=== PATIENT | male | born 1970 | race Two or more races ===

== ENCOUNTER 2019-08-11 14:52 | Inpatient (IN) | payer MEDICAID ==
[~2019-08-11] VITALS: Ht 162.6 cm; Wt 62.0 kg
[2019-08-11 16:23] LABS: Urine Bacteria NONE SEEN /hpf (None Seen); Urine Blood Negative /uL (Negative); Urine Specific Gravity 1.016 (1.001-1.035); Urine WBC 2 /hpf (0 - 3)
[2019-08-11 16:40] LABS: Potassium 3.6 mmol/L (3.5-5.1)
[2019-08-11 16:42] LABS: Nucleated Red Blood Cells % 0.3 %
[2019-08-11 17:10] LABS: Hemoglobin 18.8 g/dL (13.5-17.5)
[2019-08-11 17:11] LABS: Hematocrit 56.2 % (41.0-53.0); Mean Corpuscular Hemoglobin 29.5 pg (28.0-32.0); Mean Corpuscular Hgb Conc. 33.5 g/dL (32.0-36.0); Mean Corpuscular Volume 88.1 fL (80.0-100.0)
[2019-08-11 17:13] LABS: Neutrophils % (auto) 82.3 % (37.0-80.0); White Blood Cell 20.2 10^3/uL (4.4-10.8)
[2019-08-11 17:14] LABS: Basophils % (auto) 0.5 % (0.0-2.0); Eosinophils % (auto) 0.2 % (0.0-7.0); Lymphocytes # (auto) 2.8 uL; Lymphocytes % (auto) 13.7 % (10.0-50.0); Monocytes # (auto) 0.7 uL; Monocytes % (auto) 3.3 % (0.0-12.0); Neutrophils # (auto) 16.6 uL
[2019-08-11 17:15] LABS: Basophils # (auto) 0.1 uL; Eosinophils # (auto) 0 uL
[2019-08-11 17:17] LABS: Platelet Count (auto) 255 10^3/uL (140-450); Red Blood Cells 5.93 10^6/uL (4.5-5.90)
[2019-08-11 17:19] LABS: Red Cell Distribution Width 14.9 % (11.8-14.3)
[2019-08-11] MEDS ORDERED: SODIUM CHLORIDE 0.9% 1,000 ML IVB ONE (17:58)
[2019-08-11 18:05] LABS: BUN/Creatinine Ratio 9.2
[2019-08-11 18:06] LABS: Albumin 4.3 g/dL (3.4-5.0); Bilirubin, Total 0.7 mg/dL (0.2-1.0); Calcium 8.3 mg/dL (8.5-10.1); Total Protein 6.4 g/dL (6.4-8.2)
[2019-08-11 18:08] LABS: Aspartate Aminotransferase 87.6 U/L (15-37)
[2019-08-11] MEDS ORDERED: SODIUM CHLORIDE 0.9% 1,000 ML IV ONE ×2 (18:15→21:30)
[2019-08-11] MEDS ORDERED: ONDANSETRON HCL 4 MG/2 ML VIAL IV ONE (18:15)
[2019-08-11] MEDS ORDERED: MORPHINE SULF INJ 2 MG/ML SYRINGE 1ML IV ONE (18:15)
[2019-08-11 19:22] LABS: Alcohol, Urine < 3.0 mg/dL (0-5); Amphetamine Screen, Urine NEGATIVE (NEGATIVE); Barbiturate Scree,Urine NEGATIVE (NEGATIVE); Benzodiazephine Screen, Urine NEGATIVE (NEGATIVE); Cannabinoid Screen, Urine NEGATIVE (NEGATIVE); Cocaine Screen, Urine NEGATIVE (NEGATIVE); Opiate Scree,Urine NEGATIVE (NEGATIVE); Phencyclidine Screen, Urine NEGATIVE (NEGATIVE)
[2019-08-11 21:04] LABS: Magnesium 1.5 mg/dL (1.6-2.6)
[2019-08-11 21:13] LABS: Lipase 25910 U/L (73-393)
[2019-08-11 21:20] LABS: Amylase > 1302 U/L (25-115)
[2019-08-11] MEDS ORDERED: InsuLIN REG 1unit/0.01ml Soln (100units/ml) IV ONE (21:30)
[2019-08-11] MEDS ORDERED: InsuLIN REG 1unit/0.01ml Soln (100units/ml) ONE (21:31)
[2019-08-11] MEDS ORDERED: SODIUM CHLORIDE 0.9% 1,000 ML IV SCH (21:46)
[2019-08-11] MEDS ORDERED: DOCUSATE SOD 100 MG CAP PO PRN (22:00)
[2019-08-11] MEDS ORDERED: HYDROcodone-ACET 5/325MG TAB PO PRN (22:00)
[2019-08-11] MEDS ORDERED: DEXTROSE (50%) 50ML SYRG IV PRN (22:00)
[2019-08-11] MEDS: MORPHINE SULFATE 4 MG/ML SYR/VIAL IV PRN (22:05)
[2019-08-11] MEDS: ONDANSETRON HCL 4 MG/2 ML VIAL IV PRN (22:07)
[2019-08-11] MEDS ORDERED: PROMETHAZINE HCL 25 MG/ML 1ML IV PRN (23:45)
[2019-08-11] MEDS ORDERED: PROMETHAZINE HCL 25 MG/ML 1ML ONE (23:47)
[2019-08-12] VITALS (50 sets, daily range): BP systolic 63–125; BP diastolic 34–82
--- NOTE | 2019-08-12 00:15 | NUR ---
pt presented with labored respirations. respiratory rate was 34, and remained in the 30s on 15 liters mask. o2 sats were in low 90s on fifteen liters. pt presented with nausea and attempts of vomiting. RT was notified, and they came to evaluate. after evaluation, they recommended the pt to be upgraded to [facility] for high flow oxygen. Dr Paul was notified of pt findings. new orders received from Dr Paul. Patient was transferred to the [facility].
--- NOTE | 2019-08-12 00:17 | NUR ---
Admit to [facility] MILLER admitted to [facility] via bed on child monitor, and portable 02. Patient transferred to bed, connected to unit monitoring and oxygen, and weighed by bedscale. Patient oriented to Karen Louie, primary RN, unit, room, bed, and unit policies regarding patient care and visiting hours. All questions and concerns addressed, patient verbalized understanding. Pt put on hi-flow, showing rapid respirations and only periods of alertness.
[2019-08-12] MEDS ORDERED: MORPHINE SULF INJ 2 MG/ML SYRINGE 1ML IV ONE (00:30)
[2019-08-12] MEDS: MAGNESIUM SULFATE 1GM/100ML 100 ML IV SCH ×2 (00:58→02:23)
[2019-08-12] MEDS: ACCU-CHEK COMFORT CURVE STRIP VI SCH ×11 (01:27→22:30)
[2019-08-12] MEDS: InsuLIN REG 1unit/0.01ml Soln (100units/ml) SC SCH ×3 (01:29→08:23)
[2019-08-12] MEDS: ACETAMINOPHEN 325 MG TAB PO PRN (01:41)
[2019-08-12] MEDS ORDERED: VANCOMYCIN PER PHARMACY 0 MG IV SCH (02:30)
--- NOTE | 2019-08-12 02:48 | NUR ---
Noted WBC count, emar did not show antibiotics and no blood cultures. Pagerossy VIDALES, new orders given for Zosyn, Vanco per pharmacy and blood cultures. Pt has expressed pain and nausea with vomiting but has already received 2 doses of pain medication and medication for nausea. Cold cloth provided, will continue to monitor.
[2019-08-12] MEDS ORDERED: VANCOMYCIN 1GM/250ML 250 ML IV ONE (03:00)
[2019-08-12 03:17] LABS: Basophils # (auto) 0.1 uL; Eosinophils # (auto) 0 uL; Monocytes # (auto) 0.6 uL; Nucleated Red Blood Cells % 0.1 %
[2019-08-12 03:19] LABS: Basophils % (auto) 0.5 % (0.0-2.0); Eosinophils % (auto) 0.1 % (0.0-7.0); Lymphocytes # (auto) 1.2 uL; Lymphocytes % (auto) 9.8 % (10.0-50.0); Monocytes % (auto) 5.2 % (0.0-12.0); Neutrophils % (auto) 84.4 % (37.0-80.0); Platelet Count (auto) 234 10^3/uL (140-450); Red Cell Distribution Width 15.1 % (11.8-14.3); White Blood Cell 11.8 10^3/uL (4.4-10.8)
[2019-08-12 03:50] LABS: Hematocrit 48.3 % (41.0-53.0); Hemoglobin 16.2 g/dL (13.5-17.5); Mean Corpuscular Hemoglobin 29.8 pg (28.0-32.0); Mean Corpuscular Hgb Conc. 33.6 g/dL (32.0-36.0); Mean Corpuscular Volume 88.7 fL (80.0-100.0); Red Blood Cells 5.44 10^6/uL (4.5-5.90)
--- NOTE | 2019-08-12 03:59 | NUR ---
Glucose 479 on one hand and recheck on other hand glucose 445. paged, informed him at 0130 glucose was 388 and 20 units given per protocol. Now at 0400 glucose 455. Orders were to follow protocol ssc and have RT run ABG. Will continue to monitor.
--- NOTE | 2019-08-12 04:02 | NUR ---
Unable to start antibiotics at this time, lab stated the sample hemolyzed. MD notified. Waiting for redraw. Will continue to monitor.
--- NOTE | 2019-08-12 05:09 | NUR ---
Clarification that BMP had hemolyzed, not blood cultures. Jodyo started. Pt slightly more restful, will continue to monitor.
[2019-08-12] MEDS: ONDANSETRON HCL 4 MG/2 ML VIAL IV PRN (05:25)
[2019-08-12] MEDS: MORPHINE SULFATE 4 MG/ML SYR/VIAL IV PRN (05:25)
[2019-08-12] MEDS: PIPERACILLIN-TAZOB 3.375GM 100 ML IV SCH ×5 (06:16→22:01)
--- NOTE | 2019-08-12 07:00 | NUR ---
Pt now on bipap as of 06 this morning due to being unable to maintain adequate saturation with hi-flow. Vanco and Zosyn have infused and pt has tolerated both meds well with no reactions. Pt tolerating bipap well at this time. I was unable to get medication reconciled or family history. Will endorse to am shift. Report given, care endorsed.
[2019-08-12 07:17] LABS: BUN/Creatinine Ratio 10.6
[2019-08-12 07:18] LABS: Anion Gap 16.8 (5-15); Carbon Dioxide 19.2 mmol/L (21-32); Potassium 5.2 mmol/L (3.5-5.1)
--- NOTE | 2019-08-12 07:30 | NUR ---
RECEIVED PATIENT SITTING UP IN THE BED, O2 BY THE BIPAP AT 18/8 60% AND PATIENT IS BREATHING IN THE 40'S, ANTIBIOTICS INFUSING BY THE IV PUMP INTO THE LAC. DENIES PAIN, STATES HE IS ABLE TO USE THE URINAL BUT DOESN'T LIKE IT, ABD IS LARGE
[2019-08-12 07:45] LABS: Glucose 447.6 mg/dL (74-106)
--- NOTE | 2019-08-12 08:00 | NUR ---
NOTIFIED DR FALK IN THE ER REGARDING THE BS OF 483 AND STATED TO JUST GIVE THE 20 UNITS OF REGULAR INSULIN SQ
--- NOTE | 2019-08-12 08:10 | NUR ---
ABG RESULTS WERE DONE AND NOT THAT BAD, SEE IN THE CHART
--- NOTE | 2019-08-12 08:30 | NUR ---
EXPRESS TO THE PATIENT THAT HE IS STILL UNABLE TO EAT, STATES, BREATHING IS IN THE 40'S AND ON THE BIPAP, SPOKE WITH RT AND STATED THEY BELIEVE THAT HE NEEDS TO BE INTUBATED, EXPRESS TO THEM THAT I WILL TALK TO DR GARCIA SOON HE GETS HERE
--- NOTE | 2019-08-12 09:15 | NUR ---
SON AND BROTHER IN TO SEE THE PATIENT AND SPOKE TO THEM ABOUT THE PATIENT, MAY NEED INTUBATION WAITING FOR THE DOCTOR TO COME AND SEE HIM
--- NOTE | 2019-08-12 09:20 | NUR ---
SPOKE TO DR GARCIA ABOUT THE PATENT MAY NEED INTUBATED AND STATED HE WOULD BE IN TO TO ASSESS HIM
[2019-08-12] MEDS ORDERED: InsuLIN R (HUMAN) 100 UNITS in SODIUM CHL 0.9% 99 ML IV SCH (10:05)
[2019-08-12] MEDS: PROPOFOL 100 ML IV SCH ×2 (10:05→14:45)
[2019-08-12] MEDS: fentaNYL Drip 2500mCg/250mlNS 250 ML IV SCH (10:05)
[2019-08-12] MEDS ORDERED: ETOMIDATE (2MG/ML) 20ML VIAL IV ONE (10:13)
[2019-08-12] MEDS ORDERED: PROPOFOL 100 ML IV ONE (10:13)
[2019-08-12] MEDS ORDERED: MIDAZOLAM DRIP 50 mg/50mL 50 ML IV ONE (10:15)
[2019-08-12] MEDS ORDERED: DEXTROSE (50%) 50ML SYRG IV PRN (10:15)
[2019-08-12] MEDS ORDERED: PANTOPRAZOLE 40 MG/10 ML VIAL INJ IV ONE (10:15)
[2019-08-12] MEDS ORDERED: SUCCINYLCHOLINE CHLORIDE 20 MG/ML 10ML VIAL IV ONE (10:30)
--- NOTE | 2019-08-12 10:35 | NUR ---
PATIENT INTUBATED BY DR GARCIA ET SIZE 8 AND 24 AT THE LIP
--- NOTE | 2019-08-12 10:40 | NUR ---
VENT SETTINGS PEEP8, TV550,RATE 12 FIO2 100%
--- NOTE | 2019-08-12 10:40 | NUR ---
VERSED DRIP AND DIPRIVAN DRIP BOTH STARTED TO SEDATE THE PATIENT MORE
--- NOTE | 2019-08-12 10:40 | NUR ---
CHEST X-RAY DONE AND ET PULLED BACK TO 22 AT THE LIP
--- NOTE | 2019-08-12 11:30 | NUR ---
DR ANDRES IN TO SEE THE PATIENT, AND ORDERED NEW IV FLUIDS
--- NOTE | 2019-08-12 11:35 | NUR ---
NOTICED BY RENAISSANCE IMAGING THE THE ET WAS MISPLACED AND EXPRESS TO THEM THAT WE HAD ALREADY FIXED IT
--- NOTE | 2019-08-12 11:40 | NUR ---
INSERTED SIZE 16F RUIZ CATHETER USING STERILE TECHNIQUE, VERY LITTLE URINE RETURN,
[2019-08-12] MEDS ORDERED: SODIUM BICARBONATE 50ML VIAL 50 ML in SOD CHL 0.45% 1,000 ML IV ONE (11:45)
--- NOTE | 2019-08-12 12:15 | NUR ---
TALK TO THE SISTER MACI AND GAVE CONSENT FOR THE PICC LINE TO BE PLACE
--- NOTE | 2019-08-12 12:20 | NUR ---
ULTRASOUND OF THE ABD BEING DONE
[2019-08-12] MEDS ORDERED: InsuLIN REG 1unit/0.01ml Soln (100units/ml) SC ONE (12:30)
[2019-08-12] MEDS ORDERED: NOREPINEPHRINE 8 MG/250ML KIT 250 ML IV ONE (12:32)
--- NOTE | 2019-08-12 12:35 | NUR ---
DR ESPINOZA IN TO SEE THE PATIENT AND ORDERED A LIPID PANEL
--- NOTE | 2019-08-12 12:40 | NUR ---
LEVO DRIPP STARTED AFTER 1000ML BOLUS GIVEN B/P 67/28 HR 121
[2019-08-12] MEDS ORDERED: NOREPINEPHRINE 8 MG/250ML KIT 250 ML IV SCH (12:45)
--- NOTE | 2019-08-12 12:45 | NUR ---
REPORT Received report from [facility] nurse ANKUR, awaiting for patient to arrive into room 109 to continue plan of care.
--- NOTE | 2019-08-12 13:01 | NUR ---
REPORT CALLED TO PRASHANT ALEXANDRA BEING TRANSFERRED TO ROOM 109 BY THE BED
--- NOTE | 2019-08-12 13:10 | NUR ---
PATIENT TAKEN TO ICU BY THE BED WITH ALL BELONGING
--- NOTE | 2019-08-12 13:10 | NUR ---
RT Transport Note: Patient transported to ICU 109 with RN [place]. Patient transported to and from procedure on ventilator with previous ordered settings. Patient on quality assurance monitor final with alarms set and audible, ambu-bag/mask connected to 02 tank. Patient returned to room with no adverse reaction noted. Transport completed without incident.
--- NOTE | 2019-08-12 13:25 | NUR ---
RECEIVED PATIENT Received patient on mechanical ventilator into room 109, sedated on Versed at 15mg, Fentanyl at 75mcg and Diprivan at 10mcg. Patient does not open eyes to tactile/verbal stimuli, pupils reactive to light, positive gag reflex and does move upper extremities. Sinus tachycardia in the mid 130's, pulses palpable on upper/lower extremities with generalized edema throughout. OG tube checked and verified via air bolus: clamped. Abdomen firm, non tender and distended with bowel sounds present in all quadrants and unknown bowel movement. Casiano catheter draining to gravity clear yellow urine. IV to the right AC 20g and Left hand 22g. Temperature upon arrival 100.0: cooling measures applied (ice packs and cool wash cloth to forehead). Skin intact. Call light within reach and bed at lowest position. Will continue to monitor patient closely.
--- NOTE | 2019-08-12 13:50 | NUR ---
PICC LINE CONSULT Currently awaiting coagulation results for PICC line insertion. Called laboratory for update on results, they stated that pt has severe lipemia, therefore they cannot process results for PT, INR, PTT. The grinding and polishing laborer stated they are sending the blood sample out to [facility] in order to process the blood. For now, will insert a midline for additional IV access. Edilma Jackson RN, aware of plan.
[2019-08-12 13:52] LABS: HDL Cholesterol 22 mg/dL (40-59)
--- NOTE | 2019-08-12 14:00 | NUR ---
INSULIN GTT Insulin GTT started at 4units=4ml/hr for a blood glucose of 396. Will continue to monitor blood glucose Q 90 minutes.
[2019-08-12 14:01] LABS: Triglycerides 3443 mg/dL (< 150)
--- NOTE | 2019-08-12 14:35 | NUR ---
Midline Placement: 18g/10cm midline inserted via right basilic vein using Ultrasound. Sterile technique utilized. Blood return obtained from lumen and flushed easily with NS using proper technique. Midline secured with saline lock; biodisc and occlusive dressing applied. Primary RN notified. Midline lot #[id number]
--- NOTE | 2019-08-12 14:40 | NUR ---
RECHECKED TEMPERATURE Rechecked temperature: 102.9: Cooling measures continued and fan added and provided patient with Tylenol.
--- NOTE | 2019-08-12 15:30 | NUR ---
WOUND CARE NOTE: PATIENT INTUBATED IN ICU. ADDED PATIENT TO SKIN INTEGRITY MONITORING. PATIENT ADMITTED TO [facility] WITH DIAGNOSIS OF ACUTE PANCREATITIS, DM, HEPATIC STEATOSIS. PATIENT WOULD BENEFIT FROM SKIN/WOUND CARE PLAN (IMPLEMENTED), BID/PRN APPLICATION WITH MOISTURE BARRIER CREAM, OPTIFOAM GENTLE SACRAL DRESSING, DIETARY CONSULT FOR LOW MK, CONTINUED MONITORING BY WOUND CARE TEAM.
--- NOTE | 2019-08-12 15:30 | NUR ---
INSULIN GTT Insulin GTT at current rate of 4units=4ml/hr for a blood glucose 303
--- NOTE | 2019-08-12 15:45 | NUR ---
LEVOPHED GTT Levophed GTT increased to 18mcg for a blood pressure of 79/46, will continue to titrate as tolerated by patient.
--- NOTE | 2019-08-12 15:50 | NUR ---
RECHECKED TEMPERATURE Rechecked temperature and reads 102.9 orally. Rectal probe will be inserted once this RN finds connection.
--- NOTE | 2019-08-12 16:20 | NUR ---
TEMPERATURE Rectal probe in place and temperature reading 105.6: continue measures continue with cooling blankets X2. Will continue to monitor patients temperature.
--- NOTE | 2019-08-12 16:30 | NUR ---
INSULIN GTT Insulin GTT decreased to 3 units= 3ml/hr for a blood glucose of 269.
--- NOTE | 2019-08-12 16:30 | NUR ---
LEVOPHED GTT Levophed GTT increased to 20mcg for a blood pressure of 86/46, will continue to titrate as tolerated by patient.
[2019-08-12 16:34] LABS: INR 1.07 (0.9-1.15)
--- NOTE | 2019-08-12 17:00 | NUR ---
LEVOPHED GTT Levophed GTT increased to 22mcg for a blood pressure of 79/51, will continue to titrate as tolerated by patient.
--- NOTE | 2019-08-12 18:15 | NUR ---
INSULIN GTT Insulin GTT decreased to 2 units= 2 ml/hr for a blood glucose of 209
--- NOTE | 2019-08-12 19:20 | NUR ---
CRITICAL LAB Received phone call from [employer] stating "blood as been hemolized again but she treated the blood with liteoclear to see if she can get a result on her machine and the potassium came back as 9." Informed precision agriculture technician this RN would call the hospitalist and inform him of what is going on.
--- NOTE | 2019-08-12 19:22 | NUR ---
HOSPITALIST Called and spoke to Rickey NOLEN and states " will come and see patient."
--- NOTE | 2019-08-12 19:30 | NUR ---
KVNG SKIVER WELT END AT BEDSIDE ATTEMPTING PLACEMENT OF CENTRAL LINE. LINES APPEARS TO CLOT OFF EASILY SOON AT ITS PUT IN. SBP 90'S AT THIS TIME. LEVOPHED MAXED OUT AT 30 MCG/MIN. PT. INTUBATED AND AC, SATS 94%, LUNGS DIMINISHED THROUGHOUT. ABDOMEN LARGE, HYPOACTIVE BOWEL SOUNDS. NO BOWEL MOVEMENT AT THIS TIME. RUIZ CATH - NO URINE. SKIN INTACT. IV SITE TO RAC, RIGHT UPPER MIDLINE, RIGHT HAND #20. INSULIN DRIP IN PROGRESS.
--- NOTE | 2019-08-12 19:30 | NUR ---
HOSPITALIST Rickey VEHICLE MONITOR TECHNICIAN at bedside and state " will place a central line in patient and that the potassium level is incorrect form what he can see from the ECG." spoke to patients brother Jose and consent obtained for central line.
[2019-08-12] MEDS ORDERED: VASOPRESSIN 20 UNIT/ML ONE (19:48)
[2019-08-12] MEDS: VASOPRESSIN 50 UNITS in D5W 5% 247.5 ML IV SCH (20:00)
--- NOTE | 2019-08-12 20:30 | NUR ---
PT'S GIRLFRIEND OF 20 YEARS AND YOUNGER SON VISITING AT BEDSIDE. QUESTIONS AND CONCERNS ADDRESSED.
--- NOTE | 2019-08-12 20:30 | NUR ---
TRIPPLE LUMEN CENTRAL LINE PLACED TO LEFT FEMORAL AREA, WILL TRANSFER ALL DRIPS POSIBLE TO THIS SITE. PT. CLEANED, ORAL CARE DONE.
[2019-08-12] MEDS ORDERED: SODIUM CHLORIDE 0.9% 1,000 ML IV ONE (20:45)
[2019-08-12 21:23] LABS: Basophils # (auto) 0.1 uL; Basophils % (auto) 0.7 % (0.0-2.0); Eosinophils # (auto) 0.1 uL; Eosinophils % (auto) 0.5 % (0.0-7.0); Hematocrit 46.9 % (41.0-53.0); Hemoglobin 16.3 g/dL (13.5-17.5); Lymphocytes # (auto) 3.1 uL; Lymphocytes % (auto) 24.7 % (10.0-50.0); Mean Corpuscular Hgb Conc. 34.7 g/dL (32.0-36.0); Mean Corpuscular Volume 89.5 fL (80.0-100.0); Monocytes # (auto) 0.7 uL; Monocytes % (auto) 5.9 % (0.0-12.0); Neutrophils # (auto) 8.7 uL; Neutrophils % (auto) 68.2 % (37.0-80.0); Nucleated Red Blood Cells % 0.3 %; Platelet Count (auto) 203 10^3/uL (140-450); Red Blood Cells 5.24 10^6/uL (4.5-5.90); Red Cell Distribution Width 15.6 % (11.8-14.3); White Blood Cell 12.7 10^3/uL (4.4-10.8)
--- NOTE | 2019-08-12 21:30 | NUR ---
PT'S BROTHER AT BEDSIDE. ALL FAMILY MEMBERS DENY ANY ETOH INTAKE FROM PT. ALL QUESTIONS AND CONCERNS ADDRESSED.
[2019-08-12] MEDS: SODIUM CHLORIDE 0.9% 1,000 ML IV SCH (21:50)
[2019-08-12] MEDS: PHENYLEPHRINE INJ 20 MG in D5W 5% 250 ML IV SCH (22:00)
[2019-08-12] MEDS: MIDAZOLAM DRIP 50 mg/50mL 50 ML IV SCH (22:00)
[2019-08-12] MEDS ORDERED: PHENYLEPHRINE IV 250 ML IV ONE (22:39)
[2019-08-13] VITALS (89 sets, daily range): BP systolic 66–163; BP diastolic 11–108
--- NOTE | 2019-08-13 | NUR ---
CALL RECEIVED FROM DR. BECERRA REGARDING PT. LABS RESULTS, INFORMED THAT EVERY CHEMISTRY TOP SENT TO LAB HAS BEEN GROSSLY HEMOLYZED AND THAT RESULTS HAVE BEEN OUT OF RANGE. NEW SAMPLE WILL BE SEND. PT. AT THIS TIME CONTINUES ON VERSED AND FENTANYL, PROPOFOL OFF. SBP LABILE 70-140'S. TEMPERATURES DOWN, SKIN COOL WITH DISCOLORED TIPS OF FINGERS AND TOES. BOTH DR. BECERRIL AND MINH ROBERTS DR. AWARE.
[2019-08-13] MEDS ORDERED: FUROSEMIDE INJECTION 10 ML ONE (00:07)
[2019-08-13] MEDS ORDERED: NOREPINEPHRINE BITARTRATE 1 ML IV ONE (00:14)
[2019-08-13] MEDS ORDERED: FUROSEMIDE 100 MG/10ML VIAL IV ONE (00:15)
[2019-08-13] MEDS ORDERED: DOPamine 1600MCG/ML D5W 0 ML IV ONE (00:58)
--- NOTE | 2019-08-13 01:00 | NUR ---
CALL RECEIVED FROM DR. BECERRA REGARDING BLOOD WORK RESULTS, INFORMED ABOUT HEMOLYZED SAMPLE. ORDERS RECEIVED.
[2019-08-13] MEDS ORDERED: NOREPINEPHRINE BITARTRATE 16 MG in D5W 5% 250 ML IV SCH (01:11)
[2019-08-13] MEDS ORDERED: VANCOMYCIN 1GM/250ML 250 ML IV ONE ×2 (01:15→02:00)
[2019-08-13] MEDS ORDERED: SODIUM ZIRCONIUM CYCL 10 GM PAK PO ONE ×3 (01:15→06:45)
[2019-08-13] MEDS: DOPamine 1600MCG/ML D5W 250 ML IV SCH ×3 (01:15→21:35)
[2019-08-13] MEDS ORDERED: LACTULOSE 20Gm/30ML SOLN PO ONE ×2 (01:15)
[2019-08-13 01:22] LABS: Anion Gap 12 (5-15); Carbon Dioxide 16 mmol/L (21-32); Chloride 100 mmol/L (98-107); GFR African American 15 mL/min; GFR Non-African American 12 mL/min; Glucose 316 mg/dL (74-106); Sodium 128 mmol/L (136-145)
[2019-08-13] MEDS: ACCU-CHEK COMFORT CURVE STRIP VI SCH ×17 (01:30→22:31)
--- NOTE | 2019-08-13 02:00 | NUR ---
DR. FALK HERE TO SEE ABOUT PUTTING ARTERIAL LINE DUE TO LABILE PRESSURES. ATTEMPTED TO OBTAIN MANUAL PRESSURES BUT UNABLE. DR. FALK ATTEMPTED PLACEMENT X2 WITH LINES IMMEDIATELY CLOTTING OFF. LEVOPHED, BRENTON AND VASOPRESSIN CONTINUE AT ITS MAX. SBP 90-120'S AT THIS TIME.
[2019-08-13] MEDS ORDERED: PHENYLEPHRINE IV 500 ML IV ONE (02:05)
[2019-08-13] MEDS: PHENYLEPHRINE INJ 20 MG in D5W 5% 250 ML IV SCH ×2 (02:17→09:30)
[2019-08-13 02:28] LABS: BUN/Creatinine Ratio 7.9; Blood Urea Nitrogen 43 mg/dL (7-18)
[2019-08-13 02:30] LABS: Calcium < 5.0 mg/dL (8.5-10.1); Potassium 9.6 mmol/L (3.5-5.1)
--- NOTE | 2019-08-13 02:30 | NUR ---
ABG'S- BICAR 9.4, SODIUM BICARB PROVIDED X2 PER DR[address] FALK. PT. ON BRENTON AND VASOPRESSIN AT THIS TIME. 1/2 NS WITH 1 AMP OF BICARB CONTINUES.
[2019-08-13] MEDS ORDERED: SODIUM BICARBONATE 8.4% INJ 50ML SYRINGE ONE ×2 (02:35→04:32)
[2019-08-13] MEDS ORDERED: SODIUM BICARBONATE 8.4 % INJ 50ML VIAL IV ONE ×5 (02:45→11:30)
[2019-08-13 03:29] LABS: Basophils # (auto) 0.1 uL; Basophils % (auto) 0.8 % (0.0-2.0); Eosinophils # (auto) 0 uL; Eosinophils % (auto) 0.1 % (0.0-7.0); Hematocrit 43.5 % (41.0-53.0); Hemoglobin 14.1 g/dL (13.5-17.5); Lymphocytes # (auto) 5.5 uL; Lymphocytes % (auto) 32.8 % (10.0-50.0); Mean Corpuscular Hemoglobin 30.3 pg (28.0-32.0); Mean Corpuscular Hgb Conc. 32.3 g/dL (32.0-36.0); Mean Corpuscular Volume 93.7 fL (80.0-100.0); Monocytes # (auto) 0.8 uL; Monocytes % (auto) 4.5 % (0.0-12.0); Neutrophils # (auto) 10.3 uL; Neutrophils % (auto) 61.8 % (37.0-80.0); Platelet Count (auto) 199 10^3/uL (140-450); Red Blood Cells 4.64 10^6/uL (4.5-5.90); Red Cell Distribution Width 17.3 % (11.8-14.3); White Blood Cell 16.8 10^3/uL (4.4-10.8)
[2019-08-13] MEDS: SODIUM CHLORIDE 0.9% 1,000 ML IV SCH ×3 (03:39→12:05)
[2019-08-13 03:45] LABS: Anion Gap 18 (5-15); Carbon Dioxide 14 mmol/L (21-32); Chloride 96 mmol/L (98-107); GFR African American 14 mL/min; GFR Non-African American 11 mL/min; Sodium 128 mmol/L (136-145)
[2019-08-13 03:52] LABS: Alkaline Phosphatase 72 U/L (45-117); Bilirubin, Total 0.9 mg/dL (0.2-1.0); Lipase 5437 U/L (73-393)
[2019-08-13 04:00] LABS: Glucose 465 mg/dL (74-106); Potassium 8.5 mmol/L (3.5-5.1)
[2019-08-13] MEDS ORDERED: CALCIUM GLUC 4.65meq/50ml D5AE 50 ML IV ONE ×5 (04:00→16:45)
[2019-08-13] MEDS ORDERED: SODIUM BICARBONATE 50ML VIAL 50 ML in SOD CHL 0.45% 1,000 ML IV SCH ×2 (04:30→04:45)
[2019-08-13 04:33] LABS: Alanine Aminotransferase 77 U/L (16-61); Aspartate Aminotransferase 174 U/L (15-37); BUN/Creatinine Ratio 7.3; Blood Urea Nitrogen 42 mg/dL (7-18)
[2019-08-13 04:34] LABS: Albumin 1.7 g/dL (3.4-5.0); Total Protein 5.8 g/dL (6.4-8.2)
[2019-08-13 04:36] LABS: Calcium < 5.0 mg/dL (8.5-10.1)
[2019-08-13] MEDS ORDERED: NOREPINEPHRINE 8 MG/250ML KIT 250 ML IV ONE (05:03)
[2019-08-13] MEDS ORDERED: NOREPINEPHRINE BITARTRATE 2 ML IV ONE (05:03)
[2019-08-13] MEDS: PIPERACILLIN-TAZOB 3.375GM 100 ML IV SCH (06:00)
--- NOTE | 2019-08-13 06:34 | NUR ---
CALL RECEIVED FROM DR. BECERRA REGARDING HD CATH PLACEMENT PER Erich OSORIO PHYSICIAN. STATES SHE WILL CALL FAMILY TO INFORM ABOUT DIALYSIS. FAMILY TO CALL THIS RN TO GIVE CONSENT.
[2019-08-13] MEDS ORDERED: ALBUTEROL SULF 2.5 MG/0.5ML(0.5%) NEB SOLN NEB ONE (06:45)
[2019-08-13] MEDS ORDERED: SODIUM CHL 0.9% 1000 ML BAG XX ONE (06:45)
[2019-08-13] MEDS ORDERED: SODIUM BICARBONATE 8.4% INJ 50ML SYRINGE IV ONE (06:45)
--- NOTE | 2019-08-13 06:59 | NUR ---
CALL RECEIVED FROM DR. FALK, UPDATED ON ABG'S FOR THIS A.M. ORDERS RECEIVED. ATTEMPTED TO CALL FAMILY FOR HD CATH CONSENT, NO ANSWER, MESSAGE LEFT
--- NOTE | 2019-08-13 07:30 | NUR ---
REPORT TO PRASHANT BLUNT. ENDORSED SODIUM BICARB ORDER, FOLLOW ON HD CATH.
--- NOTE | 2019-08-13 08:25 | NUR ---
Called ER and spoke to ER senior environmental technician to inform Dr. Bush that this RN is ready for him to come down to place Harrison catheter. Awaiting for MD to arrive into room 109.
--- NOTE | 2019-08-13 08:34 | NUR ---
OPENING NOTE Received patient on mechanical ventilator, sedated on Versed at 15mg, Fentanyl at 100mcg. Patient does not open eyes to tactile/verbal stimuli, pupils reactive to light BUT sluggish, positive gag reflex and does not move upper/lower extremities. Sinus tachycardia in the mid 120's, pulses palpable on upper/lower extremities with generalized edema throughout. OG tube checked and verified via air bolus: clamped. Abdomen firm, non tender and distended with bowel sounds non-present in all quadrants and unknown bowel movement. Casiano catheter in place with no urine output (MD aware). IV left hand 22g, right upper arm midline and central line to the left groin infusing Neosynephrine at 180mcg, Levophed at 30mcg and Vasopressin at 0.07units. Temperature 100.4 after inserting probe into bedside monitor (NOC nurse states lost temperature around 0400): cooling measures applied (ice packs and cool wash cloth to forehead,fan). Skin intact. Call light within reach and bed at lowest position. Will continue to monitor patient closely. Addendum: 08/13/19 at 0839 by PRASHANT KEITH RN OPENING NOTE at 0800
[2019-08-13 08:48] LABS: GFR African American 12 mL/min; GFR Non-African American 10 mL/min
--- NOTE | 2019-08-13 08:48 | NUR ---
MD Dr. Diaz called and aware of consult and AM ABG and received new orders, this RN to input into system. Will carry out orders per MD orders.
--- NOTE | 2019-08-13 09:00 | NUR ---
INSULIN GTT Blood glucose 369 INSULIN GTT 10units = 10ml: Algorithm #2
[2019-08-13] MEDS ORDERED: InsuLIN R (HUMAN) 100 UNITS in SODIUM CHL 0.9% 99 ML IV SCH ×3 (09:09→15:13)
[2019-08-13] MEDS ORDERED: EPINEPHrine HCL 250 ML IV SCH (09:13)
[2019-08-13] MEDS ORDERED: DEXTROSE (50%) 50ML SYRG IV PRN (09:15)
[2019-08-13] MEDS: ACETAMINOPHEN 325 MG TAB PO PRN (09:17)
[2019-08-13] MEDS: BUMETANIDE 2.5mg/10ml (0.25 mg/ml) INJ IV SCH ×2 (09:19→09:56)
[2019-08-13] MEDS: MIDAZOLAM DRIP 50 mg/50mL 50 ML IV SCH ×2 (09:26→18:03)
[2019-08-13] MEDS: VASOPRESSIN 50 UNITS in D5W 5% 247.5 ML IV SCH ×2 (09:30→21:33)
[2019-08-13 09:37] LABS: Anion Gap 23 (5-15); Blood Urea Nitrogen 47 mg/dL (7-18); Carbon Dioxide 16 mmol/L (21-32); Chloride 98 mmol/L (98-107); Glucose 379 mg/dL (74-106); Sodium 137 mmol/L (136-145)
[2019-08-13 09:38] LABS: BUN/Creatinine Ratio 7.1
[2019-08-13 09:40] LABS: Calcium < 5.0 mg/dL (8.5-10.1); Potassium 7.4 mmol/L (3.5-5.1)
[2019-08-13] MEDS ORDERED: CALCIUM CHL 100MG/ML 1,000 MG in D5W 5% 100 ML IV ONE (09:45)
--- NOTE | 2019-08-13 09:50 | NUR ---
ER MD Called and spoke to ER oil processing technician to inform Dr. Bush that this RN is ready for Harrison placement, awaiting for MD to arrive.
[2019-08-13] MEDS: PANTOPRAZOLE 40 MG/10 ML VIAL INJ IV SCH (09:56)
--- NOTE | 2019-08-13 10:00 | NUR ---
MD Dr. Moura at bedside updated on patient condition and MD spoke to patients sister/brother, whom are at bedside, regarding plan of care. Questions and concerns answered by .
[2019-08-13] MEDS: SODIUM BICARBONATE 50ML VIAL 150 ML in SOD CHL 0.45% 1,000 ML IV SCH ×2 (10:30→22:31)
--- NOTE | 2019-08-13 10:52 | NUR ---
INSULIN GTT Blood glucose 351 insulin GTT at 8ml/hr= 8 units per protocol.
--- NOTE | 2019-08-13 11:25 | NUR ---
MD Dr. Diaz called and aware of AM ABG with new orders, this RN to input into system.
[2019-08-13] MEDS: BUMETANIDE INJECTION 25 MG in GIVE UN-DILUTED 0 ML IV SCH (11:33)
--- NOTE | 2019-08-13 11:40 | NUR ---
MD Called and spoke to Dr. Moura regarding Potassium level of 5.4 with no new orders. aware that Dr. Bush has not been here to place dialysis catheter.
[2019-08-13] MEDS: PHENYLEPHRINE INJ 80 MG in SODIUM CHL 0.9% 250 ML IV SCH ×2 (12:00→19:59)
--- NOTE | 2019-08-13 12:00 | NUR ---
INSULIN GTT Blood glucose 363 insulin GTT at 16units=16ml/hr per protocol.
--- NOTE | 2019-08-13 12:02 | NUR ---
NUTRITION CONSULT/ASSESSMENT NOTES Please refer to link notes of nutrition screen form filed under the intervention section of the plan of care for further details. Est. Needs based on AdBW( 76 kg): 1500 kcal to 1900 kcal (20-25 kcal/kgAdBW), 61 gms to 76 gms pro (0.8-1.0 gms/kgAdBW). Will continue to monitor pertinent labs and reassess nutrient need prn Thank you for this consult. Addendum: 08/13/19 at [address] Amended: Links added.
[2019-08-13] MEDS: LACTULOSE 20Gm/30ML SOLN PO SCH ×7 (12:05→22:31)
--- NOTE | 2019-08-13 12:35 | NUR ---
MD Dr. Roberts at bedside updated on patient condition and at bedside to place Harrison catheter placement. Patient tolerated well.
--- NOTE | 2019-08-13 12:58 | NUR ---
MD Dr. Roberts states " okay to use Harrison catheter" after seeing chest x-ray.
[2019-08-13] MEDS ORDERED: INSULIN LANTUS (GLARGINE) 1 /0.01ml (100units/ml) SC ONE (13:00)
--- NOTE | 2019-08-13 13:00 | NUR ---
DIALYSIS Dialysis nurse Eli called and would like this RN to call once patient has dialysis catheter in place.
--- NOTE | 2019-08-13 13:30 | NUR ---
INSULIN GTT Blood glucose 366, insulin GTT at 16units =16ml/hr per protocol.
--- NOTE | 2019-08-13 13:35 | NUR ---
MD Dr. Diaz called and spoke to him regarding ABG with new orders, this RN to input into system. RT paged to notify of new orders.
--- NOTE | 2019-08-13 13:40 | NUR ---
RESPIRATORY RT Karen aware of ventilator settings.
--- NOTE | 2019-08-13 13:45 | NUR ---
ELIMINATION Patient had large brown loose bowel movement. Complete linen change done.
[2019-08-13] MEDS: fentaNYL Drip 2500mCg/250mlNS 250 ML IV SCH (14:09)
--- NOTE | 2019-08-13 14:20 | NUR ---
RESPIRATORY RT Karen at bedside and made ventilator changes per MD orders.
[2019-08-13 14:46] LABS: Anion Gap 20 (5-15); Blood Urea Nitrogen 40 mg/dL (7-18); Carbon Dioxide 18 mmol/L (21-32); Chloride 88 mmol/L (98-107); Potassium 3.7 mmol/L (3.5-5.1); Sodium 126 mmol/L (136-145)
[2019-08-13] MEDS: MEROPENEM 500MG IVPB 50 ML IV SCH (15:00)
--- NOTE | 2019-08-13 15:00 | NUR ---
INSULIN GTT Blood glucose 368 insulin GTT 16 units=16 ml/hr per protocol.
[2019-08-13] MEDS: EPINEPHrine HCL INJECTION 8 MG in D5W 5% 250 ML IV SCH (15:10)
--- NOTE | 2019-08-13 16:10 | NUR ---
Paged Dr. Moura regarding DISCONTINUING IV fluids, awaiting for call back from .
--- NOTE | 2019-08-13 16:25 | NUR ---
MD Dr. Diaz at bedside updated on patient condition and aware of last ABG results with no new orders.
--- NOTE | 2019-08-13 16:30 | NUR ---
INSULIN GTT Blood glucose 340 insulin GTT at 16 units=16ml/hr per protocol.
[2019-08-13 16:40] LABS: BUN/Creatinine Ratio 6.3; GFR African American 12 mL/min; GFR Non-African American 10 mL/min
--- NOTE | 2019-08-13 16:40 | NUR ---
CRITICAL LAB Received critical lab with glucose of 586 and calcium less than 5.0; called and spoke to Dr. Moura with no new orders for glucose and will put new orders for calcium.
--- NOTE | 2019-08-13 16:40 | NUR ---
INSULIN GTT Blood glucose 340 insulin GTT at 16units=16ml/hr per protocol.
[2019-08-13 16:41] LABS: Calcium < 5.0 mg/dL (8.5-10.1); Glucose 586 mg/dL (74-106)
--- NOTE | 2019-08-13 16:45 | NUR ---
DIALYSIS Hemodialysis has started.
--- NOTE | 2019-08-13 18:00 | NUR ---
INSULIN GTT Blood glucose 297 insulin GTT 10units=10ml/hr per protocol.
[2019-08-13] MEDS: NOREPINEPHRINE BITARTRATE 32 MG in D5W 5% 218 ML IV SCH (18:07)
[2019-08-13] MEDS ORDERED: ALBUMIN 25% 100 ML IV ONE (18:15)
--- NOTE | 2019-08-13 18:15 | NUR ---
ALBUMIN Albumin given to dialysis nurse to administer for blood pressure support.
[2019-08-13 19:16] LABS: Lactic Acid w/Reflex 4.9 mmol/L (0.4-2.0)
--- NOTE | 2019-08-13 19:30 | NUR ---
Opening Shift Note: Intubated/sedated: Vasopressin @ 0.07 units/min; currently receiving calcium gluconate (bag 3 of 3); Rudy (quad conc.) @ 180 mcg/min; Fentanyl @ 100 mcg/hr; Levophed @ 30 mcg/min; Bumex @ 1 mg/hr; Epinephrine (double conc.) @ 10 mcg/min; Insulin drip @ 6 units/hr; Sodium Bicarb in 1/2 NS @ 100 ml/hr; Versed @ 10 mg/hr. Pupils sluggish; 1/2 mm in size with hypoactive gag. ETT 8.0; 22 lip with minimal light brown secretions; Vent settings: PCV; pressure 24, RR 20, FiO2 100%, PEEP 12. Oxygen saturations still remain in 80s and HR is in 120s sustained. OG tube clamped. Casiano inserted on 08/12/19 for strict measurement of output; currently oliguria with light roxana/sediment; dialysis currently being performed through right Harrison catheter. Skin intact, no open wounds. IV's left femoral triple lumen; RUE midline; left hand 22 g IID. Will continue to turn patient Q2H/prn and perform oral care Q2H/prn.
--- NOTE | 2019-08-13 21:00 | NUR ---
SEDATION VACATION HELD PATIENT IS UNRESPONSIVE AND HE IS IN CRITICAL CONDITION.PATIENT'S SATURATION IN 80'S , FOR BP SUPPORT, PATIENT IS ON 3 MEDS. SEDATION VACATION IS NOT DONE TO CHECK NEURO STATUS.
[2019-08-13] MEDS ORDERED: MEROPENEM 1GM IVPB 100 ML IV SCH (22:00)
[2019-08-14] VITALS (102 sets, daily range): BP systolic 83–168; BP diastolic 38–85
--- NOTE | 2019-08-14 00:40 | NUR ---
Respiratory note: INCREASED THE RESPIRATORY RATE TO 24 AND THE PIP TO [address] ROCHA POST ABG RESULTS[address] WILL OBTAIN ANOTHER ABG IN ONE HOUR.
[2019-08-14] MEDS ORDERED: SODIUM BICARBONATE 8.4 % INJ 50ML VIAL IV ONE (00:45)
--- NOTE | 2019-08-14 00:45 | NUR ---
REPOSITIONING 00:15 PATIENT IS REPOSITIONED TO RT.SIDE WITH 30 DEGREE HEAD ELEVATION THEN PT'S SATURATION DROPPED TO LOW 70'S. PLACED PATIENT ON SUPINE WITH 30 DEGREE HEAD ELEVATION AT 0045. WILL MONITOR CLOSELY.
[2019-08-14] MEDS: SODIUM BICARBONATE 8.4 % INJ 50ML VIAL IV ONE ×2 (01:04→03:40)
[2019-08-14] MEDS: LACTULOSE 20Gm/30ML SOLN PO SCH ×11 (01:05→22:00)
[2019-08-14] MEDS: MEROPENEM 500MG IVPB 50 ML IV SCH ×2 (01:11→14:45)
[2019-08-14] MEDS: ACCU-CHEK COMFORT CURVE STRIP VI SCH ×16 (01:15→23:00)
[2019-08-14 04:33] LABS: Basophils # (auto) 0 uL; Basophils % (auto) 0.4 % (0.0-2.0); Eosinophils # (auto) 0.2 uL; Eosinophils % (auto) 1.6 % (0.0-7.0); Hematocrit 39.4 % (41.0-53.0); Hemoglobin 13.2 g/dL (13.5-17.5); Lymphocytes # (auto) 1.6 uL; Lymphocytes % (auto) 15.2 % (10.0-50.0); Mean Corpuscular Hemoglobin 29.9 pg (28.0-32.0); Mean Corpuscular Hgb Conc. 33.6 g/dL (32.0-36.0); Mean Corpuscular Volume 89.1 fL (80.0-100.0); Monocytes # (auto) 0.3 uL; Monocytes % (auto) 3.2 % (0.0-12.0); Neutrophils # (auto) 8.3 uL; Neutrophils % (auto) 79.6 % (37.0-80.0); Platelet Count (auto) 104 10^3/uL (140-450); Red Blood Cells 4.43 10^6/uL (4.5-5.90); Red Cell Distribution Width 15.5 % (11.8-14.3); White Blood Cell 10.5 10^3/uL (4.4-10.8)
[2019-08-14 04:40] LABS: Nucleated Red Blood Cells % 3.4 %
[2019-08-14 04:54] LABS: BUN/Creatinine Ratio 5.3; Bilirubin, Total 2.2 mg/dL (0.2-1.0); Total Protein 5.9 g/dL (6.4-8.2)
[2019-08-14 05:09] LABS: Calcium 5.5 mg/dL (8.5-10.1)
[2019-08-14 05:23] LABS: Albumin 1.9 g/dL (3.4-5.0)
[2019-08-14] MEDS ORDERED: CALCIUM GLUC 4.65meq/50ml D5AE 50 ML IV ONE ×3 (05:45→06:15)
--- NOTE | 2019-08-14 06:00 | NUR ---
REPOSITIONING HELD PATIENT WAS NOT TURNED AT 0200 AND 0400 DUE TO DESATURATION.
--- NOTE | 2019-08-14 07:30 | NUR ---
INSULIN GTT Blood glucose 275 - continue insulin GTT at 10 units = 10ml/hr per protocol.
[2019-08-14] MEDS: MIDAZOLAM DRIP 50 mg/50mL 50 ML IV SCH ×3 (07:44→23:41)
[2019-08-14] MEDS: InsuLIN R (HUMAN) 100 UNITS in SODIUM CHL 0.9% 99 ML IV SCH ×2 (07:53→21:29)
[2019-08-14] MEDS: BUMETANIDE INJECTION 25 MG in GIVE UN-DILUTED 0 ML IV SCH (08:01)
--- NOTE | 2019-08-14 08:35 | NUR ---
FRIEND AT BEDSIDE PATIENT'S FRIEND AT BEDSIDE.
[2019-08-14] MEDS: SODIUM BICARBONATE 50ML VIAL 150 ML in SOD CHL 0.45% 1,000 ML IV SCH (08:41)
--- NOTE | 2019-08-14 08:50 | NUR ---
FAMILY AT BEDSIDE PATIENT'S GIRLFRIEND AND SON AT BEDSIDE, ALL QUESTIONS ANSWERED, BARBARA VERBALIZED UNDERSTANDING.
--- NOTE | 2019-08-14 09:04 | NUR ---
INSULIN GTT Blood glucose 236 - decrease insulin GTT at 6 units = 6 ml/hr per protocol.
--- NOTE | 2019-08-14 09:25 | NUR ---
NEPHROLOGY AT BEDSIDE DR ANDRES UPDATED ON PATIENT'S STATUS AND TOTAL URINE OUTPUT DURING CHICKEN HATCHERY HELPER AND DIALYSIS OUTPUT YESTERDAY. DR ANDRES DISCUSSED PATIENT STATUS AND PLAN OF CARE WITH PATIENT'S MOTHER AND SON AT BEDSIDE. PATENT'S MOTHER SPEAKS BELARUSIAN AND WAS INTERPRETED BY THIS NURSE. PATIENT'S MOTHER VERBALIZED UNDERSTANDING. THIS NURSE UPDATED ON OTHER FAMILY MEMBERS IN WAITING ROOM. ORDERS TO DISCONTINUE FLUIDS RECEIVED AND PATIENT WILL BE DIALYZED TODAY. DR ANDRES NOTIFIED OF POSSIBLE PRONATION RECOMMENDED BY DR ROCHA' PHONE CONVERSATION THIS MORNING. DR ANDRES VERBALIZED UNDERSTANDING.
[2019-08-14] MEDS ORDERED: SODIUM CHL 0.9% 1000 ML BAG XX ONE ×2 (09:30→18:00)
[2019-08-14] MEDS: EPINEPHrine HCL INJECTION 8 MG in D5W 5% 250 ML IV SCH (09:46)
[2019-08-14] MEDS ORDERED: INSULIN LANTUS (GLARGINE) 1 /0.01ml (100units/ml) SC SCH (10:00)
[2019-08-14] MEDS: PROPOFOL 100 ML IV SCH (10:05)
[2019-08-14] MEDS: VASOPRESSIN 50 UNITS in D5W 5% 247.5 ML IV SCH (10:08)
[2019-08-14] MEDS: DOPamine 1600MCG/ML D5W 250 ML IV SCH ×2 (10:15→21:15)
--- NOTE | 2019-08-14 10:32 | NUR ---
PAGED DR MCKENNA ROCHA CONCERN IF PATIENT CAN RECEIVE DIALYSIS WHILE ON PRONATION POSITION, AWAITING RESPONSE.
[2019-08-14 10:33] LABS: % Iron Saturation 84.3 % (20-55)
--- NOTE | 2019-08-14 10:39 | NUR ---
INSULIN GTT Blood glucose 274 - increase insulin GTT to 10 units = 10 ml/hr per protocol.
[2019-08-14] MEDS: PANTOPRAZOLE 40 MG/10 ML VIAL INJ IV SCH (10:41)
[2019-08-14] MEDS ORDERED: HEPARIN DRIP/D5W 100UNITS/ML 0 ML IV ONE (11:18)
--- NOTE | 2019-08-14 11:25 | NUR ---
PAGED DR ANDRES/HEPARIN/PRONATION/DR ESPINOZA PAGED DR ANDRES REGARDING PRONATION PRIOR TO DIALYSIS - PHONE CALL RECEIVED FROM PIPPA, DIALYSIS NURSE WHO REPORTED HE SPOKE WITH DR ANDRES AND SHE STATED "IF PATIENT IS ALREADY IN PRONE POSITION, THEN NO DIALYSIS TODAY". THIS NURSE RE-PAGED DR ANDRES, AWAITING RESPONSE. WILL NOTIFY DR ROCHA. PIPPA AWARE OF PATIENT NOT PRONATED YET AND PIPPA STATED HE WOULD NOTIFY DIALYSIS NURSE TO CONTACT HOSPITAL FOR ETA. REGARDING A-LINE, DR ROCHA AWARE OF A-LINE INSERTION ATTEMPTS BY JUDITH POTTER MD YESTERDAY AND WAS UNSUCCESSFUL DUE TO "LINE CLOTTING". DR ROCHA MADE AWARE AND RECOMMENDED HEPARINIZED LINE. DR ROCHA AWARE OF 08/13/19 PT/PTT LEVEL AND DID NOT WANT A REPEAT PT/PTT TODAY PRIOR TO INSERTION OF A-LINE. 11:34 DR ROCHA NOTIFIED OF DIALYSIS AND PRONATION - PER DR ROCHA, "I AM STILL GOING TO PRONATE HIM, HE IS NOT SATURATING WELL. CRISTHIAN NOTIFIED OF DIALYSIS ANYTIME AFTER [address] ROCHA. HE VERBALIZED UNDERSTANDING. AWAITING RETURN CALL FROM DR ANDRES. DR ESPINOZA AT BEDSIDE, UPDATED ON PATIENT'S STATUS, DR ESPINOZA DISCUSSED PLAN OF CARE WITH PATIENT'S GIRLFRIEND AND SON.
--- NOTE | 2019-08-14 12:07 | NUR ---
ULTRA SOUND TECH AT BEDSIDE
--- NOTE | 2019-08-14 12:45 | NUR ---
ARTERIAL LINE INSERTION TO RIGHT RADIAL - PLACED BY DR ROCHA.
[2019-08-14] MEDS: ATRACURIUM BESYLATE 1,000 MG in D5W 5% 150 ML IV SCH (13:10)
--- NOTE | 2019-08-14 13:15 | NUR ---
PARALYTIC INITIAL ASSESSMENT PRE-TEST POWER LEVEL NOTED AT 9/10 (ma) AND 4:4 TWITCHES TO RIGHT THUMB WITH PERIPHERAL NERVE STIMULATOR ATTACHED TO THE RIGHT RADIAL NERVE. ATRACURIUM STARTED RATE OF 5 MCG/KG/MIN PER PROTOCOL AND INITIAL BOLUS OF 7.5 MLS (calculations verified with pharmacists Hasmukh). BOLUS CALCULATED BY PATIENT IDEAL BODY WEIGHT OF 60 Kg PER PHARMACISTS. 1330 - PATIENT PLACED IN PRONE POSITION PER DR ROCHA' REQUEST. WILL MONITOR PATIENT - FALL AND SAFETY PRECAUTIONS IN PLACE, DR ROCHA REMAINED AT BEDSIDE.
[2019-08-14] MEDS: NOREPINEPHRINE BITARTRATE 32 MG in D5W 5% 218 ML IV SCH (13:20)
[2019-08-14] MEDS: fentaNYL Drip 2500mCg/250mlNS 250 ML IV SCH (13:30)
--- NOTE | 2019-08-14 13:30 | NUR ---
BM/COMFORT DURING TURNING PATIENT TO PRONE POSITION, PATIENT CLEANSED OF SMALL LIQUID, GREEN BOWEL MOVEMENT. SKIN CARE PERFORMED/COMPLETE BEDDING CHANGED. Addendum: 08/14/19 at 1833 by Radha Andres RN TOF REASSESSMENT 1:4 TWITCHES NOTED AT ma of 10, patient's baseline. Continue same rate of Atricurium - no changes made.
--- NOTE | 2019-08-14 13:45 | NUR ---
INSULIN GTT This nurse out to lunch - Gem, charge nurse covering. Blood glucose 305 - increase insulin GTT to 12 units = 12 ml/hr per protocol.
--- NOTE | 2019-08-14 15:00 | NUR ---
INSULIN GTT Blood glucose 264 - decrease insulin GTT to 8 units = 8 ml/hr per protocol.
--- NOTE | 2019-08-14 15:28 | NUR ---
VENT SETTINGS CHANGED TO PCV, RR 26, IP 28, PEEP 12, I TIME 0.[address] ROCHA.
--- NOTE | 2019-08-14 16:34 | NUR ---
INSULIN GTT Blood glucose 265 - continue insulin GTT at 8 units = 8ml/hr per protocol.
--- NOTE | 2019-08-14 17:30 | NUR ---
TOF REASSESSMENT 1:4 TWITCHES NOTED AT ma of 10, patient's baseline. Continue same rate of Atricurium - no changes made.
--- NOTE | 2019-08-14 17:55 | NUR ---
FAMILY AT BEDSIDE VSS AND DOCUMENTED. PATIENT CONTINUES IN PRONE POSITION UNTIL TOMORROW MORNING AFTER SHIFT CHANGE PER DR ROCHA.
--- NOTE | 2019-08-14 18:07 | NUR ---
INSULIN GTT Blood glucose 244 - continue insulin GTT at 8 units = 8ml/hr per protocol.
--- NOTE | 2019-08-14 18:34 | NUR ---
FAMILY AT BEDSIDE
[2019-08-14] MEDS ORDERED: LEVALBUTEROL HCL 1.25 MG/3 ML NEB ONE (18:45)
--- NOTE | 2019-08-14 19:11 | NUR ---
END OF SHIFT NOTE PATIENT MECHANICALLY VENTILATED, IN PRONE POSITION, SEDATED AND ON PARALYTIC. VSS AND DOCUMENTED, RESPIRATIONS EVEN AND UNLABORED, NO DISTRESS NOTED. ENDORSED CONTINUED CARE TO VAULT KEEPER RN.
[2019-08-14] MEDS ORDERED: CALCITRIOL 1 MCG/ML AMPULE IV ONE (20:00)
[2019-08-14] MEDS: LEVALBUTEROL HCL 1.25 MG/3 ML NEB NEB SCH (22:27)
[2019-08-15] VITALS (104 sets, daily range): BP systolic 67–168; BP diastolic 29–80
[2019-08-15] MEDS: ACCU-CHEK COMFORT CURVE STRIP VI SCH ×16 (00:20→22:33)
[2019-08-15] MEDS: MEROPENEM 500MG IVPB 50 ML IV SCH ×2 (01:11→13:30)
[2019-08-15] MEDS: PHENYLEPHRINE INJ 80 MG in SODIUM CHL 0.9% 250 ML IV SCH (01:51)
[2019-08-15] MEDS: fentaNYL Drip 2500mCg/250mlNS 250 ML IV SCH ×2 (01:54→15:00)
[2019-08-15] MEDS: LEVALBUTEROL HCL 1.25 MG/3 ML NEB NEB SCH ×6 (01:55→22:15)
[2019-08-15] MEDS: LACTULOSE 20Gm/30ML SOLN PO SCH ×6 (02:00→10:00)
[2019-08-15] MEDS: MIDAZOLAM DRIP 50 mg/50mL 50 ML IV SCH ×3 (03:12→12:33)
[2019-08-15 03:48] LABS: Hematocrit 37.6 % (41.0-53.0); Hemoglobin 12.8 g/dL (13.5-17.5); Mean Corpuscular Hemoglobin 30.1 pg (28.0-32.0); Mean Corpuscular Volume 88.6 fL (80.0-100.0); Platelet Count (auto) 105 10^3/uL (140-450); Red Blood Cells 4.25 10^6/uL (4.5-5.90); Red Cell Distribution Width 15.8 % (11.8-14.3); White Blood Cell 10.9 10^3/uL (4.4-10.8)
[2019-08-15 03:57] LABS: Basophils % (manual) 0 (0.0-2.0); Blast Cells 0; Eosinophils % (manual) 0 (0-7); Myelocytes % 0; Promyelocytes % 0
[2019-08-15 04:09] LABS: Potassium 3.9 mmol/L (3.5-5.1)
[2019-08-15 04:17] LABS: BUN/Creatinine Ratio 6.7; Bilirubin, Total 2.8 mg/dL (0.2-1.0); Total Protein 6.1 g/dL (6.4-8.2)
[2019-08-15 04:36] LABS: Calcium 5.1 mg/dL (8.5-10.1)
[2019-08-15 04:48] LABS: Band Neutrophils % (manual) 10; Lymphocytes % (manual) 19 (10.0-50.0); Metamyelocytes % 1; Monocytes % (manual) 7 (0-12); Reactive Lymphocytes 1
[2019-08-15 04:51] LABS: Albumin 1.7 g/dL (3.4-5.0)
[2019-08-15] MEDS ORDERED: CALCIUM GLUC 4.65meq/50ml D5AE 50 ML IV ONE (05:30)
--- NOTE | 2019-08-15 06:00 | NUR ---
assessment patient was on prone position during night, no repositioning done, unable to check pupils for reaction. nyla drip increased to keep sbp above 90 and map above 65. cooling measures done done for hyperthermia.
[2019-08-15] MEDS: InsuLIN R (HUMAN) 100 UNITS in SODIUM CHL 0.9% 99 ML IV SCH ×3 (06:28→22:36)
--- NOTE | 2019-08-15 06:32 | NUR ---
RT NOTE: FIO2 DECREASED TO 70% FROM 80%. PT. TOLERATING WELL. POX 99%. RN MEGHA AMES.
--- NOTE | 2019-08-15 07:30 | NUR ---
INSULIN GTT Blood glucose 232 - continue insulin GTT at 6 units = 6 ml/hr per protocol, NO CHANGE.
--- NOTE | 2019-08-15 07:39 | NUR ---
INSULIN GTT Blood glucose 232 - continue insulin GTT at 6 units = 6 ml/hr per protocol, NO CHANGE.
[2019-08-15] MEDS: CALCIUM CARB 500 MG CHEW TAB PO SCH ×4 (08:00→18:00)
[2019-08-15] MEDS: CALCIUM ACETATE 667 MG CAP PO SCH ×4 (08:00→18:00)
[2019-08-15] MEDS ORDERED: SODIUM CHL 0.9% 1000 ML BAG XX ONE ×2 (08:00)
[2019-08-15] MEDS: DOPamine 1600MCG/ML D5W 250 ML IV SCH ×2 (08:15→19:15)
--- NOTE | 2019-08-15 08:24 | NUR ---
RT NOTE: FIO2 DECREASED TO 60% FROM 70%, RN ANTHONY AWARE. PT. TOLERATING WELL. POX 98%.
--- NOTE | 2019-08-15 09:00 | NUR ---
INSULIN GTT Blood glucose 229 - continue GTT CHANGES MADE per protocol.
--- NOTE | 2019-08-15 09:20 | NUR ---
BURNISHER AND BUMPER AT BEDSIDE/CALL RECEIVED FROM PULMONOLOGY BURNISHER AND BUMPER AT BEDSIDE, PATIENT REMAINS IN PRONE POSITION. PHONE CALL RECEIVED FROM DR ROCHA NOTIFYING THIS NURSE THAT HE WILL BE LATE - DR ROCHA ORDERED PATIENT TO BE REPOSITIONED AND TURNED IN SUPINE POSITION WITHOUT HIM BEING AT BEDSIDE. DR ROCHA ORDERED PRE-OXYGENATION AT 100% PRIOR TO PRONING. Luly GOFF NOTIFIED AND WILL PRE-OXYGENATE FOR 15 MINUTES PRIOR TO TURNING.
--- NOTE | 2019-08-15 09:27 | NUR ---
RT NOTE: PT. PLACED ON 100% FIO2 TO PRE-OXYGENATE PER DR. ROCHA REQUEST TO PREPARE TO FLIP PT. INTO SUPINE POSITION. MERLENE AMES.
[2019-08-15] MEDS: EPINEPHrine HCL INJECTION 8 MG in D5W 5% 250 ML IV SCH (09:46)
[2019-08-15 09:59] LABS: Hepatitis A Ab IgM Negative; Hepatitis B Core IgM Negative; Hepatitis B Surface Antigen Negative (Negative)
[2019-08-15 10:00] LABS: Hepatitis C Antibody Negative (Negative)
[2019-08-15] MEDS: PROPOFOL 100 ML IV SCH (10:05)
--- NOTE | 2019-08-15 10:10 | NUR ---
PATIENT PLACED IN SUPINE POSITION/DIALYSIS AT BEDSIDE ORAL CARE AND SKIN CARE PERFORMED, NOTED SORE ON BRIDGE OF NOSE AND CHIN - WOUND CARE PICS TAKEN AND FORMS SIGNED AND DATED. DIALYSIS NURSE AT BEDSIDE. NOTIFIED RADIOLOGY DEPARTMENT TO PERFORM CXR NOW THAT PATIENT IS IN SUPINE POSITION. FALL AND SAFETY PRECAUTIONS IN PLACE. SECOND WOUND CARE CONSULT WILL BE PLACED.
[2019-08-15] MEDS: BUMETANIDE INJECTION 25 MG in GIVE UN-DILUTED 0 ML IV SCH (10:15)
[2019-08-15] MEDS: NOREPINEPHRINE BITARTRATE 32 MG in D5W 5% 218 ML IV SCH (10:17)
--- NOTE | 2019-08-15 10:29 | NUR ---
RT NOTE: ETT ADVANCED 2CM WITHOUT INCIDENT TO 24CM AT THE LOWER LIP FROM 22CM AT THE LOWER LIP, DUE TO POST X-RAY FILM AND LEAK HEARD WITH ADEQUATE CUFF PRESSURE. RN NATHONY AWARE AND BEDSIDE. NO LEAK HEARD AT THIS POINT AND BI-LATERAL BREATH SOUNDS AUSCULTATED. FOLLOW UP X-RAY ORDERED.
[2019-08-15] MEDS ORDERED: CATHFLO ACTIVASE (ALTEPLASE) 2 MG VIAL IV ONE (10:30)
--- NOTE | 2019-08-15 10:30 | NUR ---
INSULIN GTT Blood glucose 243- continue GTT CHANGES MADE per protocol.
--- NOTE | 2019-08-15 11:16 | NUR ---
RT NOTE: FIO2 DECREASED TO 80% FROM 100%. RN ANTHONY AWARE. PT. TOLERATING WELL. POX 99%
--- NOTE | 2019-08-15 11:30 | NUR ---
DIALYSIS STARTED AT THIS TIME
[2019-08-15] MEDS: PANTOPRAZOLE 40 MG/10 ML VIAL INJ IV SCH (11:37)
--- NOTE | 2019-08-15 12:00 | NUR ---
INSULIN GTT Blood glucose 213- continue GTT CHANGES MADE per protocol.
[2019-08-15] MEDS: ATRACURIUM BESYLATE 1,000 MG in D5W 5% 150 ML IV SCH (12:01)
[2019-08-15] MEDS: INSULIN LANTUS (GLARGINE) 1 /0.01ml (100units/ml) SC SCH (12:02)
--- NOTE | 2019-08-15 12:30 | NUR ---
RESTART PHENYLEPHRINE DURING DIALYSIS RESTART PHENYLEPHRINE PER PROTOCOL DURING DIALYSIS SBP IN THE HIGH 90'S, WILL REASSESS ACCORDINGLY.
--- NOTE | 2019-08-15 12:58 | NUR ---
PHONE CALL RECEIVED FROM RADIOLOGIST DR DOUGLAS REPORTED "ETT IS ABNORMALLY POSITIONED". DR ROCHA AWARE.
--- NOTE | 2019-08-15 13:15 | NUR ---
DR ROCHA AT BEDSIDE RE-ADJUSTING ETT. 1330: PATIENT SATURATIONS DECREASING, PATIENT BEING BAGGED BY Luly GOFF DR AT BEDSIDE, PATIENT RECOVERED AFTER A FEW MINUTES WITHOUT FURTHER INCIDENT.
--- NOTE | 2019-08-15 13:30 | NUR ---
INSULIN GTT Blood glucose 174- continue GTT CHANGES MADE per protocol.
--- NOTE | 2019-08-15 13:37 | NUR ---
RT NOTE: ETT ADVANCED BY DR. ROCHA TO 28CM FROM 24CM AT THE UPPER LIP. MERLENE AMES.
--- NOTE | 2019-08-15 13:40 | NUR ---
DIALYSIS COMPLETED WITH A TOTAL OF 1725 LITERS REMOVED. DIALYSIS CATHETER CLOTTING, DIALYSIS NURSE NOTIFIED DR ANDRES AND ORDERED DIALYSIS TO BE STOPPED AT THIS TIME.
--- NOTE | 2019-08-15 13:53 | NUR ---
RT NOTE: ETT PULLED BACK BY 2CM TO 26CM FROM 28CM POST CXR X-RAY. AWARE. ETT PLACEMENT IS ADEQUATE CONFIRMED BY CXR.
--- NOTE | 2019-08-15 13:56 | NUR ---
RT NOTE: ETT PULLED BACK ANOTHER 2CM TO 24CM AT THE UPPER LIP FROM 26CM. PER VERBAL ORDER.
--- NOTE | 2019-08-15 15:00 | NUR ---
INSULIN GTT Blood glucose 174- continue GTT CHANGES MADE per protocol.
--- NOTE | 2019-08-15 15:20 | NUR ---
PRONE POSITION PATIENT PLACED IN PRONE POSITION PER DR ROCHA' REQUEST AND AT BEDSIDE. PATIENT POSITIONED FOR COMFORT - FALL AND SAFETY PRECAUTIONS IN PLACE. COOLING BLANKET UNDERNEATH PATIENT LEAKED THROUGHOUT NEW SHEETS - VITAL SIGNS NOT STABLE AT THIS TIME, HEART RATE INCREASE, BLOOD PRESSURE DECREASE, ON 100% FIO2 AND SATURATION IN THE LOW 90'S. PER DR ROCHA ORDER, "DO NOT CHANGE SHEETS OR MOVE PATIENT UNTIL 3-4 HOURS, LET PATIENT RECOVER FIRST". WILL ENDORSE BED CHANGE TO BENEFITS MANAGER RN. ELEVATED TEMPERATURE, COOLING MEASURES APPLIED - COOLING BLANKET PLACED ON TOP OF PATIENT. WILL CONTINUE TO MONITOR.
--- NOTE | 2019-08-15 16:30 | NUR ---
INSULIN GTT Blood glucose 201- continue GTT CHANGES MADE per protocol.
--- NOTE | 2019-08-15 16:30 | NUR ---
assessment Patient is a 48 year old male on a vent. Per patients brother Melida prior to admission patient lived home with family and functioned independently. Patient had no need for DME. Patient has no insurance. Garth New from [facility] is working with the family on Zul[employer]. Patient should qualify for Zul[employer]. Patient is not working at this time and has no income. I informed Melida that patients post discharge needs to be determined after extubation and prior to discharge. Melida verbalized understanding. Addendum: 08/15/19 at 1633 by Shanon URIBE Amended: Links added.
--- NOTE | 2019-08-15 17:45 | NUR ---
DR ANDRES AT BEDSIDE UPDATED ON PATIENT'S STATUS, ORDERS RECEIVED AND WILL BE CARRIED OUT.
--- NOTE | 2019-08-15 18:00 | NUR ---
INSULIN GTT Blood glucose 206- continue GTT CHANGES MADE per protocol.
[2019-08-15] MEDS: VASOPRESSIN 50 UNITS in D5W 5% 247.5 ML IV SCH (18:09)
[2019-08-15] MEDS ORDERED: ALBUMIN 5% 250 ML IV ONE (19:00)
--- NOTE | 2019-08-15 19:30 | NUR ---
END OF SHIFT NOTE/INSULIN GTT Blood glucose 238- continue GTT CHANGES MADE per protocol. PATIENT MECHANICALLY VENTILATED, SEDATED AND PARALYZED, PATIENT IN PRONE POSITION, NO DISTRESS NOTED, RESPIRATIONS EVEN AND UNLABORED. VS STARTING TO STABILIZE, TEMPERATURE REMAINS IN THE 100.0, COOLING MEASURES APPLIED. DR ROCHA VISITS AFTER SHIFT CHANGE, AWARE OF LAST REPEAT ABG AND PATIENT CURRENT CONDITION - ORDERS FOR REPEAT ABG IN 2 HOURS, [place], RECEIVING RN AWARE. FALL AND SAFETY PRECAUTIONS IN PLACE, ENDORSED CONTINUED CARE.
--- NOTE | 2019-08-15 20:00 | NUR ---
OPENING NOTE: INTUBATED, SEDATED, PARALYZED AND PRONATED. PATIENT OBESE, AND BODY HABITUS LIMITS REPOSITIONING. SINUS TACH, HR 100-120s. AMY TO RIGHT RADIAL, ART LINE PRESSURES 100-120s. 8.0 ETT, 24 AT THE LIP. LS DIMINISHED THROUGHOUT. EVEN AND UNLABORED BREATHING. SpO2>92% ON CURRENT VENT SETTINGS. UNABLE TO ASSESS ABDOMEN. LBM 08/14 PER REPORT. OGT TO LIS, UNABLE TO ASSESS PLACEMENT, + TENACIOUS BILIOUS OUTPUT. RUIZ PATENT AND INTACT, DRAINING MINIMAL GRISELDA URINE. SEE SKIN AND WOUND FLOWSHEET FOR ASSESSMENT. LEFT HAND, 22 G PIV, CDI, AND PATENT WITH BLOOD RETURN. RIGHT UPPER ARM MIDLINE, CDI, AND PATENT WITH BLOOD RETURN. LEFT FEMORAL CVC, UNABLE TO ASSESS, BUT PATENT WITH BLOOD RETURN. RIGHT IJ JERRY CATH, CDI. REINFORCED POC. MAINTAINED PATIENT SAFETY: BED LOCKED AND IN THE LOWEST POSITION, FREQUENT VISUAL CHECKS. ATTEMPTED TO REDISTRIBUTE WEIGHT POSSIBLE. NO FAMILY AT PRESENT AT THIS TIME
--- NOTE | 2019-08-15 20:00 | NUR ---
TEMP 100.4F RECTALLY: COOLING MEASURES APPLIED.
--- NOTE | 2019-08-15 20:00 | NUR ---
TOF: 2/4 TWITCHES ON 10 mA.
--- NOTE | 2019-08-15 20:00 | NUR ---
UNABLE TO REPOSITION D/T BODY HABITUS AND IN PRONE POSITION
--- NOTE | 2019-08-15 20:46 | NUR ---
BG 232 - CONTINUE INSULIN GTT AT 8 UNITS/HR ON ALGORITHM 4
--- NOTE | 2019-08-15 21:05 | NUR ---
ABG DRAWN AND RESULTS REPORTED TO DR. ROCHA. FIO2 TITRATED TO 80% AT THIS TIME. NO FURTHER CHANGES.
--- NOTE | 2019-08-15 22:30 | NUR ---
BG 214 - CONTINUE INSULIN GTT AT 8 UNITS/HR ON ALGORITHM 4
[2019-08-16] VITALS (103 sets, daily range): BP systolic 96–150; BP diastolic 39–69
--- NOTE | 2019-08-16 | NUR ---
BG 201 - CONTINUE INSULIN GTT AT 8 UNITS/HR ON ALGORITHM 4
--- NOTE | 2019-08-16 | NUR ---
TOF: 4/4 TWITCHES ON 10 mA
--- NOTE | 2019-08-16 | NUR ---
UNABLE TO REPOSITION D/T BODY HABITUS AND IN PRONE POSITION
[2019-08-16] MEDS: MEROPENEM 500MG IVPB 50 ML IV SCH ×2 (00:35→13:28)
[2019-08-16] MEDS: PHENYLEPHRINE INJ 80 MG in SODIUM CHL 0.9% 250 ML IV SCH ×2 (00:36→09:11)
[2019-08-16] MEDS: MIDAZOLAM DRIP 50 mg/50mL 50 ML IV SCH ×4 (01:20→20:01)
--- NOTE | 2019-08-16 01:26 | NUR ---
TOF: 4/4 TWITCHES ON 10 mA TO LEFT ULNAR. INCREASED ATRACURIUM PER MAR. WILL REASSESS
[2019-08-16] MEDS: ACCU-CHEK COMFORT CURVE STRIP VI SCH ×17 (01:33→23:53)
--- NOTE | 2019-08-16 01:34 | NUR ---
BG 231 - CONTINUE INSULIN GTT AT 8 UNITS/HR ON ALGORITHM 4
--- NOTE | 2019-08-16 02:00 | NUR ---
TOF: 2/4 TWITCHES ON 10 mA ON LEFT ULNAR.
[2019-08-16] MEDS: LEVALBUTEROL HCL 1.25 MG/3 ML NEB NEB SCH ×6 (02:12→22:21)
--- NOTE | 2019-08-16 03:17 | NUR ---
BG 229 - CONTINUE INSULIN GTT AT 8 UNITS/HR ON ALGORITHM 4
--- NOTE | 2019-08-16 04:00 | NUR ---
UNABLE TO REPOSITION D/T BODY HABITUS AND IN PRONE POSITION
[2019-08-16] MEDS: fentaNYL Drip 2500mCg/250mlNS 250 ML IV SCH (04:02)
--- NOTE | 2019-08-16 04:10 | NUR ---
TOF: 2/4 TWITCHES ON 10 mA AT LEFT ULNAR.
[2019-08-16 04:25] LABS: Hematocrit 31.4 % (41.0-53.0); Hemoglobin 10.7 g/dL (13.5-17.5); Mean Corpuscular Hemoglobin 29.9 pg (28.0-32.0); Mean Corpuscular Volume 87.9 fL (80.0-100.0); Platelet Count (auto) 85 10^3/uL (140-450); Red Blood Cells 3.57 10^6/uL (4.5-5.90); Red Cell Distribution Width 15.5 % (11.8-14.3); White Blood Cell 11.1 10^3/uL (4.4-10.8)
--- NOTE | 2019-08-16 04:27 | NUR ---
BG 214 - CONTINUE 8 UNITS/HR ON ALGORITHM 4
--- NOTE | 2019-08-16 04:30 | NUR ---
NOTED WITH SLOW BLANCHING MOTTLING TO BILATERAL HANDS AND FEET
[2019-08-16 04:49] LABS: Basophils % (manual) 0 (0.0-2.0); Blast Cells 0; Myelocytes % 0; Promyelocytes % 0
[2019-08-16 04:50] LABS: Potassium 3.7 mmol/L (3.5-5.1)
[2019-08-16 04:53] LABS: HDL Cholesterol 12 mg/dL (40-59); Triglycerides 1292 mg/dL (< 150)
[2019-08-16 04:55] LABS: Albumin 1.7 g/dL (3.4-5.0); BUN/Creatinine Ratio 7.4; Total Protein 5.8 g/dL (6.4-8.2)
[2019-08-16 05:10] LABS: Calcium 5.4 mg/dL (8.5-10.1)
[2019-08-16 05:14] LABS: Cholesterol 257 mg/dL (< 200)
[2019-08-16] MEDS: DOPamine 1600MCG/ML D5W 250 ML IV SCH ×2 (06:15→14:56)
[2019-08-16 06:40] LABS: Eosinophils % (manual) 1 (0-7); Monocytes % (manual) 6 (0-12); Reactive Lymphocytes 1
[2019-08-16 06:42] LABS: Band Neutrophils % (manual) 12; Lymphocytes % (manual) 23 (10.0-50.0); Metamyelocytes % 1
[2019-08-16] MEDS: NOREPINEPHRINE BITARTRATE 32 MG in D5W 5% 218 ML IV SCH (07:06)
--- NOTE | 2019-08-16 07:06 | NUR ---
BG 215 - CONTINUED 8 UNITS/HR INSULIN GTT ON ALGORITHM 4
--- NOTE | 2019-08-16 07:30 | NUR ---
REPORT AND CARE ENDORSED TO MERLENE GANDARA
[2019-08-16] MEDS: CALCIUM CARB 500 MG CHEW TAB PO SCH ×2 (08:00→13:29)
[2019-08-16] MEDS: CALCIUM ACETATE 667 MG CAP PO SCH ×2 (08:00→13:29)
--- NOTE | 2019-08-16 09:00 | NUR ---
BS BS READING 209 PER INSULIN PROTOCOL INSULIN GTT CHANGED TO 6 UNITS/HR. GTT INFUSING TO LEFT FEMORAL.
[2019-08-16] MEDS: ATRACURIUM BESYLATE 1,000 MG in D5W 5% 150 ML IV SCH ×2 (09:19→21:09)
--- NOTE | 2019-08-16 09:22 | NUR ---
TOF: 4/4 TWITCHES NOTED TO RIGHT EYE. GTT INCREASED TO 9MCG/KG/MIN.
--- NOTE | 2019-08-16 09:38 | NUR ---
TOF: 4/4 TWITCHES NOTE TO RIGHT EYEBROW. GTT INCREASED TO 11MCG/KG/MIN. WILL CONTINUE TO ASSESS PER PROTOCOL.
--- NOTE | 2019-08-16 09:40 | NUR ---
MD AT BEDSIDE AIRCRAFT MANAGER UPDATED ON PATIENTS STATUS. PER MD OK TO CONTINUE WITH DIALYSIS ONCE SET TO SUPINE POSITION PER ELECTROPLATING TECHNICIAN. COREMAKING SUPERVISOR TO BE NOTIFIED WHEN PATIENT TURNED. MD UPDATED MOTHER SEAN AT BEDSIDE. QUESTIONS AND CONCERNS ADDRESSED.
[2019-08-16] MEDS: EPINEPHrine HCL INJECTION 8 MG in D5W 5% 250 ML IV SCH (09:46)
--- NOTE | 2019-08-16 09:53 | NUR ---
TOF: 2/4 TWITCHES NOTED TO RIGHT EYEBROW. GTT TO REMAIN AT RATE. WILL CONTINUE TO MONITOR PER PROTOCOL.
[2019-08-16] MEDS: CALCITRIOL 1 MCG/ML AMPULE IV SCH (10:00)
[2019-08-16] MEDS: PROPOFOL 100 ML IV SCH ×2 (10:05→20:00)
--- NOTE | 2019-08-16 10:45 | NUR ---
OCCASIONAL BABYSITTER OCCASIONAL BABYSITTER TO ARRIVE SHORTLY TO CHANGE PATIENT TO SUPINE POSITION. RT/ CHARGE AWARE. DIFFICULT AIRWAY KIT/ SUPPLIES TO BE AT BEDSIDE PER MD.
--- NOTE | 2019-08-16 11:15 | NUR ---
BS BS READING 205. INSULIN GTT TO REMAIN AT 6UNITS/HR.
[2019-08-16] MEDS: INSULIN LANTUS (GLARGINE) 1 /0.01ml (100units/ml) SC SCH (11:17)
[2019-08-16] MEDS: PANTOPRAZOLE 40 MG/10 ML VIAL INJ IV SCH (11:19)
--- NOTE | 2019-08-16 11:43 | NUR ---
Respiratory note: PT PLACED BACK TO SUPINE WITHOUT INCIDENT. MD AT BEDSIDE.
--- NOTE | 2019-08-16 11:53 | NUR ---
PATIENT CHANGED TO SUPINE POSITION WITH 2 RT'S 3 RN'S, RT. STUDENT, AND DR. ROCHA AT BEDSIDE. PT POX REMAINED 95%. HR REMAINED ST 103-105. PARALYTIC TO BE HELD AT THIS TIME WHILE SUPINE PER . Addendum: 08/16/19 at 1202 by Gali Reyes RN [facility] TIME. TO 1140
--- NOTE | 2019-08-16 11:58 | NUR ---
Respiratory note: PLACED PT ON HEATED CIRCUIT WITHOUT INCIDENT.
--- NOTE | 2019-08-16 12:12 | NUR ---
PARALYTIC STOPPED AT THIS TIME PER MD. TO BE RESTARTED ONCE TURNED BACK TO PRONE POSITION.
--- NOTE | 2019-08-16 12:36 | NUR ---
DIALYSIS DIALYSIS NURSE TO ARRIVE FOR TREATMENT AT [id number]. CIRCULATION WORKER AWARE. PATIENT TO BE TURNED TO PRONE POSITION POST TREATMENT.
--- NOTE | 2019-08-16 12:41 | NUR ---
Nutrition Follow-up Notes Wt.: 136.0 kg today. Pt's intubated, sedated, immediate family member at bedside who provide pt's additional pertinent information during rounds this morning. Per family, she's not sure of pt's usual weight, however most likely gained weight few months area captain. Pt's diabetic, takes oral DM meds, usually has good appetite, eat meals regularly, NKFA and not into any special diets area captain. Pt had dialysis yesterday, remains NPO, no order for alternate nutrition support yet at this time, per nursing. Noted pt's for active GI, Pulmonary and Surgical consults. Noted pt's for active Wound and PICC line consults. Est. Needs based on AdBW(76 kg): 1500 kcal to 1900 kcal (20-25 kcal/kgAdBW), 61 gms to 76 gms pro (0.8-1.0 gms/kgAdBW). Will continue to monitor pertinent labs and reassess nutrient need prn Labs: Gluc 233 H, Na 135 L, Cl 95 L, BUN 51 H, Cr 6.90 H,Tot alpesh 4.0 H, AST 581 H, ALT 629 H, ALP 154 H, Trig 1292 H, Chol 257 H; Tpro 5.8 L, Alb 1.7 L, HbA1c 11.03 Skin: Brice scale 11, high risk, skin intact per clinical documentation nurse. GI: Pt had 2x BM 09/14/19, had 300 ml gastric drainage output this morning per clinical documentation nurse. PES: Increased nutrient needs r/t acute/chronic medical condition aeb intubated, sedated, severe hypoalbuminemia, NPO. Altered nutrition related lab values r/t current/chronic medical condition aeb hyperglycemia, elev. renal labs, HbA1c, LFTs, lipase, hypocapnia, hypocalcemia and severe hypoalbuminemia Obesity r/t food intake more than body requirement aeb 218% IBW, BMI 57.7 kg/m2 and increased body adiposity Will continue to monitor NPO status, skin status, pertinent labs and weight trend. F/u in 3 to 3 days. Rec.: 1.) If still NPO in next 36 hrs, consider alternate nutrition support with formula choice of Nephro Carb Steady @ 40 ml/hrgoal rate as tolerated if medically appropriate. 2.) If Albumin continues trending down, consider Prostat 1 pkt BID. 3.) Advance gradually to oral diet when medically appropriate. 4.) Refer pt to CDE/RD for further nutrition education and weight monitoring upon discharge. 5.) Continue current plan of care.
--- NOTE | 2019-08-16 12:58 | NUR ---
WOUND CARE NOTE: Wound care in to see patient due to new skin integrity issue that are noted by bedside nurse upon assessment. Bedside nurse took photograph of patient's skin issue upon discovery for reference. Patient continue resting in ICU bed in Rm. 109. Patient is still intubated, sedated and mechanically ventilated. Patient appears to be in no pain using [place] Faces Pain Scale. His Brice score is 11. Patient developed intact erythema/abrasion to distal nostril and distal chin. Skin is intact, erythremic, clean and dry, left open to air. Patient tolerated well. Patient's sons at bedside. RECOMMENDATION: Continuation of all other wound care orders prescribed by MD, continue with skin/wound plan of care, continue monitoring by wound care while patient is mechanically ventilated. Addendum: 08/16/19 at 1754 by Ynes Ellsworth RN Amended: Links added.
--- NOTE | 2019-08-16 13:20 | NUR ---
CONSENTS TELEPHONE CONSENTS OBTAINED TO CHANGE MIDLINE TO PICC LINE. PICC LINE NURSE PAGED.
--- NOTE | 2019-08-16 13:37 | NUR ---
BS PATIENTS BLOOD SUGAR 210. INSULIN GTT INCREASED TO 8 UNITS/HR.
--- NOTE | 2019-08-16 14:45 | NUR ---
PRIMER AND POWDER CANNING LEADER AT BEDSIDE
--- NOTE | 2019-08-16 14:55 | NUR ---
DIALYSIS STARTED DIALYSIS STARTED AFTER REPOSITIONING DUE TO CATH RESISTANCE. CURRENT BP 123/53 ON 2 PRESSORS.
[2019-08-16 15:00] LABS: INR 1.16 (0.9-1.15); Partial Thromboplastin Time 32.6 sec (23.64-32.05)
[2019-08-16] MEDS ORDERED: TPN PER PHARMACY 0 ML IV SCH (15:30)
--- NOTE | 2019-08-16 15:38 | NUR ---
DIALYSIS CATHETER CHANGED DIALYSIS NOT WORKING DUE TO HIGH PRESSOR. DR. GARCIA AT AWARE. MD AT BEDSIDE TO CHANGE OUT CATHETER VIA STERILE TECHNIQUE. DIALYSIS NURSE AWARE.
--- NOTE | 2019-08-16 15:48 | NUR ---
DIALYSIS CATHETER INSERTED/ DIALYSIS TO BE STARTED/ PICC LINE NURSE AT BEDSIDE DIALYSIS CATHETER TO RIGHT IJ CHANGED BY MD. PER DR. RADHA SHAFFER TO START DIALYSIS AT THIS TIME. PICC LINE NURSE AT BEDSIDE TO INSERT PICC LINE TO LEFT UPPER ARM. UNALBE TO CHANGE MIDLINE TO PICC DIALYSIS CATHETER INTERFERES WITH INSERTION.
--- NOTE | 2019-08-16 15:54 | NUR ---
UPDATED DR. GARCIA AWARE CALCITROL IS NOT AVAILABLE UNTIL TOMORROW PER PHARMACY, VERBALIZED UNDERSTANDING. SEE NEW ORDERS.
--- NOTE | 2019-08-16 15:59 | NUR ---
BS BLOOD SUGAR READING 190. INSULIN GTT CHANGED TO 6 UNITS/HR.
--- NOTE | 2019-08-16 16:34 | NUR ---
DIALYSIS CATHETER CHANGED DIALYSIS CATHETER RUNNING SLOW DUE TO HIGH PRESSURE. DR. GARCIA AWARE AND AT BEDSIDE TO CHANGE DIALYSIS CATHETER TO LONGER LINE VIA STERILE TECHNIQUE.
--- NOTE | 2019-08-16 17:00 | NUR ---
HIDE EXAMINER DR. ROCHA CALLED TO UPDATED ON PATIENTS CURRENT STATUS AND DIALYSIS DELAY. VERBALIZED UNDERSTANDING.
--- NOTE | 2019-08-16 17:11 | NUR ---
Picc unsuccessful Picc line nurse unable to access left upper arm due to multiple clots during attempt to insert line. Dr. Joe marx. also aware of ETA for dialysis completion is 1999.
--- NOTE | 2019-08-16 17:13 | NUR ---
medication clarification Dr. Roberts paged to verify if he would like TPN with insulin gtt at this time. Awaiting callback.
--- NOTE | 2019-08-16 17:14 | NUR ---
PICC LINE ATTEMPT UNSUCCESSFUL ATTEMPT X 3. PT WAS FORMING CLOTS WHILE ADVANCING THE WIRE IN ALL 3 SITES. RN NOTIFIED
--- NOTE | 2019-08-16 17:29 | NUR ---
BS BS 176. INSULIN GTT CHANGED TO 5UNITS/HR.
--- NOTE | 2019-08-16 17:45 | NUR ---
REPOSITIONING HELD 1430- PATIENT REMAINED SUPINE CATHETER WAS MEETING HIGH PRESSURE. SEE PREVIOUS NOTES. -1745 DIALYSIS RUNNING AT THIS TIME WITHOUT ALARMS OF HIGH PRESSURE. PT REMAIN IN [place]SE [place] IN SUPINE POSITION.
--- NOTE | 2019-08-16 18:30 | NUR ---
Cooling Measures applied. Patient currently has temp of 101.3 , cooling measures in place.
--- NOTE | 2019-08-16 18:42 | NUR ---
MD CALLED BACK DR. GARCIA NOTIFIED OF TPN WITH INSULIN GTT, PER MD, HE STATED OK TO DO INSULIN GTT WITH NO SUGAR ADDED TO TPN. MD ALSO AWARE OF CATHETER WORKING. PHARMACY CALLED TO NOTIFY MDS RECOMMENDATION. RX STATING WE WILL BE HOLDING OFF TPN FOR TONIGHT, WAIT FOR BS TO BE BETTER CONTROLLED, STOP INSULIN GTT THEN START TPN WITH SLIDING SCALE. NO TPN TO BE DELIVERED TONIGHT.
--- NOTE | 2019-08-16 19:23 | NUR ---
BS BS 156. INSULIN TO REMAIN AT 5 UNITS/HR.
--- NOTE | 2019-08-16 19:45 | NUR ---
TEMP 101.5F - COOLING MEASURES APPLIED: COOLING BLANKED PLACED ON PATIENT, ICE PACKS PLACED TO BILATERAL AXILLA.
--- NOTE | 2019-08-16 20:00 | NUR ---
OPENING NOTE: INTUBATED, SEDATED, PARALYZED AND SUPINATED. PUPILS SLUGGISH, AND SCLERAL EDEMA.. SINUS TACH, HR 100-120s. AMY TO RIGHT RADIAL, ART LINE PRESSURES 100-120s. 8.0 ETT, 24 AT THE LIP. LS DIMINISHED THROUGHOUT. EVEN AND UNLABORED BREATHING. SpO2>92% ON CURRENT VENT SETTINGS. UNABLE TO ASSESS ABDOMEN. LBM 08/14 PER REPORT. OGT TO LIS, +AIR BOLUS, + TENACIOUS BILIOUS OUTPUT. RUIZ PATENT AND INTACT, DRAINING MINIMAL GRISELDA URINE. SEE SKIN AND WOUND FLOWSHEET FOR ASSESSMENT. LEFT HAND, 22 G PIV, NOTED WITH ERYTHEMA, WILL D/C. RIGHT UPPER ARM MIDLINE, CDI, AND PATENT WITH BLOOD RETURN. LEFT FEMORAL CVC, UNABLE TO ASSESS, BUT PATENT WITH BLOOD RETURN. RIGHT IJ JERRY CATH, CDI. REINFORCED POC. MAINTAINED PATIENT SAFETY: BED LOCKED AND IN THE LOWEST POSITION, FREQUENT VISUAL CHECKS. ATTEMPTED TO REDISTRIBUTE WEIGHT POSSIBLE. NO FAMILY AT PRESENT AT THIS TIME
--- NOTE | 2019-08-16 20:00 | NUR ---
NOTED TO OCCASIONALLY STACK HIS BREATH - DIPRIVAN STARTED FOR ANTICIPATED PRONATION AND COMFORT
--- NOTE | 2019-08-16 20:00 | NUR ---
PLACED PROPHYLACTIC GENTLE OPTIFOAM TO BILATERAL KNEES IN ANTICIPATION OF PRONATION
--- NOTE | 2019-08-16 20:00 | NUR ---
HD COMPLETED - REMOVED 2.5L
[2019-08-16] MEDS: VASOPRESSIN 50 UNITS in D5W 5% 247.5 ML IV SCH (20:45)
--- NOTE | 2019-08-16 21:00 | NUR ---
BASELINE TOF: 2/4 TWITCHES ON 8mA ON LEFT ULNAR. 4/4 TWITCHES ON 9 mA ON LEFT ULNAR
--- NOTE | 2019-08-16 21:00 | NUR ---
BG 160 - CONTINUE ON 5 UNITS/HR ON ALGORITHM #4
--- NOTE | 2019-08-16 21:35 | NUR ---
PRONATED WITH DR. ROCHA PRESENT: 4 RNs PRESENT, BARBARA RT, AND DR. ROCHA PRESENT. PATIENT TOLERATED FAIR. PLACED NEW SHEETS UNDER PATIENT. ABLE TO "FLOAT" FACE OFF OF THE MATTRESS WITH ASSISTANCE OF PILLOWS
--- NOTE | 2019-08-16 21:45 | NUR ---
TOF: 4/4 TWITCHES ON 9 mA ON LEFT ULNAR.
--- NOTE | 2019-08-16 21:45 | NUR ---
INCREASED ATRACURIUM PER PROTOCOL
--- NOTE | 2019-08-16 22:24 | NUR ---
TEMP REMAINS 101.5F - PAGED STAFF REPORTER HOSPITALIST
--- NOTE | 2019-08-16 22:30 | NUR ---
TOF: 1/4 TWITCH ON 9 mA ON LEFT ULNAR.
--- NOTE | 2019-08-16 22:41 | NUR ---
BG 167 - CONTINUE ON 5 UNITS/HR ON ALGORITHM #4
--- NOTE | 2019-08-16 23:20 | NUR ---
CALLUM LONDON CALLED BACK: NOTIFIED OF TEMPERATURE AND INTERVENTIONS THUS FAR. ORDERS FOR TYLENOL SUPPOSITORY. ORDERS READBACK AND VERIFIED
--- NOTE | 2019-08-16 23:20 | NUR ---
TEMP 101.5F - TYLENOL SUPPOSITORY PRN GIVEN
[2019-08-16] MEDS ORDERED: ACETAMINOPHEN 650 MG RECT SUPP PR ONE (23:27)
[2019-08-16] MEDS: ACETAMINOPHEN 650 MG RECT SUPP PR PRN (23:27)
[2019-08-16 23:51] LABS: Fibrinogen > 860 mg/dL (177-375)
--- NOTE | 2019-08-16 23:52 | NUR ---
BG 183 - INCREASED INSULIN TO 6 UNITS/HR ON ALGORITHM #4
--- NOTE | 2019-08-16 23:53 | NUR ---
TOF: 2/4 TWITCHES ON 9 mA ON LEFT ULNAR.
[2019-08-17] VITALS (104 sets, daily range): BP systolic 89–162; BP diastolic 38–78
--- NOTE | 2019-08-17 00:38 | NUR ---
FIO2 DECREASED TO 60%
[2019-08-17] MEDS: PHENYLEPHRINE INJ 80 MG in SODIUM CHL 0.9% 250 ML IV SCH (00:40)
[2019-08-17] MEDS: MEROPENEM 500MG IVPB 50 ML IV SCH ×2 (00:46→12:33)
--- NOTE | 2019-08-17 01:30 | NUR ---
BG 163 - WILL KEEP INSULIN GTT AT 6 UNITS/HR ON ALGORITHM #4
[2019-08-17] MEDS: ACCU-CHEK COMFORT CURVE STRIP VI SCH ×16 (01:38→23:54)
[2019-08-17] MEDS: LEVALBUTEROL HCL 1.25 MG/3 ML NEB NEB SCH ×6 (02:00→22:01)
--- NOTE | 2019-08-17 02:15 | NUR ---
TEMP DOWN TO 100.2F
--- NOTE | 2019-08-17 03:27 | NUR ---
BG 176 - WILL KEEP INSULIN GTT AT 6 UNITS/HR
[2019-08-17] MEDS: NOREPINEPHRINE BITARTRATE 32 MG in D5W 5% 218 ML IV SCH (03:41)
[2019-08-17 03:58] LABS: Hematocrit 29.9 % (41.0-53.0); Hemoglobin 10.1 g/dL (13.5-17.5); Mean Corpuscular Hemoglobin 29.5 pg (28.0-32.0); Mean Corpuscular Volume 86.9 fL (80.0-100.0); Platelet Count (auto) 100 10^3/uL (140-450); Red Blood Cells 3.44 10^6/uL (4.5-5.90); Red Cell Distribution Width 15.4 % (11.8-14.3); White Blood Cell 13.2 10^3/uL (4.4-10.8)
[2019-08-17 04:13] LABS: Potassium 3.8 mmol/L (3.5-5.1)
[2019-08-17] MEDS: fentaNYL Drip 2500mCg/250mlNS 250 ML IV SCH ×2 (04:14→17:08)
[2019-08-17] MEDS: DOPamine 1600MCG/ML D5W 250 ML IV SCH ×2 (04:15→15:15)
[2019-08-17 04:18] LABS: Basophils % (manual) 0 (0.0-2.0); Blast Cells 0; Reactive Lymphocytes 0
[2019-08-17 04:27] LABS: Albumin 1.7 g/dL (3.4-5.0); BUN/Creatinine Ratio 7.6; Bilirubin, Total 4.5 mg/dL (0.2-1.0); Calcium 6.3 mg/dL (8.5-10.1); Magnesium 2.2 mg/dL (1.6-2.6); Phosphorus 4.9 mg/dL (2.5-4.90); Pre Albumin 4.7 mg/dL (20.0-40.0); Total Protein 6.1 g/dL (6.4-8.2)
--- NOTE | 2019-08-17 04:30 | NUR ---
TOF: 2/4 TWITCHES ON 9 mA ON LEFT ULNAR.
[2019-08-17 04:36] LABS: Band Neutrophils % (manual) 14; Eosinophils % (manual) 2 (0-7); Lymphocytes % (manual) 13 (10.0-50.0); Metamyelocytes % 7; Monocytes % (manual) 8 (0-12); Myelocytes % 6; Promyelocytes % 1
--- NOTE | 2019-08-17 05:00 | NUR ---
BG 187 - CONTINUE ON 6 UNITS/HR INSULIN ON ALGORITHM #4
[2019-08-17] MEDS: MIDAZOLAM DRIP 50 mg/50mL 50 ML IV SCH ×4 (05:22→21:28)
--- NOTE | 2019-08-17 06:31 | NUR ---
BG 171 - WILL KEEP ON 6 UNITS/HR INSULIN ON ALGORITHM #4
--- NOTE | 2019-08-17 06:41 | NUR ---
Respiratory note: RECEIVED PATIENT ON V12 V200 VENT ORALLY INTUBATED WITH AN 8.0 ETT SECURED VIA JAYDA AT THE 24CM MARKING AT THE LIP, AND MECHANICALLY VENTILATED WITH THE CHARTED SETTINGS. SPO2 96%, LUNG SOUNDS CLEAR/DIM T/O, NO SECRETIONS WHEN SUCTIONED. SKIN IS COLD/DRY TO THE TOUCH AND HE HAS A COOLING BLANKET ON. PATIENT IS CURRENTLY PRONATED AND TOLERATING WELL. SKIN IS INTACT NEAR JAYDA SITE. THERE IS AN OGT IN PLACED AND IS SECURED TO THE ETT, A DIALYSIS CATHETER IS PLACED IN THE RIGHT SIDE NECK, A MIDLINE CATHETER IS PLACED IN THE RIGHT BICEP, AND AN ARTERIAL LINE IS PLACED IN THE RIGHT RADIAL ARTERY. NO NEW CXR TO ASSESS. PITTING EDEMA NOTED IN BILATERAL UPPER EXTREMITIES WELL IN BILATERAL LOWER EXTREMITIES. LEG SEQUENTIAL ARE IN PLACE AND OPERATIONAL. PATIENT IS UNRESPONSIVE TO BOTH VERBAL/TACTILE STIMULI ND IS SEDATED ON VERSED, PROPOFOL, AND FENTANYL DRIPS. HE IS RESTING COMFORTABLY AND TOLERATING VENT WELL, NO CHANGES MADE. VENT PLUGGED INTO RED OUTLET AND ALL ALARMS ARE SET AND AUDIBLE. WILL CONTINUE TO ASSESS PATIENT WELL VENTILATOR FUNCTION. [employer]-28msec RUN INLINE.
--- NOTE | 2019-08-17 07:20 | NUR ---
REPORT AND CARE ENDORSED TO MERLENE GANDARA
--- NOTE | 2019-08-17 07:30 | NUR ---
OPENING NOTE REPORT RECEIVED BY NOC RN. PT IS CURRENTLY IN PRONE POSITION, MECHANICALLY VENTILATED, VS STABLE. CARE IS LIMITED DUE TO PRONE POSITION, UNABLE TO ASSESS: PERRLA DUE TO FACIAL SWELLING, ANTERIOR CHEST ASSESSMENT, BOWEL SOUNDS, RUIZ ASSESSMENT/MARIA ELENA CARE, LEFT FEMORAL TLC CATHETER SITE, UNABLE TO PERFORM ORAL CARE, POSITION CHANGE. SEE FURTHER ASSESSMENTS.
--- NOTE | 2019-08-17 07:45 | NUR ---
BLOOD SUGAR BLOOD SUGAR READING 177. INSULIN GTT AT 5 UNITS/HR.
--- NOTE | 2019-08-17 07:52 | NUR ---
TOF: 2/4 TWITCHES ON 8 mA ON LEFT ULNAR. GTT TO REMAIN AT 7 MCG/KG/MIN.
--- NOTE | 2019-08-17 09:00 | NUR ---
BLOOD SUGAR BLOOD SUGAR READING 182. INSULIN GTT INCREASED TO 6 UNITS/HR PER PROTOCOL.
--- NOTE | 2019-08-17 09:00 | NUR ---
Family updated on pt status Family of LELAND MILLER updated on patient's status and condition. All questions and concerns addressed. Jose (Brother) verbalized understanding.
[2019-08-17] MEDS: EPINEPHrine HCL INJECTION 8 MG in D5W 5% 250 ML IV SCH (09:46)
[2019-08-17] MEDS: PANTOPRAZOLE 40 MG/10 ML VIAL INJ IV SCH (10:01)
[2019-08-17] MEDS: BUMETANIDE 2.5mg/10ml (0.25 mg/ml) INJ IV SCH (10:01)
[2019-08-17] MEDS: INSULIN LANTUS (GLARGINE) 1 /0.01ml (100units/ml) SC SCH (10:03)
--- NOTE | 2019-08-17 10:08 | NUR ---
BLOOD SUGAR BLOOD SUGAR READING 192. INSULIN TO REMAIN AT 6UNITS/HR.
--- NOTE | 2019-08-17 11:05 | NUR ---
TPN/INSULIN VERIFIED PER PHARMACY, THEY ARE RECOMMENDING TPN WITH SLIDING SCALE COVERAGE. DR ANDERSON NOTIFIED. NOTIFIED PHARMACY OF DIFFERENT INDICATIONS FOR INSULIN DRIP DUE TO HIGH TRIGLYCERIDES. PHARMACY VERBALIZED UNDERSTANDING. INSULIN DRIP TO BE CONTINUED ALONG WITH TPN WITHOUT INSULIN.
--- NOTE | 2019-08-17 11:14 | NUR ---
DR ANDERSON AT BEDSIDE UPDATED FAMILY ON PT STATUS, ALL QUESTIONS/CONCERNS ANSWERED AND ADDRESSED.
--- NOTE | 2019-08-17 11:34 | NUR ---
DR GOMEZ AT BEDSIDE
--- NOTE | 2019-08-17 11:50 | NUR ---
BLOOD SUGAR BS 173. INSULIN GTT DECREASED TO 5 UNITS/HR PER PROTOCOL
--- NOTE | 2019-08-17 12:00 | NUR ---
Respiratory note: FIO2 INCREASED TO 100% BY DR. ROCHA IN PREPARATION FOR SUPINATION.
--- NOTE | 2019-08-17 12:02 | NUR ---
TOF: 2/4 TWITCHES ON 9 mA ON RIGHT ULNAR. GTT TO REMAIN AT 7 MCG/KG/MIN. FAMILY AT BEDSIDE EDUCATED REGARDING TOF.
[2019-08-17] MEDS: PROPOFOL 100 ML IV SCH (12:20)
--- NOTE | 2019-08-17 13:45 | NUR ---
POSITION CHANGE PT PREOXYGENATED 1 HR PRIOR TO POSITION CHANGE. PT LOG ROLLED TO SUPINE POSITION MAINTAINING NECK ALIGNMENT. RT ARNALDO AT [facility] TO MAINTAIN AIRWAY PATENCY. DR ROCHA, RT STUDENT RANDY, IMPROVEMENT RN TY, FREDA RN, DAISY MATUTE, & PRIMARY RN JULIOCESAR AT BEDSIDE FOR REPOSITIONING. PT TOLERATED WELL. ADDITIONAL SKIN BREAKDOWN NOTED TO LEFT LATERAL CHIN. PICTURES WERE TAKEN. FEMORAL TLC CLEAN, DRY, AND INTACT. BILATERAL KNEES ARE BLANCHABLE. 2+ FACIAL PITTING EDEMA. SCLERAL EDEMA, SWELLING OF THE EYELIDS, PERIORBITAL REGION, AND ANGIOEDEMA NOTED. MULTIPLE LESIONS NOTED ON TONGUE, RT AWARE AND ETT REPOSITIONED. PARALYTIC ON HOLD AT THIS TIME. WILL CONTINUE TO MONITOR.
--- NOTE | 2019-08-17 13:54 | NUR ---
RADIOLOGY CALLED FOR CXR POST POSITION CHANGE (SUPINE).
--- NOTE | 2019-08-17 14:00 | NUR ---
Right IJ Harrison Catheter Dressing Change Dressing change done with a sterile technique. Cleansed with chloraprep scrub. Bio-patch as available. Occlusive dressing applied.
--- NOTE | 2019-08-17 14:54 | NUR ---
BLOOD SUGAR BS 179. INSULIN GTT AT 5 UNITS/HR PER PROTOCOL.
--- NOTE | 2019-08-17 16:30 | NUR ---
OD SUGAR BS 151. INSULIN GTT AT 5 UNITS/HR PER PROTOCOL.
--- NOTE | 2019-08-17 16:35 | NUR ---
PARALYTIC PARALYTIC TO BE RE STARTED. THRESHOLD ASSESSED TO LEFT ULNAR. THRESHOLD AT 8 mA. DRIP STARTED PER PROTOCOL, SEE IV SPREADSHEET.
--- NOTE | 2019-08-17 16:45 | NUR ---
POSITION CHANGE PT PREOXYGENATED PRIOR TO POSITION CHANGE. PT LOG ROLLED TO PRONE POSITION MAINTAINING NECK ALIGNMENT. RT ARNALDO AT [facility] TO MAINTAIN AIRWAY PATENCY. DR ROCHA, RT STUDENT RANDY, JANET RN, FREDA RN, DAISY MATUTE, & PRIMARY RN JULIOCESAR AT BEDSIDE FOR REPOSITIONING. PT TOLERATED WELL. OPTIFOAM APPLIED TO TO LEFT LATERAL CHIN, DISTAL NECK, AND MEDIAL NOSE FOR PROTECTIVE MEASURES. PREVENTATIVE DRESSINGS REMAINED TO PRESSURE AREAS. PARALYTIC INFUSING AT THIS TIME PER MD. WILL CONTINUE TO MONITOR.
[2019-08-17] MEDS: InsuLIN R (HUMAN) 100 UNITS in SODIUM CHL 0.9% 99 ML IV SCH (17:39)
--- NOTE | 2019-08-17 18:15 | NUR ---
TOF: 2/4 TWITCHES ON 8.5 mA ON RIGHT ULNAR. GTT AT 6 MCG/KG/MIN.
--- NOTE | 2019-08-17 19:07 | NUR ---
REPORT GIVEN TO CARLITO BLUNT, UPDATED ON POC, ALL QUESTIONS ANSWERED. RT AWARE TO CONTINUE TO DECREASE FIO2.
--- NOTE | 2019-08-17 19:30 | NUR ---
BS 141; insulin drip to remain at 4 units/hour per protocol.
--- NOTE | 2019-08-17 19:30 | NUR ---
Opening Shift Note: Intubated/sedated: Fentanyl @ 200 mcg/hr; Levophed @ 18 mcg/min; Insulin drip @ 4 units/hr; Propofol 5 mcg/kg/min; Versed 15 mg/hr; Atracurium 6 mcg/kg/min. Train of 4 @ 8 milliamps: 2/4 twitches. TPN @ 35 ml/hr ordered to start at 1999. Unable to asses pupils or gag related to patient in prone position/facial edema. ETT 8.0; 24 lip with moderate green secretions; Vent settings: PCV; pressure 28, rate 26, FiO2 60%, PEEP 12. Oxygen saturations in high 90s and HR sinus tachycardia 100s/110s. OG tube to LIS: thick green output. Casiano inserted on 08/12/19 for strict measurement of output; currently oliguria with dark roxana color/sediment; right edwardo cath with last dialysis on 08/16/19 with 2.5 L out per report. Skin presents with blanchable erythema to posterior head; DTI to chin/nose; generalized edema. IV's left femoral triple lumen; RUE midline; left forearm 20g IID; right A line. Will perform oral care and repositioning as allowed given patient's current prone position and facial swelling.
[2019-08-17] MEDS ORDERED: TPN PER PHARMACY IV NR ×7 (20:00)
[2019-08-17] MEDS: VASOPRESSIN 50 UNITS in D5W 5% 247.5 ML IV SCH (20:45)
--- NOTE | 2019-08-17 21:00 | NUR ---
BS 171; insulin drip increased to 5 units/hr per protocol.
--- NOTE | 2019-08-17 22:30 | NUR ---
BS 174: Insulin drip to remain at 5 units/hour per protocol.
--- NOTE | 2019-08-17 22:34 | NUR ---
NOTIFIED RADIOLOGY THAT XRAY FROM 1430 HAS NOT BEEN READ YET; PER RADIOLOGY, HE WILL ASK RADIOLOGIST TO READ
--- NOTE | 2019-08-17 23:30 | NUR ---
TOF: 2/4 TWITCHES ON 8 mA ON LEFT ULNAR. ATRACURIUM DRIP AT 6 MCG/KG/MIN.
[2019-08-18] VITALS (102 sets, daily range): BP systolic 56–168; BP diastolic 18–76
--- NOTE | 2019-08-18 | NUR ---
BS 180: Increased insulin drip rate from 5 to 6 units/hour per protocol.
[2019-08-18] MEDS: MEROPENEM 500MG IVPB 50 ML IV SCH ×2 (01:12→12:18)
--- NOTE | 2019-08-18 01:30 | NUR ---
BS 191: No change to insulin drip rate of 6 units/hour per protocol.
[2019-08-18] MEDS: ACCU-CHEK COMFORT CURVE STRIP VI SCH ×15 (01:33→22:30)
[2019-08-18] MEDS: InsuLIN R (HUMAN) 100 UNITS in SODIUM CHL 0.9% 99 ML IV SCH (01:34)
[2019-08-18] MEDS: MIDAZOLAM DRIP 50 mg/50mL 50 ML IV SCH ×4 (01:38→23:09)
[2019-08-18] MEDS: LEVALBUTEROL HCL 1.25 MG/3 ML NEB NEB SCH ×6 (02:02→22:05)
[2019-08-18] MEDS: DOPamine 1600MCG/ML D5W 250 ML IV SCH ×2 (02:15→07:34)
--- NOTE | 2019-08-18 02:15 | NUR ---
DESATURATION DOWN TO 70s: JOSHUA, RT AT BEDSIDE. PATIENT CLAMPED DOWN ON TUBE D/T BODY HABITUS AND POSITIONING. JOSHUA RT, DISCONNECTED PATIENT FROM VENTILATOR AND MANUALLY BAGGED PATIENT UNTIL SATS INCREASED TO 100%. HOME SALES SERVICE PROFESSIONAL INCREASED ATRACURIUM RATE AND PROPOFOL.
--- NOTE | 2019-08-18 02:23 | NUR ---
PLACED BACK ON VENTILATOR - SpO2> 92%
--- NOTE | 2019-08-18 03:00 | NUR ---
BS 210: Insulin drip increased from 6 to 8 units/hour per protocol.
--- NOTE | 2019-08-18 03:30 | NUR ---
TOF: 2/4 FAINT TWITCHES ON 8 mA ON LEFT ULNAR. ATRACURIUM AT 8 MCG/KG/MIN.
[2019-08-18 04:19] LABS: Hematocrit 27.6 % (41.0-53.0); Hemoglobin 9.3 g/dL (13.5-17.5); Mean Corpuscular Hemoglobin 29.5 pg (28.0-32.0); Mean Corpuscular Hgb Conc. 33.7 g/dL (32.0-36.0); Mean Corpuscular Volume 87.5 fL (80.0-100.0); Platelet Count (auto) 110 10^3/uL (140-450); Red Blood Cells 3.16 10^6/uL (4.5-5.90); Red Cell Distribution Width 15.4 % (11.8-14.3); White Blood Cell 14.5 10^3/uL (4.4-10.8)
[2019-08-18 04:22] LABS: Basophils % (manual) 0 (0.0-2.0); Blast Cells 0; Promyelocytes % 0; Reactive Lymphocytes 0
[2019-08-18 04:25] LABS: Albumin 1.5 g/dL (3.4-5.0); Calcium 6.1 mg/dL (8.5-10.1); Magnesium 2.5 mg/dL (1.6-2.6); Potassium 4.3 mmol/L (3.5-5.1)
[2019-08-18 04:30] LABS: BUN/Creatinine Ratio 8.8; Phosphorus 8.5 mg/dL (2.5-4.90); Total Protein 5.9 g/dL (6.4-8.2)
--- NOTE | 2019-08-18 04:30 | NUR ---
BS 169: Insulin drip decreased from 8 to 5 units/hour per protocol.
[2019-08-18 05:00] LABS: Band Neutrophils % (manual) 14; Eosinophils % (manual) 2 (0-7); Lymphocytes % (manual) 9 (10.0-50.0); Metamyelocytes % 6; Monocytes % (manual) 4 (0-12); Myelocytes % 4
[2019-08-18] MEDS: PROPOFOL 100 ML IV SCH ×2 (05:00→15:44)
--- NOTE | 2019-08-18 05:00 | NUR ---
CHG bath given to patient best as possible given his prone position. Top linens and pillow cases changed. Oral care and suctioning performed.
--- NOTE | 2019-08-18 05:00 | NUR ---
CXR postponed at this time related to patient's prone position.
--- NOTE | 2019-08-18 05:16 | NUR ---
TEMP 98.2F RECTALLY - REMOVED COOLING BLANKET
[2019-08-18] MEDS: ATRACURIUM BESYLATE 1,000 MG in D5W 5% 150 ML IV SCH (05:51)
[2019-08-18] MEDS: NOREPINEPHRINE BITARTRATE 32 MG in D5W 5% 218 ML IV SCH (05:56)
[2019-08-18] MEDS: fentaNYL Drip 2500mCg/250mlNS 250 ML IV SCH ×2 (05:57→15:45)
--- NOTE | 2019-08-18 06:00 | NUR ---
BS 199: Insulin drip rate increased from 5 to 6 units/hour per protocol.
--- NOTE | 2019-08-18 06:00 | NUR ---
Output: 125 out in OG tube: thick green output 10 ml of dark roxana urine: cloudy with sediment out of lester catheter.
--- NOTE | 2019-08-18 07:30 | NUR ---
BLOOD SUGAR BS 201. INSULIN GTT at 6 UNITS/HR PER PROTOC
[2019-08-18] MEDS: PHENYLEPHRINE INJ 80 MG in SODIUM CHL 0.9% 250 ML IV SCH (07:34)
[2019-08-18] MEDS: EPINEPHrine HCL INJECTION 8 MG in D5W 5% 250 ML IV SCH (07:34)
[2019-08-18] MEDS: VASOPRESSIN 50 UNITS in D5W 5% 247.5 ML IV SCH (07:35)
--- NOTE | 2019-08-18 08:00 | NUR ---
TOF: 1/4 TWITCHES ON 8.5 mA ON LEFT ULNAR. GTT AT 8 MCG/KG/MIN.
--- NOTE | 2019-08-18 09:00 | NUR ---
BLOOD SUGAR BS 201. INSULIN GTT at 6 UNITS/HR PER PROTOCOL.
--- NOTE | 2019-08-18 10:24 | NUR ---
EXTUBATED PT AT APPROXIMATELY 1024 WITH NO INCIDENT REPORTED. PT PLACED ON 8L CA AT 30% FIO2. BS ARE CLEAR/ DIMINISHED, HR 91, RR 24 SPO2 92%. NO STRIDOR NOTED. MERLENE CRUZ AT BEDSIDE. WILL CONTINUE TO MONITOR PT. Addendum: 08/18/19 at 1130 by EDDY SEGURA RT RT CHARTED ON THE WRONG PATIENT
[2019-08-18] MEDS: PANTOPRAZOLE 40 MG/10 ML VIAL INJ IV SCH (10:33)
[2019-08-18] MEDS: BUMETANIDE 2.5mg/10ml (0.25 mg/ml) INJ IV SCH (10:33)
[2019-08-18] MEDS: INSULIN LANTUS (GLARGINE) 1 /0.01ml (100units/ml) SC SCH (10:34)
--- NOTE | 2019-08-18 10:40 | NUR ---
BLOOD SUGAR BS 218. Insulin gtt increased to 8 units/hr per protocol.
--- NOTE | 2019-08-18 10:41 | NUR ---
MANUFACTURING ACCOUNTANT AT BEDSIDE DR. ROCHA UPDATED ON PATIENTS STATUS. ORDERS RECEIVED TO CHANGE PATIENT TO SUPINE POSITION AT 1100. R.T AWARE. PATIENT PREOXYGENATED. DIFFICULT AIRWAY KIT AVAILABLE.
--- NOTE | 2019-08-18 10:42 | NUR ---
Family updated on pt status Family of LELAND MILLER updated on patient's status and condition. All questions and concerns addressed. Brother, Jose verbalized understanding.
--- NOTE | 2019-08-18 11:45 | NUR ---
POSITION CHANGE PT PREOXYGENATED PRIOR TO POSITION CHANGE. PT LOG ROLLED TO SUPINE POSITION MAINTAINING NECK ALIGNMENT. RT AT [facility] TO MAINTAIN AIRWAY PATENCY. DR ROCHA, PRIMARY NURSE AND ADDITIONAL STAFF MEMBERS AT BEDSIDE FOR REPOSITIONING. PT TOLERATED WELL. PICTURES TAKEN TO AREAS OF CONCERN: NOSE, DISTAL NECK AND LEFT LATERAL CHIN. PARALYTIC INFUSING AT THIS TIME PER MD. WILL CONTINUE TO MONITOR.
--- NOTE | 2019-08-18 11:45 | NUR ---
PT WAS PLACED FROM PRONE TO SUPINE POSITION. DR. ROCHA AT BEDSIDE WITH RN TEAM AND RT TEAM. PT DERICK. WELL. NO INCIDENT REPORTED. PT ON 100% FIO2. SPARE INTUBATION TRAY AT BEDSIDE WITH GLYDE SCOPE. JAYDA CHANGED NOTICEABLE SORES ON RIGHT TONGUE.. OPA AT BEDSIDE IF NEEDED. WILL CONTINUE TO MONITOR.
--- NOTE | 2019-08-18 11:55 | NUR ---
Nutrition Follow-up Notes (new PN support) Wt.: 136.9 kg today. Pt's intubated, immediate family member at bedside talking to MD with RN when rounded earlier. Pt had dialysis 08/16/19, currently sedated with Propofol @ 7.278 ml/hr providing 192 kcal from Fat. Pt remains NPO, with PN support @ 35 ml/hr providing 710 kcal, 50 gms pro, 510 NPCs. Pt with inadequate PN support d/t low initiation rate delivery of concentrated formula aeb current PN infusion meets 47% to 60% of est caloric needs (with Propofol on board) and 44% to 55% of est protein needs. Noted pt's to receive tonight another PN support @ 45 ml/hr to provide 790 kcal, 70 gms pro and 510 NPCs and for active Reg/Oncology and Wound consults. Est. Needs based on AdBW(76 kg): 1500 kcal to 1900 kcal (20-25 kcal/kgAdBW), 91 gms to 114 gms pro (1.2-1.5 gms/kgAdBW reassessed d/t ESRD on HD, severe hypoalbuminemia). Will continue to monitor pertinent labs and reassess nutrient need prn Labs: Gluc 189 H, Na 133 L, Cl 96 L, BUN 67 H, Cr 7.62 H, Ca 6.1 L, Phso 8.5 H, Tot alpesh 4.0 H, AST 115 H, ALT 174 H, ALP 164 H, Tpro 5.9 L, Alb 1.5 L; Prealb 4.7 L, Trig 1157 H; HbA1c 11.03 Skin: Brice scale 10, high risk, pt's distal chin DTI per ecological technical officer. Pls refer to latest director health's notes for further details re: tx plans. GI: Pt had 1x BM 08/17/19, had 125 ml gastric drainage output this morning per ecological technical officer. PES: Increased nutrient needs r/t acute/chronic medical condition aeb intubated, sedated, severe hypoalbuminemia, NPO. Altered nutrition related lab values r/t current/chronic medical condition aeb hyperglycemia, elev. renal labs, HbA1c, LFTs, lipase, hypocapnia, hypocalcemia and severe hypoalbuminemia Obesity r/t food intake more than body requirement aeb 218% IBW, BMI 57.7 kg/m2 and increased body adiposity Will continue to monitor NPO status, PN tolerance, skin status, pertinent labs and weight trend. F/u in 3 to 3 days. Rec.: 1.) If still NPO with PN support, consider gradual increase on calories and protein to meet at least 75% of est nutrient needs. 2.) Advance gradually to oral diet or consider EN support if medically appropriate. 3.) Refer pt to CDE/RD for further nutrition education and weight monitoring upon discharge. 4.) Continue current plan of care.
--- NOTE | 2019-08-18 12:15 | NUR ---
PARALYTIC STOPPED AT THIS TIME. WILL CONTINUE TO MONITOR.
--- NOTE | 2019-08-18 12:33 | NUR ---
HYPOTENSION POST POSITION CHANGE TO SUPINE BP TRENDED DOWN 60/30'S. RIGHT WRIST ARTERIAL LINE BP VERIFIED WITH CUFF PRESSURE AFTER TROUBLE SHOOTING . LEVOPHED INCREASED. LINE TO LEFT FEMORAL KINKED POST POSITION CHANGE. LEVOPHED DECREASED BACK TO 6MCG. WILL CONTINUE TO MONITOR.
--- NOTE | 2019-08-18 15:54 | NUR ---
BLOOD SUGAR BS 193. Insulin gtt at 6 units/hr per protocol.
[2019-08-18] MEDS: CALCITRIOL 1 MCG/ML AMPULE IV SCH (15:59)
[2019-08-18] MEDS: ACETAMINOPHEN 650 MG RECT SUPP PR PRN (16:27)
--- NOTE | 2019-08-18 17:32 | NUR ---
Respiratory note: DR. ROCHA NOTIFIED OF ABG RESULTS. NEW VENT ORDERS GIVEN, PCV- RR 22, PIP 28, PEEP +12, I-TIME 0.9. REPEAT ABG IN ONE HOUR.
--- NOTE | 2019-08-18 17:58 | NUR ---
FEVER PATIENT HAVING FEVER OF 102 RECTALLY. BLOOD CULTURES/ SPUTUM CULTURES AND URINE CULTURE TO BE SENT.
--- NOTE | 2019-08-18 18:44 | NUR ---
BLOOD SUGAR BS 186. Insulin gtt at 6 units/hr per protocol.
[2019-08-18] MEDS: TPN PER PHARMACY IV NR ×6 (20:09)
--- NOTE | 2019-08-18 22:10 | NUR ---
Respiratory note: SPUTUM SENT TO LAB
--- NOTE | 2019-08-18 22:30 | NUR ---
Patient bathe/linen change Patient given complete bath. Skin integrity assessed for any changes. Linens changed. Patient repositioned for comfort.
[2019-08-19] VITALS (101 sets, daily range): BP systolic 72–168; BP diastolic 32–68
[2019-08-19] MEDS: ACCU-CHEK COMFORT CURVE STRIP VI SCH ×16 (00:10→23:15)
[2019-08-19] MEDS: DOPamine 1600MCG/ML D5W 250 ML IV SCH ×2 (00:15→11:15)
[2019-08-19] MEDS: MEROPENEM 500MG IVPB 50 ML IV SCH ×2 (00:33→18:15)
[2019-08-19] MEDS: LEVALBUTEROL HCL 1.25 MG/3 ML NEB NEB SCH ×6 (02:16→22:50)
[2019-08-19] MEDS: MIDAZOLAM DRIP 50 mg/50mL 50 ML IV SCH ×3 (02:40→15:44)
[2019-08-19 06:15] LABS: Hematocrit 24.8 % (41.0-53.0); Hemoglobin 8.5 g/dL (13.5-17.5); Mean Corpuscular Hemoglobin 29.8 pg (28.0-32.0); Mean Corpuscular Hgb Conc. 34.3 g/dL (32.0-36.0); Mean Corpuscular Volume 86.9 fL (80.0-100.0); Platelet Count (auto) 125 10^3/uL (140-450); Red Blood Cells 2.85 10^6/uL (4.5-5.90); Red Cell Distribution Width 15.2 % (11.8-14.3); White Blood Cell 15.8 10^3/uL (4.4-10.8)
[2019-08-19] MEDS: PROPOFOL 100 ML IV SCH (06:19)
[2019-08-19] MEDS: fentaNYL Drip 2500mCg/250mlNS 250 ML IV SCH ×2 (06:23→18:29)
[2019-08-19 06:24] LABS: Basophils % (manual) 0 (0.0-2.0); Blast Cells 0; Eosinophils % (manual) 0 (0-7); Promyelocytes % 0; Reactive Lymphocytes 0
[2019-08-19 06:39] LABS: Albumin 1.3 g/dL (3.4-5.0); Magnesium 2.6 mg/dL (1.6-2.6); Potassium 4.5 mmol/L (3.5-5.1)
[2019-08-19 06:50] LABS: BUN/Creatinine Ratio 9.8; Bilirubin, Total 3.6 mg/dL (0.2-1.0); Phosphorus 8.6 mg/dL (2.5-4.90); Total Protein 5.6 g/dL (6.4-8.2)
[2019-08-19 06:53] LABS: Band Neutrophils % (manual) 5; Lymphocytes % (manual) 10 (10.0-50.0); Metamyelocytes % 4; Monocytes % (manual) 1 (0-12); Myelocytes % 3
--- NOTE | 2019-08-19 07:40 | NUR ---
REPORT REPORT RECEIVED FROM BRIDGET RNYURIDIA. BEDSIDE CHECK DONE.
--- NOTE | 2019-08-19 07:52 | NUR ---
ASSESSMENT PT LAYING IN BED WITH EYES CLOSED. PUPILS 2 AND BRISK WITH SCLEREDEMA NOTED. SEDATED ON FENTANYL, DIPRIVAN AND VERSED. PT ON THE VENTILATOR WITH SETTINGS OF PRESSURE CONTROL WITH RATE OF 22 AND PRESSURE OF 28, 40% FIO2, PEEP OF 12, AND I TIME OF 0.9. LUNGS ARE CLEAR AND DIMINISHED THROUGHOUT. TELE SR [address] IN LEAD I. PALPABLE PULSES TO ALL EXTREMITIES. NON PITTING EDEMA NOTED TO BOTH FEET AND HANDS. SCDS TO BLE. ABD SOFT WITH HYPOACTIVE BOWEL SOUNDS. OGT WITH PLACEMENT VERIFIED AND CONNECTED TO LIS WITH LT BILE COLORED FLUID DRAINING.RUIZ CATHETER DRAINING TEA COLORED URINE. JERRY CATH IN PLACE TO THE RIJ,SITE CLEAR. PT DUE FOR HDX TODAY. PT WITH IV MEDS GOING TO A RUE MIDLINE AND A TLC TO THE LEFT FOREARM, BOTH SITES CLEAR. PT WITH SDTI NOTED TO TIP OF HIS NOSE, ANGELINE, TO THE END OF HIS TONGUE. WILL GET HELP TO REPOSITION PT .
--- NOTE | 2019-08-19 09:00 | NUR ---
WOUND CARECEDRIC, FLORAL DESIGNER SALESPERSON, AT THE BEDSIDE TO EVALUATE PURPLE AREA TO THE END OF THE PT'S TONGUE AND SMALL DIVOT MISSING ON LEFT EDGE OF PT'S TONGUE.
--- NOTE | 2019-08-19 09:10 | NUR ---
WOUND CARE NOTE: Wound care in to see patient due to new skin integrity issue that are noted by bedside nurse upon assessment. Patient continue resting in ICU bed in Rm. 109. Patient is still intubated, sedated and mechanically ventilated. Patient appears to be in no pain using [place] Faces Pain Scale. Patient developed dark ecchymosis to distal tip of tongue, anterior and posterior/tongue base. Patient's tongue examined with ICU charge nurse, MERLENE Jaimes,ICU director, RT Sonja and RT director, Shannon. Plan of care collaborated with staff; Q shift/PRN ET tube repositioning and frequent oral care, keeping mucosal ulcer moist. Photograph of mucosal ulcer taken for reference. Patient tolerated well. RECOMMENDATION: Continuation of all other wound care orders prescribed by MD, continue with skin/wound plan of care, continue monitoring by wound care while patient is mechanically ventilated.
--- NOTE | 2019-08-19 09:20 | NUR ---
Respiratory note: MOVED ETT TO THE RIGHT CORNER OF THE MOUTH WITHOUT INCIDENT. ENDOTRACHEAL TUBE JAYDA REPLACED WITHOUT ANY INCIDENT. ETT IS 8.0 AT 26 CM AT THE LIP. TONGUE REMAINS SWOLLEN AND BRUISED. MERLENE WOLFF AT BEDSIDE. WILL ENDORSE INFORMATION TO LOG CHAIN WORKER AND WILL CONTINUE TO MONITOR PT. Addendum: 08/19/19 at 0942 by RENE SALAS, RT RT ETT IS 8.0 AT 24 CM AT THE LIP. MERLENE ROMEO IS AWARE OF POSITION. WILL CONTINUE TO MONITOR PT.
[2019-08-19] MEDS: PHENYLEPHRINE INJ 80 MG in SODIUM CHL 0.9% 250 ML IV SCH (09:46)
[2019-08-19] MEDS: EPINEPHrine HCL INJECTION 8 MG in D5W 5% 250 ML IV SCH (09:46)
--- NOTE | 2019-08-19 09:59 | NUR ---
Respiratory note: VENTILATOR CHANGES MADE BY DR. BATISTA. VENT SETTINGS ARE PCV RR 22/ INSPIRATORY PRESSURE 20/ I TIME 0.9/ PEEP +12. PT IS TOLERATING CHANGE WELL. WILL CONTINUE TO MONITOR PT.
[2019-08-19] MEDS: INSULIN LANTUS (GLARGINE) 1 /0.01ml (100units/ml) SC SCH (11:27)
[2019-08-19] MEDS: NOREPINEPHRINE BITARTRATE 32 MG in D5W 5% 218 ML IV SCH (11:27)
[2019-08-19] MEDS: PANTOPRAZOLE 40 MG/10 ML VIAL INJ IV SCH (11:27)
[2019-08-19] MEDS: InsuLIN R (HUMAN) 100 UNITS in SODIUM CHL 0.9% 99 ML IV SCH (11:28)
[2019-08-19] MEDS: DexMEDEtomidine 400 MCG in D5W 5% 96 ML IV SCH (12:18)
[2019-08-19] MEDS ORDERED: VANCOMYCIN 1GM/250ML 250 ML IV ONE (12:30)
--- NOTE | 2019-08-19 13:40 | NUR ---
Respiratory note: INCREASED PT'S PEEP TO 14 AND FIO2 TO 100%. PER DR. BATISTA KEEP FIO2 AT 100% DURING DIALYSIS. MERLENE ROMEO IS AWARE. WILL CONTINUE TO MONITOR PT.
[2019-08-19] MEDS: CALCIUM ACETATE 667 MG CAP PO SCH ×2 (14:00→22:00)
[2019-08-19] MEDS ORDERED: ALBUMIN 25% 100 ML IV ONE ×2 (14:45)
--- NOTE | 2019-08-19 15:08 | NUR ---
ERROR CORRECT TIME VENT CHECK TIME IS 1412. Addendum: 08/19/19 at 1509 by RENE SALAS, RT RT Amended: Links added.
[2019-08-19] MEDS ORDERED: LIDOCAINE 1% (LOCAL ANESTH.) PF 5ml SDV ID ONE (16:45)
--- NOTE | 2019-08-19 16:46 | NUR ---
PICC line placement Patient/Patient significant other educated on need for PICC line placement. All risks and benefits explained and all questions and concerns addressed prior to procedure. Noted past medical history and allergies with no contraindications. INR and Plt counts within acceptable range. 5 fr PICC line inserted via left basilic vein using [employer] US and Tip Location System. Sterile technique with maximum barrier precautions utilized. Blood return obtained from each of triple lumens and each flushed easily with NS using proper technique. PICC secured with Stat-lock; biodisc and occlusive dressing applied. Stat portable chest x-ray obtained for PICC tip placement. *Baseline Arm Circumference 35. PICC lot # [id number].
--- NOTE | 2019-08-19 16:50 | NUR ---
REPORT REPORT GIVEN TO MARIELLA, WHO IS ASSUMING CARE OF MY PATIENTS.
--- NOTE | 2019-08-19 17:00 | NUR ---
Cooling Measures applied. Patient currently has temp of 101.3 , cooling measures in place.
--- NOTE | 2019-08-19 17:45 | NUR ---
OK to use PICC line Xray completed. OK to use PICC line by RADIOLOGIST.
--- NOTE | 2019-08-19 18:15 | NUR ---
CENTRAL LINE REMOVAL; Left femoral central line removed, manual pressure held for 5 minutes, no signs of bleeding noted pressure dressing applied. All drips changed to left upper arm PICC line.
--- NOTE | 2019-08-19 19:30 | NUR ---
19:30 IS WHERE 22:50 CHARTING SHOULD BE TIMED.
[2019-08-19] MEDS: TPN PER PHARMACY IV NR ×6 (19:44)
[2019-08-19] MEDS ORDERED: TPN PER PHARMACY IV NR ×5 (20:00)
--- NOTE | 2019-08-19 20:50 | NUR ---
TURNED COOLING BLANKET OFF PT. TEMP IS 98.8/RECTAL.
--- NOTE | 2019-08-19 21:00 | NUR ---
BS= 127.
--- NOTE | 2019-08-19 21:35 | NUR ---
PT. FAN OFF PT. TEMP IS 98.2/RECTAL.
[2019-08-19] MEDS: SODIUM CHLOR 0.9% PF (SALINE LOCK) 10ML VIAL/SYR IV SCH (22:00)
--- NOTE | 2019-08-19 22:47 | NUR ---
turned patient to left side from supine and pt. began desating to low 80's; removed pillows and suctioned pt.; sats came up to 85-87%; paged RT to come to bedside; prepared to bag patient; RT at bedside and provided breathing treatment and began to bag patient; pt. sats up to 100% and RT placed pt. back on vent; will cont. to monitor; pt. to unstable to turn at this time.
--- NOTE | 2019-08-19 22:50 | NUR ---
REPORT RECEIVED AND ASSUMED CARE; SEE INTERVENTIONS FOR ASSESSMENT; VS STABLE AT THIS TIME; SEE IV SPREADSHEET FOR GTTS; PT. ON COOLING MEASURES-COOLING BLANKET AND FAN FOR TEMP OF 101.5/RESTAL PER AM RN-TEMP AT THIS TIME IS 100.3/RECTAL; WILL CONT. TO MONITOR.
--- NOTE | 2019-08-19 22:53 | NUR ---
22:50 CHARTING WRONG TIME
--- NOTE | 2019-08-19 23:15 | NUR ---
UE=[id number].
[2019-08-20] VITALS (107 sets, daily range): BP systolic 85–179; BP diastolic 32–77
[2019-08-20] MEDS: MEROPENEM 500MG IVPB 50 ML IV SCH ×2 (01:00→15:02)
[2019-08-20] MEDS: ACCU-CHEK COMFORT CURVE STRIP VI SCH ×16 (01:36→22:33)
--- NOTE | 2019-08-20 01:36 | NUR ---
AT=[id number]
[2019-08-20] MEDS: InsuLIN R (HUMAN) 100 UNITS in SODIUM CHL 0.9% 99 ML IV SCH ×2 (01:37→10:32)
[2019-08-20] MEDS: LEVALBUTEROL HCL 1.25 MG/3 ML NEB NEB SCH ×6 (02:24→22:36)
--- NOTE | 2019-08-20 03:00 | NUR ---
EG=[id number]
[2019-08-20] MEDS: CALCIUM ACETATE 667 MG CAP PO SCH ×3 (06:00→22:00)
--- NOTE | 2019-08-20 06:00 | NUR ---
IV=[id number]
[2019-08-20 07:10] LABS: Hematocrit 25.6 % (41.0-53.0); Hemoglobin 8.5 g/dL (13.5-17.5); Mean Corpuscular Hemoglobin 29.5 pg (28.0-32.0); Mean Corpuscular Hgb Conc. 33.2 g/dL (32.0-36.0); Platelet Count (auto) 171 10^3/uL (140-450); Red Blood Cells 2.88 10^6/uL (4.5-5.90); Red Cell Distribution Width 15.7 % (11.8-14.3); White Blood Cell 15.8 10^3/uL (4.4-10.8)
[2019-08-20 07:16] LABS: Basophils % (manual) 0 (0.0-2.0); Blast Cells 0; Metamyelocytes % 0; Myelocytes % 0; Promyelocytes % 0; Reactive Lymphocytes 0
[2019-08-20 07:28] LABS: Band Neutrophils % (manual) 8; Eosinophils % (manual) 2 (0-7); Lymphocytes % (manual) 7 (10.0-50.0); Monocytes % (manual) 6 (0-12)
[2019-08-20 07:34] LABS: Potassium 5.4 mmol/L (3.5-5.1)
[2019-08-20 07:41] LABS: Albumin 1.6 g/dL (3.4-5.0); BUN/Creatinine Ratio 10.1; Bilirubin, Total 4.3 mg/dL (0.2-1.0); Calcium 6.7 mg/dL (8.5-10.1); Magnesium 2.8 mg/dL (1.6-2.6); Total Protein 6.3 g/dL (6.4-8.2)
[2019-08-20 08:05] LABS: Phosphorus 11.9 mg/dL (2.5-4.90)
--- NOTE | 2019-08-20 08:30 | NUR ---
DR BRANHAM AT BEDSIDE NEW ORDERS GIVEN AND TO BE CARRIED OUT AT THIS TIME. ORDER TO STOP TPN AFTER CURRENT BAG.
--- NOTE | 2019-08-20 08:54 | NUR ---
FAMILY AT BEDSIDE UPDATED ON PT STATUS, ALL QUESTIONS AND CONCERNS ADDRESSED AT THIS TIME, VERBALIZED UNDERSTANDING.
[2019-08-20] MEDS: PANTOPRAZOLE 40 MG/10 ML VIAL INJ IV SCH (09:44)
[2019-08-20] MEDS: INSULIN LANTUS (GLARGINE) 1 /0.01ml (100units/ml) SC SCH (09:45)
[2019-08-20] MEDS: PHENYLEPHRINE INJ 80 MG in SODIUM CHL 0.9% 250 ML IV SCH (09:46)
[2019-08-20] MEDS: NOREPINEPHRINE BITARTRATE 32 MG in D5W 5% 218 ML IV SCH (09:46)
--- NOTE | 2019-08-20 09:50 | NUR ---
DR. ANDRES CALLED, UPDATED ON PT STATUS, PT TO BE DIALYZED TODAY PER
--- NOTE | 2019-08-20 09:55 | NUR ---
PT DESAT O2 85% DURING AND AFTER XRAY. RT AT BEDSIDE, PT NOW SATING >90%. VITAL SIGNS STABLE, WILL CONTINUE TO MONITOR.
[2019-08-20] MEDS: CALCITRIOL 1 MCG/ML AMPULE IV SCH (10:00)
[2019-08-20] MEDS ORDERED: SODIUM CHL 0.9% 1000 ML BAG XX ONE (10:00)
[2019-08-20] MEDS: SODIUM CHLOR 0.9% PF (SALINE LOCK) 10ML VIAL/SYR IV SCH ×2 (10:04→22:00)
[2019-08-20] MEDS: MIDAZOLAM DRIP 50 mg/50mL 50 ML IV SCH ×2 (10:41→21:38)
--- NOTE | 2019-08-20 11:11 | NUR ---
DIALYSIS NURSE AT BEDSIDE
--- NOTE | 2019-08-20 11:20 | NUR ---
DR. BUCKLEY AT BEDSIDE, UPDATED ON PT STATUS. UPDATED FAMILY ON PT STATUS, VERBALIZED UNDERSTANDING.
--- NOTE | 2019-08-20 14:22 | NUR ---
DIALYSIS COMPLETED 3L OUT, VITAL SIGNS STABLE. WILL CONTINUE TO MONITOR.
--- NOTE | 2019-08-20 15:56 | NUR ---
TEMP UP TO 100.4, COOLING BLANKET RESTARTED. WILL CONTINUE TO MONITOR.
[2019-08-20] MEDS ORDERED: Nepro With Carb Steady 1 Liter Bottle GT SCH (16:15)
--- NOTE | 2019-08-20 16:16 | NUR ---
PAGED DR DOTY AWAITING CALL BACK
[2019-08-20] MEDS: DOPamine 1600MCG/ML D5W 250 ML IV SCH ×3 (19:43→20:09)
[2019-08-20] MEDS: VASOPRESSIN 50 UNITS in D5W 5% 247.5 ML IV SCH ×2 (19:43→20:09)
[2019-08-20] MEDS: DexMEDEtomidine 400 MCG in D5W 5% 96 ML IV SCH ×2 (19:44→19:47)
[2019-08-20] MEDS ORDERED: TPN PER PHARMACY IV NR ×5 (20:00)
[2019-08-21] VITALS (106 sets, daily range): BP systolic 89–180; BP diastolic 39–89
[2019-08-21] MEDS: MEROPENEM 500MG IVPB 50 ML IV SCH ×2 (00:50→13:00)
[2019-08-21] MEDS: ACCU-CHEK COMFORT CURVE STRIP VI SCH ×17 (01:38→23:54)
[2019-08-21] MEDS: fentaNYL Drip 2500mCg/250mlNS 250 ML IV SCH ×2 (01:39→16:26)
[2019-08-21] MEDS: MIDAZOLAM DRIP 50 mg/50mL 50 ML IV SCH ×5 (01:39→20:34)
[2019-08-21] MEDS: LEVALBUTEROL HCL 1.25 MG/3 ML NEB NEB SCH ×6 (02:34→22:12)
[2019-08-21 04:07] LABS: Hematocrit 28.4 % (41.0-53.0); Hemoglobin 9.3 g/dL (13.5-17.5); Mean Corpuscular Hgb Conc. 32.9 g/dL (32.0-36.0); Mean Corpuscular Volume 91.1 fL (80.0-100.0); Platelet Count (auto) 247 10^3/uL (140-450); Red Blood Cells 3.12 10^6/uL (4.5-5.90); Red Cell Distribution Width 16.5 % (11.8-14.3); White Blood Cell 16.2 10^3/uL (4.4-10.8)
[2019-08-21 04:25] LABS: Potassium 4.6 mmol/L (3.5-5.1)
[2019-08-21 04:29] LABS: Basophils % (manual) 0 (0.0-2.0); Blast Cells 0; Eosinophils % (manual) 0 (0-7); Metamyelocytes % 0; Myelocytes % 0; Promyelocytes % 0; Reactive Lymphocytes 0
[2019-08-21 04:43] LABS: BUN/Creatinine Ratio 10.9; Bilirubin, Total 4.4 mg/dL (0.2-1.0); Calcium 7.2 mg/dL (8.5-10.1); Magnesium 2.7 mg/dL (1.6-2.6); Pre Albumin 8.2 mg/dL (20.0-40.0); Total Protein 7.1 g/dL (6.4-8.2)
[2019-08-21 04:52] LABS: Albumin 1.6 g/dL (3.4-5.0)
[2019-08-21 04:53] LABS: Phosphorus 9.8 mg/dL (2.5-4.90)
[2019-08-21 05:10] LABS: Band Neutrophils % (manual) 10; Lymphocytes % (manual) 12 (10.0-50.0); Monocytes % (manual) 4 (0-12)
[2019-08-21] MEDS: DOPamine 1600MCG/ML D5W 250 ML IV SCH ×2 (05:38→17:43)
[2019-08-21] MEDS: NOREPINEPHRINE BITARTRATE 32 MG in D5W 5% 218 ML IV SCH (05:39)
[2019-08-21] MEDS: CALCIUM ACETATE 667 MG CAP PO SCH ×3 (06:00→22:00)
[2019-08-21] MEDS: DexMEDEtomidine 400 MCG in D5W 5% 96 ML IV SCH ×2 (08:09→22:46)
--- NOTE | 2019-08-21 08:47 | NUR ---
family aunt russ and son at bedside, updated on pt status, all questions and concerns addressed at this time, verbalized understanding.
[2019-08-21] MEDS: PHENYLEPHRINE INJ 80 MG in SODIUM CHL 0.9% 250 ML IV SCH (09:46)
[2019-08-21] MEDS: SODIUM CHLOR 0.9% PF (SALINE LOCK) 10ML VIAL/SYR IV SCH ×2 (09:47→22:00)
[2019-08-21] MEDS: INSULIN LANTUS (GLARGINE) 1 /0.01ml (100units/ml) SC SCH (09:52)
[2019-08-21] MEDS: PANTOPRAZOLE 40 MG/10 ML VIAL INJ IV SCH (10:00)
--- NOTE | 2019-08-21 10:57 | NUR ---
FAMILY WAITING TO SPEAK WITH MD. MD TO BE HERE SHORTLY, ETA 20 MIN. FAMILY VERBALIZED UNDERSTANDING.
[2019-08-21] MEDS: InsuLIN R (HUMAN) 100 UNITS in SODIUM CHL 0.9% 99 ML IV SCH (11:05)
--- NOTE | 2019-08-21 11:11 | NUR ---
FAMILY MEETING WITH MD DR DOTY SPOKE WITH SISTER AND PT SON REGARDING PT STATUS AND PLAN OF CARE. ALL QUESTIONS AND CONCERNS WERE ADDRESSED AT THIS TIME, FAMILY VERBALIZED UNDERSTANDING.
--- NOTE | 2019-08-21 11:44 | NUR ---
FAMILY MOTHER AT BEDSIDE, UPDATED ON PT STATUS AND PLAN OF CARE ALL QUESTIONS AND CONCERNS ADDRESSED AT THIS TIME. VERBALIZED UNDERSTANDING.
--- NOTE | 2019-08-21 11:50 | NUR ---
MD ANDRES AT BEDSIDE SPOKE WITH MOTHER, UPDATED ON PT STATUS AND PLAN TO DIALYZE TODAY. MOTHER VERBALIZED UNDERSTANDING.
--- NOTE | 2019-08-21 11:53 | NUR ---
Nutrition Follow-up Notes Wt.: 133.4 kg today. Pt's intubated, sedated, had dialysis yesterday, currently NPO, with PN support @ 56 ml/hr providing 995 kcal, 100 gms pro, 595 NPCs. Pt with inadequate PN support d/t low initiation rate delivery of concentrated formula aeb current PN infusion meets 52% to 66% of est caloric needs however meets 88% to 110% of est protein needs. Noted pt's to receive tonight another PN support @ 62 ml/hr to provide 1120 kcal, 110 gms pro and 680 NPCs and to start on EN support today of Nephro @ 40 ml/hr to provide 1728 kcal, 78 gms pro and 698 ml free water, per nursing. Est. Needs based on AdBW(76 kg): 1500 kcal to 1900 kcal (20-25 kcal/kgAdBW), 91 gms to 114 gms pro (1.2-1.5 gms/kgAdBW reassessed d/t ESRD on HD, severe hypoalbuminemia). Will continue to monitor pertinent labs and reassess nutrient need prn Labs: Gluc 190 H, Na 133 L, Cl 95 L, BUN 71 H, Cr 6.51 H, Ca 7.2 L, Phso 9.8 H, Mg 2.7 H, Tot alpesh 4.4 H, AST 56 H, ALP 208 H, LDH 727 H, Alb 1.6 L, Prealb 8.2 L, Trig 1109 H; HbA1c 11.03 Skin: Brice scale 10, high risk, pt's left medial buttocks pressure ulcer, distal chin DTI per bush regenerator. Pls refer to latest phlebotomy instructor's notes for further details re: tx plans. GI: Pt had 1x BM 08/17/19, had 450 ml gastric drainage output this morning per bush regenerator. PES: Increased nutrient needs r/t acute/chronic medical condition aeb intubated, sedated, severe hypoalbuminemia, NPO. Altered nutrition related lab values r/t current/chronic medical condition aeb hyperglycemia, elev. renal labs, HbA1c, LFTs, lipase, hypocapnia, hypocalcemia and severe hypoalbuminemia Obesity r/t food intake more than body requirement aeb 218% IBW, BMI 57.7 kg/m2 and increased body adiposity Will continue to monitor NPO status, P/EN tolerance, skin status, pertinent labs and weight trend. F/u in 3 to 3 days. Rec.: 1.) If still NPO with EN support, tolerates Nephro Carb Steady @ 40 ml/hr, consider gradual tapering down of PN support if medically appropriate. 2.) Advance gradually to oral diet or consider EN support if medically appropriate. 3.) Refer pt to CDE/RD for further nutrition education and weight monitoring upon discharge. 4.) Continue current plan of care.
--- NOTE | 2019-08-21 16:20 | NUR ---
DIALYSIS NURSE AT BEDSIDE PERFORMING DIALYSIS
[2019-08-21] MEDS ORDERED: TPN PER PHARMACY IV NR ×5 (20:00)
--- NOTE | 2019-08-21 20:00 | NUR ---
OPEN ASSUMED CARE OF MALE PT ORALLY INTUBATED. PT SEDATED ON VERSED GTT 15 MG/HR AND FENTANYL GTT 200 MCG/HR. PT GRIMACE TO TACTILE STIMULI. OTHERWISE NON RESPONSIVE. SINUS TACH ON HOUSEMAN WITH LEVOPHED GTT QUAD CONCENTRATE AT 7 MCG/MIN. GTT'S INFUSING INTO L. UPPER ARM PICC LINE. PT ALSO ON INSULIN GTT 5 UNIT/HR INFUSING INTO R UPPER ARM MIDLINE B&P. R. UPPER CHEST DIALYSIS CATH IN PLACE WITH CDI DRESSING. R. RADIAL AMY IN PLACE WITH GOOD WAVE FORM OBSERVED. OGT IN PLACE WITH NEPRO INFUSING AT 20 ML/HR. PLACEMENT VERIFIED. 30 ML BILE ASPIRATED/RETURNED. FEEDING RESUMED. PT WITH FIRM DISTENDED ABDOMEN. HEALING ABRASION OBSERVED TO PT'S NOSE. ABRASION TO PT CHIN EXTENDING TO NECK. BLACKENED DRY TONGUE. BIOTIN AND MOUTH MOISTURIZER APPLIED. OPTIFOAM GENTLE SACRAL DRESSING IN PLACE PREVENTATIVE. RUIZ TO GRAVITY DRAINING SCANT DARK BROWN URINE. LOLA SCD'S IN PLACE. BED IN LOWEST LOCKED POSITION. HOB ELEVATED 40 DEGRESS. PILLOWS USED TO OFFLOAD BONY PROMINENCES AND LOLA HEELS. NO INDICATION OF PAIN OBSERVED. PT IN FULL VIEW OF RN STATION. WILL CONTINUE TO MONITOR.
[2019-08-21] MEDS: VASOPRESSIN 50 UNITS in D5W 5% 247.5 ML IV SCH (20:45)
--- NOTE | 2019-08-21 22:00 | NUR ---
ORAL CARE PT BEING PROVIDED ORAL MOISTURIZER Q 2HRS DUE TO BLACKENED DRIED TONGUE.
[2019-08-21] MEDS: LINEZOLID 600MG/300ML 300 ML IV SCH (22:14)
[2019-08-22] VITALS (105 sets, daily range): BP systolic 93–165; BP diastolic 35–78
[2019-08-22] MEDS: ACCU-CHEK COMFORT CURVE STRIP VI SCH ×16 (01:22→23:36)
[2019-08-22] MEDS: MEROPENEM 500MG IVPB 50 ML IV SCH ×2 (01:22→13:14)
[2019-08-22] MEDS: LEVALBUTEROL HCL 1.25 MG/3 ML NEB NEB SCH ×5 (02:10→22:50)
--- NOTE | 2019-08-22 03:00 | NUR ---
Patient bathe/linen change Patient given complete bath. Skin integrity assessed for any changes. Linens changed. Patient repositioned for comfort.
[2019-08-22 04:02] LABS: Hematocrit 26.1 % (41.0-53.0); Hemoglobin 8.5 g/dL (13.5-17.5); Mean Corpuscular Hemoglobin 28.8 pg (28.0-32.0); Mean Corpuscular Hgb Conc. 32.7 g/dL (32.0-36.0); Mean Corpuscular Volume 87.9 fL (80.0-100.0); Platelet Count (auto) 293 10^3/uL (140-450); Red Blood Cells 2.96 10^6/uL (4.5-5.90); Red Cell Distribution Width 15.9 % (11.8-14.3); White Blood Cell 14.2 10^3/uL (4.4-10.8)
[2019-08-22 04:19] LABS: Basophils % (manual) 0 (0.0-2.0); Blast Cells 0; Myelocytes % 0; Promyelocytes % 0; Reactive Lymphocytes 0
[2019-08-22 04:21] LABS: Calcium 7.9 mg/dL (8.5-10.1); Potassium 4.3 mmol/L (3.5-5.1)
[2019-08-22 04:26] LABS: Albumin 1.5 g/dL (3.4-5.0); BUN/Creatinine Ratio 11.9; Bilirubin, Total 3.8 mg/dL (0.2-1.0); Total Protein 6.5 g/dL (6.4-8.2)
[2019-08-22] MEDS: MIDAZOLAM DRIP 50 mg/50mL 50 ML IV SCH ×5 (05:03→23:30)
[2019-08-22] MEDS: fentaNYL Drip 2500mCg/250mlNS 250 ML IV SCH ×2 (05:03→16:15)
[2019-08-22] MEDS: DOPamine 1600MCG/ML D5W 250 ML IV SCH ×2 (05:15→16:15)
[2019-08-22] MEDS: CALCIUM ACETATE 667 MG CAP PO SCH ×3 (06:00→21:18)
[2019-08-22 06:44] LABS: Band Neutrophils % (manual) 10; Eosinophils % (manual) 1 (0-7); Lymphocytes % (manual) 20 (10.0-50.0); Metamyelocytes % 1; Monocytes % (manual) 3 (0-12)
--- NOTE | 2019-08-22 07:30 | NUR ---
OPENING NOTE RECEIVED REPORT FROM FRAUD INVESTIGATOR RN AND ASSUMED CARE OF PATIENT. BED LOCKED, IN LOWEST POSITION. PT INTUBATED AND SEDATED WITH GTTS RUNNING (SEE IV SPREADSHEET). RUIZ CATHETER IN TACT, FREE OF KINKS, AND DRAINING TO GRAVITY. VITAL SIGNS STABLE, NO S/S OF RESPIRATORY DISTRESS OBSERVED. WILL CONTINUE TO MONITOR AND ASSESS.
[2019-08-22] MEDS: InsuLIN R (HUMAN) 100 UNITS in SODIUM CHL 0.9% 99 ML IV SCH (07:48)
--- NOTE | 2019-08-22 08:15 | NUR ---
TUBE FEEDING ASSESSMENT PT HAS OG TUBE WITH NEPRO RUNNING AT 30 ML./HR. CHECKED RESIDUAL AND GOT 60 ML OF GREEN BILE OUT, RETURNED TO PT. TUBE FEEDING HELD AT THIS TIME. WILL CONTINUE TO ASSESS RESIDUALS AND PT TOLERANCE TO FEEDINGS.
[2019-08-22] MEDS: PHENYLEPHRINE INJ 80 MG in SODIUM CHL 0.9% 250 ML IV SCH (09:46)
[2019-08-22] MEDS: NOREPINEPHRINE BITARTRATE 32 MG in D5W 5% 218 ML IV SCH (09:46)
[2019-08-22] MEDS: INSULIN LANTUS (GLARGINE) 1 /0.01ml (100units/ml) SC SCH (10:00)
[2019-08-22] MEDS: SODIUM CHLOR 0.9% PF (SALINE LOCK) 10ML VIAL/SYR IV SCH ×2 (10:00→22:35)
[2019-08-22] MEDS: CALCITRIOL 1 MCG/ML AMPULE IV SCH (10:38)
[2019-08-22] MEDS: PANTOPRAZOLE 40 MG/10 ML VIAL INJ IV SCH (10:38)
[2019-08-22] MEDS: LINEZOLID 600MG/300ML 300 ML IV SCH ×2 (10:38→20:54)
[2019-08-22] MEDS ORDERED: InsuLIN R (HUMAN) 100 UNITS in SODIUM CHL 0.9% 99 ML IV SCH ×2 (10:40→20:45)
--- NOTE | 2019-08-22 11:05 | NUR ---
MIDLINE DRESSING CHANGE CHANGED RIGHT UPPER ARM MIDLINE DRESSING USING STERILE TECHNIQUE. NO SIGNS/SYMPTOMS OF INFECTION OR INFILTRATION NOTED. PREVIOUS DRESSING WAS CLEAN, DRY, INTACT. MIDLINE EASILY AND APPROPRIATELY FLUSHES.
--- NOTE | 2019-08-22 12:20 | NUR ---
AT BEDSIDE DR. ANDRES AT BEDSIDE TO ASSESS PT AND UPDATE PLAN OF CARE. PT WILL NOT HAVE DIALYSIS TODAY.
[2019-08-22] MEDS: DexMEDEtomidine 400 MCG in D5W 5% 96 ML IV SCH (13:23)
--- NOTE | 2019-08-22 13:55 | NUR ---
AT BEDSIDE DR. ANDERSON AT BEDSIDE TO ASSESS PT AND UPDATE PLAN OF CARE. NEW ORDERS RECEIVED, NOTED IN CHART.
--- NOTE | 2019-08-22 14:28 | NUR ---
AT BEDSIDE DR. BATISTA AT BEDSIDE TO ASSESS PT AND UPDATE PLAN OF CARE. NEW ORDERS RECEIVED, NOTED IN CHART. Addendum: 08/22/19 at 1942 by Jessica Rodriguez RN PER MD INCREASE LANTUS TO 50UNITS DAILY
--- NOTE | 2019-08-22 15:00 | NUR ---
APPLIED COOLING BLANKET TO PATIENT TEMP CONTINUES TO INCREASED. CURRENTLY 100.2F RECTALLY. WILL CONTINUE TO MONITOR.
[2019-08-22] MEDS: METOCLOPRAMIDE HCL 5MG/ml INJ 2ml VIAL IV SCH ×2 (15:05→20:54)
--- NOTE | 2019-08-22 16:45 | NUR ---
DOBBHOFF INSERTION PT NOT TOLERATING TUBE FEEDINGS, DOBBHOFF INDICATED. FOLLOWED PROTOCOL WHILE ATTEMPTING TO INSERT TO PTS R NARE. . COILING NOTED ON CHEST XRAY AT BEDSIDE. ADJUSTED DOBBHOFF PLACEMENT, AND GOT NEW CHEST RAY, BUT COILING STILL PRESENT. D/C'D DOBBHOFF TEMPORARILY. WILL FOLLOW UP.
[2019-08-22] MEDS: ACETAMINOPHEN 325 MG TAB PO PRN (16:54)
--- NOTE | 2019-08-22 16:54 | NUR ---
PATIENT CONTINUES TO HAVE INCREASED TEMP CURRENTLY 100.6F RECTALLY. WILL CONTINUE TO MONITOR.
--- NOTE | 2019-08-22 18:30 | NUR ---
DOBBHOFF PLACEMENT ATTEMPTED TO REINSERT DOBBHOFF TO PTS R NARE. CHEST XRAY ORDERED TO CHECK FOR PLACEMENT. PLACEMENT POSITIVE WITH NO COILING NOTED. WILL CONTINUE TO ALLOW TUBE TO FLOAT TO SMALL INTESTINE FOR THE NEXT 24-48 HOURS. PT LAYING ON RIGHT SIDE TO HELP PROMOTE TUBE MOVEMENT. WILL CONTINUE TO MONITOR.
--- NOTE | 2019-08-22 20:00 | NUR ---
PT FAMILY AT BEDSIDE, POC DISCUSSED, STATED UNDERSTANDING. PT TEMP ELEVATED, 100.9 RECTAL, COOLING BLANKET APPLIED. PT GRIMACES TO PAIN, DOES NOT OPEN EYES. PT ON VENT, PC20/FIO2 45%/PEEP 12. DOBHOFF OGT@65CM, NOT IN PROPER PLACEMENT STILL IN STOMACH, PLACEMENT WILL BE CHECKED IN AM. RUIZ CATHETER DRAINING YELLOW URINE VIA GRAVITY. SAFETY PRECAUTIONS IN PLACE. WILL CONTINUE TO MONITOR.
--- NOTE | 2019-08-22 20:30 | NUR ---
INSULIN DRIP CHANGED TO ALGORITHM #2 PER PROTOCOL.
[2019-08-23] VITALS (104 sets, daily range): BP systolic 74–215; BP diastolic 12–108
[2019-08-23] MEDS: MEROPENEM 500MG IVPB 50 ML IV SCH ×2 (01:40→14:06)
[2019-08-23] MEDS: ACCU-CHEK COMFORT CURVE STRIP VI SCH ×15 (01:40→22:37)
[2019-08-23] MEDS: LEVALBUTEROL HCL 1.25 MG/3 ML NEB NEB SCH ×6 (02:36→22:22)
[2019-08-23] MEDS: DOPamine 1600MCG/ML D5W 250 ML IV SCH ×2 (03:15→14:15)
[2019-08-23] MEDS: DexMEDEtomidine 400 MCG in D5W 5% 96 ML IV SCH ×2 (04:00→18:37)
[2019-08-23] MEDS: MIDAZOLAM DRIP 50 mg/50mL 50 ML IV SCH ×4 (04:25→20:19)
[2019-08-23 04:35] LABS: Basophils # (auto) 0 uL; Eosinophils # (auto) 0.1 uL; Hemoglobin 8.1 g/dL (13.5-17.5); Mean Corpuscular Hemoglobin 28.9 pg (28.0-32.0); Nucleated Red Blood Cells % 0.1 %
[2019-08-23 04:39] LABS: Basophils % (auto) 0.1 % (0.0-2.0); Eosinophils % (auto) 0.4 % (0.0-7.0); Hematocrit 24.6 % (41.0-53.0); Lymphocytes # (auto) 1.6 uL; Lymphocytes % (auto) 10.3 % (10.0-50.0); Mean Corpuscular Hgb Conc. 33.1 g/dL (32.0-36.0); Mean Corpuscular Volume 87.3 fL (80.0-100.0); Monocytes % (auto) 6.3 % (0.0-12.0); Neutrophils # (auto) 12.7 uL; Neutrophils % (auto) 82.9 % (37.0-80.0); Platelet Count (auto) 354 10^3/uL (140-450); Red Blood Cells 2.82 10^6/uL (4.5-5.90); Red Cell Distribution Width 15.9 % (11.8-14.3); White Blood Cell 15.4 10^3/uL (4.4-10.8)
[2019-08-23 04:51] LABS: Albumin 1.5 g/dL (3.4-5.0); Calcium 6.5 mg/dL (8.5-10.1)
[2019-08-23 04:54] LABS: Bilirubin, Total 3.9 mg/dL (0.2-1.0); Total Protein 6.6 g/dL (6.4-8.2)
[2019-08-23 04:58] LABS: Potassium 5.9 mmol/L (3.5-5.1)
--- NOTE | 2019-08-23 05:11 | NUR ---
CRITICAL LABS K 5.9 BUN 96 REPORTED TO HOSPITALIST Stella LONDON NP.
[2019-08-23] MEDS: METOCLOPRAMIDE HCL 5MG/ml INJ 2ml VIAL IV SCH ×3 (05:31→22:14)
[2019-08-23] MEDS: NOREPINEPHRINE BITARTRATE 32 MG in D5W 5% 218 ML IV SCH (05:41)
[2019-08-23] MEDS ORDERED: SODIUM ZIRCONIUM CYCL 10 GM PAK PO ONE (06:15)
[2019-08-23] MEDS ORDERED: InsuLIN REG 1unit/0.01ml Soln (100units/ml) IV ONE (06:15)
[2019-08-23] MEDS ORDERED: CALCIUM GLUC 4.65meq/50ml D5AE 50 ML IV ONE (06:15)
[2019-08-23] MEDS ORDERED: SODIUM BICARBONATE 8.4 % INJ 50ML VIAL IV ONE (06:15)
[2019-08-23] MEDS ORDERED: DEXTROSE (50%) 50ML SYRG IV ONE (06:15)
--- NOTE | 2019-08-23 07:05 | NUR ---
OPENING NOTE RECEIVED REPORT FROM DRAWING IN MACHINE TENDER NURSE AND ASSUMED CARE OF PATIENT. BED LOCKED AND IN LOWEST POSITION. PT VITAL SIGNS STABLE, SPO2 SATURATION 89%. NO S/S OF DISTRESS NOTED, 100% O2 DELIVERED. O2 SAT INCREASED TO 93%. RUIZ CATHETER IN TACT, HUNG BELOW BLADDER AND FREE OF KINKS. ALL GTTS IN PLACE PER MD ORDERS (SEE IV SPREADSHEET). WILL CONTINUE TO MONITOR AND ASSESS.
--- NOTE | 2019-08-23 08:00 | NUR ---
PAGED DR ANDRES TO INFORM OF LAB RESULTS AWAITING CALL BACK.
--- NOTE | 2019-08-23 08:47 | NUR ---
SPOKE TO DR ANDRES ABOUT PATIENTS LAB RESULTS AND CXR, PER MD DIALYSIS TODAY. MD TO PLACE ORDERS.
[2019-08-23] MEDS: SODIUM CHLOR 0.9% PF (SALINE LOCK) 10ML VIAL/SYR IV SCH ×2 (10:00→22:14)
[2019-08-23] MEDS: INSULIN LANTUS (GLARGINE) 1 /0.01ml (100units/ml) SC SCH (10:00)
[2019-08-23] MEDS ORDERED: SODIUM CHL 0.9% 1000 ML BAG XX ONE (10:15)
--- NOTE | 2019-08-23 10:15 | NUR ---
DIALYSIS DIALYSIS NURSE AT BEDSIDE TO BEGIN DIALYSIS.
--- NOTE | 2019-08-23 10:50 | NUR ---
Respiratory note: ROUTINE VENT CHECK. NO VENT CHANGES MADE. CHANGE END-TIDAL CO2 BECAUSE THERE WAS NO READING.PT'S CUFF PRESSURE RE CHECKED. LEAK NOISE STILL HEARD. CALLED AND NOTIFY VIA VOICE MESSAGE. RN AT BEDSIDE. PT IS RECEIVING DIALYSIS.
--- NOTE | 2019-08-23 12:10 | NUR ---
Nutrition Follow-up Notes Wt.: 133.3 kg today. Pt's intubated, sedated RT at bedside when rounded this morning. Pt had dialysis and off from PN support (08/21/19), currently NPO with EN support temporarily held d/t high residuals noted by RN as of yesterday. Pt's previously on Nephro Carb Steady @ 30 ml/hr providing 1296 kcal, 58 gms pro, 523ml free water. Est. Needs based on AdBW(76 kg): 1500 kcal to 1900 kcal (20-25 kcal/kgAdBW), 91 gms to 114 gms pro (1.2-1.5 gms/kgAdBW reassessed d/t ESRD on HD, severe hypoalbuminemia). Will continue to monitor pertinent labs and reassess nutrient need prn Labs: Gluc 163 H, K 5.3 H, Na 131 L, Cl 92 L, CO2 20 L, BUN 96 H, Cr 7.40 H, Ca 6.5 L, Tot alpesh 3.9 H, AST 104 H, ALP 286 H, Alb 1.5 L, Prealb 8.2 L, Trig 1109 H; HbA1c 11.03 Skin: Brice scale 10, high risk, pt's left medial buttocks pressure ulcer, distal chin DTI per skip pitman. Pls refer to latest porter luggage's notes for further details re: tx plans. GI: Pt had 1x BM 08/17/19 per skip pitman. PES: Increased nutrient needs r/t acute/chronic medical condition aeb intubated, sedated, severe hypoalbuminemia, NPO. Altered nutrition related lab values r/t current/chronic medical condition aeb hyperglycemia, elev. renal labs, HbA1c, LFTs, lipase, hypocapnia, hypocalcemia and severe hypoalbuminemia Obesity r/t food intake more than body requirement aeb 218% IBW, BMI 57.7 kg/m2 and increased body adiposity Will continue to monitor NPO status, skin status, pertinent labs and weight trend. F/u in 2 to 3 days. Rec.: 1.) If still NPO, consider to resume EN support at lower rate and gradually increase feeding rate of Nephro Carb Steady @ 40 ml/hr goal rate as tolerated when medically appropriate. 2.) Consider daily Neprovite and Asc acid 500 mgs BID. 3.) If pt's not tolerating EN support with Albumin/Prealbumin continue trending down, consider to resume PN support if medically appropriate. 4.) Advance gradually to oral diet or consider EN support if medically appropriate. 5.) Refer pt to CDE/RD for further nutrition education and weight monitoring upon discharge. 6.) Continue current plan of care.
--- NOTE | 2019-08-23 12:15 | NUR ---
Respiratory note: ETT NOTED TO BE AT 19CM AT THE LIP AND HEARD A LEAK. ETT ADVANCED TO 22CM AT THE TOP LIP SECURED WITH NEW JAY[place]. ADEQUATE VT AND POX MAINTAINED AT 92%.
--- NOTE | 2019-08-23 12:15 | NUR ---
Respiratory note: STAT CXR ORDERED AFTER ETT ADVANCEMENT.
--- NOTE | 2019-08-23 13:20 | NUR ---
AT BEDSIDE DR. BATISTA AT BEDSIDE TO ASSESS PT AND UPDATE PLAN OF CARE. MD PLANS TO SWITCH OUT ET TUBE DUE TO CONTINUOUS CUFF LEAK. NEW ORDERS NOTED IN CHART.
--- NOTE | 2019-08-23 13:25 | NUR ---
DR ANDERSON AT BEDSIDE TO ASSESS PATIENT AND DISCUSS PLAN OF CARE. ALL ORDERS NOTED IN CHART.
[2019-08-23 13:36] LABS: Amylase 55 U/L (25-115); Lipase 570 U/L (73-393)
[2019-08-23] MEDS ORDERED: ROCURONIUM 10MG/ML 10ML VIAL IV ONE ×2 (13:45→14:01)
--- NOTE | 2019-08-23 13:50 | NUR ---
DIALYSIS COMPLETED 3.5LITERS REMOVED
[2019-08-23] MEDS: InsuLIN R (HUMAN) 100 UNITS in SODIUM CHL 0.9% 99 ML IV SCH (13:52)
[2019-08-23] MEDS: CALCIUM ACETATE 667 MG CAP PO SCH ×2 (14:00→22:00)
--- NOTE | 2019-08-23 14:00 | NUR ---
DOBHOFF ASSESSMENT DOBHOFF IN SMALL INTESTINE AT 65 CM PER XRAY. FLUSHED WITH 10 ML WATER AND REMOVED STYLET. Addendum: 08/23/19 at 2011 by Jessica Rodriguez RN ADVANCED TO 70CM AND REMOVED STYLET
[2019-08-23] MEDS: PANTOPRAZOLE 40 MG/10 ML VIAL INJ IV SCH (14:05)
[2019-08-23] MEDS: BUMETANIDE 2.5mg/10ml (0.25 mg/ml) INJ IV SCH (14:06)
[2019-08-23] MEDS: LINEZOLID 600MG/300ML 300 ML IV SCH ×2 (14:06→22:14)
--- NOTE | 2019-08-23 14:30 | NUR ---
TURNING UNABLE TO TURN PT DUE TO DECREASED O2 SATURATION IN THE 80'S. TACHYCARDIA IN 130'S AND FLUCTUATING BP (SEE VITAL SIGNS).
--- NOTE | 2019-08-23 14:50 | NUR ---
REINTUBATION DR. BATISTA AT BEDSIDE TO PREFORM REINTUBATION. SUCCESSFUL WITH A SIZE 7.5 ETT, 22 AT THE LIP. O2 SATURATION IN 80'S, ON 100% O2. WILL CONFIRM PLACEMENT WITH XRAY. Addendum: 08/23/19 at 2013 by Jessica Rodriguez RN PREVIOUS ETT HAD CUFF LEAK AND NEEDED EXCHANGED
--- NOTE | 2019-08-23 14:50 | NUR ---
Respiratory note: ETT REPLACEMENT DONE BY . PT WAS RE-INTUBATED WITH AN 7.5 ETT GUIDED WITH GLIDESCOPE ETT SECURED AT 22CM AT THE LIP. STAT CXR ORDERED.
--- NOTE | 2019-08-23 14:54 | NUR ---
PLACED NEW DOBBHOFF TO RIGHT NARE, PLACED AT 70CM AND STAT CXR ORDERED TO VERIFY PLACEMENT. PREVIOUS DOBBHOFF NGT WAS DISLODGED DURING INTUBATION.
[2019-08-23] MEDS ORDERED: PHENYLEPHRINE IV 250 ML IV ONE (15:21)
[2019-08-23] MEDS: fentaNYL Drip 2500mCg/250mlNS 250 ML IV SCH (15:30)
[2019-08-23] MEDS ORDERED: EPINEPHrine HCL 1 MG/1 ML AMP ONE (15:53)
[2019-08-23] MEDS ORDERED: LIDOCAINE 2%HCL (LOCAL ANESTH.) INJ 20ML MDV ONE (15:53)
[2019-08-23] MEDS ORDERED: SODIUM CHLORIDE LOCK 0 ML ONE (15:54)
[2019-08-23] MEDS ORDERED: LIDOCAINE HCL 2% TOP JELLY 5ML TOP ONE (15:54)
[2019-08-23] MEDS ORDERED: fentaNYL CITRATE 100 MCG/2 ML VL ONE (15:55)
[2019-08-23] MEDS ORDERED: MIDAZOLAM HCL 5 MG/ML-1ML VIAL ONE (15:56)
--- NOTE | 2019-08-23 15:58 | NUR ---
CONSENT SIGNED BY PATIENTS MOTHER SEAN. TRANSLATION OF BRONCHAOSOPY PROCEDURE AND DISCUSSION WITH DR VELAZQUEZ COMPLETED BY PRASHANT DELGADO RN.
--- NOTE | 2019-08-23 16:15 | NUR ---
DR BATISTA AT BEDSIDE TO PERFORM EMERGENT BRONCHOSCOPY.
--- NOTE | 2019-08-23 16:20 | NUR ---
Respiratory note: BRONCH PERFORMED BY WITHOUT INCIDENT. PT WAS PLACED ON 100% FIO2 PRIOR. AMBU BAG AND MASK AT BEDSIDE.
--- NOTE | 2019-08-23 16:30 | NUR ---
COOLING MEASURES COOLING MEASURES INITIATED. ICE PACKS, WASH CLOTHS, COOLING BLANKET APPLIED FOR TEMP OF 100.2. WILL CONTINUE TO MONITOR AND REASSESS.
--- NOTE | 2019-08-23 16:30 | NUR ---
DR ANDRES AT BEDSIDE. MD UPDATED ON PATIENT STATUS AND PROCEDURES PERFORMED. PER MD PATIENT TO HAVE DIALYSIS TOMORROW.
[2019-08-23 16:40] LABS: INR 1.09 (0.9-1.15)
--- NOTE | 2019-08-23 19:30 | NUR ---
Opening Shift Note RECEIVED REPORT FROM DAY NURSE PRICILA. ASSUMED CARE OF PATIENT IN ROOM 109. PATIENT IS INTUBATED AND SEDATED. COOLING BLANKET IN PLACE AND FUNCTIONING PROPERLY. OGT CONNECTED TO SUCTIONING. RUIZ DRAINING TO GRAVITY. COMPLETE PHYSICAL ASSESSMENT UNDER INTERVENTIONS. FOR SAFETY BED LOCKED AT LOWEST POSITION. WILL CONTINUE TO MONITOR.
[2019-08-23] MEDS: PROPOFOL 100 ML IV SCH (22:00)
[2019-08-23] MEDS: ACETAMINOPHEN 650 MG RECT SUPP PR PRN (22:38)
--- NOTE | 2019-08-23 23:08 | NUR ---
TYLENOL SUPPOSITORY TEMP 102.2 CURRENTLY BY RECTAL THERMOMETER. ICE PACKS, COOLING BLANKET AND FAN CURRENTLY BEING USED. WILL CONTINUE TO MONITOR.
[2019-08-24] VITALS (101 sets, daily range): BP systolic 86–168; BP diastolic 28–78
[2019-08-24] MEDS: MEROPENEM 500MG IVPB 50 ML IV SCH ×2 (00:54→15:13)
[2019-08-24] MEDS: DOPamine 1600MCG/ML D5W 250 ML IV SCH ×3 (01:15→21:54)
[2019-08-24] MEDS: ACCU-CHEK COMFORT CURVE STRIP VI SCH ×15 (01:55→21:56)
[2019-08-24] MEDS: LEVALBUTEROL HCL 1.25 MG/3 ML NEB NEB SCH ×6 (02:01→22:18)
--- NOTE | 2019-08-24 02:20 | NUR ---
COOLING BLANKET PLACED UNDERNEATH PATIENT. CONTINUING ADDITIONAL COOLING MEASURES LIKE ICE PACKS AND FAN.
[2019-08-24] MEDS: MIDAZOLAM DRIP 50 mg/50mL 50 ML IV SCH (02:28)
[2019-08-24] MEDS: fentaNYL Drip 2500mCg/250mlNS 250 ML IV SCH (02:29)
--- NOTE | 2019-08-24 03:00 | NUR ---
BED BATH CHG WIPES USED AND NEW GOWN PLACED. PATIENT HAD 1 BM. TOLERATED WELL. CONTINUE TO MONITOR.
--- NOTE | 2019-08-24 04:22 | NUR ---
CURRENT TEMPERATURE 99.9 WITH RECTAL THERMOMETER.
--- NOTE | 2019-08-24 04:23 | NUR ---
RT AT BEDSIDE WITH PATIENT. DEMONSTRATED HOW PATIENT DOES NOT TOLERATE DROP IN PEEP OR FIO2.
[2019-08-24 04:38] LABS: Hematocrit 27.2 % (41.0-53.0); Hemoglobin 9.1 g/dL (13.5-17.5); Mean Corpuscular Hemoglobin 29.2 pg (28.0-32.0); Mean Corpuscular Hgb Conc. 33.3 g/dL (32.0-36.0); Mean Corpuscular Volume 87.6 fL (80.0-100.0); Platelet Count (auto) 438 10^3/uL (140-450); Red Blood Cells 3.11 10^6/uL (4.5-5.90); Red Cell Distribution Width 15.6 % (11.8-14.3)
[2019-08-24 05:00] LABS: Basophils % (manual) 0 (0.0-2.0); Blast Cells 0; Eosinophils % (manual) 0 (0-7); Myelocytes % 0; Promyelocytes % 0; Reactive Lymphocytes 0
[2019-08-24 05:53] LABS: Band Neutrophils % (manual) 33; Lymphocytes % (manual) 5 (10.0-50.0); Metamyelocytes % 2; Monocytes % (manual) 1 (0-12)
[2019-08-24] MEDS: CALCIUM ACETATE 667 MG CAP PO SCH ×3 (06:00→21:53)
[2019-08-24] MEDS: METOCLOPRAMIDE HCL 5MG/ml INJ 2ml VIAL IV SCH ×3 (06:27→21:52)
--- NOTE | 2019-08-24 07:27 | NUR ---
ENDORSED CARE TO DAY NURSE. NO NEW CHANGES TO REPORT.
--- NOTE | 2019-08-24 07:45 | NUR ---
DIALYSIS NURSE AT BEDSIDE SETTING UP FOR TREATMENT. PATIENTS VSS. AM MEDS TO BE HELD UNTIL TX COMPLETED. PT TO REMAIN SUPINE FOR TX WELL.
[2019-08-24] MEDS: DexMEDEtomidine 400 MCG in D5W 5% 96 ML IV SCH ×2 (08:15→21:54)
--- NOTE | 2019-08-24 08:55 | NUR ---
BLOOD SUGAR READING 126. INSULIN GTT TO REMAIN AT 1 UNIT/HR PER PROTOCOL.
--- NOTE | 2019-08-24 09:55 | NUR ---
HYPOTENSION LEVOPHED INCREASED TO 18MCG, CURRENT BP 90'S/60'S. PER DIALYSIS REQUEST FOR FURTHER TX.
[2019-08-24] MEDS: INSULIN LANTUS (GLARGINE) 1 /0.01ml (100units/ml) SC SCH (10:00)
--- NOTE | 2019-08-24 11:00 | NUR ---
Dialysis completed Total of 3.7 liters removed. " Patient tolerated procedure w/o difficulty" per dialysis nurse.
[2019-08-24] MEDS: LINEZOLID 600MG/300ML 300 ML IV SCH ×2 (11:54→21:53)
[2019-08-24] MEDS: PANTOPRAZOLE 40 MG/10 ML VIAL INJ IV SCH (11:55)
[2019-08-24] MEDS: SODIUM CHLOR 0.9% PF (SALINE LOCK) 10ML VIAL/SYR IV SCH ×2 (11:55→21:52)
[2019-08-24] MEDS: BUMETANIDE 2.5mg/10ml (0.25 mg/ml) INJ IV SCH (11:55)
--- NOTE | 2019-08-24 12:00 | NUR ---
DOBBHOFF DOBBHOFF TO RIGHT NARE AT 65CM. CXR ORDERED FOR PLACEMENT AND STYLET TO BE REMOVED ONCE CLEARED.
[2019-08-24] MEDS: CALCITRIOL 1 MCG/ML AMPULE IV SCH (13:06)
--- NOTE | 2019-08-24 13:08 | NUR ---
BLOOD SUGAR READING 195. INSULIN INCREASED TO 2UNITS/HR PER PROTOCOL.
[2019-08-24 13:37] LABS: Calcium 7.5 mg/dL (8.5-10.1); Potassium 4.4 mmol/L (3.5-5.1)
[2019-08-24 13:42] LABS: BUN/Creatinine Ratio 11.6; Bilirubin, Total 2.6 mg/dL (0.2-1.0); Total Protein 7.1 g/dL (6.4-8.2)
[2019-08-24 13:45] LABS: Albumin 1.5 g/dL (3.4-5.0)
[2019-08-24] MEDS: InsuLIN R (HUMAN) 100 UNITS in SODIUM CHL 0.9% 99 ML IV SCH (13:52)
--- NOTE | 2019-08-24 15:37 | NUR ---
BLOOD SUGAR READING 219. INSULIN GTT AT 2UNITS/HR PER PROTOCOL.
--- NOTE | 2019-08-24 15:37 | NUR ---
CXR VERIFIED DOBBHOFF. FLUSHED PER PROTOCOL. FEEDINGS TO BE STARTED ORDERED.
[2019-08-24] MEDS: PROPOFOL 100 ML IV SCH (15:39)
[2019-08-24] MEDS: FREE WATER JT SCH ×2 (17:36→21:53)
--- NOTE | 2019-08-24 17:36 | NUR ---
BLOOD SUGAR READING 183. INSULIN GTT AT 2 UNITS/HR PER PROTOCOL.
--- NOTE | 2019-08-24 19:25 | NUR ---
REPORT RECEIVED, ASSUMED CARE.
--- NOTE | 2019-08-24 19:30 | NUR ---
FAMILY @ BEDSIDE, EXPLAINED POC AND ADDRESSED ALL QUESTIONS AND CONCERNS.
[2019-08-24] MEDS: NOREPINEPHRINE BITARTRATE 32 MG in D5W 5% 218 ML IV SCH (21:52)
[2019-08-25] VITALS (103 sets, daily range): BP systolic 88–234; BP diastolic 29–158
[2019-08-25] MEDS: ACCU-CHEK COMFORT CURVE STRIP VI SCH ×17 (01:08→22:51)
[2019-08-25] MEDS: MEROPENEM 500MG IVPB 50 ML IV SCH ×2 (01:08→13:52)
[2019-08-25] MEDS: LEVALBUTEROL HCL 1.25 MG/3 ML NEB NEB SCH ×5 (02:00→18:41)
[2019-08-25] MEDS: FREE WATER JT SCH ×6 (02:54→22:00)
[2019-08-25] MEDS: fentaNYL Drip 2500mCg/250mlNS 250 ML IV SCH ×2 (03:38→17:52)
[2019-08-25] MEDS: PROPOFOL 100 ML IV SCH (03:39)
[2019-08-25 04:03] LABS: Basophils # (auto) 0.1 uL; Eosinophils # (auto) 0.2 uL; Hemoglobin 8.2 g/dL (13.5-17.5); Lymphocytes % (auto) 7.9 % (10.0-50.0); Neutrophils % (auto) 85.6 % (37.0-80.0)
[2019-08-25 04:05] LABS: Basophils % (auto) 0.4 % (0.0-2.0); Eosinophils % (auto) 1.1 % (0.0-7.0); Hematocrit 24.9 % (41.0-53.0); Lymphocytes # (auto) 1.2 uL; Mean Corpuscular Hemoglobin 28.7 pg (28.0-32.0); Mean Corpuscular Hgb Conc. 32.9 g/dL (32.0-36.0); Mean Corpuscular Volume 87.4 fL (80.0-100.0); Monocytes # (auto) 0.8 uL; Neutrophils # (auto) 13.3 uL; Platelet Count (auto) 430 10^3/uL (140-450); Red Blood Cells 2.84 10^6/uL (4.5-5.90); Red Cell Distribution Width 15.9 % (11.8-14.3); White Blood Cell 15.6 10^3/uL (4.4-10.8)
[2019-08-25 04:31] LABS: Albumin 1.5 g/dL (3.4-5.0); Calcium 7.2 mg/dL (8.5-10.1); Potassium 4.3 mmol/L (3.5-5.1)
[2019-08-25 04:32] LABS: Amylase 53 U/L (25-115); Lipase 712 U/L (73-393)
[2019-08-25 04:36] LABS: BUN/Creatinine Ratio 13.2; Bilirubin, Total 1.8 mg/dL (0.2-1.0); Total Protein 6.6 g/dL (6.4-8.2)
[2019-08-25] MEDS: METOCLOPRAMIDE HCL 5MG/ml INJ 2ml VIAL IV SCH ×3 (05:14→22:49)
[2019-08-25] MEDS: CALCIUM ACETATE 667 MG CAP PO SCH ×3 (05:17→22:00)
--- NOTE | 2019-08-25 07:30 | NUR ---
REPORT RECEIVED FROM DIRECTOR OF ANCILLARY SERVICES NURSE. PATIENT RESTING IN BED INTUBATED AND SEDATED. RESPIRATIONS EVEN AND UNLABORED. NO SIGNS OF ACUTE DISTRESS NOTED. BED IN LOW POSITION. WILL CONTINUE TO MONITOR.
[2019-08-25] MEDS: NOREPINEPHRINE BITARTRATE 32 MG in D5W 5% 218 ML IV SCH (09:46)
[2019-08-25] MEDS: INSULIN LANTUS (GLARGINE) 1 /0.01ml (100units/ml) SC SCH (10:00)
--- NOTE | 2019-08-25 10:00 | NUR ---
UPDATED BROTHER AT BEDSIDE AND WAS PRESENT WHEN DR SANTIAGO ROUNDED.
[2019-08-25] MEDS: InsuLIN R (HUMAN) 100 UNITS in SODIUM CHL 0.9% 99 ML IV SCH ×2 (10:03→21:00)
[2019-08-25] MEDS: MIDAZOLAM DRIP 50 mg/50mL 50 ML IV SCH (10:05)
--- NOTE | 2019-08-25 10:05 | NUR ---
DR SANTIAGO AT BEDSIDE TO ASSESS PATIENT AND DISCUSS PLAN OF CARE. MD MADE AWARE OF PATIENTS INCREASED ABDOMINAL DISTENTION WITH NO BOWEL SOUNDS AND HIGH GASTRIC CONTENT RESIDUALS. PER MD ORDER ABDOMINAL SERIES NOTED IN CHART. PER MD HOLD TUBE FEEDINGS UNTIL VERIFIED THAT PATIENT DOES NOT HAVE ILEUS OR BOWEL OBSTRUCTION.
[2019-08-25] MEDS: DOPamine 1600MCG/ML D5W 250 ML IV SCH ×2 (10:15→21:15)
--- NOTE | 2019-08-25 10:20 | NUR ---
WOUND CARE AT BEDSIDE TO ASSESS PATIENT AND DISCUSS PLAN OF CARE. PER LORI BLUNT FROM WOUND CARE WILL ORDER SPECIALTY MATTRESS.
[2019-08-25] MEDS: PANTOPRAZOLE 40 MG/10 ML VIAL INJ IV SCH (10:27)
[2019-08-25] MEDS: BUMETANIDE 2.5mg/10ml (0.25 mg/ml) INJ IV SCH (10:28)
[2019-08-25] MEDS: LINEZOLID 600MG/300ML 300 ML IV SCH ×2 (10:29→22:50)
[2019-08-25] MEDS: SODIUM CHLOR 0.9% PF (SALINE LOCK) 10ML VIAL/SYR IV SCH ×2 (10:29→22:49)
--- NOTE | 2019-08-25 10:45 | NUR ---
WOUND CARE NOTE: IN TO SEE PATIENT AT THIS TIME FOR SKIN INTEGRITY. PATIENT CONTINUES TO BE INTUBATED, SEDATED. HE HAS ACQUIRED WOUNDS FROM BEING POSITIONED IN PRONE POSITION. CURRENTLY, HE IS IN SUPINE POSITION. PATIENT HAS CURRENT MK SCORE OF 11. PATIENT'S MUCOSAL ULCERATION TO THE TONGUE APPEARS TO BE MUCH IMPROVED, WITH RED GRANULATION NOTED TO DISTAL TONGUE. NOSE ABRASION IS SCABBED TO TIP OF NOSE, APPEARS MUCH IMPROVED FROM LAST EXAM. CHIN WOUND CONTINUES TO BE INTACT, ALTHOUGH IS IS NON BLANCHABLE DARK RED. ALL WOUNDS OPEN TO AIR. TONGUE WOUND IS BEING TREATED WITH PERIODIC ORAL IRRIGATION USING ORAL KIT AND H202 SOLUTION. TURNED PATIENT TO LEFT SIDE. SACRAL, BILATERAL HEEL SKIN REMAINS PINK AND BLANCHABLE. OPTIFOAM GENTLE SACRAL DRESSING APPLIED FOR PREVENTATIVE. REPOSITIONED ONTO LEFT SIDE, REDISTRIBUTING PRESSURE POINTS USING PILLOWS/WEDGES. SPECIALTY BARIATRIC AIR BED ORDERED AT THIS TIME, ALSO PREVENTATIVE. PATIENT TO BE PLACED, PENDING DELIVERY BY DEBORAH SMALLWOOD. RECOMMEND: SPECIALTY BARIATRIC AIR BED, QID/PRN ORAL RINSE WITH ORAL KIT SOLUTION, CONTINUATION WITH ALL WOUND CARE ORDERS PREVIOUSLY PRESCRIBED BY MD. WOUND CARE TEAM WILL CONTINUE TO MONITOR. Addendum: 08/25/19 at 1805 by Susie Bautista RN Amended: Links added.
--- NOTE | 2019-08-25 13:35 | NUR ---
DR BOO AT BEDSIDE TO ASSESS PATIENT.
[2019-08-25] MEDS: DexMEDEtomidine 400 MCG in D5W 5% 96 ML IV SCH (14:28)
--- NOTE | 2019-08-25 14:36 | NUR ---
103 Addendum: 08/25/19 at 1437 by Jessica Rodriguez RN ERROR
--- NOTE | 2019-08-25 17:30 | NUR ---
PATIENT PLACED ON AIR MATTRESS
--- NOTE | 2019-08-25 18:00 | NUR ---
COOLING MEASURES RESTARTED COOLING BLANKET DUE TO PATIENTS INCREASED TEMP OF 99.9F RECTALLY. WILL CONTINUE TO MONITOR.
--- NOTE | 2019-08-25 18:17 | NUR ---
DR BATISTA AT BEDSIDE TO ASSESS PATIENT AND DISCUSS PLAN OF CARE. MD DECREASED PEEP TO 12. MD INFORMED OF INCREASED ABDOMINAL DISTENTION, NO BOWEL MOVEMENT IN SEVERAL DAYS, AND NO BOWEL SOUNDS. PER MD DO NOT TAKE PATIENT FOR ABDOMINAL CT UNTIL PEEP IS 10 OR LESS.
--- NOTE | 2019-08-25 21:00 | NUR ---
al=250.
--- NOTE | 2019-08-25 22:30 | NUR ---
BS= 148.
[2019-08-26] VITALS (106 sets, daily range): BP systolic 88–186; BP diastolic 25–73
[2019-08-26] MEDS: LEVALBUTEROL HCL 1.25 MG/3 ML NEB NEB SCH ×8 (00:46→21:51)
[2019-08-26] MEDS: ACCU-CHEK COMFORT CURVE STRIP VI SCH ×16 (00:50→23:00)
--- NOTE | 2019-08-26 00:50 | NUR ---
BS= 151
[2019-08-26] MEDS: MEROPENEM 500MG IVPB 50 ML IV SCH ×2 (01:50→15:14)
[2019-08-26] MEDS: FREE WATER JT SCH ×6 (02:00→22:00)
--- NOTE | 2019-08-26 03:35 | NUR ---
RA=[id number]
[2019-08-26 04:02] LABS: Hematocrit 24.8 % (41.0-53.0); Mean Corpuscular Hemoglobin 28.3 pg (28.0-32.0); Mean Corpuscular Hgb Conc. 32.3 g/dL (32.0-36.0); Mean Corpuscular Volume 87.7 fL (80.0-100.0); Platelet Count (auto) 456 10^3/uL (140-450); Red Blood Cells 2.82 10^6/uL (4.5-5.90); Red Cell Distribution Width 15.8 % (11.8-14.3); White Blood Cell 14.4 10^3/uL (4.4-10.8)
[2019-08-26 04:12] LABS: Basophils % (manual) 0 (0.0-2.0); Blast Cells 0; Metamyelocytes % 0; Myelocytes % 0; Promyelocytes % 0; Reactive Lymphocytes 0
[2019-08-26 04:20] LABS: Albumin 1.5 g/dL (3.4-5.0); Potassium 5.1 mmol/L (3.5-5.1)
[2019-08-26 04:25] LABS: BUN/Creatinine Ratio 13.4; Bilirubin, Total 1.7 mg/dL (0.2-1.0); Total Protein 6.8 g/dL (6.4-8.2)
[2019-08-26 04:26] LABS: INR 1.07 (0.9-1.15); Partial Thromboplastin Time 27.4 sec (23.64-32.05)
--- NOTE | 2019-08-26 04:40 | NUR ---
BS= 152.
[2019-08-26] MEDS: DexMEDEtomidine 400 MCG in D5W 5% 96 ML IV SCH ×2 (05:05→22:00)
[2019-08-26] MEDS: CALCIUM ACETATE 667 MG CAP PO SCH ×3 (06:00→22:00)
[2019-08-26] MEDS: METOCLOPRAMIDE HCL 5MG/ml INJ 2ml VIAL IV SCH (06:00)
--- NOTE | 2019-08-26 06:25 | NUR ---
BS= 148.
[2019-08-26 06:39] LABS: Eosinophils % (manual) 1 (0-7); Monocytes % (manual) 5 (0-12)
[2019-08-26 06:40] LABS: Band Neutrophils % (manual) 20; Lymphocytes % (manual) 9 (10.0-50.0)
--- NOTE | 2019-08-26 07:30 | NUR ---
BS- 153, IV INSULIN REMAINS AT 1.5 UNITS PER ORDER.
[2019-08-26] MEDS: DOPamine 1600MCG/ML D5W 250 ML IV SCH (08:15)
--- NOTE | 2019-08-26 09:00 | NUR ---
BS- 155, IV INSULIN REMAINS AT 1.5 UNITS/HR PER ORDER.
[2019-08-26] MEDS: CALCITRIOL 1 MCG/ML AMPULE IV SCH (10:00)
[2019-08-26] MEDS: INSULIN LANTUS (GLARGINE) 1 /0.01ml (100units/ml) SC SCH (10:00)
[2019-08-26] MEDS: SODIUM CHLOR 0.9% PF (SALINE LOCK) 10ML VIAL/SYR IV SCH ×2 (10:00→22:00)
[2019-08-26] MEDS: MIDAZOLAM DRIP 50 mg/50mL 50 ML IV SCH (10:05)
--- NOTE | 2019-08-26 10:30 | NUR ---
BS- 156, IV INSULIN REMAINS AT 1.5 UNITS/HR PER ORDER.
[2019-08-26] MEDS: PANTOPRAZOLE 40 MG/10 ML VIAL INJ IV SCH (10:38)
[2019-08-26] MEDS: LINEZOLID 600MG/300ML 300 ML IV SCH ×2 (10:38→22:00)
[2019-08-26] MEDS: BUMETANIDE 2.5mg/10ml (0.25 mg/ml) INJ IV SCH (10:38)
--- NOTE | 2019-08-26 11:00 | NUR ---
DIALYSIS NURSE HERE.
--- NOTE | 2019-08-26 11:09 | NUR ---
Nutrition Follow-up Notes Wt.: 135.9 kg today. Pt's intubated, sedated, no immediate family member at bedside when rounded earlier. Pt had dialysis (08/23/19), currently NPO with EN support temporarily held d/t high residuals and absent of bowel sound, pre nursing. Pt's previously on Nephro Carb Steady @ 30 ml/hr providing 1296 kcal, 58 gms pro, 523ml free water. Est. Needs based on AdBW(76 kg): 1500 kcal to 1900 kcal (20-25 kcal/kgAdBW), 91 gms to 114 gms pro (1.2-1.5 gms/kgAdBW reassessed d/t ESRD on HD, severe hypoalbuminemia). Will continue to monitor pertinent labs and reassess nutrient need prn Labs: Gluc 164 H, Na 135 L, Cl 97 L, BUN 99 H, Cr 7.39 H, Ca 7.0 L, Tot alpesh 1.7 H, AST 65 H, ALP 247 H, Alb 1.5 L, Prealb 8.2 L, Trig 1109 H; HbA1c 11.03 Skin: Brice scale 10, high risk, pt's left medial buttocks pressure ulcer, distal chin DTI per diagnostics sales developer. Pls refer to latest supervisor special education's notes for further details re: tx plans. GI: Pt had 1x BM 08/24/19 per diagnostics sales developer. PES: Increased nutrient needs r/t acute/chronic medical condition aeb intubated, sedated, severe hypoalbuminemia, NPO. Altered nutrition related lab values r/t current/chronic medical condition aeb hyperglycemia, elev. renal labs, HbA1c, LFTs, lipase, hypocapnia, hypocalcemia and severe hypoalbuminemia Obesity r/t food intake more than body requirement aeb 218% IBW, BMI 57.7 kg/m2 and increased body adiposity Will continue to monitor NPO status, skin status, pertinent labs and weight trend. F/u in 2 to 3 days. Rec.: 1.) If still NPO, consider to resume EN support at lower rate and gradually increase feeding rate of Nephro Carb Steady @ 40 ml/hr goal rate as tolerated when medically appropriate. 2.) Consider daily Neprovite and Asc acid 500 mgs BID. 3.) If pt's not tolerating EN support with Albumin/Prealbumin continue trending down, consider to resume PN support if medically appropriate. 4.) Advance gradually to oral diet or consider EN support if medically appropriate. 5.) Refer pt to CDE/RD for further nutrition education and weight monitoring upon discharge. 6.) Continue current plan of care.
--- NOTE | 2019-08-26 12:00 | NUR ---
BS- 120, IV INSULIN AT 1.0 UNITS/HR PER ORDER.
--- NOTE | 2019-08-26 12:34 | NUR ---
DR. GARCIA HERE TO SEE PATIENT. SEE MD NOTES AND EMR FOR ANY NEW ORDERS.
[2019-08-26] MEDS ORDERED: TPN PER PHARMACY 0 ML IV SCH (12:45)
[2019-08-26 13:29] LABS: Magnesium 2.5 mg/dL (1.6-2.6); Pre Albumin 10.1 mg/dL (20.0-40.0)
--- NOTE | 2019-08-26 13:30 | NUR ---
BS- 118, IV INSULIN AT 0.5 UNITS/HR PER ORDER.
[2019-08-26] MEDS: PROPOFOL 100 ML IV SCH (13:39)
[2019-08-26] MEDS ORDERED: DEXTROSE (50%) 50ML SYRG IV SCH ×2 (14:30→18:00)
--- NOTE | 2019-08-26 15:00 | NUR ---
BS- 177, IV INSULIN AT 1.5 UNITS/HR PER ORDER.
--- NOTE | 2019-08-26 15:49 | NUR ---
DR. ANDRES HERE TO SEE PATIENT. SEE MD NOTE AND EMR FOR ANY NEW ORDERS.
--- NOTE | 2019-08-26 15:50 | NUR ---
PATIENT PLACED ON COOLING BLANKET DUE TO RISING TEMPERATURE.
--- NOTE | 2019-08-26 16:19 | NUR ---
PICC LINE DRESSING TO LEFT UPPER ARM CHANGED PER ORDER. PATIENT TOLERATED PROCEDURE WELL.
--- NOTE | 2019-08-26 16:30 | NUR ---
BS- 174, IV INSULIN AT 1.5 UNITS/HR PER ORDER.
[2019-08-26] MEDS ORDERED: InsuLIN REG 1unit/0.01ml Soln (100units/ml) SC SCH ×2 (18:00)
[2019-08-26] MEDS ORDERED: ACCU-CHEK COMFORT CURVE STRIP VI SCH ×2 (18:00)
--- NOTE | 2019-08-26 18:00 | NUR ---
BS- 151, IV INSULIN AT 1.5 UNITS/HR PER ORDER.
[2019-08-26] MEDS: NOREPINEPHRINE BITARTRATE 32 MG in D5W 5% 218 ML IV SCH (18:07)
[2019-08-26] MEDS ORDERED: AMINO ACID INFUSION IN D10W 1,000 ML IV SCH (20:00)
[2019-08-27] VITALS (88 sets, daily range): BP systolic 81–197; BP diastolic 23–88
[2019-08-27] MEDS: ACCU-CHEK COMFORT CURVE STRIP VI SCH ×16 (00:19→22:21)
[2019-08-27] MEDS: MEROPENEM 500MG IVPB 50 ML IV SCH ×2 (01:30→16:32)
[2019-08-27] MEDS: FREE WATER JT SCH ×6 (02:00→22:00)
[2019-08-27] MEDS: LEVALBUTEROL HCL 1.25 MG/3 ML NEB NEB SCH ×6 (02:21→21:46)
[2019-08-27 03:41] LABS: Hematocrit 23.9 % (41.0-53.0); Hemoglobin 7.9 g/dL (13.5-17.5); Mean Corpuscular Hemoglobin 28.9 pg (28.0-32.0); Mean Corpuscular Volume 87.5 fL (80.0-100.0); Platelet Count (auto) 432 10^3/uL (140-450); Red Blood Cells 2.73 10^6/uL (4.5-5.90); Red Cell Distribution Width 15.6 % (11.8-14.3); White Blood Cell 11.5 10^3/uL (4.4-10.8)
[2019-08-27 03:43] LABS: Basophils % (manual) 0 (0.0-2.0); Blast Cells 0; Metamyelocytes % 0; Myelocytes % 0; Promyelocytes % 0; Reactive Lymphocytes 0
[2019-08-27 03:58] LABS: Albumin 1.5 g/dL (3.4-5.0); Calcium 7.2 mg/dL (8.5-10.1); Magnesium 2.5 mg/dL (1.6-2.6); Potassium 4.1 mmol/L (3.5-5.1)
[2019-08-27 04:04] LABS: BUN/Creatinine Ratio 13.3; Bilirubin, Total 1.6 mg/dL (0.2-1.0); Total Protein 6.8 g/dL (6.4-8.2)
[2019-08-27 05:29] LABS: Phosphorus 9.3 mg/dL (2.5-4.90)
[2019-08-27] MEDS: CALCIUM ACETATE 667 MG CAP PO SCH ×3 (06:00→22:00)
[2019-08-27 06:52] LABS: Band Neutrophils % (manual) 10; Eosinophils % (manual) 2 (0-7); Lymphocytes % (manual) 11 (10.0-50.0); Monocytes % (manual) 4 (0-12)
--- NOTE | 2019-08-27 07:30 | NUR ---
BS- 168, IV INSULIN AT 1.5 UNITS/HR PER ORDER.
--- NOTE | 2019-08-27 09:00 | NUR ---
BS- 161, IV INSULIN AT 1.5 UNITS/HR PER ORDER.
[2019-08-27] MEDS: LINEZOLID 600MG/300ML 300 ML IV SCH ×2 (09:58→22:00)
[2019-08-27] MEDS: SODIUM CHLOR 0.9% PF (SALINE LOCK) 10ML VIAL/SYR IV SCH ×2 (09:59→21:59)
[2019-08-27] MEDS: PANTOPRAZOLE 40 MG/10 ML VIAL INJ IV SCH (09:59)
[2019-08-27] MEDS: BUMETANIDE 2.5mg/10ml (0.25 mg/ml) INJ IV SCH (09:59)
--- NOTE | 2019-08-27 10:30 | NUR ---
BS- 156, IV INSULIN AT 1.5 UNITS/HR PER ORDER.
--- NOTE | 2019-08-27 11:00 | NUR ---
DR. ANDRES HERE TO SEE PATIENT. [place] PATIENT WILL RECEIVE DIALYSIS TODAY.
--- NOTE | 2019-08-27 12:00 | NUR ---
BS- 196, IV INSULIN AT 2 UNITS/HR PER ORDER.
[2019-08-27] MEDS: fentaNYL Drip 2500mCg/250mlNS 250 ML IV SCH (12:13)
--- NOTE | 2019-08-27 13:30 | NUR ---
BS- 171, IV INSULIN AT 1.5 UNITS/HR PER ORDER.
[2019-08-27] MEDS: PROPOFOL 100 ML IV SCH (13:39)
--- NOTE | 2019-08-27 14:28 | NUR ---
RT NOTE: PT CURRENTLY RECEIVING DIALYSIS. TX HELD. NO SIGNS OF RERSPIRATORY DISTRESS. LUNG SOUNDS CLEAR T/O. NO SUCTION. PIN DRAFTING MACHINE OPERATOR AT BEDSIDE. WILL CONTINUE TO MONITOR.
--- NOTE | 2019-08-27 15:00 | NUR ---
BS- 171, IV INSULIN AT 1.5 UNITS/HR PER ORDER.
[2019-08-27] MEDS: DexMEDEtomidine 400 MCG in D5W 5% 96 ML IV SCH (15:45)
--- NOTE | 2019-08-27 16:10 | NUR ---
DIALYSIS COMPLETED. 3 LITERS REMOVED.
--- NOTE | 2019-08-27 16:30 | NUR ---
BS- 161, IV INSULIN AT 1.5 UNITS/HR PER ORDER.
--- NOTE | 2019-08-27 19:15 | NUR ---
OPENING NOTE RECEIVED REPORT FROM DAY SHIFT RN. PATIENT INTUBATED AND SEDATED ON FENT AND PRECEDEX. TOLERATING VENTILATOR. BRIGHT RED BLOOD CLEANED FROM ORAL CAVITY. SR 90'S NO ECTOPY BP 140/70 ON RIGHT WRIST ARTERIAL LINE ON LEVOPHED PRESSURE SUPPORT. TEMPERATURE 99'7F ON RECTAL THERMOMETER, ICE PACKS AND FAN ON PATIENT. INSULIN DRIP RUNNING AT 1.5UNITS/HR. OGT PATENT TO LIS. RIGHT SHIELDS DOFF BRIGITTE IRRIGATED. RUIZ PATENT DRAINING TO GRAVITY. ALL LINES ARE CDI. MULTIPLE AREAS OF CONCERN ON SKIN, FOR MORE INFORMATION SEE INTERVENTIONS. FOR GTTS AND THEIR TITRATIONS SEE IV SPREAD SHEET. SPECIALTY BED SET TO LOWEST SETTING. ALL FALL AND SAFETY PRECAUTIONS IN PLACE.
[2019-08-27] MEDS ORDERED: TPN PER PHARMACY IV NR ×6 (20:00)
[2019-08-27] MEDS: NOREPINEPHRINE BITARTRATE 32 MG in D5W 5% 218 ML IV SCH (20:25)
--- NOTE | 2019-08-27 21:00 | NUR ---
FRIEND AT BEDSIDE AFTER RECEIVING CORRECT PASSWORD UPDATED FRIEND ON PATIENT STATUS.
--- NOTE | 2019-08-27 22:15 | NUR ---
MOTHER AT BEDSIDE UPDATED ON PATIENT STATUS, CONSENTS SIGNED FOR TRACHEOTOMY IN AM.
--- NOTE | 2019-08-27 22:26 | NUR ---
HL=[id number] INSULIN GTT 2UNIT 2ML/HR
[2019-08-27 22:47] LABS: INR 1.08 (0.9-1.15); Partial Thromboplastin Time 25.9 sec (23.64-32.05)
[2019-08-28] VITALS (90 sets, daily range): BP systolic 91–169; BP diastolic 22–80
[2019-08-28] MEDS: ACCU-CHEK COMFORT CURVE STRIP VI SCH ×16 (00:05→22:46)
[2019-08-28] MEDS: DexMEDEtomidine 400 MCG in D5W 5% 96 ML IV SCH ×2 (00:12→15:33)
[2019-08-28] MEDS: MEROPENEM 500MG IVPB 50 ML IV SCH ×2 (01:09→14:42)
--- NOTE | 2019-08-28 01:23 | NUR ---
FULL BED BATH AND SHAVING COMPLETED COMPLETE NEW LINENS CHANGE. PATIENTS CHIN NECK AREA SHAVED AND CLEANED WITH CHG WIPES. SKIN REASSESSED AND NO NEW BREAK DOWN NOTED.
[2019-08-28] MEDS: InsuLIN R (HUMAN) 100 UNITS in SODIUM CHL 0.9% 99 ML IV SCH (01:30)
--- NOTE | 2019-08-28 01:30 | NUR ---
BS 162 INSULIN 1.5
[2019-08-28] MEDS: FREE WATER JT SCH ×6 (01:32→22:00)
[2019-08-28] MEDS: fentaNYL Drip 2500mCg/250mlNS 250 ML IV SCH ×2 (01:36→17:51)
[2019-08-28] MEDS: LEVALBUTEROL HCL 1.25 MG/3 ML NEB NEB SCH ×6 (02:23→22:14)
[2019-08-28 03:42] LABS: Hematocrit 24.1 % (41.0-53.0); Mean Corpuscular Hgb Conc. 33.1 g/dL (32.0-36.0); Mean Corpuscular Volume 87.6 fL (80.0-100.0); Platelet Count (auto) 417 10^3/uL (140-450); Red Blood Cells 2.75 10^6/uL (4.5-5.90); Red Cell Distribution Width 15.6 % (11.8-14.3); White Blood Cell 10.8 10^3/uL (4.4-10.8)
[2019-08-28 03:46] LABS: Basophils % (manual) 0 (0.0-2.0); Blast Cells 0; Eosinophils % (manual) 0 (0-7); Myelocytes % 0; Promyelocytes % 0; Reactive Lymphocytes 0
[2019-08-28 04:02] LABS: Albumin 1.5 g/dL (3.4-5.0); Calcium 7.4 mg/dL (8.5-10.1); Potassium 4.1 mmol/L (3.5-5.1)
[2019-08-28 04:05] LABS: BUN/Creatinine Ratio 14.1
[2019-08-28 04:08] LABS: Bilirubin, Total 1.5 mg/dL (0.2-1.0); Total Protein 6.7 g/dL (6.4-8.2)
[2019-08-28 04:34] LABS: Magnesium 2.3 mg/dL (1.6-2.6)
[2019-08-28] MEDS: CALCIUM ACETATE 667 MG CAP PO SCH ×3 (04:55→22:00)
[2019-08-28 05:20] LABS: Phosphorus 9.5 mg/dL (2.5-4.90)
[2019-08-28 06:53] LABS: Band Neutrophils % (manual) 9; Lymphocytes % (manual) 15 (10.0-50.0); Metamyelocytes % 3; Monocytes % (manual) 2 (0-12)
--- NOTE | 2019-08-28 07:41 | NUR ---
received call from or updated rn on patient being jw and family not consenting to blood products. informed dayshift rn
--- NOTE | 2019-08-28 07:45 | NUR ---
AM ASSESSMENT COMPLETED. ALL ALARMS VERIFIED. ORAL CARE RENDERED GENTLY. PT HAS ESCHAR IN TONGUE AND IT BLEED EASILY. APPLIED SURGILUBE IN A GAUZE TO ABSORB MOISTURE BUT PREVENT GAUZE FROM STICKING TO PT'S TONGUE. PT IS SCHEDULE TO HAVE TRACHEOSTOMY TODAY, PT IS NPO, PT NOT ON SCHEDULE, PT'S HGB 8.0 HCT 24.1 PT'S FAMILY DECLINE BLOOD BECAUSE PT WAS STUDYING TO BECOME A JEHOVAH WITNESS. PT ALSO PENDING HD. K = 4.1 BUN + CR CHRONICALLY ELEVATED 87 & 6.16.
[2019-08-28] MEDS ORDERED: fentaNYL CITRATE 5 ML ONE ×2 (08:08→09:57)
[2019-08-28] MEDS ORDERED: ROCURONIUM 10MG/ML 10ML VIAL IV ONE (08:09)
[2019-08-28] MEDS ORDERED: SODIUM CHLORIDE LOCK 10 ML ONE (08:09)
[2019-08-28] MEDS ORDERED: ONDANSETRON HCL 4 MG/2 ML VIAL ONE (08:09)
[2019-08-28] MEDS ORDERED: MIDAZOLAM HCL 1MG/1ML-2 ML VIAL ONE (08:09)
[2019-08-28] MEDS ORDERED: ETOMIDATE (2MG/ML) 20ML VIAL IV ONE (08:09)
[2019-08-28] MEDS ORDERED: HYDROmorphone HCL 2 MG/ML VL ONE (08:10)
--- NOTE | 2019-08-28 08:14 | NUR ---
I CALLED DR. MARES FOR HD ORDERS, HD RN WAS ASKING FOR ME TO CALL HER EARLIER. STATES SHE CAN USE SAME ORDERS YESTERDAY.
[2019-08-28] MEDS ORDERED: KETAMINE HCL 10 ML ONE (08:39)
--- NOTE | 2019-08-28 09:29 | NUR ---
PT TAKEN TO OR BY OR TEAM ACCOMPANIED BY RT FOR TRACH INSERTION.
[2019-08-28] MEDS: NOREPINEPHRINE BITARTRATE 32 MG in D5W 5% 218 ML IV SCH (09:46)
--- NOTE | 2019-08-28 10:50 | NUR ---
received back from or. pt was being bag, spo2 reading 100% at that time. Dr. Mendez called at that time and states the trach is on the rt main bronchus. Rn [place] notified Dr. Friedman pt is now desating in the 70's on 100% fi02. peep 10 hob at 30degree angle. a-line continuously monitoring. waiting for dr. friedman to come in to replace jaspal.
[2019-08-28] MEDS: PROPOFOL 100 ML IV SCH (11:12)
--- NOTE | 2019-08-28 11:30 | NUR ---
DR. TONEY CAME TO RE-ADJUST PT'S TRACH X-RAY TAKEN AND PLACEMENT VERIFIED. MD PLACED BULKY 4X4 DRESSINGS UNDER TRACH, NO SUTURES IN PLACE ONCE PLACEMENT CONFIRMED BY X-RAY MD. RT SECURED WITH TIES BY RT.
[2019-08-28] MEDS: BUMETANIDE 2.5mg/10ml (0.25 mg/ml) INJ IV SCH (11:57)
[2019-08-28] MEDS: PANTOPRAZOLE 40 MG/10 ML VIAL INJ IV SCH (11:57)
[2019-08-28] MEDS: LINEZOLID 600MG/300ML 300 ML IV SCH ×2 (11:58→22:00)
[2019-08-28] MEDS: SODIUM CHLOR 0.9% PF (SALINE LOCK) 10ML VIAL/SYR IV SCH ×2 (11:58→22:00)
[2019-08-28] MEDS: CALCITRIOL 1 MCG/ML AMPULE IV SCH (12:22)
--- NOTE | 2019-08-28 14:31 | NUR ---
Nutrition Follow-up Notes Wt.: 135.9 kg today. Pt's intubated, sedated, no immediate family member at bedside when rounded earlier. Pt had dialysis (08/27/19), currently NPO with Trach, with TPN support to resume at 32 ml/hr providing 895 kcals, 595 NPCs, 75 g protein, and with propofol @ 15.8 ml/hr providing additional 417 kcals from lipids. Current TPN support with propofol meets 69-87% of energy needs and 66-82% of protein needs. Est. Needs based on AdBW(76 kg): 1500 kcal to 1900 kcal (20-25 kcal/kgAdBW), 91 gms to 114 gms pro (1.2-1.5 gms/kgAdBW reassessed d/t ESRD on HD, severe hypoalbuminemia). Will continue to monitor pertinent labs and reassess nutrient need prn Labs: Gluc 203 H, Na 132 L, Cl 95 L, BUN 87 H, Cr 6.16 H, Ca 7.4 L, Alb 1.5 L, HbA1c 11.03 Skin: Brice scale 10, high risk, pt's left medial buttocks pressure ulcer, distal chin DTI per dexigraph operator. Pls refer to latest stem setter's notes for further details re: tx plans. GI: Pt has had no BM since 08/24/19 per dexigraph operator. PES: Increased nutrient needs r/t acute/chronic medical condition aeb intubated, sedated, severe hypoalbuminemia, NPO. Altered nutrition related lab values r/t current/chronic medical condition aeb hyperglycemia, elev. renal labs, HbA1c, LFTs, lipase, hypocapnia, hypocalcemia and severe hypoalbuminemia Obesity r/t food intake more than body requirement aeb 218% IBW, BMI 57.7 kg/m2 and increased body adiposity Will continue to monitor NPO status, skin status, pertinent labs and weight trend. F/u in 2 to 3 days. Rec.: 1.) If still NPO, consider to resume EN support at lower rate and gradually increase feeding rate of Nephro Carb Steady @ 40 ml/hr goal rate as tolerated when medically appropriate. 2.) Consider daily Neprovite and Asc acid 500 mgs BID. 3.) If pt's not tolerating EN support with Albumin/Prealbumin continue trending down, consider to resume PN support if medically appropriate. 4.) Advance gradually to oral diet or consider EN support if medically appropriate. 5.) Refer pt to CDE/RD for further nutrition education and weight monitoring upon discharge. 6.) Continue current plan of care.
--- NOTE | 2019-08-28 19:15 | NUR ---
OPENING NOTE RECEIVED REPORT FROM DAY SHIFT RN. PATIENT S/P TRACHEOSTOMY AND SEDATED ON FENT AND PROPOFOL. TRACHEOSTOMY NOT SUTURED INTO PATIENT. TOLERATING VENTILATOR. BRIGHT RED BLOOD CLEANED FROM ORAL CAVITY. ST 100'S NO ECTOPY BP 120/70 ON LEVOPHED PRESSURE SUPPORT. TEMPERATURE 99'5F ON RECTAL THERMOMETER. INSULIN DRIP RUNNING AT 1.5UNITS/HR. OGT PATENT TO LIS. RIGHT SHIELDS DOFF BRIGITTE IRRIGATED. RUIZ PATENT DRAINING TO GRAVITY. ALL LINES ARE CDI. MULTIPLE AREAS OF CONCERN ON SKIN, FOR MORE INFORMATION SEE INTERVENTIONS. FOR GTTS AND THEIR TITRATIONS SEE IV SPREAD SHEET. SPECIALTY BED SET TO LOWEST SETTING. ALL FALL AND SAFETY PRECAUTIONS IN PLACE.
--- NOTE | 2019-08-28 19:30 | NUR ---
BS 194 INSULIN SET TO 2ML/HR
[2019-08-28] MEDS ORDERED: TPN PER PHARMACY IV NR ×5 (20:00)
--- NOTE | 2019-08-28 20:00 | NUR ---
BS 245 INSULIN SET TO 3ML/HR
--- NOTE | 2019-08-28 22:30 | NUR ---
BS 260 INSULIN 3
[2019-08-29] VITALS (100 sets, daily range): BP systolic 79–200; BP diastolic 35–85
--- NOTE | 2019-08-29 | NUR ---
BS 243 INSULIN 3
[2019-08-29] MEDS: ACCU-CHEK COMFORT CURVE STRIP VI SCH ×12 (00:23→23:41)
--- NOTE | 2019-08-29 01:30 | NUR ---
BS 254 INSULIN 3
[2019-08-29] MEDS: LEVALBUTEROL HCL 1.25 MG/3 ML NEB NEB SCH ×6 (01:49→22:35)
[2019-08-29] MEDS: FREE WATER JT SCH ×6 (01:52→21:35)
[2019-08-29] MEDS: MEROPENEM 500MG IVPB 50 ML IV SCH ×2 (01:52→13:14)
--- NOTE | 2019-08-29 02:02 | NUR ---
COMPLETE BED BATH GIVEN PATIENT CLEANED WITH SOAP WATER AND CHG WIPES. PATIENT HAD LARGE BROWN HARD BM. NEW LINENS PLACED. SKIN REASSESSED AND NO NEW BREAK DOWN NOTED.
[2019-08-29 04:28] LABS: Hemoglobin 7.9 g/dL (13.5-17.5)
[2019-08-29 04:32] LABS: Hematocrit 23.8 % (41.0-53.0); Mean Corpuscular Hemoglobin 29.2 pg (28.0-32.0); Mean Corpuscular Hgb Conc. 33.2 g/dL (32.0-36.0); Mean Corpuscular Volume 87.9 fL (80.0-100.0); Platelet Count (auto) 357 10^3/uL (140-450); Red Blood Cells 2.71 10^6/uL (4.5-5.90); Red Cell Distribution Width 15.7 % (11.8-14.3); White Blood Cell 9.5 10^3/uL (4.4-10.8)
[2019-08-29 04:40] LABS: Basophils % (manual) 0 (0.0-2.0); Blast Cells 0; Eosinophils % (manual) 0 (0-7); Metamyelocytes % 0; Myelocytes % 0; Promyelocytes % 0; Reactive Lymphocytes 0
[2019-08-29 04:44] LABS: Albumin 1.5 g/dL (3.4-5.0); Calcium 7.5 mg/dL (8.5-10.1); Magnesium 2.3 mg/dL (1.6-2.6); Potassium 4.5 mmol/L (3.5-5.1)
[2019-08-29 04:50] LABS: BUN/Creatinine Ratio 15.3; Bilirubin, Total 1.3 mg/dL (0.2-1.0); Phosphorus 7.6 mg/dL (2.5-4.90); Total Protein 6.6 g/dL (6.4-8.2)
[2019-08-29 05:19] LABS: Band Neutrophils % (manual) 9; Lymphocytes % (manual) 10 (10.0-50.0); Monocytes % (manual) 3 (0-12)
[2019-08-29] MEDS: CALCIUM ACETATE 667 MG CAP PO SCH ×3 (06:00→21:35)
[2019-08-29] MEDS: DexMEDEtomidine 400 MCG in D5W 5% 96 ML IV SCH ×2 (06:10→20:47)
--- NOTE | 2019-08-29 07:30 | NUR ---
BLOOD GLUCOSE Blood glucose 279 insulin to continue at 3ml/hr=3units/hr.
[2019-08-29] MEDS: fentaNYL Drip 2500mCg/250mlNS 250 ML IV SCH (07:31)
--- NOTE | 2019-08-29 09:00 | NUR ---
BLOOD GLUCOSE Blood glucose 251 Insulin GTT continues at 3units/hr=3ml/hr.
[2019-08-29] MEDS: NOREPINEPHRINE BITARTRATE 32 MG in D5W 5% 218 ML IV SCH (09:46)
[2019-08-29] MEDS: SODIUM CHLOR 0.9% PF (SALINE LOCK) 10ML VIAL/SYR IV SCH ×2 (10:00→21:56)
[2019-08-29] MEDS: BUMETANIDE 2.5mg/10ml (0.25 mg/ml) INJ IV SCH (10:21)
[2019-08-29] MEDS: PANTOPRAZOLE 40 MG/10 ML VIAL INJ IV SCH (10:21)
[2019-08-29] MEDS: LINEZOLID 600MG/300ML 300 ML IV SCH ×2 (10:22→21:35)
--- NOTE | 2019-08-29 10:30 | NUR ---
BLOOD GLUCOSE Blood glucose 280, Insulin GTT 3 units/hr= 3ml/hr.
--- NOTE | 2019-08-29 11:45 | NUR ---
RESPIRATORY RT PRESTON informed that patient is biting tongue. OPA inserted by RT. Will continue to monitor patient.
--- NOTE | 2019-08-29 12:00 | NUR ---
LEVOPHED GTT Levophed GTT decreased to 4mcg for a blood pressure of 172/83, will continue to titrate as tolerated by patient.
--- NOTE | 2019-08-29 12:00 | NUR ---
BLOOD GLUCOSE Blood glucose 299 Insulin GTT continues at 3units/hr=3ml/hr.
--- NOTE | 2019-08-29 12:20 | NUR ---
MD Dr. Moura at bedside updated on patient condition with no new orders received.
--- NOTE | 2019-08-29 13:15 | NUR ---
LEVOPHED GTT Levophed GTT decreased to 2 mcg for a blood pressure of 142/71, will continue to titrate as tolerated by patient.
--- NOTE | 2019-08-29 13:30 | NUR ---
BLOOD GLUCOSE Blood glucose 253, Insulin GTT 3units/hr=3ml/hr.
[2019-08-29] MEDS: PROPOFOL 100 ML IV SCH (13:39)
--- NOTE | 2019-08-29 14:45 | NUR ---
MD Dr. Roberts at bedside updated on patient condition with new orders, MD to input into system. Will carry out orders per MD orders.
--- NOTE | 2019-08-29 14:59 | NUR ---
BLOOD GLUCOSE Blood glucose 231, Insulin GTT at 2units/hr=2ml/hr.
[2019-08-29] MEDS ORDERED: DEXTROSE (50%) 50ML SYRG IV PRN (15:00)
[2019-08-29] MEDS ORDERED: INSULIN LANTUS (GLARGINE) 1 /0.01ml (100units/ml) SC ONE (15:00)
--- NOTE | 2019-08-29 15:00 | NUR ---
WOUND CARE Spoke to Cuca RN, wound care regarding patient tongue and spoke to Dr. Roberts and received new orders for Majic mouthwash.
--- NOTE | 2019-08-29 15:05 | NUR ---
RT NOTE: SPOKE WITH WOUND CARE NURSE ABOUT THE USE OF THE ORAL AIRWAY AND THE BREAKDOWN ON HIS TONGUE. PER LORI SHAFFER TO USE FOR NOW, TOMORROW 08/30/2019 THEY WILL COME AND ASSESS AND FIND AN ALTERNATIVE SOLUTION FOR HIM. RN PRASHANT AMES. WILL CONTINUE TO MONITOR PT.
--- NOTE | 2019-08-29 15:10 | NUR ---
CT SCAN Patient transported to CT scan accompanied by radiologist nurse Brittney, RT PRESTON and Journeyman Electrician Freya. Patient connected to portable ventilator and cardic monitor. Awaiting for patient to arrive back into room 109.
--- NOTE | 2019-08-29 15:10 | NUR ---
RT Transport Note: Patient transported to CT with MERLENE MARTEL. Patient transported to and from procedure on ventilator with previous ordered settings. Patient on merchandise complaint adjuster with alarms set and audible, ambu-bag/mask connected to 02 tank. Patient returned to room with no adverse reaction noted. Transport completed without incident. PT PLACED BACK ON PREVIOUS SETTINGS AT 1552.
--- NOTE | 2019-08-29 15:52 | NUR ---
CT SCAN Patient arrive back into room 109 and connected back to bedside monitor.
--- NOTE | 2019-08-29 16:00 | NUR ---
BLOOD GLUCOSE Blood glucose 277: 9 units of insulin given SUBQ per protocol.
--- NOTE | 2019-08-29 16:05 | NUR ---
LEVOPHED GTT Levophed GTT turned off for a blood pressure of 111/53, will continue to monitor blood pressure.
[2019-08-29] MEDS: InsuLIN REG 1unit/0.01ml Soln (100units/ml) SC SCH ×3 (16:09→23:41)
--- NOTE | 2019-08-29 16:45 | NUR ---
LEVOPHED GTT Levophed GTT started back up at 2 mcg for a blood pressure of 79/52, will continue to titrate as tolerated by patient.
[2019-08-29] MEDS: MAGIC MOUTHWASH 55 ML SUSP MT SCH ×2 (18:00→21:35)
[2019-08-29] MEDS ORDERED: TPN PER PHARMACY IV NR ×5 (20:00)
--- NOTE | 2019-08-29 20:30 | NUR ---
PLACED BED ON AUTO-ROTATE: 30 DEGREES RIGHT AND LEFT WITH 30 MINUTE HOLD, RIGHT LEFT AND CENTER
--- NOTE | 2019-08-29 20:30 | NUR ---
OPENING NOTE: TRACH'D AND SEDATED. OPENS EYES SPONTANEOUSLY, ATTEMPTS TO TRACK BUT DOES NOT FOLLOW COMMANDS AT THIS TIME. MOVES EXTREMITIES MINIMALLY. GRIMACES. SINUS TACH, HR 100s. SBP 90-100s ON LEVO GTT. 8.0 SHILEY TRACH. LS CLEAR BUT DIMINISHED. EVEN AND UNLABORED BREATHING. SpO2>95% ON CURRENT VENT SETTINGS. SMALL TO MODERATE THICK CLEAR YELLOW AND PINK TINGED ORAL SPUTUM. ABD OBESE, AND FIRM. HYPOACTIVE BS. LBM 08/29 PER REPORT. DOBHOFF AT 15 CM, REMOVED. OGT AT 50 CM TO THE LIP, RE-SECURED. RUIZ PATENT AND INTACT, DRAINING GRISELDA URINE. SEE SKIN AND WOUND FLOWSHEET FOR ASSESSMENT. RIGHT UPPER ARM MIDLINE, CDI, AND PATENT WITH BLOOD RETURN. LEFT UPPER ARM PICC, CDI, AND PATENT WITH BLOOD RETURN. RIGHT IJ JERRY CATH, CDI. REINFORCED POC. MAINTAINED PATIENT SAFETY: BED LOCKED AND IN THE LOWEST POSITION, FREQUENT VISUAL CHECKS. WILL CONT CARE./
--- NOTE | 2019-08-29 20:45 | NUR ---
REMOVED DOBHOFF - MEASURING ONLY AT 15 CM
--- NOTE | 2019-08-29 21:30 | NUR ---
HELD PHOSLO D/T NPO AND NOT ON TF
[2019-08-30] VITALS (104 sets, daily range): BP systolic 88–161; BP diastolic 44–89
[2019-08-30] MEDS: MEROPENEM 500MG IVPB 50 ML IV SCH ×2 (01:09→13:02)
[2019-08-30] MEDS: fentaNYL Drip 2500mCg/250mlNS 250 ML IV SCH ×2 (01:25→12:35)
--- NOTE | 2019-08-30 01:32 | NUR ---
UNABLE TO WEAN SEDATION AT THIS TIME: PATIENT BECOMES RESTLESS AND FIDGETY IN BED WITH INCREASED TACHYCARDIA, AND SLIGHT DESATURATION
[2019-08-30] MEDS: FREE WATER JT SCH ×6 (02:00→21:37)
[2019-08-30] MEDS: LEVALBUTEROL HCL 1.25 MG/3 ML NEB NEB SCH ×6 (02:38→22:39)
--- NOTE | 2019-08-30 03:09 | NUR ---
NTS'd PATIENT: MODERATE AMOUNT OF THICK YELLOW, PINK TINGED MUCOUS.
[2019-08-30 04:03] LABS: White Blood Cell 8.7 10^3/uL (4.4-10.8)
[2019-08-30] MEDS: ACCU-CHEK COMFORT CURVE STRIP VI SCH ×6 (04:03→23:43)
[2019-08-30] MEDS: InsuLIN REG 1unit/0.01ml Soln (100units/ml) SC SCH ×6 (04:06→23:43)
[2019-08-30 04:08] LABS: Hematocrit 20.7 % (41.0-53.0); Mean Corpuscular Hgb Conc. 33.2 g/dL (32.0-36.0); Mean Corpuscular Volume 87.6 fL (80.0-100.0); Platelet Count (auto) 336 10^3/uL (140-450); Red Blood Cells 2.36 10^6/uL (4.5-5.90); Red Cell Distribution Width 15.6 % (11.8-14.3)
[2019-08-30 04:25] LABS: Magnesium 2.3 mg/dL (1.6-2.6); Potassium 4.4 mmol/L (3.5-5.1)
[2019-08-30 04:38] LABS: Albumin 1.6 g/dL (3.4-5.0); BUN/Creatinine Ratio 16.6; Calcium 7.6 mg/dL (8.5-10.1); Phosphorus 8.7 mg/dL (2.5-4.90); Total Protein 6.4 g/dL (6.4-8.2)
--- NOTE | 2019-08-30 05:02 | NUR ---
BED BATH WITH CHG WIPES, MARIA ELENA CARE, RUIZ CARE, ORAL CARE, AND FULL LINEN CHANGE COMPLETED
[2019-08-30 05:03] LABS: Basophils % (manual) 0 (0.0-2.0); Blast Cells 0; Metamyelocytes % 0; Myelocytes % 0; Promyelocytes % 0; Reactive Lymphocytes 0
--- NOTE | 2019-08-30 05:05 | NUR ---
STICKY BROWN PASTY BM X1
[2019-08-30 05:53] LABS: Band Neutrophils % (manual) 3; Eosinophils % (manual) 2 (0-7); Lymphocytes % (manual) 14 (10.0-50.0); Monocytes % (manual) 2 (0-12)
[2019-08-30] MEDS: CALCIUM ACETATE 667 MG CAP PO SCH ×3 (06:00→21:37)
--- NOTE | 2019-08-30 06:18 | NUR ---
SURYA NOLEN MADE AWARE OF HGB: ORDERS TO RECHECK IN 4 HOURS. Addendum: 08/30/19 at 0619 by Ly Geller RN RN MISTAKEN TIME - CORRECTED TIME 05
--- NOTE | 2019-08-30 06:23 | NUR ---
UNABLE TO WEIGH PATIENT AT THIS TIME - BEDSCALE INACCURATE: LEIS PHOTORESIST CONTACT PRINTER AWARE
[2019-08-30] MEDS: MAGIC MOUTHWASH 55 ML SUSP MT SCH ×4 (06:24→21:37)
--- NOTE | 2019-08-30 06:52 | NUR ---
MED NEB ADMINISTERED WITH AEROGEN NEB.
--- NOTE | 2019-08-30 07:30 | NUR ---
REPORT AND CARE ENDORSED TO MERLENE HUTCHINSON
[2019-08-30] MEDS ORDERED: ALBUMIN 25% 100 ML IV ONE (08:30)
[2019-08-30] MEDS ORDERED: SODIUM CHL 0.9% 1000 ML BAG XX ONE (08:30)
--- NOTE | 2019-08-30 08:30 | NUR ---
DIALYSIS STARTED. SEE DIALYSIS NURSE FLOW SHEET.
[2019-08-30 09:42] LABS: Basophils # (auto) 0.1 uL; Eosinophils # (auto) 0.2 uL; Eosinophils % (auto) 1.9 % (0.0-7.0); Hematocrit 24.8 % (41.0-53.0); Hemoglobin 8.2 g/dL (13.5-17.5); Monocytes # (auto) 0.6 uL; Monocytes % (auto) 6.1 % (0.0-12.0); Neutrophils % (auto) 84.5 % (37.0-80.0)
[2019-08-30 09:44] LABS: Basophils % (auto) 0.7 % (0.0-2.0); Lymphocytes # (auto) 0.7 uL; Lymphocytes % (auto) 6.8 % (10.0-50.0); Mean Corpuscular Hemoglobin 28.9 pg (28.0-32.0); Mean Corpuscular Hgb Conc. 33.2 g/dL (32.0-36.0); Mean Corpuscular Volume 86.9 fL (80.0-100.0); Neutrophils # (auto) 8.4 uL; Platelet Count (auto) 348 10^3/uL (140-450); Red Blood Cells 2.86 10^6/uL (4.5-5.90); Red Cell Distribution Width 15.3 % (11.8-14.3); White Blood Cell 9.9 10^3/uL (4.4-10.8)
[2019-08-30] MEDS: SODIUM CHLOR 0.9% PF (SALINE LOCK) 10ML VIAL/SYR IV SCH ×2 (10:00→21:36)
--- NOTE | 2019-08-30 10:44 | NUR ---
MED NEB ADMINISTERED WITH AEROGEN NEB.
[2019-08-30] MEDS: PANTOPRAZOLE 40 MG/10 ML VIAL INJ IV SCH (11:06)
[2019-08-30] MEDS: LINEZOLID 600MG/300ML 300 ML IV SCH ×2 (11:06→21:37)
[2019-08-30] MEDS: CALCITRIOL 1 MCG/ML AMPULE IV SCH (11:06)
[2019-08-30] MEDS: BUMETANIDE 2.5mg/10ml (0.25 mg/ml) INJ IV SCH (11:06)
[2019-08-30] MEDS: DexMEDEtomidine 400 MCG in D5W 5% 96 ML IV SCH (11:07)
--- NOTE | 2019-08-30 11:30 | NUR ---
DIALYSIS REMOVED 3 LITERS.
--- NOTE | 2019-08-30 12:42 | NUR ---
SPOKE TO WOUND CARE NURSE RAHEEM ABOUT THE USE OF OPA. RAHEEM AWARE OF OPA CURRENTLY IN PTS MOUTH WITH BREAKDOWN OF HIS TONGUE AND THAT PTS TONGUE IS ACTIVELY BLEEDING. PER RAHEEM, PT WILL BE REASSESSED BY WOUND CARE THIS AFTERNOON TO FIND AN ALTERNATIVE SOLUTION. ALSO MERLENE BERNARDO AWARE.
[2019-08-30] MEDS: NOREPINEPHRINE BITARTRATE 32 MG in D5W 5% 218 ML IV SCH (13:07)
--- NOTE | 2019-08-30 13:36 | NUR ---
DR. KEMPHA HERE TO SEE PATIENT. SPOKE WITH MOTHER AND UPDATED HER ON POC. SEE MD NOTES AND EMR FOR ANY NEW ORDERS.
[2019-08-30] MEDS: PROPOFOL 100 ML IV SCH ×2 (13:39→19:51)
[2019-08-30] MEDS ORDERED: FLUCONAZOLE 200MG/100ML 100 ML IV ONE (13:45)
--- NOTE | 2019-08-30 14:22 | NUR ---
MED NEB ADMINISTERED VIA AEROGEN NEB.
--- NOTE | 2019-08-30 14:41 | NUR ---
COMMUNICATION ORDER PER DR GARCIA TO KEEP OPA IN.
--- NOTE | 2019-08-30 15:01 | NUR ---
DR. ANDRES HERE TO SEE PATIENT. SEE MD NOTES AND EMR FOR ANY NEW ORDERS.
[2019-08-30] MEDS ORDERED: FLUCONAZOLE 200MG/100ML 100 ML IV SCH (17:00)
--- NOTE | 2019-08-30 19:30 | NUR ---
OPENING NOTE: TRACH'D AND SEDATED. VERY AGITATED, THRASHING HEAD BACK AND FORTH, ATTEMPTING TO REACH UP WITH RIGHT ARM. ASSOCIATED WITH INCREASED HR AND TACHYPNEA. OPENS EYES SPONTANEOUSLY, RIGHT EYE DEVIATES OUTWARD,ATTEMPTS TO TRACK BUT DOES NOT FOLLOW COMMANDS AT THIS TIME. ABLE TO MOVE RIGHT UPPER EXTREMITY BUT LEFT REMAINS FLACCID. GRIMACES. SINUS TACH, HR 100s. SBP 90-100s ON LEVO GTT. 8.0 SHILEY TRACH. LS CLEAR WITH INTERMITTENT WHEEZE BUT DIMINISHED TO BASES. EVEN AND UNLABORED BREATHING. SpO2>95% ON CURRENT VENT SETTINGS. SMALL TO MODERATE THICK CLEAR YELLOW AND PINK TINGED ORAL SPUTUM. ABD OBESE, AND FIRM. HYPOACTIVE BS. LBM 2 PER REPORT. OGT +AIR BOLUS, RE-SECURED, PLACED TO LIS. RUIZ PATENT AND INTACT, DRAINING GRISELDA URINE. SEE SKIN AND WOUND FLOWSHEET FOR ASSESSMENT. RIGHT UPPER ARM MIDLINE, CDI, AND PATENT WITH BLOOD RETURN. LEFT UPPER ARM PICC, CDI, AND PATENT WITH BLOOD RETURN. RIGHT IJ JERRY CATH, CDI. REINFORCED POC. MAINTAINED PATIENT SAFETY: BED LOCKED AND IN THE LOWEST POSITION, FREQUENT VISUAL CHECKS. WILL CONT CARE. NO FAMILY PRESENT AT THIS TIME
--- NOTE | 2019-08-30 19:53 | NUR ---
PATIENT CLAMPED DOWN ON TONGUE CAUSE MODERATE AMOUNT OF ROBERT BLEEDING, ASKED RT BARBARA FOR ASSISTANCE, STARTED PATIENT ON DIPRIVAN
--- NOTE | 2019-08-30 19:57 | NUR ---
AT BEDSIDE TO ASSESS PT . PER RN CARLITO PT IS CLAMPED DOWN ON TONGUE. PT HAS OPA INPLACE ON RIGHT SIDE OF MOUTH. OPA WAS MOVED TO THE LEFT SIDE AND TONGUE GENTLY PUSHED BACK BEHIND TEETH. MULTIPLE WOUNDS NOTED WITH BRIGHT RED BLEEDING SUCTIONED WITH YAUNKER.
[2019-08-30] MEDS ORDERED: TPN PER PHARMACY IV NR ×6 (20:00)
--- NOTE | 2019-08-30 20:18 | NUR ---
ABLE TO MOVE BITE BLOCK OVER AND TONGUE OUT OF ALIGNMENT WITH TEETH FOR NOW BUT WITH STIMULATION PATIENT MOVES BITE BLOCK AND TONGUE BACK INTO THE POSITION THAT ENABLES HIM TO BITE DOWN ON HIS TONGUE
--- NOTE | 2019-08-30 21:00 | NUR ---
NTS'd: MODERATE AMOUNT OF THICK CLEAR PINK TINGED MUCOUS
[2019-08-30] MEDS: INSULIN LANTUS (GLARGINE) 1 /0.01ml (100units/ml) SC SCH (21:38)
--- NOTE | 2019-08-30 22:10 | NUR ---
FAMILY AT BEDSIDE
--- NOTE | 2019-08-30 22:20 | NUR ---
SCHEDULE PHOSLO HELD D/T NPO
[2019-08-31] VITALS (102 sets, daily range): BP systolic 79–165; BP diastolic 33–83
[2019-08-31] MEDS: MEROPENEM 500MG IVPB 50 ML IV SCH ×2 (00:54→15:34)
[2019-08-31] MEDS: FREE WATER JT SCH ×6 (02:00→22:19)
[2019-08-31] MEDS: DexMEDEtomidine 400 MCG in D5W 5% 96 ML IV SCH ×2 (02:01→16:38)
[2019-08-31] MEDS: LEVALBUTEROL HCL 1.25 MG/3 ML NEB NEB SCH ×6 (02:14→22:30)
[2019-08-31] MEDS: fentaNYL Drip 2500mCg/250mlNS 250 ML IV SCH ×2 (03:00→17:04)
[2019-08-31] MEDS: PROPOFOL 100 ML IV SCH ×4 (03:20→20:46)
--- NOTE | 2019-08-31 03:29 | NUR ---
BED BATH WITH CHG WIPES, MARIA ELENA CARE, RUIZ CARE, ORAL CARE, HAIR CARE, AND FULL LINEN CHANGE COMPLETED
[2019-08-31] MEDS: InsuLIN REG 1unit/0.01ml Soln (100units/ml) SC SCH ×5 (03:59→19:24)
[2019-08-31] MEDS: ACCU-CHEK COMFORT CURVE STRIP VI SCH ×5 (03:59→19:24)
--- NOTE | 2019-08-31 04:00 | NUR ---
SKIN CARE: NOTED WITH WHITE/DIAZ PATCHES OF SKIN TO AXILLA, AND GROIN. APPLIED INTERDRY TO GROIN
[2019-08-31 04:24] LABS: Basophils # (auto) 0.1 uL; Eosinophils # (auto) 0.2 uL; White Blood Cell 7.4 10^3/uL (4.4-10.8)
[2019-08-31 04:28] LABS: Eosinophils % (auto) 2.2 % (0.0-7.0); Hematocrit 20.4 % (41.0-53.0); Lymphocytes # (auto) 1.1 uL; Mean Corpuscular Hemoglobin 29.7 pg (28.0-32.0); Mean Corpuscular Hgb Conc. 33.5 g/dL (32.0-36.0); Mean Corpuscular Volume 88.4 fL (80.0-100.0); Monocytes # (auto) 0.6 uL; Monocytes % (auto) 8.4 % (0.0-12.0); Neutrophils # (auto) 5.5 uL; Neutrophils % (auto) 73.4 % (37.0-80.0); Platelet Count (auto) 284 10^3/uL (140-450); Red Cell Distribution Width 15.6 % (11.8-14.3)
[2019-08-31 04:39] LABS: Hemoglobin 6.8 g/dL (13.5-17.5)
--- NOTE | 2019-08-31 04:42 | NUR ---
HGB 6.9 - PATIENT , AND FAMILY ADAMANT ON NO BLOOD TRANSFUSION
[2019-08-31 04:43] LABS: Albumin 1.6 g/dL (3.4-5.0); Calcium 8.1 mg/dL (8.5-10.1); Magnesium 2.1 mg/dL (1.6-2.6); Potassium 3.6 mmol/L (3.5-5.1)
[2019-08-31 04:49] LABS: BUN/Creatinine Ratio 17.7; Phosphorus 7.1 mg/dL (2.5-4.90); Pre Albumin 17.9 mg/dL (20.0-40.0); Total Protein 6.3 g/dL (6.4-8.2)
[2019-08-31] MEDS: CALCIUM ACETATE 667 MG CAP PO SCH ×3 (05:11→22:00)
[2019-08-31] MEDS: MAGIC MOUTHWASH 55 ML SUSP MT SCH ×4 (06:00→22:19)
--- NOTE | 2019-08-31 06:27 | NUR ---
CLOSING NOTE: PATIENT REMAINS INTERMITTENTLY AGITATED/RESTLESS. REMAINS INTERMITTENTLY BITING DOWN ON TONGUE BUT NO EXCESSIVE BLEEDING NOTED. THRASHES HEAD AND LOWER BODY IN BED. INCREASED SEDATION APPROPRIATE. VSS. WILL ENDORSE CARE TO ONCOMING SHIFT
--- NOTE | 2019-08-31 06:27 | NUR ---
UNABLE TO WEIGH PATIENT D/T INACCURATE BED SCALE
--- NOTE | 2019-08-31 07:17 | NUR ---
REPORT AND CARE ENDORSED TO MERLENE HUTCHINSON
[2019-08-31] MEDS: FLUCONAZOLE 200MG/100ML 100 ML IV SCH (09:20)
[2019-08-31] MEDS: SODIUM CHLOR 0.9% PF (SALINE LOCK) 10ML VIAL/SYR IV SCH ×2 (09:20→22:22)
[2019-08-31] MEDS: NOREPINEPHRINE BITARTRATE 32 MG in D5W 5% 218 ML IV SCH (09:20)
[2019-08-31] MEDS: BUMETANIDE 2.5mg/10ml (0.25 mg/ml) INJ IV SCH (10:04)
[2019-08-31] MEDS: LINEZOLID 600MG/300ML 300 ML IV SCH ×2 (10:04→22:19)
[2019-08-31] MEDS: PANTOPRAZOLE 40 MG/10 ML VIAL INJ IV SCH ×2 (10:04→22:19)
--- NOTE | 2019-08-31 15:33 | NUR ---
2 LITERS OF FLUID REMOVED FROM DIALYSIS.
--- NOTE | 2019-08-31 19:30 | NUR ---
OPENING NOTE: TRACH'D AND SEDATED. SLIGHTLY RESTLESS NOTED TO MOVE HIS HEAD BACK AND FORTH, ATTEMPTING TO REACH UP WITH RIGHT ARM. ASSOCIATED WITH INCREASED HR AND TACHYPNEA. OPENS EYES SPONTANEOUSLY, RIGHT EYE DEVIATES OUTWARD,ATTEMPTS TO TRACK BUT DOES NOT FOLLOW COMMANDS AT THIS TIME. ABLE TO MOVE RIGHT UPPER EXTREMITY BUT LEFT REMAINS WITH MINIMAL MOVEMENT. GRIMACES. NSR, HR 90s. SBP 90-100s ON LEVO GTT. 8.0 SHILEY TRACH. LS CLEAR WITH INTERMITTENT WHEEZE BUT DIMINISHED TO BASES. EVEN AND UNLABORED BREATHING. SpO2 92% ON CURRENT VENT SETTINGS. SMALL TO MODERATE THICK CLEAR YELLOW AND PINK TINGED ORAL SPUTUM. ABD OBESE, AND FIRM. HYPOACTIVE BS. LBM 2 PER REPORT. OGT +AIR BOLUS, RE-SECURED, PLACED TO LIS. RUIZ PATENT AND INTACT, DRAINING GRISELDA URINE. SEE SKIN AND WOUND FLOWSHEET FOR ASSESSMENT. RIGHT UPPER ARM MIDLINE, CDI, AND PATENT WITH BLOOD RETURN. LEFT UPPER ARM PICC, CDI, AND PATENT WITH BLOOD RETURN. RIGHT IJ JERRY CATH, CDI. REINFORCED POC. MAINTAINED PATIENT SAFETY: BED LOCKED AND IN THE LOWEST POSITION, FREQUENT VISUAL CHECKS. WILL CONT CARE. NO FAMILY PRESENT AT THIS TIME
--- NOTE | 2019-08-31 19:30 | NUR ---
DESATURATION DOWN TO 88% - NOTIFIED DALE, RT
[2019-08-31] MEDS ORDERED: TPN*HIGH CONC* PER PHARMACY IV NR ×7 (20:00)
--- NOTE | 2019-08-31 20:59 | NUR ---
FAMILY AT BEDSIDE
[2019-08-31] MEDS: QUEtiapine FUMARATE 25 MG TAB PO SCH (22:20)
[2019-08-31] MEDS: INSULIN LANTUS (GLARGINE) 1 /0.01ml (100units/ml) SC SCH (22:23)
--- NOTE | 2019-08-31 23:57 | NUR ---
SPOKE WITH PATIENT'S DAUGHTER: AFTER PASSWORD VERIFIED, UPDATED ON PATIENT'S STATUS. Addendum: 08/31/19 at 4483 by Ly Geller RN RN MISTAKEN ENTRY - WRONG PATIENT
--- NOTE | 2019-08-31 23:59 | NUR ---
FAMILY AT BEDSIDE - UPDATED ON PATIENT'S STATUS
[2019-09-01] VITALS (102 sets, daily range): BP systolic 83–139; BP diastolic 39–87
[2019-09-01] MEDS: InsuLIN REG 1unit/0.01ml Soln (100units/ml) SC SCH ×5 (00:30→18:05)
[2019-09-01] MEDS: MEROPENEM 500MG IVPB 50 ML IV SCH ×2 (00:45→14:16)
[2019-09-01] MEDS: PROPOFOL 100 ML IV SCH ×4 (01:05→15:38)
[2019-09-01] MEDS: FREE WATER JT SCH ×6 (02:00→21:49)
[2019-09-01] MEDS ORDERED: SODIUM CHLORIDE 0.9 % NEB SOLN 3ML NEB ONE (02:01)
[2019-09-01] MEDS: ACCU-CHEK COMFORT CURVE STRIP VI SCH ×5 (03:21→18:05)
[2019-09-01] MEDS: fentaNYL Drip 2500mCg/250mlNS 250 ML IV SCH ×2 (03:22→15:21)
[2019-09-01] MEDS: LEVALBUTEROL HCL 1.25 MG/3 ML NEB NEB SCH ×6 (04:23→22:12)
--- NOTE | 2019-09-01 04:30 | NUR ---
PARTIAL BED BATH, MARIA ELENA CARE, RUIZ CARE, ORAL CARE, AND FULL LINEN CHANGE COMPLETED
--- NOTE | 2019-09-01 04:35 | NUR ---
SKIN CARE: CLEANSED INTERTRIGINOUS AREA WITH SOAP AND WATER. PAT DRY. PLACED INTERDRY IN GROIN AND PILLOW CASE TO SUPPORT SCROTUM
[2019-09-01 04:44] LABS: Calcium 8.2 mg/dL (8.5-10.1); Potassium 3.3 mmol/L (3.5-5.1)
[2019-09-01 04:52] LABS: Albumin 1.6 g/dL (3.4-5.0); BUN/Creatinine Ratio 18.1; Magnesium 1.8 mg/dL (1.6-2.6); Phosphorus 5.1 mg/dL (2.5-4.90); Pre Albumin 28.8 mg/dL (20.0-40.0); Total Protein 6.5 g/dL (6.4-8.2)
[2019-09-01] MEDS: CALCIUM ACETATE 667 MG CAP PO SCH ×3 (05:24→21:54)
[2019-09-01] MEDS: MAGIC MOUTHWASH 55 ML SUSP MT SCH ×4 (06:21→21:50)
[2019-09-01 06:33] LABS: Basophils # (auto) 0.1 uL; Eosinophils # (auto) 0.2 uL; Hemoglobin 7.1 g/dL (13.5-17.5); Mean Corpuscular Hemoglobin 29.2 pg (28.0-32.0); Monocytes # (auto) 0.4 uL; Monocytes % (auto) 7.3 % (0.0-12.0); Neutrophils # (auto) 4.2 uL
[2019-09-01 06:35] LABS: Basophils % (auto) 1.1 % (0.0-2.0); Eosinophils % (auto) 3.8 % (0.0-7.0); Hematocrit 21.4 % (41.0-53.0); Lymphocytes # (auto) 0.8 uL; Lymphocytes % (auto) 14.4 % (10.0-50.0); Mean Corpuscular Volume 88.4 fL (80.0-100.0); Neutrophils % (auto) 73.4 % (37.0-80.0); Platelet Count (auto) 287 10^3/uL (140-450); Red Blood Cells 2.42 10^6/uL (4.5-5.90); Red Cell Distribution Width 15.6 % (11.8-14.3); White Blood Cell 5.7 10^3/uL (4.4-10.8)
[2019-09-01] MEDS: DexMEDEtomidine 400 MCG in D5W 5% 96 ML IV SCH ×2 (07:15→21:52)
--- NOTE | 2019-09-01 07:40 | NUR ---
REPORT AND CARE ENDORSED TO MERLENE MCNULTY
--- NOTE | 2019-09-01 07:40 | NUR ---
REPORT RECEIVED FROM SHOP WELDER NURSE. PATIENT RESTING IN BED AT THIS TIME, TRACHEOSTOMY AND SEDATION. RESPIRATIONS EVEN AND UNLABORED. NO SIGNS OF ACUTE DISTRESS NOTED. BED IN LOW POSITION. WILL CONTINUE TO MONITOR.
[2019-09-01] MEDS ORDERED: POTASSIUM CHLORIDE 40 MEQ, LIDOCAINE 1% (LOCAL ANESTH.) 4 ML in SODIUM CHL 0.9% 100 ML IV ONE (08:45)
[2019-09-01] MEDS: NOREPINEPHRINE BITARTRATE 32 MG in D5W 5% 218 ML IV SCH (09:46)
[2019-09-01] MEDS: SODIUM CHLOR 0.9% PF (SALINE LOCK) 10ML VIAL/SYR IV SCH ×2 (10:00→21:49)
[2019-09-01] MEDS: FLUCONAZOLE 200MG/100ML 100 ML IV SCH (10:19)
[2019-09-01] MEDS ORDERED: ALBUMIN 25% 100 ML IV ONE (10:45)
--- NOTE | 2019-09-01 10:45 | NUR ---
DR JACOB AT BEDSIDE TO ASSESS PATIENT AND DISCUSS PLAN OF CARE. ALL ORDERS NOTED IN CHART.
[2019-09-01] MEDS: POTASSIUM CHL 20MEQ/100ML 100 ML IV SCH ×2 (10:49→11:30)
[2019-09-01] MEDS: PANTOPRAZOLE 40 MG/10 ML VIAL INJ IV SCH ×2 (10:56→21:48)
[2019-09-01] MEDS: LINEZOLID 600MG/300ML 300 ML IV SCH ×2 (10:56→21:49)
[2019-09-01] MEDS: QUEtiapine FUMARATE 25 MG TAB PO SCH ×2 (10:56→21:49)
[2019-09-01] MEDS: BUMETANIDE 2.5mg/10ml (0.25 mg/ml) INJ IV SCH (10:57)
[2019-09-01] MEDS: CALCITRIOL 1 MCG/ML AMPULE IV SCH (10:57)
--- NOTE | 2019-09-01 11:44 | NUR ---
WOUND CARE NOTE: Wound care in to see patient for reevaluation of wounds and skin integrity monitoring. Patient continue resting on Bariatric air bed in ICU Rm. 109. Patient is mechanically ventilated via trach. Patient on sedation and respond to verbal, tactile and painful stimuli. Patient appears to be in no pain using [place] Faces Pain Scale. He's max assist in turning and repositioning. His Brice score is 10. Skin assessment done with the assistance of patient' s nurse, MERLENE Lopez. Patient's nose and chin continue to display, dry and intact scabbed abrasions; are is clean and dry,left open to air. Unable to fully check patient's due to OPA in placed. MD placed a communication order to keep OPA in placed due to patient's biting on his tongue. Patient is receiving regular oral care and scheduled magic mouth wash. Patient's sacrum remain intact with combination of pink, bright and dark red , blanchable skin with dry peeling skin. Kellie care given and applied Barrier cream as preventative. New photograph of mentioned skin issue are taken for reference. Patient tolerated well. Repositioned patient for comfort facing his Rt side, redistributed pressure points with pillows. RECOMMENDATION: Continuation of all other wound care orders prescribed by MD, continue with skin/wound plan of care, continue monitoring by wound care while patient is hospitalized. Addendum: 09/01/19 at 1617 by Ynes Ellsworth RN Amended: Links added.
--- NOTE | 2019-09-01 11:45 | NUR ---
WOUND CARE NURSE AT BEDSIDE TO ASSESS PATIENT.
--- NOTE | 2019-09-01 11:50 | NUR ---
DR BERRY AT BEDSIDE TO DISCUSS PLAN OF CARE WITH BROTHER. MADE AWARE OF PATIENTS HEMOGLOBIN, NO NEW ORDERS AT THIS TIME.
--- NOTE | 2019-09-01 15:09 | NUR ---
LESTER IN TO ASSESS PATIENT AND DISCUSS PLAN OF CARE. ALL ORDERS NOTED IN CHART.
[2019-09-01] MEDS ORDERED: DEXTROSE (50%) 50ML SYRG IV SCH (18:00)
--- NOTE | 2019-09-01 19:30 | NUR ---
Opening Shift Note Received pt on mechanical ventilator, trach'd and sedated. Pt facial grimaces when suctioned and when oral care is being done. OPA in place to protect pt from biting down on tongue. Pupils 3 and responsive, right eye deviates outward. No extremity movement seen at this time. Full assessment done see interventions. No s/s of labored breathing or unstable VSS. Casiano catheter intact draining below bladder light roxana urine, free of kinks. Skin assessment done see interventions. Pt turned on a 2 hr schedule, all bony prominences offloaded. Bed locked in lowest position. All alarms on and audible. Pt in full view of RN.
[2019-09-01] MEDS ORDERED: TPN*HIGH CONC* PER PHARMACY IV NR ×9 (20:00)
[2019-09-01] MEDS: INSULIN LANTUS (GLARGINE) 1 /0.01ml (100units/ml) SC SCH (21:54)
[2019-09-02] VITALS (103 sets, daily range): BP systolic 84–138; BP diastolic 39–92
[2019-09-02] MEDS: ACCU-CHEK COMFORT CURVE STRIP VI SCH ×4 (00:10→17:40)
[2019-09-02] MEDS: InsuLIN REG 1unit/0.01ml Soln (100units/ml) SC SCH ×4 (00:14→17:41)
[2019-09-02] MEDS: MEROPENEM 500MG IVPB 50 ML IV SCH ×2 (00:53→13:31)
[2019-09-02] MEDS: PROPOFOL 100 ML IV SCH ×2 (00:58→11:08)
[2019-09-02] MEDS: FREE WATER JT SCH ×6 (02:00→21:35)
[2019-09-02] MEDS: LEVALBUTEROL HCL 1.25 MG/3 ML NEB NEB SCH ×6 (02:17→22:10)
[2019-09-02] MEDS: fentaNYL Drip 2500mCg/250mlNS 250 ML IV SCH (04:05)
--- NOTE | 2019-09-02 04:30 | NUR ---
Cares Pt given bed bath and full linen change. Skin integrity assessed for any changes;none noted. Pt tolerated ok. Facial grimaced and started to breathe over vent. Sedation titrating up for pt comfort.
[2019-09-02 04:33] LABS: Albumin 1.9 g/dL (3.4-5.0); BUN/Creatinine Ratio 19.9; Bilirubin, Total 1.1 mg/dL (0.2-1.0); Calcium 8.2 mg/dL (8.5-10.1); Magnesium 1.9 mg/dL (1.6-2.6); Total Protein 6.7 g/dL (6.4-8.2)
[2019-09-02] MEDS: MAGIC MOUTHWASH 55 ML SUSP MT SCH ×4 (05:34→21:35)
[2019-09-02] MEDS: CALCIUM ACETATE 667 MG CAP PO SCH ×3 (05:34→21:35)
[2019-09-02] MEDS: NOREPINEPHRINE BITARTRATE 32 MG in D5W 5% 218 ML IV SCH (09:46)
[2019-09-02] MEDS: FLUCONAZOLE 200MG/100ML 100 ML IV SCH (09:56)
[2019-09-02] MEDS: PANTOPRAZOLE 40 MG/10 ML VIAL INJ IV SCH ×2 (10:09→21:34)
[2019-09-02] MEDS: BUMETANIDE 2.5mg/10ml (0.25 mg/ml) INJ IV SCH (10:09)
[2019-09-02] MEDS: LINEZOLID 600MG/300ML 300 ML IV SCH ×2 (10:10→21:34)
[2019-09-02] MEDS: SODIUM CHLOR 0.9% PF (SALINE LOCK) 10ML VIAL/SYR IV SCH ×2 (10:10→21:35)
[2019-09-02] MEDS: QUEtiapine FUMARATE 25 MG TAB PO SCH ×2 (10:10→21:34)
--- NOTE | 2019-09-02 11:59 | NUR ---
Nutrition Follow-up Notes Wt.: 130.5 kg based on bed scale as of 09/01/19. Pt's s/p Tracheostomy (08/28/19), on vent, sedated with Propofol @ 27.783 ml/hr providing additional 733 kcal from Fat. Pt had dialysis (08/31/19), currently NPO with TPN @ 48 ml/hr providing 1372 kcal, 105 gms protein and 952 NPCs. Pt with PN support with more than adequate PN support d/t mod initiation rate delivery of concentrated formula aeb current pN infusion 111% to 141% of est caloric needs (with Propofol on board) and 92% to 115% of est protein needs. Noted pt's to receive tonight another PN support @ 44 ml/hr to provided 1193 kcal, 90 gms protein and 833 NPCs. Est. Needs based on AdBW(76 kg): 1500 kcal to 1900 kcal (20-25 kcal/kgAdBW), 91 gms to 114 gms pro (1.2-1.5 gms/kgAdBW reassessed d/t ESRD on HD, severe hypoalbuminemia). Will continue to monitor pertinent labs and reassess nutrient need prn Labs: Gluc 186 H, BUN 87 H, Cr 7.0 H, Ca 8.2 L, Alb 1.9 L, Tot alpesh 1.1 H, AST 69 H, ALP 263 H; 08/22/19 Prealb 28.8 wnl, Trig 656 H; HbA1c 11.03 Skin: Brice scale 10, high risk, pt's left medial buttocks blanchable redness, distal chin scabbed abrasion per ndt inspector. Pls refer to latest workers compensation defense attorney's notes for further details re: tx plans. GI: Pt has had 1 BM 08/30/19 per ndt inspector. PES: Increased nutrient needs r/t acute/chronic medical condition aeb intubated, sedated, severe hypoalbuminemia, NPO. Altered nutrition related lab values r/t current/chronic medical condition aeb hyperglycemia, elev. renal labs, HbA1c, LFTs, lipase, hypocapnia, hypocalcemia and severe hypoalbuminemia Obesity r/t food intake more than body requirement aeb 218% IBW, BMI 57.7 kg/m2 and increased body adiposity Will continue to monitor NPO status, PN tolerance, skin status, pertinent labs and weight trend. F/u in 2 to 3 days. Rec.: 1.) If still NPO, continue PN support that meets at least 75% of est nutrient needs. 2.) Advance gradually to oral diet or consider to resume EN support if medically appropriate. 3.) Refer pt to CDE/RD for further nutrition education and weight monitoring upon discharge. 4.) Continue current plan of care.
[2019-09-02] MEDS: DexMEDEtomidine 400 MCG in D5W 5% 96 ML IV SCH (12:12)
[2019-09-02] MEDS ORDERED: Nepro With Carb Steady 1 Liter Bottle GT SCH (14:30)
--- NOTE | 2019-09-02 16:30 | NUR ---
REPOSITIONING assisted Maria Elena RN in repositioning pt. with other RNs up in bed, tolerated procedure well, no other problems noted.
--- NOTE | 2019-09-02 17:19 | NUR ---
MIDLINE REMOVED PER DR. RADHA VIDALES ORDER. CATHETER INTACT UPON REMOVAL. PATIENT TOLERATED WELL.
--- NOTE | 2019-09-02 18:42 | NUR ---
RT NOTE RECEIVED PT TRACHED AND ON VENT V8 WITH HEATED WIRE CIRCUIT ON STATED SETTINGS IN THE ICU. VENT IS PLUGGED TO RED OUTLET. ALARMS ARE ON AND AUDIBLE AT NURSES STATION. AMBU BAG AT BEDSIDE AND CONNECTED TO O2 SOURCE. 8.0 TRACHEOSTOMY IS SECURED WITH TRACH TIES. SPARE TRACH IS AT BEDSIDE. CUFF PRESSURE 28. CIRCUIT TEMP 35.0 AND WATER LEVEL IS ADEQUATE AT THIS TIME. BILATERAL BS ARE DIMINISHED. PT WAS SUCTIONED FOR SMALL RETURN. HHN GIVEN INLINE WITH 1.25 MG XOPENEX WITHOUT ADVERSE REACTION. CONT ORDERED. etCO2 43, PT TEMP 99.9, POX 95% Addendum: 09/02/19 at 5 by Josette Hall RT Amended: Links added.
--- NOTE | 2019-09-02 19:30 | NUR ---
Opening Shift Note Received pt on mechanical ventilator, trach'd and sedated. Pt facial grimaces when suctioned and when oral care is being done. OPA in place to protect pt from biting down on tongue. Pupils 3 and responsive, right eye deviates outward. No extremity movement seen at this time. Full assessment done see interventions. No s/s of labored breathing or unstable VSS. Casiano catheter intact draining yellow urine, free of kinks. Skin assessment done see interventions. Pt turned on a 2 hr schedule, all bony prominences offloaded. Bed locked in lowest position. All alarms on and audible. Pt in full view of RN.
[2019-09-02] MEDS ORDERED: TPN*HIGH CONC* PER PHARMACY IV NR ×8 (20:00)
[2019-09-02] MEDS ORDERED: TPN PER PHARMACY IV NR ×8 (20:00)
--- NOTE | 2019-09-02 20:06 | NUR ---
RT NOTE ROUTINE VENT CHECK DONE. PT TRACHED AND ON VENT V8 WITH HEATED WIRE CIRCUIT ON STATED SETTINGS IN THE ICU. VENT IS PLUGGED TO RED OUTLET. ALARMS ARE ON AND AUDIBLE AT NURSES STATION. AMBU BAG AT BEDSIDE AND CONNECTED TO O2 SOURCE. 8.0 TRACHEOSTOMY IS SECURED WITH TRACH TIES. SPARE TRACH IS AT BEDSIDE. CIRCUIT TEMP 35.1 AND WATER LEVEL IS ADEQUATE AT THIS TIME. MERLENE GALEANO AT BEDSIDE. CONT ORDERED. etCO2 43, PT TEMP 99.7, POX 94% Addendum: 09/02/19 at 2027 by Josette Hall RT Amended: Links added.
[2019-09-02] MEDS: INSULIN LANTUS (GLARGINE) 1 /0.01ml (100units/ml) SC SCH (21:36)
--- NOTE | 2019-09-02 22:10 | NUR ---
RT NOTE ROUTINE VENT CHECK DONE. PT TRACHED AND ON VENT V8 WITH HEATED WIRE CIRCUIT ON STATED SETTINGS IN THE ICU. VENT IS PLUGGED TO RED OUTLET. ALARMS ARE ON AND AUDIBLE AT NURSES STATION. AMBU BAG AT BEDSIDE AND CONNECTED TO O2 SOURCE. 8.0 TRACHEOSTOMY IS SECURED WITH TRACH TIES. SPARE TRACH IS AT BEDSIDE. CIRCUIT TEMP 35.1 AND WATER LEVEL IS ADEQUATE AT THIS TIME. BILATERAL BS ARE COARSE. PT WAS SUCTIONED FOR SMALL RETURN. HHN GIVEN INLINE WITH 1.25 MG XOPENEX VIA AEROGEN. VISITOR AT BEDSIDE. CONT ORDERED. etCO2 40, PT TEMP 99.5, POX 94% Addendum: 09/02/19 at 2246 by Josette Hall RT Amended: Links added.
[2019-09-03] VITALS (108 sets, daily range): BP systolic 92–170; BP diastolic 49–107
--- NOTE | 2019-09-03 00:12 | NUR ---
RT NOTE ROUTINE VENT CHECK DONE. PT TRACHED AND ON VENT V8 WITH HEATED WIRE CIRCUIT ON STATED SETTINGS IN THE ICU. VENT IS PLUGGED TO RED OUTLET. ALARMS ARE ON AND AUDIBLE AT NURSES STATION. AMBU BAG AT BEDSIDE AND CONNECTED TO O2 SOURCE. 8.0 TRACHEOSTOMY IS SECURED WITH TRACH TIES. SPARE TRACH IS AT BEDSIDE. CIRCUIT TEMP 34.4 AND WATER LEVEL IS ADEQUATE AT THIS TIME. BILATERAL BS ARE COARSE. PT WAS SUCTIONED FOR SMALL RETURN. MERLENE GALEANO AT BEDSIDE FOR ORAL CARE. CONT ORDERED. etCO2 42, PT TEMP 99.0, POX 100% Addendum: 09/03/19 at 0032 by Josette Hall RT Amended: Links added.
[2019-09-03] MEDS: ACCU-CHEK COMFORT CURVE STRIP VI SCH ×4 (00:17→17:29)
[2019-09-03] MEDS: InsuLIN REG 1unit/0.01ml Soln (100units/ml) SC SCH ×4 (00:17→17:28)
[2019-09-03] MEDS: MEROPENEM 500MG IVPB 50 ML IV SCH ×2 (01:00→12:46)
[2019-09-03] MEDS: FREE WATER JT SCH ×6 (02:09→22:05)
--- NOTE | 2019-09-03 02:10 | NUR ---
RT NOTE ROUTINE VENT CHECK DONE. PT TRACHED AND ON VENT V8 WITH HEATED WIRE CIRCUIT ON STATED SETTINGS IN THE ICU. VENT IS PLUGGED TO RED OUTLET. ALARMS ARE ON AND AUDIBLE AT NURSES STATION. AMBU BAG AT BEDSIDE AND CONNECTED TO O2 SOURCE. 8.0 TRACHEOSTOMY IS SECURED WITH TRACH TIES. SPARE TRACH IS AT BEDSIDE. CIRCUIT TEMP 32.3 AND WATER LEVEL IS ADEQUATE AT THIS TIME. BILATERAL BS ARE COARSE. PT WAS SUCTIONED FOR SMALL RETURN. BS ARE COARSE. HHN GIVEN INLINE WITH 1.25 MG XOPENEX VIA AEROGEN. CONT ORDERED. etCO2 45, PT TEMP 99.5, POX 93% Addendum: 09/03/19 at 0252 by Josette Hall RT Amended: Links added.
[2019-09-03] MEDS: LEVALBUTEROL HCL 1.25 MG/3 ML NEB NEB SCH ×5 (02:21→22:24)
--- NOTE | 2019-09-03 03:59 | NUR ---
RT NOTE ROUTINE VENT CHECK DONE. PT TRACHED AND ON VENT V8 WITH HEATED WIRE CIRCUIT ON STATED SETTINGS IN THE ICU. VENT IS PLUGGED TO RED OUTLET. ALARMS ARE ON AND AUDIBLE AT NURSES STATION. AMBU BAG AT BEDSIDE AND CONNECTED TO O2 SOURCE. 8.0 TRACHEOSTOMY IS SECURED WITH TRACH TIES. SPARE TRACH IS AT BEDSIDE. CIRCUIT TEMP 35.0 AND WATER LEVEL IS ADEQUATE AT THIS TIME. BILATERAL BS ARE COARSE. PT WAS SUCTIONED FOR LARGE RETURN. INLINE SUCTION CHANGED WITHOUT INCIDENT. CONT ORDERED. etCO2 44, PT TEMP 99.3, POX 95% Addendum: 09/03/19 at 0444 by Josette Hall RT Amended: Links added.
--- NOTE | 2019-09-03 04:31 | NUR ---
SKIN CARE/CATHETER CARE CLEANSED ABDOMINAL FOLDS AREA WITH SOAP AND WATER. PAT DRY. PLACED INTERDRY IN GROIN AND PILLOW CASE TO SUPPORT SCROTUM. RUIZ/ MEATAL CARE DONE.
[2019-09-03 04:57] LABS: Eosinophils # (auto) 0.4 uL; Lymphocytes # (auto) 0.7 uL; Monocytes # (auto) 0.5 uL
[2019-09-03 05:01] LABS: Basophils # (auto) 0.1 uL; Basophils % (auto) 0.6 % (0.0-2.0); Eosinophils % (auto) 5.3 % (0.0-7.0); Hematocrit 18.5 % (41.0-53.0); Lymphocytes % (auto) 8.6 % (10.0-50.0); Mean Corpuscular Hemoglobin 29.7 pg (28.0-32.0); Mean Corpuscular Hgb Conc. 33.5 g/dL (32.0-36.0); Mean Corpuscular Volume 88.6 fL (80.0-100.0); Monocytes % (auto) 6.2 % (0.0-12.0); Neutrophils # (auto) 6.5 uL; Neutrophils % (auto) 79.3 % (37.0-80.0); Platelet Count (auto) 302 10^3/uL (140-450); Red Blood Cells 2.09 10^6/uL (4.5-5.90); Red Cell Distribution Width 15.4 % (11.8-14.3); White Blood Cell 8.2 10^3/uL (4.4-10.8)
[2019-09-03 05:13] LABS: Potassium 4.1 mmol/L (3.5-5.1)
[2019-09-03 05:19] LABS: Albumin 1.8 g/dL (3.4-5.0); BUN/Creatinine Ratio 23.8; Calcium 8.4 mg/dL (8.5-10.1); Magnesium 1.9 mg/dL (1.6-2.6); Phosphorus 7.7 mg/dL (2.5-4.90); Total Protein 6.6 g/dL (6.4-8.2)
[2019-09-03 05:36] LABS: Hemoglobin 6.2 g/dL (13.5-17.5)
[2019-09-03] MEDS: MAGIC MOUTHWASH 55 ML SUSP MT SCH ×4 (05:41→22:05)
[2019-09-03] MEDS: CALCIUM ACETATE 667 MG CAP PO SCH ×3 (05:41→22:00)
[2019-09-03] MEDS: DexMEDEtomidine 400 MCG in D5W 5% 96 ML IV SCH ×3 (07:39→17:20)
[2019-09-03] MEDS: ACETAMINOPHEN 325 MG TAB PO PRN (09:28)
[2019-09-03] MEDS: QUEtiapine FUMARATE 25 MG TAB PO SCH ×2 (09:28→22:05)
[2019-09-03] MEDS: PANTOPRAZOLE 40 MG/10 ML VIAL INJ IV SCH ×2 (09:29→22:04)
[2019-09-03] MEDS: FLUCONAZOLE 200MG/100ML 100 ML IV SCH (09:29)
[2019-09-03] MEDS: CALCITRIOL 1 MCG/ML AMPULE IV SCH (09:29)
[2019-09-03] MEDS: LINEZOLID 600MG/300ML 300 ML IV SCH ×2 (09:29→22:05)
[2019-09-03] MEDS: SODIUM CHLOR 0.9% PF (SALINE LOCK) 10ML VIAL/SYR IV SCH ×2 (09:29→22:05)
[2019-09-03] MEDS: NOREPINEPHRINE BITARTRATE 32 MG in D5W 5% 218 ML IV SCH (09:46)
[2019-09-03] MEDS: fentaNYL Drip 2500mCg/250mlNS 250 ML IV SCH (10:05)
[2019-09-03] MEDS: PROPOFOL 100 ML IV SCH (12:48)
--- NOTE | 2019-09-03 13:18 | NUR ---
PT PLACED BACK ON AC PCV ON PREVIOUS SETTINGS, PER DR GARCIA. PT DID NOT TOLERATE CPAP PS. PT BECAME TACHYPNEIC. VT OF 188, O2 SATS OF 86%. DR GARCIA AT BEDSIDE. WILL CONTINUE TO MONITOR PT.
[2019-09-03] MEDS ORDERED: SODIUM FERR GLUC 62.5MG/5ML 125 MG in SODIUM CHL 0.9% 100 ML IV ONE (13:30)
--- NOTE | 2019-09-03 14:00 | NUR ---
dr. dolan at bedside doing procedure
[2019-09-03] MEDS ORDERED: LIDOCAINE 1% (LOCAL ANESTH.) PF 5ml SDV ONE (14:11)
[2019-09-03] MEDS ORDERED: MIDAZOLAM HCL 1MG/1ML-2 ML VIAL ONE (14:24)
[2019-09-03] MEDS ORDERED: MIDAZOLAM HCL 1MG/1ML-2 ML VIAL IV ONE (14:30)
[2019-09-03] MEDS ORDERED: LIDOCAINE 1% HCL (LOCAL ANESTH.) INJ 20ML MDV IJ ONE (14:30)
--- NOTE | 2019-09-03 19:30 | NUR ---
Opening Shift Note Received pt on mechanical ventilator, trach'd. Pt not on any sedation at this time. Awakens spontaneously but does not follow commands. OPA in place to protect pt from biting down on tongue. Pupils 3 and responsive. pt mobes upper arms at times. Full assessment done see interventions. Trach has air leak and deflates again after reinflated fairly quickly. Pt saturations are above 95%. No s/s of labored breathing or unstable VSS. Casiano catheter intact draining yellow urine, free of kinks. Skin assessment done see interventions. Pt turned on a 2 hr schedule, all bony prominences offloaded. Bed locked in lowest position. All alarms on and audible. Pt in full view of RN.
[2019-09-03] MEDS ORDERED: TPN*HIGH CONC* PER PHARMACY IV NR ×8 (20:00)
[2019-09-03] MEDS: INSULIN LANTUS (GLARGINE) 1 /0.01ml (100units/ml) SC SCH (22:05)
--- NOTE | 2019-09-03 23:00 | NUR ---
Precedex and Fentanyl gtt turned back on as pt is restless and reaching toward trach. Does not follow commands.
[2019-09-04] VITALS (107 sets, daily range): BP systolic 82–162; BP diastolic 32–112
[2019-09-04] MEDS: ACCU-CHEK COMFORT CURVE STRIP VI SCH ×5 (00:04→23:53)
[2019-09-04] MEDS: InsuLIN REG 1unit/0.01ml Soln (100units/ml) SC SCH ×5 (00:04→23:54)
[2019-09-04] MEDS: MEROPENEM 500MG IVPB 50 ML IV SCH ×2 (01:00→13:00)
[2019-09-04] MEDS: FREE WATER JT SCH ×5 (02:00→21:43)
[2019-09-04] MEDS: LEVALBUTEROL HCL 1.25 MG/3 ML NEB NEB SCH ×6 (02:12→22:00)
--- NOTE | 2019-09-04 02:30 | NUR ---
Agitation Pt will awaken with extreme agitation and move body all around reaching for trach. Bilateral mittens applied for pt safety. Trach secure. No s/s of respiratory distress. VSS.
[2019-09-04 04:02] LABS: Eosinophils # (auto) 0.2 uL; Lymphocytes # (auto) 0.9 uL; Monocytes # (auto) 0.4 uL; Nucleated Red Blood Cells % 0.1 %; Red Blood Cells 2.43 10^6/uL (4.5-5.90)
[2019-09-04 04:15] LABS: Albumin 1.9 g/dL (3.4-5.0); Calcium 8.5 mg/dL (8.5-10.1); Magnesium 1.9 mg/dL (1.6-2.6); Potassium 3.4 mmol/L (3.5-5.1)
[2019-09-04 04:18] LABS: BUN/Creatinine Ratio 31.7; Phosphorus 5.6 mg/dL (2.5-4.90); Total Protein 6.9 g/dL (6.4-8.2)
[2019-09-04 04:31] LABS: Basophils # (auto) 0 uL; Basophils % (auto) 0.3 % (0.0-2.0); Eosinophils % (auto) 3.4 % (0.0-7.0); Hematocrit 21.1 % (41.0-53.0); Hemoglobin 7.1 g/dL (13.5-17.5); Lymphocytes % (auto) 14.3 % (10.0-50.0); Mean Corpuscular Hemoglobin 29.3 pg (28.0-32.0); Mean Corpuscular Hgb Conc. 33.7 g/dL (32.0-36.0); Mean Corpuscular Volume 86.9 fL (80.0-100.0); Monocytes % (auto) 6.9 % (0.0-12.0); Neutrophils # (auto) 4.7 uL; Neutrophils % (auto) 75.1 % (37.0-80.0); Platelet Count (auto) 313 10^3/uL (140-450); Red Cell Distribution Width 15.6 % (11.8-14.3); White Blood Cell 6.2 10^3/uL (4.4-10.8)
--- NOTE | 2019-09-04 05:00 | NUR ---
Cares Full bed bath given and full linen change. Protective skin cream barrier applied to abdominal folds and sacrum.
[2019-09-04] MEDS: CALCIUM ACETATE 667 MG CAP PO SCH ×2 (05:45→21:44)
[2019-09-04] MEDS: MAGIC MOUTHWASH 55 ML SUSP MT SCH ×3 (05:45→21:42)
--- NOTE | 2019-09-04 06:11 | NUR ---
ABDOMINAL DRAIN Pt has 900cc's of dark red fluid in drainage bag.
--- NOTE | 2019-09-04 07:21 | NUR ---
End of shift note Report given to day shift RN to assume care.
--- NOTE | 2019-09-04 08:11 | NUR ---
Respiratory note: WATER CHANGED ON HEATED CIRCUIT WITHOUT INCIDENT.
[2019-09-04] MEDS ORDERED: POTASSIUM CHL 20MEQ/100ML 100 ML IV ONE (08:45)
--- NOTE | 2019-09-04 09:40 | NUR ---
MD Dr. Moura at bedside with no new orders. Will continue to titrate as tolerated by patient. Addendum: 09/04/19 at 1637 by PRASHANT KEITH RN Will continue to monitor patient. VOID: Will continue to titrate as tolerated by patient.
[2019-09-04] MEDS: NOREPINEPHRINE BITARTRATE 32 MG in D5W 5% 218 ML IV SCH (09:46)
[2019-09-04] MEDS: QUEtiapine FUMARATE 25 MG TAB PO SCH ×2 (10:02→21:45)
[2019-09-04] MEDS: PANTOPRAZOLE 40 MG/10 ML VIAL INJ IV SCH ×2 (10:02→21:41)
[2019-09-04] MEDS: SODIUM CHLOR 0.9% PF (SALINE LOCK) 10ML VIAL/SYR IV SCH ×2 (10:03→21:41)
[2019-09-04] MEDS: FLUCONAZOLE 200MG/100ML 100 ML IV SCH (10:03)
[2019-09-04] MEDS: LINEZOLID 600MG/300ML 300 ML IV SCH ×2 (10:03→21:45)
[2019-09-04] MEDS: fentaNYL Drip 2500mCg/250mlNS 250 ML IV SCH (11:25)
--- NOTE | 2019-09-04 11:30 | NUR ---
FAMILY Patients mother at bedside.
[2019-09-04] MEDS: SODIUM FERR GLUC 62.5MG/5ML 125 MG in SODIUM CHL 0.9% 100 ML IV SCH (12:00)
--- NOTE | 2019-09-04 12:35 | NUR ---
MD Dr. Roberts at bedside updated on patient condition with new orders to "Start feeding through OG tube." MD spoke to patients mother regarding plan of care and questions/concerns answered by MD.
[2019-09-04] MEDS: PROPOFOL 100 ML IV SCH (13:39)
--- NOTE | 2019-09-04 16:00 | NUR ---
NUTRITION Patient started on Nepro tube feedings at 10ml/hr for a goal rate of 30ml/hr. Will monitor residuals.
--- NOTE | 2019-09-04 19:30 | NUR ---
pt restless at times. will restart precedex, pt on fentanyl @200mcg. temp increasing 99.7, cooling measures applied. will reassess shortly. safety precautions in place. will continue to monitor.
[2019-09-04] MEDS ORDERED: TPN*HIGH CONC* PER PHARMACY IV NR ×9 (20:00)
[2019-09-04] MEDS ORDERED: POTASSIUM CHL 20MEQ/100ML 100 ML IV SCH (20:00)
[2019-09-04] MEDS ORDERED: SODIUM CHLORIDE 0.9% 1,000 ML IV ONE (20:00)
[2019-09-04] MEDS: ACETAMINOPHEN 650 MG RECT SUPP PR PRN (21:00)
[2019-09-04] MEDS: DexMEDEtomidine 400 MCG in D5W 5% 96 ML IV SCH (22:26)
[2019-09-04] MEDS: INSULIN LANTUS (GLARGINE) 1 /0.01ml (100units/ml) SC SCH (22:46)
[2019-09-05] VITALS (100 sets, daily range): BP systolic 88–164; BP diastolic 52–99
[2019-09-05] MEDS: MEROPENEM 500MG IVPB 50 ML IV SCH ×2 (00:03→13:50)
--- NOTE | 2019-09-05 00:43 | NUR ---
mouth care given, pt tolerating well. ogt @65cm, 60ml residuals of green fluid. pt tolerating well. safety precautions in place. will continue to monitor.
[2019-09-05] MEDS: fentaNYL Drip 2500mCg/250mlNS 250 ML IV SCH (01:53)
[2019-09-05] MEDS: FREE WATER JT SCH ×6 (01:56→21:43)
[2019-09-05] MEDS: LEVALBUTEROL HCL 1.25 MG/3 ML NEB NEB SCH ×6 (02:34→22:10)
--- NOTE | 2019-09-05 04:00 | NUR ---
ogt residuals 70mls, safety precautions in place. will continue to monitor.
[2019-09-05] MEDS: CALCIUM ACETATE 667 MG CAP PO SCH ×3 (05:26→21:42)
[2019-09-05] MEDS: InsuLIN REG 1unit/0.01ml Soln (100units/ml) SC SCH ×4 (05:42→23:09)
[2019-09-05] MEDS: ACCU-CHEK COMFORT CURVE STRIP VI SCH ×4 (05:43→23:10)
[2019-09-05] MEDS: MAGIC MOUTHWASH 55 ML SUSP MT SCH ×4 (05:43→21:43)
--- NOTE | 2019-09-05 06:30 | NUR ---
blood collected and sent to lab.
[2019-09-05] MEDS: DexMEDEtomidine 400 MCG in D5W 5% 96 ML IV SCH (07:45)
--- NOTE | 2019-09-05 09:25 | NUR ---
FAMILY Patients girlfriend at bedside, updated on patient condition correct password provided.
[2019-09-05] MEDS: FLUCONAZOLE 200MG/100ML 100 ML IV SCH (09:45)
[2019-09-05] MEDS: LINEZOLID 600MG/300ML 300 ML IV SCH ×2 (09:45→21:43)
[2019-09-05] MEDS: PANTOPRAZOLE 40 MG/10 ML VIAL INJ IV SCH ×2 (09:45→21:43)
[2019-09-05] MEDS: QUEtiapine FUMARATE 25 MG TAB PO SCH ×2 (09:46→21:42)
[2019-09-05] MEDS: CALCITRIOL 1 MCG/ML AMPULE IV SCH (09:46)
[2019-09-05] MEDS: SODIUM CHLOR 0.9% PF (SALINE LOCK) 10ML VIAL/SYR IV SCH ×2 (09:46→21:43)
[2019-09-05] MEDS: NOREPINEPHRINE BITARTRATE 32 MG in D5W 5% 218 ML IV SCH (09:46)
[2019-09-05 10:11] LABS: Alkaline Phosphatase 245 U/L (45-117); Anion Gap 9 (5-15); Aspartate Aminotransferase 52 U/L (15-37); BUN/Creatinine Ratio 40.2; Carbon Dioxide 27 mmol/L (21-32); Chloride 115 mmol/L (98-107); GFR African American 34 mL/min; GFR Non-African American 28 mL/min; Glucose 147 mg/dL (74-106); Potassium 3.8 mmol/L (3.5-5.1); Sodium 151 mmol/L (136-145)
[2019-09-05 10:12] LABS: Alanine Aminotransferase 28 U/L (16-61); Bilirubin, Total 0.9 mg/dL (0.2-1.0); Calcium 9.6 mg/dL (8.5-10.1); Magnesium 2.2 mg/dL (1.6-2.6); Phosphorus 5.8 mg/dL (2.5-4.90); Pre Albumin 19.1 mg/dL (20.0-40.0); Triglycerides 466 mg/dL (< 150)
[2019-09-05 10:14] LABS: Blood Urea Nitrogen 106 mg/dL (7-18)
--- NOTE | 2019-09-05 12:00 | NUR ---
NUTRITION OG tube checked and verified via air bolus with 10ml of residual aspirated. Increased tube feedings to 30ml/hr. Will continue to monitor residuals [id number].
[2019-09-05] MEDS: SODIUM FERR GLUC 62.5MG/5ML 125 MG in SODIUM CHL 0.9% 100 ML IV SCH (12:05)
--- NOTE | 2019-09-05 12:05 | NUR ---
FAMILY Patients girlfriend has left.
[2019-09-05] MEDS ORDERED: D5W 5% 1,000 ML IV SCH (12:30)
--- NOTE | 2019-09-05 12:55 | NUR ---
FAMILY Patients mother at bedside updated on patient condition: correct password provided.
[2019-09-05] MEDS: PROPOFOL 100 ML IV SCH (13:39)
[2019-09-05] MEDS: D5W 5% 1,000 ML IV SCH (14:00)
[2019-09-05] MEDS ORDERED: BUMETANIDE 2.5mg/10ml (0.25 mg/ml) INJ IV ONE (14:00)
--- NOTE | 2019-09-05 14:00 | NUR ---
TPN TPN decreased to 23ml/hr.
[2019-09-05] MEDS: ACETAMINOPHEN 325 MG TAB PO PRN (14:18)
--- NOTE | 2019-09-05 14:25 | NUR ---
MD Dr. Roberts at bedside updated on patient condition with new orders, MD to input into system. MD spoke to patients mother regarding plan of care and questions/concerns answered by MD. Will carry out orders per MD.
--- NOTE | 2019-09-05 14:40 | NUR ---
FAMILY Patients mother has left.
--- NOTE | 2019-09-05 15:00 | NUR ---
OG/NG TUBE OG tube has clogged off unable to get it to work again. NG tube inserted to the right nare 16F with no incident. Patient tolerated well. Placement verified via air bolus and restarted Tube feedings at 40ml/hr per MD orders. OG tube pulled out.
--- NOTE | 2019-09-05 16:30 | NUR ---
FAMILY Patients brother at bedside, updated on patient condition; correct password provided.
--- NOTE | 2019-09-05 18:00 | NUR ---
TPN TPN turned off.
[2019-09-05] MEDS ORDERED: TPN*HIGH CONC* PER PHARMACY IV NR ×7 (20:00)
--- NOTE | 2019-09-05 20:00 | NUR ---
NGT FEEDING RESIDUALS 70ML, W/ FEEDING AND SMALL AMOUNT GASTRIC FLUID, WILL CONTINUE TF AT 40ML/HR, SAFETY PRECAUTIONS IN PLACE. WILL CONTINUE TO MONITOR.
--- NOTE | 2019-09-05 22:00 | NUR ---
NEURO IMPROVING PT MORE ALERT, FOLLOWING COMMANDS DURING MOUTH CARE. SAFETY PRECAUTIONS IN PLACE. WILL CONTINUE TO MONITOR.
[2019-09-05] MEDS: INSULIN LANTUS (GLARGINE) 1 /0.01ml (100units/ml) SC SCH (23:09)
[2019-09-06] VITALS (106 sets, daily range): BP systolic 92–149; BP diastolic 49–93
[2019-09-06] MEDS: MEROPENEM 500MG IVPB 50 ML IV SCH ×2 (01:15→13:45)
[2019-09-06] MEDS: LEVALBUTEROL HCL 1.25 MG/3 ML NEB NEB SCH ×6 (02:05→22:21)
--- NOTE | 2019-09-06 04:00 | NUR ---
NGT FEEDING RESIDUALS 20ML, W/ FEEDING AND SMALL AMOUNT GASTRIC FLUID, WILL CONTINUE TF AT 40ML/HR, SAFETY PRECAUTIONS IN PLACE. WILL CONTINUE TO MONITOR.
[2019-09-06 04:13] LABS: Basophils # (auto) 0.1 uL; Basophils % (auto) 1.2 % (0.0-2.0); Eosinophils # (auto) 0.4 uL; Eosinophils % (auto) 6.4 % (0.0-7.0); Hemoglobin 7.1 g/dL (13.5-17.5); Lymphocytes # (auto) 1.3 uL; Lymphocytes % (auto) 23.3 % (10.0-50.0); Mean Corpuscular Hemoglobin 28.4 pg (28.0-32.0); Mean Corpuscular Hgb Conc. 32.5 g/dL (32.0-36.0); Mean Corpuscular Volume 87.7 fL (80.0-100.0); Monocytes # (auto) 0.4 uL; Monocytes % (auto) 7.9 % (0.0-12.0); Neutrophils # (auto) 3.5 uL; Neutrophils % (auto) 61.2 % (37.0-80.0); Nucleated Red Blood Cells % 0.1 %; Platelet Count (auto) 364 10^3/uL (140-450); Red Blood Cells 2.51 10^6/uL (4.5-5.90); Red Cell Distribution Width 15.8 % (11.8-14.3); White Blood Cell 5.7 10^3/uL (4.4-10.8)
[2019-09-06] MEDS: fentaNYL Drip 2500mCg/250mlNS 250 ML IV SCH ×2 (04:17→14:48)
[2019-09-06 04:38] LABS: Potassium 3.7 mmol/L (3.5-5.1)
[2019-09-06 04:45] LABS: Albumin 2.2 g/dL (3.4-5.0); Bilirubin, Total 0.9 mg/dL (0.2-1.0); Calcium 9.7 mg/dL (8.5-10.1); Magnesium 1.7 mg/dL (1.6-2.6); Phosphorus 5.1 mg/dL (2.5-4.90); Total Protein 7.3 g/dL (6.4-8.2)
--- NOTE | 2019-09-06 04:50 | NUR ---
CRITICAL LAB BUN 99, IMPROVED FROM PREVIOUS LAB DRAW
[2019-09-06] MEDS: FREE WATER JT SCH ×4 (05:39→13:45)
[2019-09-06] MEDS: ACCU-CHEK COMFORT CURVE STRIP VI SCH ×3 (05:40→23:38)
[2019-09-06] MEDS: MAGIC MOUTHWASH 55 ML SUSP MT SCH ×4 (05:40→22:38)
[2019-09-06] MEDS: CALCIUM ACETATE 667 MG CAP PO SCH ×3 (06:00→22:38)
[2019-09-06] MEDS: InsuLIN REG 1unit/0.01ml Soln (100units/ml) SC SCH ×3 (06:00→23:38)
[2019-09-06] MEDS: D5W 5% 1,000 ML IV SCH ×3 (06:03→18:22)
--- NOTE | 2019-09-06 06:14 | NUR ---
TRACHEOSTOMY CUFF PRESSURE READING 10CM H20 WITH CUFFLATOR. THERE IS A LEAK IN TRACH CUFF, HOWEVER PT RECEIVING >250ml VT ON VENT, SPO2 98% ON CURRENT VENT SETTINGS. TRAINING AND DEVELOPMENT OFFICER LUDA AMES. WILL NOTIFY DR BATISTA.
--- NOTE | 2019-09-06 07:35 | NUR ---
LEFT VOICEMAIL WITH DR BATISTA, ON NUMBER WAITING CALL BACK.
--- NOTE | 2019-09-06 07:55 | NUR ---
SPOKE TO DR BATISTA REGARDING TRACHEOSTOMY CUFF LEAK. PER DR BATISTA, CONSULT DR TONEY REGARDING THIS MATTER. MERLENE AMES.
--- NOTE | 2019-09-06 08:03 | NUR ---
DR. TONEY PAGECody
--- NOTE | 2019-09-06 08:12 | NUR ---
DR. TONEY CALLBACK UPDATED ON PATIENT STATUS. PER MD WILL DO TUBE EXCHANGE ON Monday09/09/2019 IN THE OPERATING ROOM
[2019-09-06] MEDS: FLUCONAZOLE 200MG/100ML 100 ML IV SCH (08:32)
[2019-09-06] MEDS: SODIUM CHLOR 0.9% PF (SALINE LOCK) 10ML VIAL/SYR IV SCH ×2 (09:43→22:00)
[2019-09-06] MEDS: PANTOPRAZOLE 40 MG/10 ML VIAL INJ IV SCH ×2 (09:43→22:37)
[2019-09-06] MEDS: QUEtiapine FUMARATE 25 MG TAB PO SCH ×2 (09:43→22:38)
[2019-09-06] MEDS: DexMEDEtomidine 400 MCG in D5W 5% 96 ML IV SCH ×3 (09:44→20:23)
[2019-09-06] MEDS: LINEZOLID 600MG/300ML 300 ML IV SCH ×2 (09:44→22:37)
[2019-09-06] MEDS: NOREPINEPHRINE BITARTRATE 32 MG in D5W 5% 218 ML IV SCH (09:46)
[2019-09-06] MEDS: ACETAMINOPHEN 325 MG TAB PO PRN (10:04)
--- NOTE | 2019-09-06 10:11 | NUR ---
TEMPERATURE 100.4 COOLING MEASURES APPLIED AND TYLENOL GIVEN ORDERED
--- NOTE | 2019-09-06 10:38 | NUR ---
FAMILY AT BEDSIDE. UPDATED ON PATIENT STATUS. ALL QUESTIONS AND CONCERNS ADDRESSED AT THIS TIME
[2019-09-06] MEDS: SODIUM FERR GLUC 62.5MG/5ML 125 MG in SODIUM CHL 0.9% 100 ML IV SCH (12:13)
[2019-09-06] MEDS: PROPOFOL 100 ML IV SCH (13:39)
[2019-09-06] MEDS ORDERED: DEXTROSE (50%) 50ML SYRG IV PRN (13:45)
--- NOTE | 2019-09-06 13:49 | NUR ---
DR. GARCIA AT BEDSIDE
--- NOTE | 2019-09-06 15:31 | NUR ---
Nutrition Follow-up Notes Wt.: 112.9 kg. Recent weight loss likely due to fluid loss and dialysis. Pt was intubated and sedated with fentanyl when rounded this morning. Pt is currently NPO and receiving EN support from Nepro with Carb Steady @40 ml/hr providing 1728 kcal, 78 gms protein and 698 ml free water Est. Needs based on AdBW(76 kg): 1500 kcal to 1900 kcal (20-25 kcal/kgAdBW), 91 gms to 114 gms pro (1.2-1.5 gms/kgAdBW reassessed d/t ESRD on HD, severe hypoalbuminemia). Will continue to monitor pertinent labs and reassess nutrient need prn Labs (09/06): Na 153 H, BUN 99 H, Cr 2.20 H, Serum glucose 135 H, Glucose 124 H, Phosphorus 5.1 H, AST 63 H, Albumin 2.2 L Skin: Brice scale 12, high risk, scab present. Pls refer to latest cyber operator's notes for further details. GI: Pt has had BM 09/05/19 per customer experience specialist. PES: 1) Increased nutrient needs r/t acute/chronic medical condition aeb intubated, sedated, severe hypoalbuminemia, NPO. 2) Altered nutrition related lab values r/t current/chronic medical condition aeb hyperglycemia, elev. renal labs, HbA1c, LFTs, lipase, hypocapnia, hypocalcemia and severe hypoalbuminemia. (partially resolved) 3) Obesity r/t food intake more than body requirement aeb 218% IBW, BMI 57.7 kg/m2 and increased body adiposity Will continue to monitor NPO status, EN tolerance, skin status, pertinent labs and weight trend. F/u in 2 to 3 days. Recommendations: 1) Advance gradually to oral diet if medically appropriate. 2) Refer pt to CDE/RD for further nutrition education and weight monitoring upon discharge. 3) Continue current plan of care.
--- NOTE | 2019-09-06 16:08 | NUR ---
PARTIAL LINEN CHANGE PERFORMED
[2019-09-06] MEDS: FREE WATER GT SCH ×2 (17:27→23:37)
[2019-09-06] MEDS ORDERED: FREE WATER GT SCH (18:00)
--- NOTE | 2019-09-06 19:30 | NUR ---
AGITATION PATIENT SEVERELY AGITATED, HR: 140'S, RESTLESS IN BED. TITRATED PRECEDEX FROM 0.3 TO 0.5. WILL CONTINUE TO MONITOR.
--- NOTE | 2019-09-06 19:35 | NUR ---
OPENING SHIFT RECEIVED REPORT FROM DAY SHIFT RN. ASSUMED CARE OF PATIENT. PATIENT IN BED TRACHED AND SEDATED: FENTANYL - 200MCG/MIN, PRECEDEX 0.3MCG/KG/HR. LEFT UPPER ARM PICC TLC AND RIGHT SUBCLAVIAN JERRY CATHETER - CLEAN/DRY/INTACT. RIGHT ABDOMINAL DRAIN - INTACT AND DRAINING PROPERLY. RUIZ HUNG TO GRAVITY. REPOSITIONED FOR COMFORT. BED IN LOWEST POSITION, SIDE RAILS UPX 2. WILL CONTINUE TO MONITOR.
--- NOTE | 2019-09-06 20:00 | NUR ---
AGITATION PATIENT SEVERELY AGITATED, HR: 149'S, RESTLESS IN BED. TITRATED PRECEDEX FROM 0.5 TO 0.7. WILL CONTINUE TO MONITOR.
[2019-09-06] MEDS: INSULIN LANTUS (GLARGINE) 1 /0.01ml (100units/ml) SC SCH (22:38)
[2019-09-07] VITALS (104 sets, daily range): BP systolic 85–120; BP diastolic 44–75
[2019-09-07] MEDS: MEROPENEM 500MG IVPB 50 ML IV SCH ×2 (01:16→13:34)
[2019-09-07] MEDS: LEVALBUTEROL HCL 1.25 MG/3 ML NEB NEB SCH ×6 (02:19→22:03)
[2019-09-07] MEDS: DexMEDEtomidine 400 MCG in D5W 5% 96 ML IV SCH ×5 (02:22→20:38)
[2019-09-07] MEDS: fentaNYL Drip 2500mCg/250mlNS 250 ML IV SCH ×2 (03:37→15:04)
--- NOTE | 2019-09-07 04:00 | NUR ---
MORNING CARE PERFORMED MORNING CARE WITH CHG WIPES AND WASH CLOTHS TO THE FACE. FULL LINEN CHANGE AND GOWN CHANGED. REPOSITIONED FOR COMFORT. SKIN REASSESSED AT THIS TIME. ORAL AND RUIZ CARE PERFORMED. BED IN LOWEST POSITION, SIDE RAILS UP X2. WILL CONTINUE TO MONITOR.
[2019-09-07 04:55] LABS: Potassium 3.5 mmol/L (3.5-5.1)
[2019-09-07 05:01] LABS: BUN/Creatinine Ratio 45.2; Calcium 10.1 mg/dL (8.5-10.1)
[2019-09-07] MEDS: FREE WATER GT SCH ×4 (06:00→23:06)
[2019-09-07] MEDS: ACCU-CHEK COMFORT CURVE STRIP VI SCH ×4 (06:00→23:08)
[2019-09-07] MEDS: InsuLIN REG 1unit/0.01ml Soln (100units/ml) SC SCH ×4 (06:00→23:08)
[2019-09-07] MEDS: MAGIC MOUTHWASH 55 ML SUSP MT SCH ×4 (06:31→23:07)
[2019-09-07] MEDS: D5W 5% 1,000 ML IV SCH ×2 (06:32→14:31)
[2019-09-07] MEDS: CALCIUM ACETATE 667 MG CAP PO SCH (06:32)
--- NOTE | 2019-09-07 07:19 | NUR ---
END OF SHIFT REPORT GIVEN TO DAY SHIFT RN. CARE ENDORSED.
--- NOTE | 2019-09-07 07:30 | NUR ---
ASSESS- PT. LYING IN BED ON HILL ROM AIR BED ON VENT VIA TRACH #8.0 SHILEY, NOT SUTURED IN, CUFF DEFLATED ON PC-20, RATE-16, PEEP-7, FIO2-40%. LUNGS CLEAR LOLA. INSPIRATORY AND EXPIRATORY. PT. HAS GAG/COUGH REFLEX. ON FENTANYL GTT. AT 200 MCG. AND PRECEDEX GTT. AT 0.7 MCG./KG./HR. LOLA. HAND MITTENS IN PLACE TO PREVENT PULLING OF TUBES. PT. RESPONDS TO PAINFUL/TACTILE STIMULI. OPENS EYES SPONTANEOUSLY, NO TRACKING. DOES NOT FOLLOW ANY COMMANDS. NGT RT. NARE WITH NEPHRO AT 40 CC/HR. ABD. LG., ROUND, SOFT. BOWEL SOUNDS ALL FOUR QUADRANTS. F/C TO GRAVITY WITH CLEAR DK. YELLOW URINE. PICC LT. UPPER ARM TLC INTACT. JERRY CATHETER RT. SUBCLAVIAN INTACT. TONGUE WITH HEALING ULCER, NO BLEEDING. SCABS TO LOLA. CHIN CLOSED, NO DRAINAGE, OPEN TO AIR. SCAB UNDER NECK CLOSED, NO DRAINAGE, OPEN TO AIR. SACRUM MACERATED WITH SM. OPENING, OPTIFOAM GENTLE DSG. IN PLACE. ABD. FOLDS WITH ERYTHEMA. RADIAL PULSES STRONG, PALPABLE LOLA. DORSALIS PEDAL PULSES STRONG, PALPABLE LOLA. SCD'S LOLA. LE. RT. SIDE OF ABD. WITH DRAIN TO GRAVITY.
--- NOTE | 2019-09-07 09:00 | NUR ---
TEMP INCREASED 99.5 RECTALLY. PLACED ICE PACKS LOLA. AXILLA. NO COVERS ON PT.
[2019-09-07] MEDS: PANTOPRAZOLE 40 MG/10 ML VIAL INJ IV SCH ×2 (09:26→23:06)
[2019-09-07] MEDS: FLUCONAZOLE 200MG/100ML 100 ML IV SCH (09:26)
[2019-09-07] MEDS: QUEtiapine FUMARATE 25 MG TAB PO SCH ×2 (09:26→23:07)
[2019-09-07] MEDS: LINEZOLID 600MG/300ML 300 ML IV SCH ×2 (09:26→23:07)
[2019-09-07] MEDS: CALCITRIOL 1 MCG/ML AMPULE IV SCH (09:27)
[2019-09-07] MEDS: SODIUM CHLOR 0.9% PF (SALINE LOCK) 10ML VIAL/SYR IV SCH ×2 (09:27→23:06)
[2019-09-07] MEDS: NOREPINEPHRINE BITARTRATE 32 MG in D5W 5% 218 ML IV SCH (09:27)
--- NOTE | 2019-09-07 09:45 | NUR ---
AUSCULTATED GOOD PLACEMENT WITH NGT. NO EMESIS. NO RESIDUAL. TOLERATING NEPHRO AT 40 CC/HR.
--- NOTE | 2019-09-07 10:05 | NUR ---
DR. CASTANEDA Provider/Hospitalist at bedside. GAVE UPDATE ON PT.
--- NOTE | 2019-09-07 10:10 | NUR ---
PULLED PT. UP IN BED WITH ANOTHER RN ASSISTED AND 2 RT'S AT TO SECURE TRACH. TURNED TO RT. SIDE. TOLERATED WELL. TRACH IN GOOD POSITION AND SECURED.
--- NOTE | 2019-09-07 10:50 | NUR ---
DR. ANDRES Provider/Hospitalist at bedside. GAVE UPDATE ON PT. NEW ORDERS RECEIVED.
[2019-09-07] MEDS: PROPOFOL 100 ML IV SCH (11:09)
--- NOTE | 2019-09-07 12:00 | NUR ---
TEMP DECREASED TO 99.1 RECTALLY.
[2019-09-07] MEDS: SODIUM FERR GLUC 62.5MG/5ML 125 MG in SODIUM CHL 0.9% 100 ML IV SCH (12:41)
--- NOTE | 2019-09-07 13:30 | NUR ---
Family updated on pt status Family of MOR MILLERE updated on patient's status and condition. All questions and concerns addressed. BROTHER verbalized understanding. VISITING AT THE BS.
--- NOTE | 2019-09-07 14:00 | NUR ---
NO RESIDUAL FROM TF. NO EMESIS. TOLERATING FEEDING OF NEPHRO AT 40 CC/HR.
--- NOTE | 2019-09-07 14:10 | NUR ---
PULLED UP PT. IN BED WITH ANOTHER ASSISTED AND RT AT BS TO SECURE TRACH. REPOSITIONED TO LT. SIDE. TOLERATED WELL. TRACH SECURE.
--- NOTE | 2019-09-07 17:25 | NUR ---
SBP DECREASED TO 87 TIMES 2 BP'S. DECREASED PRECEDEX GTT. TO 0.6 MCG./KG./HR. MONITORING BP.
--- NOTE | 2019-09-07 18:10 | NUR ---
VISITORS AT THE .
--- NOTE | 2019-09-07 18:15 | NUR ---
SBP INCREASED TO THE 90'S-100'S. MONITORING BP.
[2019-09-07 18:20] LABS: Hemoglobin 7.2 g/dL (13.5-17.5)
[2019-09-07 18:22] LABS: Hematocrit 22.4 % (41.0-53.0)
--- NOTE | 2019-09-07 19:30 | NUR ---
Opening Shift Note: A&Ox1; still on sedation/vent for trach. Bilateral pupils 4 mm in size/brisk/reactive; occasional movement of all four extremities with mild weakness; positive cough/gag. Trach inserted by Dr. Friedman on 08/28/19: Current settings for vent: PC 20, FiO2 40%, rate 16, and PEEP 7. Secretions through trach tube are creamy/thick; oral secretions are yellow/thick. R. Narelayne NGT previously running Nephro at 40 ml/hr (goal); paused at this time related to high residual of 100 ml. Casiano inserted on 08/12/19 for accurate I/O; new dialysis on this admission: right subclavian quintton cath. Last dialysis 08/31 with 2L out per report. 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 Mendez; peeling skin on bilateral buttocks, zguard applied. IV: LUE PICC triple lumen inserted on 08/19/19: Precedex @ 0.6 mcg; Fentanyl @ 200 mcg. Patient is pending trach tube exchange with Dr. Friedman on 09/09/19 at 0800. Family at bedside and updated on currently plan of care. Will continue to round prn and reposition Q2H/prn.
[2019-09-07] MEDS: INSULIN LANTUS (GLARGINE) 1 /0.01ml (100units/ml) SC SCH (23:08)
[2019-09-08] VITALS (91 sets, daily range): BP systolic 85–137; BP diastolic 34–76
[2019-09-08] MEDS: MEROPENEM 500MG IVPB 50 ML IV SCH ×2 (01:00→13:42)
[2019-09-08] MEDS: FREE WATER GT SCH ×6 (02:00→20:10)
[2019-09-08] MEDS: LEVALBUTEROL HCL 1.25 MG/3 ML NEB NEB SCH ×6 (02:25→22:14)
--- NOTE | 2019-09-08 03:45 | NUR ---
Patient bathe/linen change Patient given complete CHG bed bath. Skin integrity assessed for any changes. Linens and gown changed. Patient positioned supine for comfort.
--- NOTE | 2019-09-08 04:00 | NUR ---
Patient removal of NG tube: Patient became restless and agitated, moving head from side to side. Mittens were on bilateral hands to prevent pulling of tubing but patient removed NGT in right nare. Tubing intact.
--- NOTE | 2019-09-08 04:20 | NUR ---
NGT replaced in right nare. Stat CXR put in per protocol to confirm placement.
[2019-09-08 04:27] LABS: Basophils # (auto) 0.1 uL; Eosinophils # (auto) 0.3 uL; Lymphocytes # (auto) 1.5 uL; Monocytes # (auto) 0.3 uL; Neutrophils # (auto) 3.7 uL; White Blood Cell 5.9 10^3/uL (4.4-10.8)
[2019-09-08 04:30] LABS: Basophils % (auto) 1.2 % (0.0-2.0); Hematocrit 22.2 % (41.0-53.0); Hemoglobin 7.4 g/dL (13.5-17.5); Lymphocytes % (auto) 25.6 % (10.0-50.0); Mean Corpuscular Hgb Conc. 33.2 g/dL (32.0-36.0); Mean Corpuscular Volume 87.4 fL (80.0-100.0); Monocytes % (auto) 5.4 % (0.0-12.0); Neutrophils % (auto) 62.8 % (37.0-80.0); Platelet Count (auto) 329 10^3/uL (140-450); Red Blood Cells 2.54 10^6/uL (4.5-5.90)
[2019-09-08 04:43] LABS: INR 1.13 (0.9-1.15)
[2019-09-08 04:52] LABS: BUN/Creatinine Ratio 42.4; Potassium 3.9 mmol/L (3.5-5.1)
[2019-09-08 04:55] LABS: Bilirubin, Total 0.9 mg/dL (0.2-1.0); Total Protein 7.1 g/dL (6.4-8.2)
[2019-09-08] MEDS: InsuLIN REG 1unit/0.01ml Soln (100units/ml) SC SCH ×4 (06:00→22:06)
[2019-09-08] MEDS: MAGIC MOUTHWASH 55 ML SUSP MT SCH ×4 (06:00→20:10)
[2019-09-08] MEDS: ACCU-CHEK COMFORT CURVE STRIP VI SCH ×4 (06:00→22:06)
--- NOTE | 2019-09-08 06:01 | NUR ---
NGT placement confirmed by portable CXR. Will give 0600 free water and restart NGT feedings of Nephro Carb Steady at 20 ml/hr related to previous intolerance of feeding evidenced by a high residual.
[2019-09-08] MEDS: DexMEDEtomidine 400 MCG in D5W 5% 96 ML IV SCH ×4 (07:09→20:57)
--- NOTE | 2019-09-08 07:25 | NUR ---
ASSESS- PT. LYING ON HILL ROM AIR BED ON VENT VIA TRACH #8.0 ADAN, TRACH IS NOT SUTURED IN AND CUFF IS DEFLATED. PC-20, RATE-16, PEEP-7, FIO2-40%. LUNGS COARSE LOLA. INSPIRATORY AND EXPIRATORY, DIMINISHED BASES LOLA. LOLA. HAND MITTENS IN PLACE TO PREVENT PULLING OF TUBES AND LINES. PT. HAS GAG/COUGH REFLEX. RESPONDS TO PAINFUL/TACTILE STIMULI. OPENS EYES SPONTANEOUSLY, NO TRACKING. DOES NOT FOLLOW ANY COMMANDS. ON FENTANYL GTT. AT 200 MCG. AND PRECEDEX GTT. AT 0.7 MCG./KG./HR. PICC LT. UPPER ARM TLC INTACT WITH DSG. D/I. JERRY CATHETER RT. SUBCLAVIAN INTACT, DSG. D/I. ABD. LG., ROUND, SOFT. BOWEL SOUNDS ALL FOUR QUADRANTS. NGT RT. NARE INTACT WITH NEPHRO AT 20 CC/HR. F/C TO GRAVITY WITH CLEAR YELLOW URINE. RADIAL PULSES STRONG, PALPABLE LOLA. DORSALIS PEDAL PULSES STRONG, PALPABLE LOLA. SCD'S LOLA. LE. RECTAL PROBE IN PLACE. TONGUE WITH HEALING ULCER. LOLA. CHIN WITH CLOSED SCABS, OPEN TO AIR. UNDER NECK WITH CLOSED SCAB, OPEN TO AIR. SACRUM WITH OPEN AREA, MACERATED, OPTIFOAM DSG. D/I. RT. SIDE OF ABD. WITH DRAIN INTACT.
[2019-09-08] MEDS: NOREPINEPHRINE BITARTRATE 32 MG in D5W 5% 218 ML IV SCH (09:00)
--- NOTE | 2019-09-08 09:20 | NUR ---
AUSCULTATED GOOD PLACEMENT WITH NGT. NO EMESIS. CHECKED RESIDUAL 60 PLUS CC. TURNED OFF TF.
[2019-09-08] MEDS: Nepro With Carb Steady 1 Liter Bottle GT SCH (09:25)
--- NOTE | 2019-09-08 09:30 | NUR ---
REPOSITIONING Assisted Candace BLUNT in repositioning pt., R.T.s at bedside securing pt.'s trach., pt. tolerated procedure well, no other problems noted.
--- NOTE | 2019-09-08 09:30 | NUR ---
TEMP 100.2 RECTALLY. PLACED ICE PACKS LOLA. AXILLA. NO COVERS ON PT.
--- NOTE | 2019-09-08 09:35 | NUR ---
PT. WAS PULLED UP IN BED AND TURNED ON RT. SIDE WITH 2 RT'S. AT TO SECURE TRACH WITH ANOTHER RN ASSISTED. PT. TOLERATED WELL. TRACH SECURE.
[2019-09-08] MEDS: QUEtiapine FUMARATE 25 MG TAB PO SCH ×2 (09:43→20:10)
[2019-09-08] MEDS: LINEZOLID 600MG/300ML 300 ML IV SCH ×2 (09:43→20:10)
[2019-09-08] MEDS: PANTOPRAZOLE 40 MG/10 ML VIAL INJ IV SCH ×2 (09:43→20:09)
[2019-09-08] MEDS: FLUCONAZOLE 200MG/100ML 100 ML IV SCH (09:43)
[2019-09-08] MEDS: SODIUM CHLOR 0.9% PF (SALINE LOCK) 10ML VIAL/SYR IV SCH ×2 (09:44→20:09)
--- NOTE | 2019-09-08 10:20 | NUR ---
DR. CASTANEDA Provider/Hospitalist at bedside. NEW ORDERS RECEIVED.
--- NOTE | 2019-09-08 11:45 | NUR ---
DR. ANDRES Provider/Hospitalist at bedside. GAVE UPDATE ON PT.
--- NOTE | 2019-09-08 12:00 | NUR ---
TEMP DECREASED TO 99.9 RECTALLY. ICE PACKS REMAIN IN PLACE. NO COVERS ON PT.
[2019-09-08] MEDS: SODIUM FERR GLUC 62.5MG/5ML 125 MG in SODIUM CHL 0.9% 100 ML IV SCH (12:47)
[2019-09-08] MEDS: PROPOFOL 100 ML IV SCH (13:39)
[2019-09-08] MEDS: fentaNYL Drip 2500mCg/250mlNS 250 ML IV SCH (13:42)
--- NOTE | 2019-09-08 14:00 | NUR ---
Family updated on pt status Family of LELAND MILLER updated on patient's status and condition. All questions and concerns addressed. MOM verbalized understanding. VISITING AT THE BS.
--- NOTE | 2019-09-08 15:15 | NUR ---
PT. PULLED UP IN BED WITH 2 RT'S AT BS WITH 3 RN'S AND REPOSITIONED TO LT. SIDE. TRACH SECURED BY RT. TOLERATED WELL.
--- NOTE | 2019-09-08 15:30 | NUR ---
TEMP INCREASED TO 100.4 RECTALLY. PLACED ICE PACKS LOLA. AXILLA. MONITORING TEMP.
--- NOTE | 2019-09-08 16:35 | NUR ---
DR. MENDOZA Provider/Hospitalist at bedside. GAVE UPDATE ON PT.
[2019-09-08 17:25] LABS: INR 1.17 (0.9-1.15); Partial Thromboplastin Time 26.8 sec (23.64-32.05)
[2019-09-08] MEDS: ACETAMINOPHEN 325 MG TAB PO PRN (18:43)
--- NOTE | 2019-09-08 18:45 | NUR ---
TEMP 100.8 RECTALLY. MED. PT. WITH TYLENOL 650 MG. VIA NGT. NO COVERS ON PT. ICE PACKS REMAIN UNDER LOLA. AXILLA.
[2019-09-08] MEDS: INSULIN LANTUS (GLARGINE) 1 /0.01ml (100units/ml) SC SCH (20:11)
[2019-09-09] VITALS (81 sets, daily range): BP systolic 79–147; BP diastolic 39–84
[2019-09-09] MEDS: MEROPENEM 500MG IVPB 50 ML IV SCH ×3 (00:24→22:00)
[2019-09-09] MEDS: FREE WATER GT SCH ×6 (00:24→17:50)
[2019-09-09] MEDS: LEVALBUTEROL HCL 1.25 MG/3 ML NEB NEB SCH ×6 (02:05→21:58)
[2019-09-09] MEDS ORDERED: LORazepam 2MG/ML-1ML VIAL ONE (02:41)
[2019-09-09] MEDS ORDERED: LORazepam 2MG/ML-1ML VIAL IM ONE (02:45)
[2019-09-09] MEDS: ACETAMINOPHEN 325 MG TAB PO PRN (02:47)
[2019-09-09] MEDS: fentaNYL Drip 2500mCg/250mlNS 250 ML IV SCH ×2 (02:48→15:40)
[2019-09-09] MEDS: ACCU-CHEK COMFORT CURVE STRIP VI SCH ×3 (03:56→17:42)
[2019-09-09] MEDS: InsuLIN REG 1unit/0.01ml Soln (100units/ml) SC SCH ×3 (03:56→17:42)
[2019-09-09] MEDS: MAGIC MOUTHWASH 55 ML SUSP MT SCH ×4 (03:57→22:11)
[2019-09-09 04:00] LABS: Basophils # (auto) 0.1 uL; Eosinophils # (auto) 0.3 uL; Hematocrit 19.7 % (41.0-53.0); Mean Corpuscular Volume 87.8 fL (80.0-100.0); Monocytes # (auto) 0.3 uL; Nucleated Red Blood Cells % 0.1 %; Red Blood Cells 2.25 10^6/uL (4.5-5.90)
[2019-09-09 04:03] LABS: Basophils % (auto) 1.2 % (0.0-2.0); Eosinophils % (auto) 4.5 % (0.0-7.0); Lymphocytes # (auto) 1.1 uL; Lymphocytes % (auto) 20.5 % (10.0-50.0); Mean Corpuscular Hemoglobin 28.7 pg (28.0-32.0); Mean Corpuscular Hgb Conc. 32.7 g/dL (32.0-36.0); Monocytes % (auto) 4.9 % (0.0-12.0); Neutrophils # (auto) 3.8 uL; Neutrophils % (auto) 68.9 % (37.0-80.0); Platelet Count (auto) 278 10^3/uL (140-450); Red Cell Distribution Width 15.5 % (11.8-14.3); White Blood Cell 5.6 10^3/uL (4.4-10.8)
[2019-09-09 04:19] LABS: Hemoglobin 6.5 g/dL (13.5-17.5)
[2019-09-09 04:30] LABS: Potassium 3.5 mmol/L (3.5-5.1)
[2019-09-09 04:33] LABS: BUN/Creatinine Ratio 33.9
[2019-09-09] MEDS ORDERED: fentaNYL CITRATE 100 MCG/2 ML VL ONE ×2 (07:36→07:38)
[2019-09-09] MEDS ORDERED: KETAMINE HCL 10 ML ONE (07:36)
[2019-09-09] MEDS ORDERED: PROPOFOL 10 MG/ML 20 ML IV ONE (07:36)
[2019-09-09] MEDS ORDERED: ONDANSETRON HCL 4 MG/2 ML VIAL ONE (07:36)
[2019-09-09] MEDS ORDERED: MIDAZOLAM HCL 1MG/1ML-2 ML VIAL ONE (07:36)
[2019-09-09] MEDS ORDERED: SODIUM CHLORIDE LOCK 10 ML ONE (07:36)
[2019-09-09] MEDS ORDERED: ROCURONIUM 10MG/ML 10ML VIAL IV ONE (07:43)
[2019-09-09] MEDS ORDERED: LIDOCAINE 1% HCL (LOCAL ANESTH.) INJ 20ML MDV ONE (07:46)
[2019-09-09] MEDS: DexMEDEtomidine 400 MCG in D5W 5% 96 ML IV SCH ×4 (07:53→22:43)
[2019-09-09] MEDS: ACETAMINOPHEN 650 MG RECT SUPP PR PRN (08:22)
--- NOTE | 2019-09-09 08:22 | NUR ---
TEMPERATURE 100.8 TYLENOL SUPPOSITORY ADMINISTERED
[2019-09-09] MEDS ORDERED: HYDROmorphone HCL 2 MG/ML VL ONE (08:27)
[2019-09-09] MEDS: FLUCONAZOLE 200MG/100ML 100 ML IV SCH (08:32)
--- NOTE | 2019-09-09 08:44 | NUR ---
PATIENT TAKEN TO OR VIA RT AND OR TEAM VIA ACLS GUIDELINES
--- NOTE | 2019-09-09 09:14 | NUR ---
PATIENT PLACED ON CPAP BY RT
[2019-09-09] MEDS: NOREPINEPHRINE BITARTRATE 32 MG in D5W 5% 218 ML IV SCH (09:46)
--- NOTE | 2019-09-09 10:15 | NUR ---
PATIENT BACK FROM OR VIA OR TEAM AND ANESTHESIOLOGIST, STAT CXR OBTAINED
[2019-09-09] MEDS: SODIUM CHLOR 0.9% PF (SALINE LOCK) 10ML VIAL/SYR IV SCH ×2 (10:17→21:29)
[2019-09-09] MEDS: LINEZOLID 600MG/300ML 300 ML IV SCH ×2 (10:17→21:29)
[2019-09-09] MEDS: PANTOPRAZOLE 40 MG/10 ML VIAL INJ IV SCH ×2 (10:17→21:29)
[2019-09-09] MEDS: PROPOFOL 100 ML IV SCH ×2 (10:17→15:40)
[2019-09-09] MEDS: QUEtiapine FUMARATE 25 MG TAB PO SCH ×3 (10:55→22:43)
--- NOTE | 2019-09-09 11:14 | NUR ---
FAMILY AT BEDSIDE UPDATED ON PATIENT STATUS
[2019-09-09] MEDS: SODIUM FERR GLUC 62.5MG/5ML 125 MG in SODIUM CHL 0.9% 100 ML IV SCH (12:20)
--- NOTE | 2019-09-09 13:59 | NUR ---
DR. GARCIA AT BEDSIDE
[2019-09-09] MEDS ORDERED: BUMETANIDE 2.5mg/10ml (0.25 mg/ml) INJ IV ONE (14:00)
--- NOTE | 2019-09-09 19:00 | NUR ---
TF held, 210 residuals
--- NOTE | 2019-09-09 20:58 | NUR ---
family at bedside
[2019-09-09] MEDS: INSULIN LANTUS (GLARGINE) 1 /0.01ml (100units/ml) SC SCH (21:30)
[2019-09-10] VITALS (95 sets, daily range): BP systolic 92–148; BP diastolic 46–85
[2019-09-10] MEDS: PROPOFOL 100 ML IV SCH ×3 (00:35→09:46)
[2019-09-10] MEDS: LEVALBUTEROL HCL 1.25 MG/3 ML NEB NEB SCH ×6 (02:10→21:59)
--- NOTE | 2019-09-10 03:09 | NUR ---
Patient bathe/linen change Patient given partial bath. Skin integrity assessed for any changes. Full linens changed. Patient repositioned for comfort.
[2019-09-10] MEDS: DexMEDEtomidine 400 MCG in D5W 5% 96 ML IV SCH ×4 (04:21→19:21)
[2019-09-10] MEDS: fentaNYL Drip 2500mCg/250mlNS 250 ML IV SCH ×2 (04:22→14:47)
[2019-09-10 04:35] LABS: Basophils # (auto) 0.1 uL; Eosinophils # (auto) 0.3 uL; Lymphocytes # (auto) 1.4 uL; Monocytes # (auto) 0.3 uL; Neutrophils # (auto) 3.4 uL; Nucleated Red Blood Cells % 0.1 %; Red Blood Cells 2.38 10^6/uL (4.5-5.90); White Blood Cell 5.4 10^3/uL (4.4-10.8)
[2019-09-10 04:37] LABS: Basophils % (auto) 1.9 % (0.0-2.0); Eosinophils % (auto) 5.2 % (0.0-7.0); Lymphocytes % (auto) 25.6 % (10.0-50.0); Mean Corpuscular Hemoglobin 28.7 pg (28.0-32.0); Mean Corpuscular Hgb Conc. 32.6 g/dL (32.0-36.0); Mean Corpuscular Volume 88.1 fL (80.0-100.0); Monocytes % (auto) 4.7 % (0.0-12.0); Neutrophils % (auto) 62.6 % (37.0-80.0); Platelet Count (auto) 279 10^3/uL (140-450)
[2019-09-10 04:53] LABS: Calcium 10.3 mg/dL (8.5-10.1); Potassium 3.4 mmol/L (3.5-5.1)
[2019-09-10 04:57] LABS: BUN/Creatinine Ratio 28.4
[2019-09-10 05:21] LABS: Hemoglobin 6.9 g/dL (13.5-17.5)
[2019-09-10] MEDS: InsuLIN REG 1unit/0.01ml Soln (100units/ml) SC SCH ×5 (06:00→22:16)
[2019-09-10] MEDS: FREE WATER GT SCH ×5 (06:00→22:17)
[2019-09-10] MEDS: ACCU-CHEK COMFORT CURVE STRIP VI SCH ×5 (06:00→22:17)
[2019-09-10] MEDS: MEROPENEM 500MG IVPB 50 ML IV SCH ×3 (06:00→21:47)
[2019-09-10] MEDS: MAGIC MOUTHWASH 55 ML SUSP MT SCH ×4 (06:00→21:47)
--- NOTE | 2019-09-10 06:51 | NUR ---
total residuals 1999 = 210 0000 = 20 0400 = 60 0600 = 60 total = 350 ml
[2019-09-10] MEDS: FLUCONAZOLE 200MG/100ML 100 ML IV SCH (08:35)
--- NOTE | 2019-09-10 09:04 | NUR ---
PARTIAL LINEN CHANGE PERFORMED AT THIS TIME
[2019-09-10] MEDS: PANTOPRAZOLE 40 MG/10 ML VIAL INJ IV SCH ×2 (09:38→21:12)
[2019-09-10] MEDS: SODIUM CHLOR 0.9% PF (SALINE LOCK) 10ML VIAL/SYR IV SCH ×2 (09:39→21:13)
[2019-09-10] MEDS: LINEZOLID 600MG/300ML 300 ML IV SCH (09:39)
[2019-09-10] MEDS: NOREPINEPHRINE BITARTRATE 32 MG in D5W 5% 218 ML IV SCH (09:46)
--- NOTE | 2019-09-10 11:01 | NUR ---
FAMILY BROTHER AT BEDSIDE. UPDATED ON PATIENT STATUS
[2019-09-10] MEDS: SODIUM FERR GLUC 62.5MG/5ML 125 MG in SODIUM CHL 0.9% 100 ML IV SCH (11:54)
[2019-09-10] MEDS: ACETAMINOPHEN 325 MG TAB PO PRN ×3 (12:24→22:18)
--- NOTE | 2019-09-10 12:31 | NUR ---
TEMPERATURE 100.2 COOLING MEASURES APPLIED
--- NOTE | 2019-09-10 12:36 | NUR ---
Nutrition Follow-up Notes Pt weight is 120.4 kg today. Pt was intubated and sedated with relative at bedside when rounded this morning. Pt is currently NPO, EN support from Nepro with Carb Steady @40 ml/hr currently held d/t high gastric residuals. EN support was providing 1728 kcal, 78 gms protein and 698 ml free water. Propofol also running this morning @15.876 ml/hr, providing an additional 419 kcals. Est. Needs based on AdBW(76 kg): 1500 kcal to 1900 kcal (20-25 kcal/kgAdBW), 91 gms to 114 gms pro (1.2-1.5 gms/kgAdBW reassessed d/t ESRD on HD, severe hypoalbuminemia). Will continue to monitor pertinent labs and reassess nutrient need prn. Labs (09/10): Na 148 H, K 3.4 L, Cl 114 H, BUN 54 H, Cr 1.90 H, Serum glucose 131 h, POC 134 H, Ca 10.3 H. (09/08): Albumin 2.9 L (09/05): Prealbumin 19.1 L Skin: Brice scale 13, mod risk, multiple scabs, maceration pressure ulcer to L medial buttock. Pls refer to latest patternmaker all around's notes for further details. GI: Pt has had BM 09/07/19 per technical documentation specialist. PES: 1) Increased nutrient needs r/t acute/chronic medical condition aeb intubated, sedated, severe hypoalbuminemia, NPO. 2) Altered nutrition related lab values r/t current/chronic medical condition aeb hyperglycemia, elev. renal labs, HbA1c, LFTs, lipase, hypocapnia, hypocalcemia and severe hypoalbuminemia. (partially resolved) 3) Obesity r/t food intake more than body requirement aeb 218% IBW, BMI 57.7 kg/m2 and increased body adiposity Will continue to monitor NPO status, EN tolerance, skin status, pertinent labs and weight trend. F/u in 2 to 3 days. Recommendations: 1) Resume EN support of Nepro with Carb Steady to target rate @40 ml/hr when feasible. 2) Consider providing Prostat 1 pkt QID, with improved RFTs, to meet protein needs. 3) Advance gradually to CCHO diet when medically appropriate. 4) Refer pt to CDE/RD for further nutrition education and weight monitoring upon discharge. 5) Continue current plan of care.
--- NOTE | 2019-09-10 12:40 | NUR ---
WOUND CARE NOTE: IN TO SEE PATIENT AT THIS TIME FOR SKIN INTEGRITY MONITORING. PATIENT CONTINUES TO BE VENTILATED BY WAY OF TRACHEOSTOMY. HE IS LIGHTLY SEDATED. PATIENT IS RESTING ON BARIATRIC AIR BED, CURRENT MK SCORE IS 13. PATIENT'S ABRASIONS TO THE DISTAL CHIN AND NOSTRIL ARE MUCH IMPROVED, WITH NO OPEN AREAS NOTED. ABRASIONS COVERED WITH LIGHT BROWN SCAB. BOTH AREAS APPEAR TO BE SMALLER, NO DRAINAGE OR WEEPING NOTED. LEFT BOTH OPEN TO AIR. MUCOSAL ULCER IS MUCH IMPROVED WELL, WITH MOST AREAS CLOSED. THERE REMAINS A SMALL OPEN ULCERATION OPEN, MEASURING APPROXIMATELY 0.5 X 0.5 ON DORSAL TONGUE. OPEN AREA IS PALE/PINK-YELLOW. PATIENT CONTINUES TO RECEIVE MAGIC MOUTHWASH PRESCRIBED BY MD TO THE AREA. SACRUM/BUTTOCKS AREA CONTINUES TO DISPLAY MASD WITH PARTIAL THICKNESS SKIN EROSION. PATIENT CONTINUES TO BE INCONTINENT WITH LOOSE/SOFT STOOLS. HE IS INCONTINENT WITH STOOL AT THIS TIME. PERICARE GIVEN. ZGUARD/OPTIFOAM GENTLE SACRAL DRESSING APPLIED. ALL SKIN INTEGRITY ISSUES PHOTOGRAPHED AT THIS TIME FOR REFERENCE. ALL WOUND STATS CAN BE FOUND WITHIN WOUND ASSESSMENT INTERVENTION, LINKED WITH THIS NOTE. RECOMMEND: CONTINUATION WITH ALL WOUND CARE ORDERS PREVIOUSLY PRESCRIBED BY MD. WOUND CARE TEAM WILL CONTINUE TO MONITOR. Addendum: 09/10/19 at 1609 by Susie Bautista RN Amended: Links added.
[2019-09-10] MEDS ORDERED: BUMETANIDE 2.5mg/10ml (0.25 mg/ml) INJ IV ONE (12:45)
--- NOTE | 2019-09-10 13:03 | NUR ---
WOUND CARE NURSE AT BEDSIDE
[2019-09-10] MEDS ORDERED: METOCLOPRAMIDE HCL 5MG/ml INJ 2ml VIAL IV ONE (14:15)
--- NOTE | 2019-09-10 19:30 | NUR ---
REPORT RECEIVED, ASSUMED CARE.
--- NOTE | 2019-09-10 20:10 | NUR ---
FAMILY @ BEDSIDE, EXPLAINED POC TO BOTH PT AND FAMILY, FAMILY RESPONDED WITH UNDERSTANDING AND COMPLIANCE. PT COMPREHENSION QUESTIONABLE WILL CONT TO REINFORCE. ALL QUESTIONS AND CONCERNS ADDRESSED. WILL CONT TO MONITOR AND GIVE IN REPORT.
[2019-09-10] MEDS: METOCLOPRAMIDE HCL 5MG/ml INJ 2ml VIAL IV SCH (21:13)
[2019-09-10] MEDS: QUEtiapine FUMARATE 25 MG TAB PO SCH (21:14)
[2019-09-10] MEDS: LORazepam 2MG/ML-1ML VIAL IV PRN (21:15)
[2019-09-10] MEDS: INSULIN LANTUS (GLARGINE) 1 /0.01ml (100units/ml) SC SCH (22:16)
[2019-09-11] VITALS (67 sets, daily range): BP systolic 84–153; BP diastolic 46–94
[2019-09-11] MEDS: DexMEDEtomidine 400 MCG in D5W 5% 96 ML IV SCH ×3 (01:41→13:03)
[2019-09-11] MEDS: LORazepam 2MG/ML-1ML VIAL IV PRN ×4 (01:41→22:56)
[2019-09-11] MEDS: LEVALBUTEROL HCL 1.25 MG/3 ML NEB NEB SCH ×6 (02:20→22:27)
[2019-09-11 03:58] LABS: Calcium 9.9 mg/dL (8.5-10.1); Potassium 3.2 mmol/L (3.5-5.1)
[2019-09-11] MEDS: fentaNYL Drip 2500mCg/250mlNS 250 ML IV SCH (04:19)
[2019-09-11] MEDS: MEROPENEM 500MG IVPB 50 ML IV SCH ×3 (05:46→22:13)
[2019-09-11] MEDS: FREE WATER GT SCH ×3 (05:46→18:18)
[2019-09-11] MEDS: METOCLOPRAMIDE HCL 5MG/ml INJ 2ml VIAL IV SCH ×3 (05:47→22:13)
[2019-09-11] MEDS: InsuLIN REG 1unit/0.01ml Soln (100units/ml) SC SCH ×3 (05:48→18:00)
[2019-09-11] MEDS: ACCU-CHEK COMFORT CURVE STRIP VI SCH ×3 (05:48→18:18)
[2019-09-11] MEDS: MAGIC MOUTHWASH 55 ML SUSP MT SCH ×4 (05:48→22:14)
[2019-09-11] MEDS: ACETAMINOPHEN 325 MG TAB PO PRN ×2 (05:49→15:54)
--- NOTE | 2019-09-11 07:25 | NUR ---
OPENING NOTE SHIFT REPORT RECEIVED AND ASSUMED CARE OF PT FROM LELA BLUNT
--- NOTE | 2019-09-11 08:00 | NUR ---
COOLING MEASURES INITIATED
--- NOTE | 2019-09-11 08:00 | NUR ---
RT CALLED DR. BRANHAM REGARDING PT'S BLOOD GAS RESULTS. AWAITING PHONE CALL
--- NOTE | 2019-09-11 08:00 | NUR ---
ATIVAN GIVEN DUE TO RESTLESSNESS AND ALARMING THE VENT. WILL CONTINUE TO MONITOR
--- NOTE | 2019-09-11 08:30 | NUR ---
PHYSICAL THERAPY AT BEDSIDE TO PROVIDE RANGE OF MOTION
[2019-09-11] MEDS ORDERED: BUMETANIDE 2.5mg/10ml (0.25 mg/ml) INJ IV SCH (10:00)
[2019-09-11] MEDS: PANTOPRAZOLE 40 MG/10 ML VIAL INJ IV SCH ×2 (10:36→22:13)
[2019-09-11] MEDS: QUEtiapine FUMARATE 25 MG TAB PO SCH ×2 (10:36→22:14)
[2019-09-11] MEDS: FLUCONAZOLE 200MG/100ML 100 ML IV SCH (10:36)
[2019-09-11] MEDS: SODIUM CHLOR 0.9% PF (SALINE LOCK) 10ML VIAL/SYR IV SCH ×2 (10:36→22:14)
[2019-09-11] MEDS: SODIUM FERR GLUC 62.5MG/5ML 125 MG in SODIUM CHL 0.9% 100 ML IV SCH (12:29)
[2019-09-11] MEDS ORDERED: POTASSIUM EFFERVESENT TAB 25 MEQ GT ONE (13:00)
[2019-09-11] MEDS: PROPOFOL 100 ML IV SCH (13:39)
--- NOTE | 2019-09-11 14:17 | NUR ---
PT PLACED ON CPAP TRIAL WITH THIS RN AND RESPIRATORY THERAPIST AT BEDSIDE PER DR. BRANHAM'S ORDERS. WILL CONTINUE TO MONITOR
--- NOTE | 2019-09-11 15:44 | NUR ---
PT TAKEN OFF CPAP TRIAL DUE TO INCREASED BLOOD PRESSURE AND HEART RATE. DID NOT TOLERATE. WILL LET DR. BRANHAM KNOW
--- NOTE | 2019-09-11 15:44 | NUR ---
RT NOTE: PT. PLACED BACK ON ORDERED PCV SETTINGS, DUE TO TACHYCARDIA. PT. HR IN THE 150'S. RN JADON AMES.
--- NOTE | 2019-09-11 17:00 | NUR ---
PT RESTARTED ON FENTANYL AND PRECEDEX
--- NOTE | 2019-09-11 18:11 | NUR ---
Respiratory note: Received pt on vent V8, vent connected to red outlet and o2 source, alarms are set and audible. Ambu bag and mask at bedside. trach site appears clean small draining, no redness, sutures intact. Bs are fine course sxd via trach for scant randolph/brown secretions. 1.25mg Xop. given inline via Aerogen without adverse reaction noted. Mittens on both hands appears uncomfortably, RN Shirley at bedside managing pts pain and comfort level. pts family at bedside as well. RT name and pager assignment written on pts room board will continue to monitor.
--- NOTE | 2019-09-11 19:10 | NUR ---
CLOSING NOTE SHIFT REPORT GIVEN AND CARE ENDORSED TO WALESKA BLUNT
--- NOTE | 2019-09-11 19:30 | NUR ---
Opening Shift Note Report received, assumed care of pt at this time. Bed locked in lowest position. All alarms on and audible. Will continue to monitor closely
[2019-09-11] MEDS: INSULIN LANTUS (GLARGINE) 1 /0.01ml (100units/ml) SC SCH (22:14)
--- NOTE | 2019-09-11 22:55 | NUR ---
Ativan given due to restlessness
[2019-09-12] VITALS (91 sets, daily range): BP systolic 83–172; BP diastolic 26–103
[2019-09-12] MEDS: LEVALBUTEROL HCL 1.25 MG/3 ML NEB NEB SCH ×6 (02:11→22:14)
[2019-09-12] MEDS: ACCU-CHEK COMFORT CURVE STRIP VI SCH ×4 (06:00→18:21)
[2019-09-12] MEDS: InsuLIN REG 1unit/0.01ml Soln (100units/ml) SC SCH ×4 (06:00→18:00)
[2019-09-12 06:24] LABS: Basophils # (auto) 0.1 uL; Basophils % (auto) 1.5 % (0.0-2.0); Eosinophils # (auto) 0.2 uL; Eosinophils % (auto) 4.3 % (0.0-7.0); Hematocrit 21.6 % (41.0-53.0); Hemoglobin 7.1 g/dL (13.5-17.5); Lymphocytes # (auto) 1.6 uL; Lymphocytes % (auto) 28.2 % (10.0-50.0); Mean Corpuscular Hemoglobin 28.8 pg (28.0-32.0); Mean Corpuscular Hgb Conc. 32.7 g/dL (32.0-36.0); Mean Corpuscular Volume 88.1 fL (80.0-100.0); Monocytes # (auto) 0.4 uL; Monocytes % (auto) 6.7 % (0.0-12.0); Neutrophils # (auto) 3.4 uL; Neutrophils % (auto) 59.3 % (37.0-80.0); Platelet Count (auto) 253 10^3/uL (140-450); Red Blood Cells 2.46 10^6/uL (4.5-5.90); Red Cell Distribution Width 16.1 % (11.8-14.3); White Blood Cell 5.7 10^3/uL (4.4-10.8)
--- NOTE | 2019-09-12 06:30 | NUR ---
FULL LINEN CHANGE. PT HAD SMALL BM SMEAR. CLEANSED AND REPOSITIONED. PT VERY RESTLESS AND AGITATED.
[2019-09-12] MEDS: FREE WATER GT SCH ×4 (06:34→18:20)
[2019-09-12] MEDS: METOCLOPRAMIDE HCL 5MG/ml INJ 2ml VIAL IV SCH ×3 (06:34→22:02)
[2019-09-12] MEDS: MEROPENEM 500MG IVPB 50 ML IV SCH (06:34)
[2019-09-12] MEDS: MAGIC MOUTHWASH 55 ML SUSP MT SCH ×4 (06:35→22:02)
[2019-09-12 06:49] LABS: BUN/Creatinine Ratio 23.3; Potassium 3.2 mmol/L (3.5-5.1)
--- NOTE | 2019-09-12 07:20 | NUR ---
OPENING NOTE SHIFT REPORT GET BACK AND ASSUMED CARE OF PT FROM WALESKA BLUNT
--- NOTE | 2019-09-12 07:24 | NUR ---
REPORT GIVEN TO DAY SHIFT RN TO ASSUME CARE
--- NOTE | 2019-09-12 07:54 | NUR ---
PAGED DR. BRANHAM REGARDING TODAY'S CXR
--- NOTE | 2019-09-12 08:00 | NUR ---
COOLING MEASURES INITIATED
[2019-09-12] MEDS: FLUCONAZOLE 200MG/100ML 100 ML IV SCH (10:29)
[2019-09-12] MEDS: PANTOPRAZOLE 40 MG/10 ML VIAL INJ IV SCH ×2 (10:30→22:02)
[2019-09-12] MEDS: SODIUM CHLOR 0.9% PF (SALINE LOCK) 10ML VIAL/SYR IV SCH ×2 (10:30→22:02)
[2019-09-12] MEDS: QUEtiapine FUMARATE 25 MG TAB PO SCH ×2 (10:30→22:02)
[2019-09-12] MEDS: fentaNYL Drip 2500mCg/250mlNS 250 ML IV SCH (10:31)
[2019-09-12] MEDS: SODIUM FERR GLUC 62.5MG/5ML 125 MG in SODIUM CHL 0.9% 100 ML IV SCH (12:13)
[2019-09-12] MEDS: PROPOFOL 100 ML IV SCH (13:39)
[2019-09-12] MEDS: LORazepam 2MG/ML-1ML VIAL IV PRN ×3 (13:57→23:50)
[2019-09-12] MEDS: MEROPENEM 1GM IVPB 100 ML IV SCH ×2 (13:57→22:02)
--- NOTE | 2019-09-12 15:33 | NUR ---
DR. DOTY AT BEDSIDE STATES HE WILL CONSULT WITH DR. CHOPRA TO REMOVE DRAIN. DRAIN HAS NOT HAD ANY OUTPUT FOR TWO DAYS. ORDERS RECEIVED
--- NOTE | 2019-09-12 15:40 | NUR ---
DR. DOTY AND DR. BRANHAM AWARE OF CXR FROM TODAY. STATES NO CHANGES WILL BE MADE AT THIS TIME REGARDING ADVANCEMENT. WILL CONTINUE TO MONITOR
--- NOTE | 2019-09-12 16:00 | NUR ---
BM PT HAD LARGE SOFT PASTY BROWN BM.
--- NOTE | 2019-09-12 16:20 | NUR ---
PT. PLACED ON TRACH COLLAR, AT 40% COOL AEROSOL. KW=575,RR=34, SPO2 93%,HU=408/96. PT. IS AWAKE AND ALERT, TRACH CARE DONE AT THIS TIME, WILL CONTINUE TO MONITOR 02 SATS AND RESP. STATUS. Addendum: 09/12/19 at 1651 by Sarah Devine RT Amended: Links added.
--- NOTE | 2019-09-12 16:30 | NUR ---
BM PT HAD LARGE SOFT PASTY BROWN BM.
[2019-09-12] MEDS: DexMEDEtomidine 400 MCG in D5W 5% 96 ML IV SCH (16:46)
--- NOTE | 2019-09-12 17:00 | NUR ---
BM PT HAD LARGE SOFT PASTY BROWN BM.
--- NOTE | 2019-09-12 17:50 | NUR ---
PT PLACED BACK ON VENTILATOR AND PLACED BACK ON SEDATION DUE TO INCREASED GHEART RATE AND BLOOD PRESSURE. WILL CONTINUE TO MONITOR
[2019-09-12] MEDS: LACTULOSE 20Gm/30ML SOLN PO SCH (18:00)
--- NOTE | 2019-09-12 18:20 | NUR ---
BM PT HAD LARGE SOFT PASTY BROWN BM.
--- NOTE | 2019-09-12 19:30 | NUR ---
CLOSING NOTE SHIFT REPORT GIVEN AND CARE ENDORSED TO LUDA BLUNT
--- NOTE | 2019-09-12 20:00 | NUR ---
OPEN ASSUMED CARE OF MALE PT WITH 8.0 SHILEY TRACH ON VENT. PT OPENS EYES TO LIGHT TACTILE STIMULATION. MOVES ALL EXTREMITIES. ABLE TO NOD HEAD YES OR NO TO SIMPLE QUESTIONS. PT ON PRECEDEX GTT 0.5 MCG/KG/HR, AND FENTANYL 200 MCG/HR. SINUS TACH ON PROGRAM DIRECTOR/AIR PERSONALITY. NGT TO R. NARE CLAMPED PLACEMENT VERIFIED. PT WITH ABRASION TO LOWER CHIN/NECK AREA HEALING, SORES ON TONGUE, SML ABRASION TO TIP OF NOSE. SML AREA OF MACERATION TO COCCYX AREA WITH OPTIFOAM AND ZGUARD IN PLACE. RLQ BILI DRAIN IN PLACE WITH NO DRAINAGE. ROUGHENED SKIN TO LOLA UPPER INNER THIGHS. RUIZ TO GRAVITY DRAINING LIGHT GRISELDA URINE. PT ON SPECIALTY AIR MATTRESS. PT REPOSITIONED WITH PILLOWS USED TO OFFLOAD BONY PROMINENCES. L. UPPER ARM PICC LINE IN PLACE. NO INDICATION OF PAIN OBSERVED. BED IN LOWEST LOCKED POSITION SIDE RAILS UP X 3. HOB ELEVATED. PT IN FULL VIEW OF RN STATION. WILL CONTINUE TO MONITOR.
--- NOTE | 2019-09-12 20:15 | NUR ---
FAMILY TO UNIT FOR VISIT
[2019-09-12] MEDS: INSULIN LANTUS (GLARGINE) 1 /0.01ml (100units/ml) SC SCH (22:00)
[2019-09-13] VITALS (52 sets, daily range): BP systolic 81–156; BP diastolic 44–93
--- NOTE | 2019-09-13 | NUR ---
RESTLESS PT RESTLESS ON FENTANYL GTT AND PRECEDEX GTT. MEDICATED PT WITH ATIVAN SIVP PER ORDER. SEE EMAR.
[2019-09-13] MEDS: ACCU-CHEK COMFORT CURVE STRIP VI SCH ×5 (00:26→22:43)
[2019-09-13] MEDS: LEVALBUTEROL HCL 1.25 MG/3 ML NEB NEB SCH ×6 (02:25→22:14)
--- NOTE | 2019-09-13 03:00 | NUR ---
Patient bathe/linen change Patient given complete bath. Skin integrity assessed for any changes. Linens changed. Patient repositioned for comfort. ZGAURD CREAM PLACED TO MACERATED SKIN ON EITHER SIDE OF COCCYX. ANTI FUNGAL CLEAR PLACED TO OLLA UPPER INNER THIGHS THICK SCALY SKIN WITH WART LIKE GROWTHS. NEW GOWN PLACED. ORAL CARE PROVIDED.
[2019-09-13] MEDS: fentaNYL Drip 2500mCg/250mlNS 250 ML IV SCH (03:30)
--- NOTE | 2019-09-13 03:44 | NUR ---
TRACH SITE WAS CLEANED AND DRIED. INNER CANNULA WAS CLEANED. TRACH TIES WERE REPLACED. PT IS BEGINNING TO HAVE BREAKDOWN UNDER TRACH FLANGE. MERLENE LARES IS AWARE. DRESSING WAS PLACED UNDER FLANGE POSSIBLE DUE TO SUTURES BEING IN PLACE. IN-LINE SX SEGURA WAS REPLACED. PT TOLERATED TRACH CARE WELL AND WITHOUT INCIDENT.
[2019-09-13 04:19] LABS: Calcium 9.4 mg/dL (8.5-10.1); Potassium 3.4 mmol/L (3.5-5.1)
[2019-09-13 04:23] LABS: BUN/Creatinine Ratio 20.3
[2019-09-13] MEDS: METOCLOPRAMIDE HCL 5MG/ml INJ 2ml VIAL IV SCH ×3 (05:37→22:42)
[2019-09-13] MEDS: FREE WATER GT SCH ×5 (05:37→21:25)
[2019-09-13] MEDS: MEROPENEM 1GM IVPB 100 ML IV SCH ×3 (05:37→22:41)
[2019-09-13] MEDS: MAGIC MOUTHWASH 55 ML SUSP MT SCH ×4 (05:37→21:26)
[2019-09-13] MEDS: LACTULOSE 20Gm/30ML SOLN PO SCH ×4 (05:38→18:00)
[2019-09-13] MEDS: InsuLIN REG 1unit/0.01ml Soln (100units/ml) SC SCH ×5 (05:46→22:42)
[2019-09-13] MEDS: DexMEDEtomidine 400 MCG in D5W 5% 96 ML IV SCH ×2 (05:46→09:20)
--- NOTE | 2019-09-13 07:30 | NUR ---
A.M. Shift Received patient sedated and sleeping on mechanical ventilation. Easily aroused by voice, moves all extremities. Will open eyes to command and nod his head. Cough and gag present, productive cough - thick randolph secretions from trach tube. Casiano catheter to gravity, light roxana urine. left arm PIcc line patent and infusing. Patient in NSR, spo2 99%, and afebrile. Bed in lowest position.
[2019-09-13] MEDS: FLUCONAZOLE 200MG/100ML 100 ML IV SCH (10:00)
[2019-09-13] MEDS: PANTOPRAZOLE 40 MG/10 ML VIAL INJ IV SCH ×2 (10:28→22:42)
[2019-09-13] MEDS: SODIUM CHLOR 0.9% PF (SALINE LOCK) 10ML VIAL/SYR IV SCH ×2 (10:29→21:26)
[2019-09-13] MEDS: QUEtiapine FUMARATE 25 MG TAB PO SCH (10:29)
[2019-09-13] MEDS: LORazepam 2MG/ML-1ML VIAL IV PRN ×3 (10:56→22:30)
--- NOTE | 2019-09-13 11:03 | NUR ---
LUQ ABD PIGTAIL DRAIN REMOVED AND GAUZE DRESSING APPLIED OVER SITE. MINIMAL SEROUS DRAINAGE NOTED ON REMOVAL.
--- NOTE | 2019-09-13 11:30 | NUR ---
Respiratory note: PT PLACED ON TRACH COLLAR AT 15L 40%FIO2 PER DR BATISTA ORDER. SPO2 97% ON 40% FIO2 VIA TRACH COLLAR, HR 111, RR 24, BP 149/88, BS CLEAR BILATERALLY. PT TOLERATING TRACH COLLAR WELL. RN, AND STUDENT AT BEDSIDE. WILL CONTINUE TO MONITOR PT.
--- NOTE | 2019-09-13 11:30 | NUR ---
Patient given Ativan 1 mg to prepare for weaning trials. Patient put on trach collar at 1130. RT bedside coaching patient. HR 93 bp 149/88 SPO2 99%, RR 34. Patient needing coaching to remain calm.
--- NOTE | 2019-09-13 12:00 | NUR ---
Respiratory note: PT CONTINUES TO TOLERATE TRACH COLLAR WELL. SPO2 96% ON 15L 40%FIO2, HR 100, RR 22, BP 117/71, BS CLEAR/DIMINISHED BILATERALLY. SX FOR SCANT, THICK, HOFFMAN SECRETIONS. GAG REFLEX NOTED. RN MADE AWARE OF PT CURRENT STATUS. FAMILY AT BEDSIDE. WILL CONTINUE TO MONITOR PT.
--- NOTE | 2019-09-13 12:15 | NUR ---
Dr. Cm márquez. New order to downgrade patient to [place]. Order to D/C arterial line. Addendum: 09/13/19 at 1222 by Samuel Davison RN WRONG PATIENT
--- NOTE | 2019-09-13 15:30 | NUR ---
Respiratory note: PT HAS TOLERATED SPRINTING ON TRACH COLLAR 15L 40% FIO2 FOR 4 HOURS VERY WELL. PT WILL BE PLACED BACK ON ORIGINAL VENTILATOR ORDERS (PC 16 PI 20 PEEP +7 I-TIME 0.9 35% FIO2) AT SHIFT CHANGE PER DR BATISTA'S ORDERS. WILL ENDORSE PT STATUS TO BRAKE RELINER.
--- NOTE | 2019-09-13 15:52 | NUR ---
Paged hospitalist to request something for anticipated withdrawls since sedation has been D/C. New order for Morphine 2mg Q3hrs PRN for withdrawls.
[2019-09-13] MEDS: MORPHINE SULFATE 4 MG/ML SYR/VIAL IV PRN ×5 (16:42→21:12)
--- NOTE | 2019-09-13 17:00 | NUR ---
Patient started on trach collar at 1130 and lasted until 1700. Sedation was D/C at 1530. Patient moved all extremities, coughed , communicated when he needed to be suctioned and controlled his breathing during the weaning.
[2019-09-13] MEDS: SODIUM FERR GLUC 62.5MG/5ML 125 MG in SODIUM CHL 0.9% 100 ML IV SCH (17:04)
--- NOTE | 2019-09-13 17:10 | NUR ---
Respiratory note: PLACED BACK ON ORIGINAL VENTILATOR ORDERS (PC 16 PI 20 PEEP +7 I-TIME 0.9 35% FIO2) AT SHIFT CHANGE PER DR BATISTA'S ORDERS. PT IS TOLERATING CHANGE WELL. JIG BORING MACHINE OPERATOR FOR METAL RT BARBARA AND RN AWARE.
--- NOTE | 2019-09-13 18:33 | NUR ---
End of Shift Patient back on mechanical ventilation same settings, trach. Patient awake, moving all extremities, afebrile. Patient off of sedation, now on IV push medications for agitation and pain. Patient has orders to transfer to [place] when bed is available. Last BSC 121, no coverage. Tube feeding off for day d/t risk of aspiration. Patient NSR to Tachycardia. Follows commands, moves all extremities. Lung sounds course, but patient has productive cough - moderate yellow thick secretions. Patient has 1 large BM, held lactulose. Casiano catheter to gravity. Family bedside throughout day, update on treatment plan.
--- NOTE | 2019-09-13 18:36 | NUR ---
Patient seen at bedside by Hospitalist, Belt Builder and Critical Care physician. New orders for Seroquel to increase doseage to help with agitation. New order to increase frequency of free water to correct hypernatremia.New orders to D/C sedation and change to IVP meds as needed for agitation/withdrawl/pain.
--- NOTE | 2019-09-13 19:30 | NUR ---
Opening Shift Note: Patient is orientated to name, person, and situation with periods of delirium evidenced by pulling at tubing and mittens/restlessness/agitation. Trach tube replaced by Dr. Friedman on 09/09/19: on vent; thick randolph secretions from deep trach suction. Bed locked in lowest position, side rails up x3, and call light within reach. Per report, patient has been off sedation since 1529; currently very restless/agitated. Movement of all four extremities is present. R. nare NG tube at 15 cm; tubing advanced to 70 cm; will order chest xray to confirm placement. Casiano inserted on 08/12/19: dark roxana urine. Previous new dialysis for this hospital stay; edwardo catheter removed: HD on hold. Skin: tongue ulcerations improving; distal chin and nostril abrasions with scabbing ANGELINE; posterior head abrasion with scabbing ANGELINE; sacrum has partial thickness erosion: zguard with optifoam applied. IV: LUE triple lumen PICC inserted on 08/19/19. Will continue to round prn and reposition Q2H. Patient is MODESTO status as of 09/13/19.
--- NOTE | 2019-09-13 20:00 | NUR ---
Tube feeding held at this time related to previous aspiration per report.
[2019-09-13] MEDS: ACETAMINOPHEN 325 MG TAB PO PRN (21:26)
[2019-09-13] MEDS: INSULIN LANTUS (GLARGINE) 1 /0.01ml (100units/ml) SC SCH (22:00)
[2019-09-14] VITALS (38 sets, daily range): BP systolic 115–165; BP diastolic 66–99
--- NOTE | 2019-09-14 | NUR ---
Page sent to labor economics teacher hospitalist in regards to patient's agitation/restlessness/tachycardia HR 120s-150s. Page sent for possible new orders for agitation.
[2019-09-14] MEDS ORDERED: PROPOFOL 100 ML IV ONE (00:39)
[2019-09-14] MEDS: PROPOFOL 100 ML IV SCH (00:40)
--- NOTE | 2019-09-14 00:40 | NUR ---
Propofol started per protocol per boot and saddle repair person hospitalist to control patient's agitation/restlessness/tachycardia. Orders to stop propofol at 0600.
[2019-09-14] MEDS: LACTULOSE 20Gm/30ML SOLN PO SCH ×5 (01:14→23:43)
[2019-09-14] MEDS: FREE WATER GT SCH ×6 (01:15→21:39)
[2019-09-14] MEDS: LEVALBUTEROL HCL 1.25 MG/3 ML NEB NEB SCH ×6 (02:09→21:56)
[2019-09-14 04:18] LABS: Basophils # (auto) 0.1 uL; Basophils % (auto) 1.4 % (0.0-2.0); Eosinophils # (auto) 0.2 uL; Hematocrit 17.6 % (41.0-53.0); Lymphocytes # (auto) 1.9 uL; Nucleated Red Blood Cells % 0.1 %
[2019-09-14 04:19] LABS: Eosinophils % (auto) 2.5 % (0.0-7.0); Lymphocytes % (auto) 28.7 % (10.0-50.0); Mean Corpuscular Hemoglobin 29.4 pg (28.0-32.0); Mean Corpuscular Hgb Conc. 33.1 g/dL (32.0-36.0); Mean Corpuscular Volume 88.8 fL (80.0-100.0); Monocytes # (auto) 0.5 uL; Monocytes % (auto) 8.2 % (0.0-12.0); Neutrophils # (auto) 3.9 uL; Neutrophils % (auto) 59.2 % (37.0-80.0); Platelet Count (auto) 206 10^3/uL (140-450); Red Blood Cells 1.98 10^6/uL (4.5-5.90); Red Cell Distribution Width 16.2 % (11.8-14.3); White Blood Cell 6.5 10^3/uL (4.4-10.8)
[2019-09-14 04:25] LABS: Hemoglobin 5.9 g/dL (13.5-17.5)
[2019-09-14 04:48] LABS: Calcium 8.3 mg/dL (8.5-10.1); Potassium 3.1 mmol/L (3.5-5.1)
[2019-09-14 04:51] LABS: BUN/Creatinine Ratio 17.9
--- NOTE | 2019-09-14 05:30 | NUR ---
Patient bathe/linen change Patient given complete CHG bath. Skin integrity assessed for any changes. Linens and gown changed. Attempt to reposition patient but always wants to be supine evidenced by restlessness.
[2019-09-14] MEDS: ACCU-CHEK COMFORT CURVE STRIP VI SCH ×3 (06:00→17:45)
[2019-09-14] MEDS: METOCLOPRAMIDE HCL 5MG/ml INJ 2ml VIAL IV SCH ×3 (06:00→21:40)
[2019-09-14] MEDS: MEROPENEM 1GM IVPB 100 ML IV SCH ×3 (06:00→22:01)
[2019-09-14] MEDS: MAGIC MOUTHWASH 55 ML SUSP MT SCH ×4 (06:00→21:42)
[2019-09-14] MEDS: InsuLIN REG 1unit/0.01ml Soln (100units/ml) SC SCH ×3 (06:00→17:45)
--- NOTE | 2019-09-14 06:00 | NUR ---
Propofol stopped at this time per order from car inspection and repair manager hospitalist.
--- NOTE | 2019-09-14 06:15 | NUR ---
Flex Seal inserted related to large amounts of continuous liquid brown stool. Patient does have healing wounds on bilateral buttocks.
--- NOTE | 2019-09-14 06:15 | NUR ---
Critical Hgb of 5.9. Patient is a Jehovah Witness and does not receive blood products. Potassium 3.1. call or contact centre team leader hospitalist paged for possible orders. No new orders in regards to low hbg but new order received for 20 meq IVPB potassium.
[2019-09-14] MEDS: MORPHINE SULFATE 4 MG/ML SYR/VIAL IV PRN ×2 (06:45→22:34)
[2019-09-14] MEDS ORDERED: POTASSIUM CHL 20MEQ/100ML 100 ML IV ONE ×2 (06:45→14:45)
[2019-09-14] MEDS: LORazepam 2MG/ML-1ML VIAL IV PRN ×4 (06:45→22:47)
--- NOTE | 2019-09-14 07:35 | NUR ---
INITIAL ASSESSMENT Report received from Sherry BLUNT, care assumed. Patient is alert and oriented to self. Patient is able to follow simple commands and attempt to assist with turning. Patient is impulsive and attempts to grab at tracheostomy and attempt to get out of bed. Temperature of 100.9, cooling measures initiated. Pulses palpable, sinus tachycardia 120-140's. Lungs clear anteriorly. Patient on ventilator via trache, PC tolerating well at this time. Bowel sounds noted. Patient having frequent bowel movement, flexi-seal in place. Casiano catheter patent and secure below bladder. See skin/wound assessment. Patient on specialty air mattress with frequent turning schedule. Bed locked in lowest position, alarms in place, will continue to monitor.
[2019-09-14] MEDS: PANTOPRAZOLE 40 MG/10 ML VIAL INJ IV SCH ×2 (09:55→22:00)
--- NOTE | 2019-09-14 10:05 | NUR ---
VISITOR Patient family member at bedside.
[2019-09-14] MEDS: SODIUM CHLOR 0.9% PF (SALINE LOCK) 10ML VIAL/SYR IV SCH ×2 (10:06→21:40)
--- NOTE | 2019-09-14 10:14 | NUR ---
PT PLACED ON TRACH MASK WITH COOL AEROSOL 8 LITERS/ 40% FIO2. SPO2 94%, HR 127, RR 24. PT TOLERATING WELL. RN AT BEDSIDE.
--- NOTE | 2019-09-14 10:59 | NUR ---
RESPIRATORY UPDATE Patient tolerating trache collar, oxygen saturation 94-96%, respiratory rate 30's. Heart rate elevated to 130's. Patient denies pain or distress at this time. Will continue to monitor.
[2019-09-14] MEDS: SODIUM FERR GLUC 62.5MG/5ML 125 MG in SODIUM CHL 0.9% 100 ML IV SCH (12:00)
--- NOTE | 2019-09-14 13:00 | NUR ---
CARES Complete linen change complete. Patient able to assist with turning. Kellie care performed. Patient repositioned on side. Tolerated activity well. Oral care complete.
--- NOTE | 2019-09-14 15:13 | NUR ---
MD VISIT:PCP at bedside assessing patient. MD reviewing medical chart. Orders received.
--- NOTE | 2019-09-14 15:20 | NUR ---
ELECTROLYTE REPLACEMENT Potassium rider started per MD order
--- NOTE | 2019-09-14 15:56 | NUR ---
HYPERTENSION Patient blood pressure trending 150-160 systolic. MD notified and is aware of no PRN blood pressure medication. No orders received. would like us to monitor.
--- NOTE | 2019-09-14 16:06 | NUR ---
MD VISIT: PULMONOLOGY roundpaola at bedside. MD assessing patient. MD would like to keep patient on trache collar as long as he tolerates it. If patient cannot tolerate it overnight, patient may be placed back on ventilator. Orders received. MD feels comfortable downgrading patient to MODESTO status at this time.
--- NOTE | 2019-09-14 16:10 | NUR ---
TRACH CARE DONE AT THIS TIME USING STERILE TECHNIQUE WITHOUT INCIDENT. INNER CANNULA CLEANED WITH STERILE WATER. PHLANGE CLEANED WITH PEROXIDE/STERILE WATER MIXTURE. DEEP TRACHEAL SUCTIONED FOR MODERATE THICK GREEN RETURN. KULKARNI HOLE DRESSINGS REPLACED. THERE ARE SUTURES IN TACT TO PHLANGE. PT PLACED BACK ON 40% COOL MIST AEROSOL. SPO2 95%, HR 125, RR 26. NO RESPIRATORY DISTRESS. PT TOLERATING TRACH MASK WELL.
--- NOTE | 2019-09-14 18:04 | NUR ---
Respiratory note: AT BEDSIDE FOR MED NEB TX. PT REMAINS ON AN 8L, 40% FIO2, TRACH COLLAR. INCREASED WOB NOTED. PT SUCTIONED FOR LARGE THICK, CLEAR/PINK SECRETIONS. WOB DECREASED, PT APPEARS COMFORTABLE. WILL CONTINUE TO MONITOR.
--- NOTE | 2019-09-14 19:19 | NUR ---
REPORT Report given to Ana BLUNT, care endorsed.
--- NOTE | 2019-09-14 19:22 | NUR ---
ADMITTED WITH ABDOMINAL PAIN, NAUSEA AND VOMITING. OFFICIAL MD DIAGNOSIS: ACUTE PANCREATITUS, RESPIRATORY FAILURE, HEPATIC STENOSIS. NEW TRACHEOSTOMY.OBESE. SINUS TACHYCARDIA. MODESTO STATUS. TRACH COLLAR SINCE 1013 TODAY. FLEXASEAL IN. RUIZ. PICC LINE DOMENICO. RIGHT NARE NGT CLAMPED. #8 SHILEY SUTURED IN. RECEIVED KCL 40 MEQ IV TODAY FOR A POTASSIUM OF 3.1. HOLDING LACTULOSE, REGLAN AND LANTUS. PREVIOUS ACCUCHECK 115.
--- NOTE | 2019-09-14 20:40 | NUR ---
Respiratory note: PT RR INCREASED, 40-44 BPM RN AWARE. PT TO BE PLACED BACK ON VENTILATOR.
--- NOTE | 2019-09-14 20:47 | NUR ---
SPOKE WITH RT. PLACING PATIENT BACK ON VENTILATOR TO REST HIM. CORETTA GIVEN
--- NOTE | 2019-09-14 20:48 | NUR ---
Respiratory note: PT PLACED BACK ON VENTILATOR WITH PREVIOUS SETTINGS ORDERED BY DR. BATISTA, PER COMMUNICATION ORDER. VENT CIRCUIT CHANGED, NOTED TO BE VISIBILITY SOILED. VENT SST'D AND PASSED WITH HEATED WIRE CIRCUIT SETUP. JACK HEATER SET TO PROPER TEMP WITH ADEQUATE WATER LEVEL. VENT SETTINGS; PC- RR 16, PIP 20, PEEP +7, 0.9 I-TIME, 35% FIO2. PT TOLERATING VENT WELL. PT APPEARS MORE RELAXED, NO RESPIRATORY DISTRESS NOTED. RN AT BEDSIDE. WILL CONTINUE TO MONITOR.
--- NOTE | 2019-09-14 20:57 | NUR ---
ON PC VENTILATION, PRESSURE OF 20, PEEP 7, RATE 16. HR HAS COME DOWN TO 117 FROM 126. SBP IS LOWER. FACIAL :LOOKS MORE RESTED. NOT RESTLESS. ATIVAN GIVEN AFTER HE WAS PLACED ON VENTILATOR.
[2019-09-14] MEDS: INSULIN LANTUS (GLARGINE) 1 /0.01ml (100units/ml) SC SCH (21:40)
--- NOTE | 2019-09-14 22:00 | NUR ---
WOKE UP SHAKING. TURNED FAN OFF. TEMP 98.9 ORALLY. PLACED A BLANKET ON HIM AND HE FELL BACK ASLEEP. LUNGS CLEAR. ORAL CARE. SINUS TACHY 113. NO ECTOPY. LUNGS CLEAR. OPENS EYES, FOCUSES, ODELL. RUIZ DRAINING AN ADEQUATE AMOUNT OF CLEAR LIGHT GRISELDA LIQUID TO DOWN DRAIN BAG. ALL PULSES PALPABLE. NO EDEMA.
--- NOTE | 2019-09-14 22:49 | NUR ---
RESTLESS. MORPHINE GIVEN. NO APPRECIABLE CHANGE. TRYING TO PULL OFF MITTENS. LORAZEPAM GIVEN.
[2019-09-15] VITALS (34 sets, daily range): BP systolic 114–163; BP diastolic 66–100
--- NOTE | 2019-09-15 | NUR ---
CHG BATH GIVEN. A LITTLE RESTLESS, BUT BETTER. FLEXASEAL HAS A GOOD SEAL. AWAKE. TRYING TO PULL MITTENS OFF. ODELL WELL. ALL PULSES PALPABLE. NO EDEMA. URINE OUTPUT ADEQUATE. SINUS TACHYCARDIA WITH NO ECTOPY. LOW GRADE FEVER AT 99.2 ORALLY.
[2019-09-15] MEDS: PROPOFOL 100 ML IV SCH (00:40)
[2019-09-15] MEDS: LORazepam 2MG/ML-1ML VIAL IV PRN (01:46)
--- NOTE | 2019-09-15 01:47 | NUR ---
THROWING LEGS OVER BED. REACHING TO GRAB THE VENTILATOR. LORAZEPAM GIVEN.
[2019-09-15] MEDS: FREE WATER GT SCH ×6 (02:00→21:53)
--- NOTE | 2019-09-15 02:00 | NUR ---
QUIET. RESTING. SINUS TACHYCARDIA WITHOUT ECTOPY
[2019-09-15] MEDS: LEVALBUTEROL HCL 1.25 MG/3 ML NEB NEB SCH ×6 (02:34→22:17)
[2019-09-15] MEDS: MORPHINE SULFATE 4 MG/ML SYR/VIAL IV PRN ×2 (03:22→08:06)
[2019-09-15 03:44] LABS: Basophils # (auto) 0.1 uL; Basophils % (auto) 1.9 % (0.0-2.0); Eosinophils # (auto) 0.2 uL; Eosinophils % (auto) 3.9 % (0.0-7.0); Hematocrit 17.9 % (41.0-53.0); Lymphocytes # (auto) 1.4 uL; Lymphocytes % (auto) 28.6 % (10.0-50.0); Mean Corpuscular Hemoglobin 28.7 pg (28.0-32.0); Mean Corpuscular Hgb Conc. 30.4 g/dL (32.0-36.0); Mean Corpuscular Volume 94.3 fL (80.0-100.0); Monocytes # (auto) 0.5 uL; Monocytes % (auto) 9.3 % (0.0-12.0); Neutrophils # (auto) 2.8 uL; Neutrophils % (auto) 56.3 % (37.0-80.0); Nucleated Red Blood Cells % 0.2 %; Platelet Count (auto) 199 10^3/uL (140-450); Red Cell Distribution Width 16.5 % (11.8-14.3)
[2019-09-15 03:47] LABS: Hemoglobin 5.4 g/dL (13.5-17.5)
--- NOTE | 2019-09-15 04:00 | NUR ---
AWAKE. RESTLESS. LUNGS CLEAR. SUCTIONED A SMALL AMOUNT OF CREAMY SECRETIONS FROM THE TRACH. NO DRNG AROUND THE TRACH. ABDOMEN ROUND AND SOFT. RUIZ DRAINING ADEQUATE AMOUNTS OF CLEAR GRISELDA LIQUID. VERY LITTLE DRNG THROUGH THE FLEXASEAL. PICC LINE DRESSING IS CLEAN AND DRY. SINUS TACHYCARDIA WITHOUT ECTOPY. ORAL CARE DONE. MOISTURIZER TO LIPS. RETAPED THE NGT TO HIS NOSE.
[2019-09-15 04:03] LABS: BUN/Creatinine Ratio 15.8; Calcium 8.4 mg/dL (8.5-10.1); Potassium 3.3 mmol/L (3.5-5.1)
[2019-09-15] MEDS: ACCU-CHEK COMFORT CURVE STRIP VI SCH ×4 (05:43→18:10)
[2019-09-15] MEDS: LACTULOSE 20Gm/30ML SOLN PO SCH ×4 (05:43→23:55)
[2019-09-15] MEDS: MAGIC MOUTHWASH 55 ML SUSP MT SCH ×4 (05:43→21:53)
[2019-09-15] MEDS: METOCLOPRAMIDE HCL 5MG/ml INJ 2ml VIAL IV SCH ×3 (05:47→21:53)
[2019-09-15] MEDS: MEROPENEM 1GM IVPB 100 ML IV SCH ×3 (05:47→21:53)
[2019-09-15] MEDS: InsuLIN REG 1unit/0.01ml Soln (100units/ml) SC SCH ×4 (05:54→18:00)
--- NOTE | 2019-09-15 06:00 | NUR ---
ORAL CARE. LUNGS CLEAR. TRACH TO VENTILATOR. RESTLESS. ODELL WELL. CARELESS WITH LINES. BILATERAL MITTENS ON. DOES OCCASIONALLY TRY TO PULL OFF MITTENS. ABDOMEN SOFT. NO INCONTINENCE. RUIZ DRAINING CLEAR GRISELDA LIQUID TO DOWN DRAIN BAG. KICKS PILLOWS OFF BED. TURNS SELF IN BED. SINUS TACHYCARDIA. RATE HAS RANGED LOW 110 AND HIGH 116.
--- NOTE | 2019-09-15 07:14 | NUR ---
REPORT RECEIVED FROM EXPRESSIVE ART THERAPIST RN
--- NOTE | 2019-09-15 08:05 | NUR ---
PT TAKEN OFF VENTILATOR. PT ON 35% COOL MYST VIA TRACH MASK. PT IS AWAKE, ALERT AND ORIENTED. PT ABLE TO UNDERSTAND AND FOLLOW INDICATIONS. BS ARE SLIGHT INSPIRATORY RALES TO AUSCULTATION. TRACH SUCTION DONE FOR SMALL AMOUNT OF YELLOWISH SECRETION WITHOUT INCIDENT. WILL CONTINUE TO MONITOR PT.
--- NOTE | 2019-09-15 08:05 | NUR ---
PATIENT PLACED ON TRACH COLLAR
[2019-09-15] MEDS: ACETAMINOPHEN 325 MG TAB PO PRN (08:13)
--- NOTE | 2019-09-15 08:29 | NUR ---
PARTIAL LINEN CHANGE PERFORMED AT THIS TIME
[2019-09-15] MEDS: PANTOPRAZOLE 40 MG/10 ML VIAL INJ IV SCH ×2 (09:25→21:53)
[2019-09-15] MEDS: FLUCONAZOLE 200MG/100ML 100 ML IV SCH (09:25)
[2019-09-15] MEDS: SODIUM CHLOR 0.9% PF (SALINE LOCK) 10ML VIAL/SYR IV SCH ×2 (09:26→21:53)
--- NOTE | 2019-09-15 11:23 | NUR ---
DR. MCLAIN AT BEDSIDE
[2019-09-15] MEDS: SODIUM FERR GLUC 62.5MG/5ML 125 MG in SODIUM CHL 0.9% 100 ML IV SCH (11:35)
--- NOTE | 2019-09-15 13:52 | NUR ---
DR. PRETTY AT BEDSIDE
[2019-09-15] MEDS ORDERED: POTASSIUM EFFERVESENT TAB 25 MEQ GT ONE (14:00)
--- NOTE | 2019-09-15 14:23 | NUR ---
PARTIAL LINEN CHANGE PERFORMED AT THIS TIME
--- NOTE | 2019-09-15 14:56 | NUR ---
Nutrition Follow-up Notes Pt weight is 108.4 kg today. Pt was intubated with no relative at bedside when rounded this morning. Pt is currently NPO, EN support from Nepro with Carb Steady @40 ml/hr, currently held to avoid aspiration d/t excessive pt moving. EN support was providing 1728 kcal, 78 gms protein and 698 ml free water. Propofol also running this morning @15.876 ml/hr, providing an additional 419 kcals. Est. Needs based on AdBW(76 kg): 1500 kcal to 1900 kcal (20-25 kcal/kgAdBW), 91 gms to 114 gms pro (1.2-1.5 gms/kgAdBW reassessed d/t ESRD on HD, severe hypoalbuminemia). Will continue to monitor pertinent labs and reassess nutrient need prn. Labs (09/10): Na 148 H, K 3.4 L, Cl 114 H, BUN 54 H, Cr 1.90 H, Serum glucose 131 h, POC 134 H, Ca 10.3 H. (09/08): Albumin 2.9 L (09/05): Prealbumin 19.1 L Skin: Brice scale 13, mod risk, multiple scabs, maceration pressure ulcer to L medial buttock. Pls refer to latest shellfish processing machine tender's notes for further details. GI: Pt has had BM 09/07/19 per manipulator operator. PES: 1) Increased nutrient needs r/t acute/chronic medical condition aeb intubated, sedated, severe hypoalbuminemia, NPO. 2) Altered nutrition related lab values r/t current/chronic medical condition aeb hyperglycemia, elev. renal labs, HbA1c, LFTs, lipase, hypocapnia, hypocalcemia and severe hypoalbuminemia. (partially resolved) 3) Obesity r/t food intake more than body requirement aeb 218% IBW, BMI 57.7 kg/m2 and increased body adiposity Will continue to monitor NPO status, EN tolerance, skin status, pertinent labs and weight trend. F/u in 2 to 3 days. Recommendations: 1) Resume EN support of Nepro with Carb Steady to target rate @40 ml/hr when feasible. 2) Consider providing Prostat 1 pkt QID, with improved RFTs, to meet protein needs. 3) Advance gradually to CCHO diet when medically appropriate. 4) Refer pt to CDE/RD for further nutrition education and weight monitoring upon discharge. 5) Continue current plan of care.
--- NOTE | 2019-09-15 15:04 | NUR ---
Nutrition Follow-up Notes (Correction of previous note 09/14) Pt weight is 108.4 kg today. Pt was intubated with no relative at bedside when rounded this morning. Pt is currently NPO, EN support from Nepro with Carb Steady @40 ml/hr, currently withheld to avoid aspiration d/t excessive pt moving. EN support was providing 1728 kcal, 78 gms protein and 698 ml free water. RN reported TPN may possibly be initiated. Est. Needs based on AdBW(76 kg): 1500 kcal to 1900 kcal (20-25 kcal/kgAdBW), 91 gms to 114 gms pro (1.2-1.5 gms/kgAdBW reassessed d/t ESRD on HD, severe hypoalbuminemia). Will continue to monitor pertinent labs and reassess nutrient need prn. Labs 09/14: Na 157 H, K 3.3 L, Cl 124 H, Serum glucose 123 H, Ca 8.4 L Skin: Brice scale 14, mod risk, multiple scabs, maceration pressure ulcer to L medial buttock, mucosal ulcer to tongue. Pls refer to latest repairer finished metal's notes for further details. GI: Pt has had BM 09/15/19 per engineering documentation specialist. PES: 1) Increased nutrient needs r/t acute/chronic medical condition aeb intubated, sedated, severe hypoalbuminemia, NPO. 2) Altered nutrition related lab values r/t current/chronic medical condition aeb hyperglycemia, elev. renal labs, HbA1c, LFTs, lipase, hypocapnia, hypocalcemia and severe hypoalbuminemia. (partially resolved) 3) Obesity r/t food intake more than body requirement aeb 218% IBW, BMI 57.7 kg/m2 and increased body adiposity Will continue to monitor NPO status, EN tolerance, skin status, pertinent labs and weight trend. F/u in 2 to 3 days. Recommendations: 1) If pt NPO for 48 hours, resume EN support of Nepro with Carb Steady to target rate @40 ml/hr. 2) Consider providing Prostat 1 pkt QID, with improved RFTs, to meet protein needs. 3) Advance gradually to CCHO diet when medically appropriate. 4) Refer pt to CDE/RD for further nutrition education and weight monitoring upon discharge. 5) Continue current plan of care.
--- NOTE | 2019-09-15 16:04 | NUR ---
FAMILY AT BEDSIDE. UPDATED ON PATIENT STATUS. ALL QUESTIONS AND CONCERNS ADDRESSED AT THIS TIME
--- NOTE | 2019-09-15 17:58 | NUR ---
COMPLETE LINEN CHANGE PERFORMED AT THIS TIME
--- NOTE | 2019-09-15 19:47 | NUR ---
ADMITTED WITH ABDOMINAL PAIN, NAUSEA AND VOMITING. MD DIAGNOSIS: ACUTE PANCREATITUS, RESPIRATORY DISTRESS, HEPATIC STENOSIS, THROMBOCYTOPENIA. PATIENT IS A [employer] WITNESS. HG 5.4. MODESTO STATUS. ALERT. FOLLOWS COMMANDS.MOVES ALL EXTREMITIES WELL. FLEXASEAL IN DRAINING BROWN LIQUID. RUIZ IN PLACE DRAINING CLEAR GRISELDA LIQUID. CURRENTLY ON TRACH COLLAR BREATHING 28. ABDOMEN ROUND AND SOFT. RIGHT NARE NGT CLAMPED. UNABLE TO DO TUBE FEEDING. PATIENT WIGGLES AND PULLS ON THINGS. HE OFTEN WILL DISLODGE THE NGT SEVERAL TIMES A SHIFT MAKING HIM AN ASPIRATION RISK. TONGUE WOUND HEALING. SCAB ON RIGHT NECK IS SCABBED AND 50% HAS FALLEN OFF. THERE IS A SCAB ON THE INSIDE OF HIS NOSE. THERE WAS SCABS ON THE BACK OF HIS HEAD, BUT THEY HAVE NOW FALLEN OFF. HOLDING LANTUS. ACCUCHECKS ARE WITHIN RANGE AND THERE IS NO NUTRITION GOING. ON A SPECIALTY BED. RECEIVING 200 CC OF FREE WATER Q 4 HOURS FOR AN ELEVATED SODIUM LEVEL.
--- NOTE | 2019-09-15 21:00 | NUR ---
REMIND HIM TO KEEP HANDS OFF HIS LINES
[2019-09-15] MEDS: INSULIN LANTUS (GLARGINE) 1 /0.01ml (100units/ml) SC SCH (21:53)
--- NOTE | 2019-09-15 22:00 | NUR ---
BREATHING IS BETTER TONIGHT. HE ANSWERS ALL MY QUESTIONS APPROPRIATELY. HE REMAINS FIDGETY. OCCASIONALLY PULLS HIS OXYGEN TUBING APART. EXPOSES HIMSELF. CASS WELL. SINUS TACHYCARDIA 126. SUCTIONED FOR MINIMAL WHITE SECRETIONS.
[2019-09-16] VITALS (28 sets, daily range): BP systolic 109–162; BP diastolic 70–102
--- NOTE | 2019-09-16 | NUR ---
MIDNIGHT ASSESSMENT: SUCTIONED THE TRACH FOR MINIMAL AMOUNT OF WHITE SECRETIONS WITH BLOOD TINGE. TINY AMOUNT OF DARK BROWN LIQUID STOOL LEAKED AROUND FLEXASEAL. MARIA ELENA CARE DONE. LUNGS CLEAR. ABDOMEN SOFT. NGT RESIDUAL 10CC. TRACH DRESSING CLEAN AND DRY. TRACH SUTURED IN. SITE LOOKS CLEAN. ODELL WELL. CARELESS WITH LINES. PICC DRESSING CLEAN AND DRY. ALL PULSES PALPABLE. NODS YES AND NO TO QUESTIONS ASKED. MOUTHS APPROPRIATE THINGS.
[2019-09-16] MEDS: ACCU-CHEK COMFORT CURVE STRIP VI SCH ×4 (00:14→18:09)
[2019-09-16] MEDS: LORazepam 2MG/ML-1ML VIAL IV PRN ×3 (00:14→12:57)
--- NOTE | 2019-09-16 00:27 | NUR ---
RR 36. ASKED PATIENT IF HE WOULD LIKE TO REST ON THE VENTILATOR. HE STATED YES. RT NOTIFIED. PLACED BACK ON PRESSURE CONTROL VENTILATION WITH A PEEP OF 7, RATE 16 AND PRESSURE OF 20. ATIVAN GIVEN TO ASSIST WITH HIM RESTING. O2 SAT 97.
--- NOTE | 2019-09-16 00:50 | NUR ---
Respiratory note: PT PLACED BACK ON VENTILATOR. PT KEEPS PULLING CIRCUIT AND NG TUBE, RN AWARE. TRACHSTAY PLACED TO PREVENT DISCONNECTION. WILL CONTINUE TO MONITOR.
--- NOTE | 2019-09-16 01:00 | NUR ---
KEPT PULLING HIMSELF OFF THE VENTILATOR. BILATERAL MITTENS APPLIED.
--- NOTE | 2019-09-16 02:00 | NUR ---
PULLED MITTEN OFF. PULLED NGT OUT. PLACED NGT IN RIGHT NARE. UNABLE TO GET BACK DOWN THE LEFT SIDE OF THE NARE. SECURED WITH OPSITE. PLACED MITTENS ON SECURELY. RT SECURED THE TRACH FROM POPOFF. NGT RESIDUAL 30CC OF DARK GREEN. PLACED 200CC OF FREE WATER ORDERED. ONCE AGAIN HE IS RESTLESS IN THE BED TURNING FROM SIDE TO SIDE, TRYING TO GET THE MITTENS OFF. ATIVAN AND MORPHINE GIVEN. SINUS TACHYCARDIA. SBP STABLE. RR 16. NOTHING SUCTIONED FROM THE TRACH.
[2019-09-16] MEDS: LEVALBUTEROL HCL 1.25 MG/3 ML NEB NEB SCH ×6 (02:16→22:28)
[2019-09-16] MEDS: FREE WATER GT SCH ×6 (02:18→22:00)
[2019-09-16] MEDS: MORPHINE SULFATE 4 MG/ML SYR/VIAL IV PRN ×2 (02:29→23:15)
--- NOTE | 2019-09-16 03:00 | NUR ---
AM LABS SENT
--- NOTE | 2019-09-16 03:30 | NUR ---
CHG BATH. RESIDUAL 20CC OF DARK GREEN, REINSTILLED.
--- NOTE | 2019-09-16 04:00 | NUR ---
COMPLETE LINEN CHANGE. SMALL SMEAR OF BROWN STOOL AROUND FLEXASEAL CATHETER. NEW FLEXASEAL BAG HUNG. SINUS TACHYCARDIA
[2019-09-16 04:26] LABS: BUN/Creatinine Ratio 15.7; Calcium 8.3 mg/dL (8.5-10.1); Potassium 3.1 mmol/L (3.5-5.1)
[2019-09-16] MEDS: LACTULOSE 20Gm/30ML SOLN PO SCH ×3 (05:39→18:00)
[2019-09-16] MEDS: MEROPENEM 1GM IVPB 100 ML IV SCH (05:39)
[2019-09-16] MEDS: MAGIC MOUTHWASH 55 ML SUSP MT SCH ×4 (05:39→22:00)
[2019-09-16] MEDS: METOCLOPRAMIDE HCL 5MG/ml INJ 2ml VIAL IV SCH ×3 (05:39→22:00)
[2019-09-16] MEDS: InsuLIN REG 1unit/0.01ml Soln (100units/ml) SC SCH ×4 (05:41→18:09)
--- NOTE | 2019-09-16 06:13 | NUR ---
BOOSTED UP IN BED.SINUS TACHYCARDIA
--- NOTE | 2019-09-16 06:44 | NUR ---
Respiratory note: RECEIVED PATIENT ON V8 CARESCAPE VENT TRACHED WITH AN 8 SHILEY, SECURED VIA TRACH TIE AND SUTURES, AND MECHANICALLY VENTILATED WITH THE CHARTED SETTINGS. SPO2 99%, LUNG SOUNDS DIM T/O, SCANT AMOUNT OF THICK LIGHT HOFFMAN SECRETIONS WHEN SUCTIONED. SKIN IS WARM/DRY TO THE TOUCH. THERE IS A SCAB ON CHIN FROM PREVIOUS PRONATION, TRACH STOMA SITE IS DRAINING AND WITHOUT REDNESS OR IRRITATION. THERE IS A PICC LINE PLACED IN THE LEFT UPPER ARM. RECTAL TUBE IN PLACE AND DRAINING. PATIENT IS OFF ALL SEDATION AND IS AWAKE, ALERT, AND CAN FOLLOW COMMANDS. HE IS RESTING COMFORTABLY AND TOLERATING VENT WELL, NO CHANGES MADE. VENT PLUGGED INTO RED OUTLET AND ALL ALARMS ARE SET AND AUDIBLE. WILL CONTINUE TO ASSESS PATIENT WELL VENTILATOR FUNCTION. MED-NEB RUN INLINE WITH AEROGEN NEB.
--- NOTE | 2019-09-16 07:35 | NUR ---
INITIAL ASSESSMENT Report received from Ana BLUNT, care assumed. Patient is awake, alert, and oriented to self. Patient able to understand concepts and follow commands. Patient moves all extremities equally. Low grade temperature of 99.2. Pulses palpable bilaterally, no distress or chest pain noted. Sinus tachycardia 117-120 bpm noted. All other vitals stable. Patient currently trache to ventilator, tolerating well. Oxygen saturation 100%, pt denies SOB. Bowel sounds active, flexi-seal in place. See wound/skin assessment. Patient on specialty air mattress with frequent turning schedule. Bed locked in lowest position, alarms in place. Will continue to monitor.
--- NOTE | 2019-09-16 08:15 | NUR ---
Respiratory note: PATIENT TAKEN OFF VENTILATOR AND PLACED ON 35% COOL AEROSOL VIA TRACH COLLAR MASK. HE IS TOLERATING WELL AT THIS TIME, SHOWING NO CHANGE IN RESPIRATORY RATE OR EFFORT. SPO2 MAINTAINS AT 97%. MERLENE PICKERING MADE AWARE OF THERAPY CHANGE AND PATIENTS CURRENT CONDITION.
--- NOTE | 2019-09-16 08:15 | NUR ---
RESPIRATORY Patient placed on trach collar by RT. Patient tolerating well at this time. No signs of distress noted. Oxygen saturation 97%, respirations are even and unlabored.
--- NOTE | 2019-09-16 09:29 | NUR ---
PHYSICAL THERAPY PT at bedside. Patient sat on edge of bed for approximately 10 minutes. Patient then repositioned back in bed, Physical therapist having patient perform range of motion exercises. Patient tolerated activity well. No distress noted.
--- NOTE | 2019-09-16 09:45 | NUR ---
VISITOR Patient brother at bedside.
[2019-09-16] MEDS: SODIUM CHLOR 0.9% PF (SALINE LOCK) 10ML VIAL/SYR IV SCH ×2 (10:09→22:00)
[2019-09-16] MEDS: PANTOPRAZOLE 40 MG/10 ML VIAL INJ IV SCH ×2 (10:09→22:33)
[2019-09-16] MEDS: FLUCONAZOLE 200MG/100ML 100 ML IV SCH (10:09)
[2019-09-16] MEDS: PROPOFOL 100 ML IV SCH (10:16)
--- NOTE | 2019-09-16 10:27 | NUR ---
PAGED paged regarding low potassium 3.1, MD returned page. Orders received for electrolyte replacement.
[2019-09-16] MEDS: POTASSIUM CHL 20MEQ/100ML 100 ML IV SCH ×2 (10:51→12:16)
--- NOTE | 2019-09-16 11:07 | NUR ---
REPOSITION Patient repositioned higher in bed, with head of bed greater than 30 degrees. Patient tolerated well. No distress or pain noted at this time. Bed locked in lowest position with call light within reach.
[2019-09-16] MEDS: SODIUM FERR GLUC 62.5MG/5ML 125 MG in SODIUM CHL 0.9% 100 ML IV SCH (11:40)
--- NOTE | 2019-09-16 12:00 | NUR ---
CARES Complete linen change and julian care performed. Patient tolerated well. Patient then repositioned on side with head of bed elevated. Bed locked in lowest position with all extremities off loaded on pillows. Call light within reach
--- NOTE | 2019-09-16 13:33 | NUR ---
RESPIRATORY Patient placed back on ventilator by RT due to patients respiratory rate increasing to 45 and sustaining despite patient resting and in no distress. Respiratory rate immediately decreased to 16-20, oxygen saturation 100%. Will continue to monitor.
--- NOTE | 2019-09-16 13:43 | NUR ---
MD VISIT: PCP at bedside speaking to family about low hgb levels and need for blood transfusion. Patient mother and son both do not want blood transfusion at this time. MD reviewing medical chart. Orders obtained.
[2019-09-16] MEDS: metroNIDAZOLE 500MG/100ML 100 ML IV SCH ×2 (14:28→22:33)
--- NOTE | 2019-09-16 14:45 | NUR ---
EMESIS Shortly after tracheal suctioning, patient became nauseous and had one episode of emesis of green bile fluid. Oxygen saturation maintaining 100%, no signs of aspiration. Patient head of bed was greater than 40%. No signs of pain or distress noted. Patient now resting and denies nausea. Will continue to monitor.
--- NOTE | 2019-09-16 16:00 | NUR ---
REPOSITION Patient pulled up and repositioned on side in bed. Patient tolerated activity well. Patient denies pain or discomfort at this time, bed locked in lowest position call light within reach.
--- NOTE | 2019-09-16 16:21 | NUR ---
Respiratory note: PATIENT REMOVED FROM VENT AND PLACED BACK ON 35% COOL AEROSOL VIA TRACH MASK/COLLAR. MERLENE PICKERING MADE AWARE OF CHANGE. TRACH CARE DONE AT THIS TIME. STOME IS CLEAN/CLEAR AND NO DRAINING. SUTURES REMAIN IN PLACE.
[2019-09-16] MEDS: ACETAMINOPHEN 325 MG TAB PO PRN (17:11)
--- NOTE | 2019-09-16 17:11 | NUR ---
TEMPERATURE Oral temp 100.5, cooling measures initiated. Patient given Tylenol, ice packs and fan. Will continue to monitor.
--- NOTE | 2019-09-16 18:10 | NUR ---
Lester catheter dc'd Order to discontinue lester catheter. Lester dc'd with clean technique following deflation of balloon. Patient tolerated well with no complaints of pain. Continue care.
--- NOTE | 2019-09-16 18:15 | NUR ---
Casiano catheter insertion Order obtained from . Patient educated on catheter and reason for insertion. All questions answered. Casiano catheter 16 guage Chinese inserted with clean sterile technique. Patient tolerated well.
[2019-09-16] MEDS: Nepro With Carb Steady 1 Liter Bottle GT SCH (18:30)
--- NOTE | 2019-09-16 18:30 | NUR ---
NUTRITION Tube feedings started at 10 cc/hr per MD request.
--- NOTE | 2019-09-16 19:19 | NUR ---
REPORT Report given to Ana BLUNT, care endorsed.
--- NOTE | 2019-09-16 19:36 | NUR ---
ADMITTED ON 08/11/2019 WITH ABDOMINAL PAIN, NAUSEA, VOMITING AND RESPIRATORY DISTRESS. CONTINUES TO HAVE A LOW HG. PATIENT IS A JEHOVAHS WITNESS . FAMILY HAS BEEN APPROACHED REGARDING ADMINISTRATION OF BLOOD PRODUCTS AND THEY STATED" HE WOULD NOT WANT THAT". PATIENT MOUTHS WORDS AND SHAKES HIS HEAD YES AND NO. MOVES ALL EXTREMITIES WITH FULL RANGE OF MOTION. HAS MOMENTS OF EXTREME RESTLESSNESS. WE ARE ADMINISTERING ATIVAN AND MORPHINE BASED ON HIS SET OF SYMPTOMS. LUNGS CLEAR. TRACHEA MIDLINE. #8 SHILEY IS SUTURED IN . SITE SHOWS NO REDNESS OR DRNG. TRACH DRESSING CLEAN AND DRY. HAS BEEN ON TRACH COLLAR SINCE 4PM TODAY. [facility] DOWNGRADE ORDERS. STARTED TUBE FEEDING TODAY AT 10CC/HR. FREE H20 Q 4 HOURS TO TREAT THE HYPERNATREMIA. FLEXASEAL IN PLACE DRAINING BROWN LIQUID. SKIN: PREVIOUS SCABS ON BACK OF HEAD HAVE FALLEN OFF. RIGHT NARE SCAB INTACT. RIGHT CHIN SCAB IS PARTIALLY COMING OFF. MUCOSAL ULCER IS HEALING WELL. USING MAJIC MOUTHWASH Q 8 HOURS. PICC LINE IN LEFT UPPER ARM. DRESSING AT SITE OF PICC IS CLEAN, DRY AND CURRENT. ON A SPECIALTY BED. NEW 16 BARBADIAN RUIZ REPLACED TODAY.
--- NOTE | 2019-09-16 19:45 | NUR ---
TEMPERATURE 99.8. ICE BAG PLACED BEHIND NECK. FAN ON. LAST TYLENOL 1810.
[2019-09-16] MEDS: INSULIN LANTUS (GLARGINE) 1 /0.01ml (100units/ml) SC SCH (22:00)
--- NOTE | 2019-09-16 22:00 | NUR ---
RR 36. RESPIRATORY TREATMENT GIVEN. THEN PLACED BACK ON THE VENTILATOR TO REST. PC VENTILATION, RATE 16, 35% AND A PRESSURE OF 20. MORPHINE AND ATIVAN GIVEN. LOW NGT RESIDUAL . RUIZ: CLEAR GRISELDA LIQUID TO DOWN DRAIN BAG. SINUS TACHYCARDIA WITH NO ECTOPY. NOW IS BREATHING 16.
[2019-09-17] VITALS (27 sets, daily range): BP systolic 127–164; BP diastolic 81–107
--- NOTE | 2019-09-17 | NUR ---
REPOSITIONED. SUCTIONED TRACH FOR A SMALL AMOUNT OF WHITE SECRETIONS WITH PINK TINGED. TRACH DRESSING DRY. ABDOMEN SOFT. LOW, 10CC , RESIDUAL FROM THE RIGHT NARE NGT. VITAL SIGNS STABLE. SINUS TACHYCARDIA RATE 113.
--- NOTE | 2019-09-17 00:10 | NUR ---
ICE TO BACK OF NECK. FAN ON. TEMP 99.7 ORALLY
[2019-09-17] MEDS: FREE WATER GT SCH ×6 (02:00→21:37)
--- NOTE | 2019-09-17 02:00 | NUR ---
PICC LINE DRESSING DONE. SITE SHOWS NO REDNESS , DRNG OR REDNESS. SMALL AMOUNT SUCTIONED FROM THE TRACH SITE. REPOSITIONED. ORAL CARE. RESTLESS. SINUS TACHYCARDIA. NO ECTOPY. ADEQUATE URINE OUTPUT.
[2019-09-17] MEDS: LEVALBUTEROL HCL 1.25 MG/3 ML NEB NEB SCH ×6 (02:17→22:08)
--- NOTE | 2019-09-17 04:00 | NUR ---
VSS. SINUS TACHYCARDIA WITHOUT ECTOPY. TRACH SITE DRESSING CLEAN AND DRY. TRACHEA MIDLINE. LUNGS CLEAR. NOTHING SUCTIONED FROM THE TRACH. ORAL CARE DONE. MUCOSAL WOUND IS CLOSED. BACK OF HEAD:SCABS HAVE FALLEN OFF. NO OPEN AREAS. NARE SCAB REMAINS. CHIN SCAB HAS PARTIALLY SEPERATED FROM THE SKIN. NO DRNG FROM WOUND. SKIN EROSION AND REDNESS ON BOTTOM. OLD HOLE IN ABDOMEN IS FROM A PREVIOUS CATHETER. WOUND IS CLOSED. FLEXASEAL IN PLACE WITH A SMALL AMOUNT OF BROWN DRNG. NO EDEMA. ABDOMEN ROUND AND SOFT. LOW RESIDUAL FROM THE TUBE FEEDING.
[2019-09-17 04:03] LABS: Basophils # (auto) 0.1 10 ^3/uL (0-0.2); Eosinophils # (auto) 0.2 10 ^3/uL (0-0.8); Eosinophils % (auto) 2.7 % (0.0-7.0); Hematocrit 22.9 % (41.0-53.0); Hemoglobin 7.4 g/dL (13.5-17.5); Lymphocytes # (auto) 1.2 10 ^3/uL (0.4-5.4); Lymphocytes % (auto) 19.6 % (10.0-50.0); Mean Corpuscular Hemoglobin 28.6 pg (28.0-32.0); Mean Corpuscular Hgb Conc. 32.3 g/dL (32.0-36.0); Mean Corpuscular Volume 88.5 fL (80.0-100.0); Monocytes # (auto) 0.5 10 ^3/uL (0-1.3); Neutrophils # (auto) 4.3 10 ^3/uL (1.6-8.6); Neutrophils % (auto) 67.7 % (37.0-80.0); Nucleated Red Blood Cells % 0.1 %; Platelet Count (auto) 274 10^3/uL (140-450); Red Blood Cells 2.58 10^6/uL (4.5-5.90); Red Cell Distribution Width 16.6 % (11.8-14.3); White Blood Cell 6.3 10^3/uL (4.4-10.8)
[2019-09-17 04:23] LABS: BUN/Creatinine Ratio 16.5; Calcium 8.1 mg/dL (8.5-10.1); Potassium 3.5 mmol/L (3.5-5.1)
--- NOTE | 2019-09-17 04:36 | NUR ---
CHG BATH AND LINEN CHANGE.
[2019-09-17] MEDS: METOCLOPRAMIDE HCL 5MG/ml INJ 2ml VIAL IV SCH ×3 (06:00→21:38)
[2019-09-17] MEDS: LACTULOSE 20Gm/30ML SOLN PO SCH ×2 (06:00)
[2019-09-17] MEDS: InsuLIN REG 1unit/0.01ml Soln (100units/ml) SC SCH ×4 (06:00→17:57)
[2019-09-17] MEDS: MAGIC MOUTHWASH 55 ML SUSP MT SCH (06:23)
[2019-09-17] MEDS: ACCU-CHEK COMFORT CURVE STRIP VI SCH ×4 (06:23→17:57)
[2019-09-17] MEDS: metroNIDAZOLE 500MG/100ML 100 ML IV SCH ×3 (06:23→21:37)
[2019-09-17] MEDS: FLUCONAZOLE 200MG/100ML 100 ML IV SCH (09:00)
[2019-09-17] MEDS: SODIUM CHLOR 0.9% PF (SALINE LOCK) 10ML VIAL/SYR IV SCH ×2 (09:47→21:38)
[2019-09-17] MEDS: PANTOPRAZOLE 40 MG/10 ML VIAL INJ IV SCH ×2 (09:47→21:38)
[2019-09-17] MEDS ORDERED: FLUCONAZOLE 200MG/100ML 100 ML IV SCH (10:00)
[2019-09-17] MEDS ORDERED: levoFLOXacin 500MG 100 ML IV SCH (10:00)
[2019-09-17] MEDS ORDERED: FLUCONAZOLE 200MG/100ML 100 ML IV ONE (10:00)
--- NOTE | 2019-09-17 10:10 | NUR ---
PT AT BEDSIDE PT WAS SITTING EDGE OF THE BED WITH ASSISTANCE OF PT. PT DID PASSIVE AND ACTIVE ROM, EDUCATED PT ON EXERCISES
--- NOTE | 2019-09-17 11:40 | NUR ---
WOUND CARE NURSE AT BEDSIDE
--- NOTE | 2019-09-17 11:45 | NUR ---
WOUND CARE NOTE: Wound care in to see patient for reevaluation of wounds. Patient continue resting on air bed in ICU Rm. 109. Patient is on O2 via trach. Patient is awake and able to follow simple direction. His Brice score is 16. Patient appears to be in no pain using [place] Faces Pain Scale. Skin/wound assessment done with the assistance of patient's nurse, MERLENE Hardin. Patient's abrasions to distal nostril and chin continue to improve. Scab to nostril abrasion looks came off and now display pink skin. There's 0.6x3cm intact dark brown scab still visible to distal chin abrasion, are is clean and dry, left open to air. Mucosal ulcer to patient's distal tongue continue to improve. No open ulceration noted, skin is pink and moist. Patient has rectal tube in placed with minimal stool leak noted. Kellie care given. Patient's sacral, buttocks has intact skin with with red moisture assisted dermatitis, applied Barrier cream as ordered. New photograph of mentioned wounds/skin issue are taken for reference. Patient tolerated well. Repositioned for comfort facing his Rt. side, redistributed pressure points with pillows. Patient tolerated well. MERLENE Hardin at bedside. RECOMMENDATION: Continuation of all wound care orders prescribed by MD, continue with skin/wound plan of care, continue monitoring by wound care while patient is hospitalized. Addendum: 09/17/19 at 1617 by Ynes Ellsworth RN Amended: Links added.
[2019-09-17] MEDS ORDERED: LABETALOL HCL 5 MG/ML 4ML SYRINGE IV PRN (12:15)
[2019-09-17] MEDS: SODIUM FERR GLUC 62.5MG/5ML 125 MG in SODIUM CHL 0.9% 100 ML IV SCH (12:25)
--- NOTE | 2019-09-17 14:00 | NUR ---
DR. GARCIA AT BEDSIDE UPDATED MD ON PT STATUS, RECEIVED NEW ORDERS.
--- NOTE | 2019-09-17 19:20 | NUR ---
OPENING SHIFT RECEIVED REPORT FROM DAY SHIFT RN. ASSUMED CARE OF PATIENT. PATIENT IN BED WATCHING TV WITH NO SIGNS OR SYMPTOMS OF SOB, PAIN OR DISTRESS. CURRENTLY ON 10L 35% TRACH MASK, 02 SAT - 97%. LEFT UPPER ARM PICC - CLEAN/DRY/INTACT. RUIZ AND FLEXISEAL HUNG TO GRAVITY. REPOSITIONED FOR COMFORT. BED IN LOWEST POSITION, SIDE RAILS UP X2. WILL CONTINUE TO MONITOR.
[2019-09-17] MEDS: INSULIN LANTUS (GLARGINE) 1 /0.01ml (100units/ml) SC SCH (21:38)
[2019-09-17] MEDS: LABETALOL HCL 5 MG/ML ML 20ML VIAL IV PRN (21:44)
[2019-09-18] VITALS (25 sets, daily range): BP systolic 123–163; BP diastolic 84–101
--- NOTE | 2019-09-18 00:25 | NUR ---
RT PLACED PATIENT BACK ON VENT. WILL CONTINUE TO MONITOR.
[2019-09-18] MEDS: InsuLIN REG 1unit/0.01ml Soln (100units/ml) SC SCH ×4 (00:26→17:52)
[2019-09-18] MEDS: ACCU-CHEK COMFORT CURVE STRIP VI SCH ×4 (00:27→17:51)
[2019-09-18] MEDS: PROPOFOL 100 ML IV SCH (00:40)
[2019-09-18] MEDS: FREE WATER GT SCH ×6 (02:00→21:43)
[2019-09-18] MEDS: LEVALBUTEROL HCL 1.25 MG/3 ML NEB NEB SCH ×6 (02:08→22:01)
--- NOTE | 2019-09-18 03:10 | NUR ---
MORNING CARE PERFORMED MORNING CARE WITH CHG WIPES AND WASH CLOTHS TO THE FACE. FULL LINEN CHANGE AND GOWN CHANGED. ORAL AND RUIZ CARE PERFORMED. REPOSITIONED FOR COMFORT. SKIN REASSESSED AT THIS TIME. BED IN LOWEST POSITION, SIDE RAILS UP X2. WILL CONTINUE TO MONITOR.
--- NOTE | 2019-09-18 03:28 | NUR ---
FLEXISEAL REMOVED RECTAL TUBE CONTINUES TO SLIP OUT. WILL CONTINUE TO MONITOR. NO LEAKAGE AND NO SIGN OF WATERY STOOL AT THIS TIME. WILL CONTINUE TO MONITOR.
[2019-09-18 03:55] LABS: Basophils # (auto) 0.1 10 ^3/uL (0-0.2); Basophils % (auto) 1.4 % (0.0-2.0); Eosinophils # (auto) 0.1 10 ^3/uL (0-0.8); Eosinophils % (auto) 1.8 % (0.0-7.0); Hemoglobin 7.8 g/dL (13.5-17.5); Lymphocytes # (auto) 1.7 10 ^3/uL (0.4-5.4); Lymphocytes % (auto) 24.8 % (10.0-50.0); Mean Corpuscular Hemoglobin 28.4 pg (28.0-32.0); Mean Corpuscular Hgb Conc. 32.3 g/dL (32.0-36.0); Monocytes # (auto) 0.7 10 ^3/uL (0-1.3); Monocytes % (auto) 9.5 % (0.0-12.0); Neutrophils # (auto) 4.4 10 ^3/uL (1.6-8.6); Neutrophils % (auto) 62.5 % (37.0-80.0); Nucleated Red Blood Cells % 0.1 %; Platelet Count (auto) 263 10^3/uL (140-450); Red Blood Cells 2.73 10^6/uL (4.5-5.90); Red Cell Distribution Width 16.3 % (11.8-14.3)
[2019-09-18 04:13] LABS: Potassium 3.4 mmol/L (3.5-5.1)
--- NOTE | 2019-09-18 04:15 | NUR ---
TRACH CARE PERFORMED PATIENT TOLERATED WELL. MINIMAL HOFFMAN SECRETIONS SUCTIONED. WILL CONTINUE TO MONITOR.
[2019-09-18] MEDS: metroNIDAZOLE 500MG/100ML 100 ML IV SCH ×3 (06:06→21:43)
[2019-09-18] MEDS: METOCLOPRAMIDE HCL 5MG/ml INJ 2ml VIAL IV SCH ×3 (06:06→21:44)
--- NOTE | 2019-09-18 07:09 | NUR ---
END OF SHIFT REPORT GIVEN TO DAY SHIFT RN. CARE ENDORSED.
--- NOTE | 2019-09-18 07:16 | NUR ---
SHIFT REPORT RECEIVED FROM NOC
--- NOTE | 2019-09-18 08:40 | NUR ---
PT AT BEDSIDE PATIENT WAS BREAKER LAYER BY PT TO THE EDGE OF BED, ACTIVE RANGE OF MOTION WERE PERFORMED BY PATIENT.
[2019-09-18] MEDS: FLUCONAZOLE 200MG/100ML 100 ML IV SCH ×2 (09:20→11:24)
[2019-09-18] MEDS: PANTOPRAZOLE 40 MG/10 ML VIAL INJ IV SCH ×2 (10:24→21:43)
[2019-09-18] MEDS: levoFLOXacin 750MG 150 ML IV SCH (10:25)
[2019-09-18] MEDS: SODIUM CHLOR 0.9% PF (SALINE LOCK) 10ML VIAL/SYR IV SCH ×2 (10:32→21:44)
--- NOTE | 2019-09-18 11:40 | NUR ---
DR. GARCIA AT BEDSIDE MD UPDATED PT ON THE PLAN OF CARE
[2019-09-18] MEDS ORDERED: POTASSIUM EFFERVESENT TAB 25 MEQ GT ONE (11:45)
--- NOTE | 2019-09-18 12:24 | NUR ---
DR ROCHA AT BEDSIDE
[2019-09-18] MEDS: SODIUM FERR GLUC 62.5MG/5ML 125 MG in SODIUM CHL 0.9% 100 ML IV SCH (12:31)
[2019-09-18] MEDS: POTASSIUM CHLORIDE 40 MEQ in D5W 5% 1,000 ML IV SCH (13:46)
--- NOTE | 2019-09-18 14:10 | NUR ---
FAMILY AT BEDSIDE FAMILY WAS UPDATED ON PLAN OF CARE, QUESTIONS AND CONCERNS WERE ADDRESSED.
--- NOTE | 2019-09-18 16:19 | NUR ---
Nutrition Follow-up Notes Pt weight is 105.1 kg today. Pt was intubated with no relative at bedside when rounded this morning. Pt is currently NPO, EN support from Nepro with Carb Steady @40 ml/hr, currently withheld. EN support was providing 1728 kcal, 78 gms protein and 698 ml free water. Est. Needs based on AdBW(76 kg): 1500 kcal to 1900 kcal (20-25 kcal/kgAdBW), 91 gms to 114 gms pro (1.2-1.5 gms/kgAdBW reassessed d/t ESRD on HD, severe hypoalbuminemia). Will continue to monitor pertinent labs and reassess nutrient need prn. Labs 3/: Na 154 H, K 3.4 L, Cl 122 H, Serum glucose 123 H, Ca 8 L, BUN 20 H, POC 129 H Skin: Brice scale 16, mod risk, multiple scabs, maceration pressure ulcer to L medial buttock, mucosal ulcer to tongue. Pls refer to latest cloth mender's notes for further details. PES: 1) Increased nutrient needs r/t acute/chronic medical condition aeb intubated, sedated, severe hypoalbuminemia, NPO. 2) Altered nutrition related lab values r/t current/chronic medical condition aeb hyperglycemia, elev. renal labs, HbA1c, LFTs, lipase, hypocapnia, hypocalcemia and severe hypoalbuminemia. (partially resolved) 3) Obesity r/t food intake more than body requirement aeb 218% IBW, BMI 57.7 kg/m2 and increased body adiposity Will continue to monitor NPO status, EN tolerance, skin status, pertinent labs and weight trend. F/u in 2 to 3 days. Recommendations: 1) If pt NPO for 48 hours, resume EN support of Nepro with Carb Steady to target rate @40 ml/hr. 2) Consider providing Prostat 1 pkt QID, with improved RFTs, to meet protein needs. 3) Advance gradually to CCHO diet when medically appropriate. 4) Refer pt to CDE/RD for further nutrition education and weight monitoring upon discharge. 5) Continue current plan of care.
--- NOTE | 2019-09-18 19:25 | NUR ---
OPENING SHIFT RECEIVED REPORT FROM DAY SHIFT RN. ASSUMED CARE OF PATIENT. PATIENT IN BED WATCHING TV WITH NO SIGNS OR SYMPTOMS OF SOB, PAIN OR DISTRESS. CURRENTLY ON 10L 35% TRACH MASK, 02 SAT - 99%. LEFT UPPER ARM PICC - CLEAN/DRY/INTACT. RUIZ HUNG TO GRAVITY. REPOSITIONED FOR COMFORT. BED IN LOWEST POSITION, SIDE RAILS UP X2. WILL CONTINUE TO MONITOR.
--- NOTE | 2019-09-18 19:33 | NUR ---
RT NOTE PT WAS SEEN BY RT FOR HHN . PT TOLERATES WELL VIA TRACH COLLAR. CONT ORDERED Addendum: 09/18/19 at 1944 by Josette Hall RT Amended: Links added.
--- NOTE | 2019-09-18 19:36 | NUR ---
SWALLOW EVALUATED WITH ASSISTANCE OF RESPIRATORY THERAPY DUE TO TRACHEOTOMY. PATIENT ABLE TO TOLERATE PUREE DIET TEXTURE WITH NECTAR THICKENED LIQUIDS. SOME COUGHING ON THIN LIQUIDS BUT PATIENT HAS STRONG COUGH. PATIENT HAS OWN TEETH. FAMILY PRESENT FOR EVALUATION. NURSING NOTIFIED.
[2019-09-18] MEDS: INSULIN LANTUS (GLARGINE) 1 /0.01ml (100units/ml) SC SCH (21:44)
--- NOTE | 2019-09-18 22:04 | NUR ---
RT NOTE PT WAS SEEN BY RT FOR HHN TX. PT TOLERATES WELL VIA TRACH COLLAR. PT DENIES SUCTION AT THIS TIME. CONT ORDERED Addendum: 09/18/19 at 2204 by Josette Hall RT Amended: Links added.
[2019-09-19] VITALS (22 sets, daily range): BP systolic 126–156; BP diastolic 74–97
[2019-09-19] MEDS: InsuLIN REG 1unit/0.01ml Soln (100units/ml) SC SCH ×4 (00:06→17:44)
[2019-09-19] MEDS: ACCU-CHEK COMFORT CURVE STRIP VI SCH ×4 (00:06→18:03)
[2019-09-19] MEDS: PROPOFOL 100 ML IV SCH (00:40)
[2019-09-19] MEDS: FREE WATER GT SCH ×6 (02:00→22:25)
[2019-09-19] MEDS: LEVALBUTEROL HCL 1.25 MG/3 ML NEB NEB SCH ×6 (02:36→22:05)
--- NOTE | 2019-09-19 02:37 | NUR ---
RT NOTE PT WAS SEEN BY RT FOR HHN TX. PT TOLERATES WELL VIA TRACH COLLAR. PT WAS SUCTIONED FOR MODERATE RETURN. PT IS ASLEEP AND APPEARS COMFORTABLE AT THIS TIME.CONT ORDERED Addendum: 09/19/19 at 0239 by Josette Hall RT Amended: Links added.
[2019-09-19] MEDS: POTASSIUM CHLORIDE 40 MEQ in D5W 5% 1,000 ML IV SCH ×2 (03:30→14:57)
[2019-09-19 04:09] LABS: Calcium 7.8 mg/dL (8.5-10.1); Magnesium 1.6 mg/dL (1.6-2.6); Potassium 3.7 mmol/L (3.5-5.1)
--- NOTE | 2019-09-19 04:50 | NUR ---
RT NOTE TRACH CARE DONE WITHOUT INCIDENT. COOL AEROSOL WATER CHANGED AT THIS TIME. SPARE TRACH AT BEDSIDE. CURRENT TRACH OBTURATOR AT HEAD OF BED. CONT ORDERED Addendum: 09/19/19 at 0451 by Josette Hall RT Amended: Links added.
[2019-09-19] MEDS: metroNIDAZOLE 500MG/100ML 100 ML IV SCH ×3 (06:10→22:25)
[2019-09-19] MEDS: METOCLOPRAMIDE HCL 5MG/ml INJ 2ml VIAL IV SCH ×2 (06:11→14:30)
--- NOTE | 2019-09-19 07:17 | NUR ---
END OF SHIFT REPORT GIVEN TO DAY SHIFT RN. CARE ENDORSED.
--- NOTE | 2019-09-19 08:55 | NUR ---
RT NOTE: TRACH CARE DONE AT THIS TIME USING STERILE TECHNIQUE WITHOUT INCIDENT. INNER CANNULA CLEANED WITH STERILE WATER. PHLANGE CLEANED WITH PEROXIDE/STERILE WATER MIXTURE. SUCTIONED PT FOR MODERATE AMOUNT OF GREEN SECRETION. DRESSINGS REPLACED, TRACH TIES CLEAN AND DRY. SUTURES IN TACT TO PHLANGE. PT IS ON COOL MIST AEROSOL. SPO2 97%, HR 103, RR 26. NO RESPIRATORY DISTRESS. WILL CONTINUE TO MONITOR PT.
[2019-09-19] MEDS: levoFLOXacin 750MG 150 ML IV SCH (10:26)
[2019-09-19] MEDS: PANTOPRAZOLE 40 MG/10 ML VIAL INJ IV SCH ×2 (10:26→22:25)
[2019-09-19] MEDS: FLUCONAZOLE 200MG/100ML 100 ML IV SCH ×2 (10:26→10:35)
[2019-09-19] MEDS: SODIUM CHLOR 0.9% PF (SALINE LOCK) 10ML VIAL/SYR IV SCH ×2 (10:26→22:25)
[2019-09-19] MEDS: SODIUM FERR GLUC 62.5MG/5ML 125 MG in SODIUM CHL 0.9% 100 ML IV SCH (12:00)
--- NOTE | 2019-09-19 15:57 | NUR ---
D/C Planning Per consult for [facility]. Faxed order to [facility] and [facility]. Mata with [facility] advised me they only go up to 5 L/min oxygen and patient is at 10 l/min. Per Mata they will not be able to accommodate patient needs unless his oxygen goes down. Pending on [facility] to review orders. Will follow up.
[2019-09-19] MEDS ORDERED: METOCLOPRAMIDE HCL 5MG/ml INJ 2ml VIAL IV PRN (16:30)
--- NOTE | 2019-09-19 18:39 | NUR ---
PATIENT ALERT AND ORIENTED UNABLE TO SPEAK DUE TO HIS TRACHEOSTOMY WHICH PATIENT IS COUGHING THICK YELLOW SPUTUM. PATIENT REMAINED COARSE AFEBRILE. TRACH COLLAR 30 % #8 SHILEY OXYGEN SAT 100 % PATIENT TOLERATING 30 % OF FI02 WITHOUT THE VENTILATOR.NGT INTACT DR GARCIA CAME AND D/C TF BUT KEPT THE NGT. PATIENT ON ASPIRATION PRECAUTIONS. TOLERATING PUREED DIET AT BREAKFAST BUT ONLY ATE 10% FOR LUNCH. RUIZ CATHETER DRAINING DARK GRISELDA COLOR URINE.
--- NOTE | 2019-09-19 18:40 | NUR ---
PT TRACH DRESSING CHANGED AND TRACH MASK CLEANED. PT SUCTIONED FOR SMALL THICK HOFFMAN SECRETIONS. WILL CONTINUE TO MONITOR TRACH STATUS.
--- NOTE | 2019-09-19 19:25 | NUR ---
OPENING SHIFT RECEIVED REPORT FROM DAY SHIFT RN. ASSUMED CARE OF PATIENT. PATIENT IN BED ON THE BED BLANCHARD WITH NO SIGNS OR SYMPTOMS OF SOB, PAIN OR DISTRESS. CURRENTLY ON TRACH COLLAR 35%, 02 SAT - 99%. LEFT UPPER ARM PICC TLC - CLEAN/DRY/INTACT. RUIZ HUNG TO GRAVITY. BED IN LOWEST POSITION, SIDE RAILS UP X2, CALL LIGHT WITHIN REACH. WILL CONTINUE TO MONITOR.
[2019-09-19] MEDS: INSULIN LANTUS (GLARGINE) 1 /0.01ml (100units/ml) SC SCH (22:25)
[2019-09-20] VITALS (21 sets, daily range): BP systolic 109–152; BP diastolic 69–104
[2019-09-20] MEDS: FREE WATER GT SCH ×5 (02:00→22:06)
[2019-09-20] MEDS: LEVALBUTEROL HCL 1.25 MG/3 ML NEB NEB SCH ×6 (02:38→22:32)
--- NOTE | 2019-09-20 04:15 | NUR ---
MORNING CARE PERFORMED MORNING CARE WITH CHG WIPES AND WASH CLOTHS TO THE FACE. FULL LINEN CHANGE AND GOWN CHANGED. REPOSITIONED FOR COMFORT. SKIN REASSESSED AT THIS TIME. ORAL AND RUIZ CARE PERFORMED. BED IN LOWEST POSITION, SIDE RAILS UP X2, CALL LIGHT WITHIN REACH. WILL CONTINUE TO MONITOR.
[2019-09-20 04:28] LABS: BUN/Creatinine Ratio 13.5; Calcium 7.3 mg/dL (8.5-10.1); Potassium 3.7 mmol/L (3.5-5.1)
[2019-09-20] MEDS: POTASSIUM CHLORIDE 40 MEQ in D5W 5% 1,000 ML IV SCH ×2 (04:33→06:34)
[2019-09-20] MEDS: metroNIDAZOLE 500MG/100ML 100 ML IV SCH ×3 (05:46→22:06)
[2019-09-20] MEDS: ACCU-CHEK COMFORT CURVE STRIP VI SCH ×4 (05:47→17:29)
[2019-09-20] MEDS: InsuLIN REG 1unit/0.01ml Soln (100units/ml) SC SCH ×4 (05:47→17:28)
--- NOTE | 2019-09-20 07:25 | NUR ---
END OF SHIFT REPORT GIVEN TO DAY SHIFT RN. CARE ENDORSED.
--- NOTE | 2019-09-20 09:00 | NUR ---
patient vomited after breakfast patient was coughing yello thick sputum came out no food particles came out via tracheostomy noted.
[2019-09-20] MEDS: FLUCONAZOLE 200MG/100ML 100 ML IV SCH ×2 (09:34→12:57)
[2019-09-20] MEDS: PANTOPRAZOLE 40 MG/10 ML VIAL INJ IV SCH ×2 (09:35→22:08)
[2019-09-20] MEDS: levoFLOXacin 750MG 150 ML IV SCH (09:35)
[2019-09-20] MEDS: SODIUM CHLOR 0.9% PF (SALINE LOCK) 10ML VIAL/SYR IV SCH ×2 (09:35→22:08)
--- NOTE | 2019-09-20 11:58 | NUR ---
I spoke with Mata at [facility] regarding patient's oxygen requirements via the trach collar-he will speak with his respiratory therapist and contact Margie to let her know if they can accept patient with his current oxygen level.
[2019-09-20] MEDS: SODIUM FERR GLUC 62.5MG/5ML 125 MG in SODIUM CHL 0.9% 100 ML IV SCH (12:00)
--- NOTE | 2019-09-20 13:00 | NUR ---
WOUND CARE NURSE NOTIFIED ABOUT THE PATIENT'S BACK OF HEAD HAVING DECUBITUS WITHOUT DRAINAGE BUT NOT STAGEABLE. wOUND NURSE WILL SEE THE WOUND TOMORROW.
--- NOTE | 2019-09-20 14:40 | NUR ---
Respiratory note: SPOKE TO IN REGARDS TO THE PT'S SUTURES STILL BEING IN PLACE. STATED NOT TO WORRY ABOUT THEM.
--- NOTE | 2019-09-20 14:41 | NUR ---
No further vomiting noted . lUNCH HELD UNTIL DR GARCIA COME AND SEE THE PATIENT
--- NOTE | 2019-09-20 15:43 | NUR ---
D/C Planning Placed followed up called to [facility] Ph:( [phone]). Per Luke in Admission at [facility] they are unable to accommodate patients needs at the moment. RADHA Olivares spoke with Mata with [facility] about the oxygen via the trach collar. RADHA advised me Mata will speak with his RT and will follow up. Received followed up called from Mata stating they could only accept patient if he is under 5 L/min oxygen. Per Mata to follow up with him on Monday.
[2019-09-20] MEDS ORDERED: Glucerna 1.2 Cal 1Liter BOTTLE GT SCH (15:45)
--- NOTE | 2019-09-20 18:10 | NUR ---
RT NOTE PT WAS SEEN BY RT FOR HHN TX. PT TOLERATES WELL INLINE WITH COOL AEROSOL. PT IS NOTED TO HAVE A 8.0 SHILEY TECHNOLOGY SALES REPRESENTATIVE TRACH. OBTURATOR IS AT HEAD OF THE BED. SPARE TRACH AT BEDSIDE. PT WAS SUCTIONED FOR SMALL RETURN. VENT IS ON STAND-BY AT BEDSIDE. CONT ORDERED Addendum: 09/20/19 at 1910 by Josette Hall RT Amended: Links added.
--- NOTE | 2019-09-20 20:10 | NUR ---
ELIMINATION MODERATE AMOUNT OF SOFT STOOLS NOTED, CLEANSED, COMPLETE LINENS CHANGED. REPOSITIONED FOR COMFORT.
[2019-09-20] MEDS: INSULIN LANTUS (GLARGINE) 1 /0.01ml (100units/ml) SC SCH (22:09)
--- NOTE | 2019-09-20 22:27 | NUR ---
RT NOTE PT WAS SEEN BY RT FOR HHN TX. PT TOLERATES WELL INLINE WITH COOL AEROSOL. COOL AEROSOL WATER ADEQUATE AT THIS TIME. CHANGE TRACH SPONGES AT THIS TIME. RT HELPED MERLENE SHEPPARD MOVE PT UP IN BED. FAMILY MEMBERS AT BEDSIDE. CONT ORDERED Addendum: 09/20/19 at 2302 by Josette Hall RT Amended: Links added.
[2019-09-21] VITALS (9 sets, daily range): BP systolic 128–145; BP diastolic 80–105
[2019-09-21] MEDS: LEVALBUTEROL HCL 1.25 MG/3 ML NEB NEB SCH ×6 (02:06→22:07)
--- NOTE | 2019-09-21 02:07 | NUR ---
RT NOTE PT WAS SEEN BY RT FOR HHN TX. PT TOLERATES WELL INLINE WITH COOL AEROSOL. TRACH CARE DONE WITHOUT INCIDENT. Addendum: 09/21/19 at 0337 by Josette Hall RT Amended: Links added.
--- NOTE | 2019-09-21 03:02 | NUR ---
Report given to Sherry BLUTN to assume care in [place].
--- NOTE | 2019-09-21 03:10 | NUR ---
I & O Intake = 250 ml, TF w/ nephro carb 200 ml free water Output =900 ml urine
--- NOTE | 2019-09-21 03:12 | NUR ---
ICU patient transferred to [facility] [facility] transferred to [place], room 266 via specialty bed, on rn cardiac and portable 02 accompanied by RN, CCT and RT, on trach collar, with lester catheter draining to a light roxana urine, TF with nephro carb going on, intact PICC line. All patient medications and personal belongings transferred with patient to receiving floor. Patient care transferred to Sherry BLUNT. NOTE: No distress at the time of departure.
--- NOTE | 2019-09-21 03:20 | NUR ---
ICU downgrade from room 109: Patient is A&Ox4 but nonverbal. Pain level 0/10 and currently bedrest. Trach collar attached at 6L/30% sating in the high 90s. Trach originally inserted on 08/28/[address] Friedman; replaced on 09/09/[address] Friedman. Bed locked in lowest position, side rails up x3 on specialty mattress, and call light within reach. Complete CHG bath given and total linens/gown changed. Right NGT running Nephro @ 40 ml/hr (goal) with a residual of 5 ml. Skin: scab from previous peripancreatic drain DOCTORATE OF CHIROPRACTIC; bilateral buttocks/sacrum healing wounds: zguard applied; posterior head scabbing ANGELINE. Patient oriented to new room, staff, and plan of care. Will continue to round and reposition prn.
[2019-09-21] MEDS: metroNIDAZOLE 500MG/100ML 100 ML IV SCH ×3 (06:00→21:29)
[2019-09-21] MEDS: ACCU-CHEK COMFORT CURVE STRIP VI SCH ×5 (06:00→23:43)
[2019-09-21] MEDS: InsuLIN REG 1unit/0.01ml Soln (100units/ml) SC SCH ×5 (06:00→23:43)
[2019-09-21] MEDS: FREE WATER GT SCH ×3 (06:00→21:28)
[2019-09-21 06:02] LABS: Calcium 7.4 mg/dL (8.5-10.1); Potassium 3.3 mmol/L (3.5-5.1)
[2019-09-21 06:06] LABS: BUN/Creatinine Ratio 12.3
[2019-09-21] MEDS: ACETAMINOPHEN 325 MG TAB PO PRN (06:30)
--- NOTE | 2019-09-21 06:30 | NUR ---
Temp 99.7 after cooling measures. 650 mg of Tylenol administered via NGT.
--- NOTE | 2019-09-21 06:35 | NUR ---
Deep trach suction performed. Moderate amount of thick yellow secretions suctioned.
--- NOTE | 2019-09-21 06:45 | NUR ---
Episode of vomiting: Patient started to vomit yellow/green projectile. Previous residual for tube feed was 5 ml at 0315. Tube feed stopped at this time and patient cleaned with gown change.
--- NOTE | 2019-09-21 07:20 | NUR ---
OPENING NOTE SHIT REPORT RECEIVED AND ASSUMED CARE OF PT FROM STEVE
--- NOTE | 2019-09-21 10:00 | NUR ---
PT SITTING IN CHAIR WITH ASSISTANCE OF PHYSICAL THERAPY. PT TOLERATED TRANSFER TO CHAIR AND TIME IN CHAIR WELL.
[2019-09-21] MEDS: FLUCONAZOLE 200MG/100ML 100 ML IV SCH ×2 (10:25→11:33)
[2019-09-21] MEDS: levoFLOXacin 750MG 150 ML IV SCH (10:25)
[2019-09-21] MEDS: PANTOPRAZOLE 40 MG/10 ML VIAL INJ IV SCH ×2 (10:25→21:29)
[2019-09-21] MEDS: SODIUM CHLOR 0.9% PF (SALINE LOCK) 10ML VIAL/SYR IV SCH ×2 (10:26→21:29)
--- NOTE | 2019-09-21 14:40 | NUR ---
DR. ANDERSON AT BEDSIDE ORDERS RECEIVED
[2019-09-21] MEDS ORDERED: POTASSIUM CHL 20MEQ/100ML 100 ML IV ONE (15:00)
[2019-09-21] MEDS: SODIUM FERR GLUC 62.5MG/5ML 125 MG in SODIUM CHL 0.9% 100 ML IV SCH (16:21)
--- NOTE | 2019-09-21 18:27 | NUR ---
PT IS EXHIBITING WITH NAUSEA AND FEELINGS OF NEEDING TO VOMIT. HEAD OF THE BED UP, SUCTION, AND EMESIS BAG AT BEDSIDE
--- NOTE | 2019-09-21 18:30 | NUR ---
HOSPITALIST CALLED REGARDING NAUSEA AND VOMITING. AWAITING CALL BACK
--- NOTE | 2019-09-21 18:32 | NUR ---
HOSPITALIST CHANELLE CALDERON CALLED BACK ORDERS RECEIVED
[2019-09-21] MEDS ORDERED: ONDANSETRON HCL 4 MG/2 ML VIAL ONE (18:33)
[2019-09-21] MEDS ORDERED: ONDANSETRON HCL 4 MG/2 ML VIAL IV PRN (18:45)
--- NOTE | 2019-09-21 19:20 | NUR ---
Opening Shift Note RECEIVED REPORT FROM DAY NURSE. ASSUMED CARE OF PT IN ROOM 266. PT AWAKE AND ALERT. TRACH COLLAR SET AND PT HAS NO S/S OF RESPIRATORY DISTRESS. BREATHING EVEN AND UNLABORED. PT NOT VERBALIZING. COMPLETE PHYSICAL ASSESSMENT UNDER INTERVENTIONS. PT HAS CALL LIGHT WITHIN REACH AND BED LOCKED IN PLACE. PT AWARE OF POC FOR THE NIGHT, WILL CONTINUE TO MONITOR.
--- NOTE | 2019-09-21 19:43 | NUR ---
CLOSING NOTE SHIFT REPORT GIVEN AND CARE ENDORSED TO ALAN BLUNT
[2019-09-21] MEDS: METOCLOPRAMIDE HCL 5MG/ml INJ 2ml VIAL IV SCH (21:29)
[2019-09-21] MEDS: INSULIN LANTUS (GLARGINE) 1 /0.01ml (100units/ml) SC SCH (21:30)
[2019-09-22] VITALS: BP 130/75
[2019-09-22] MEDS: LEVALBUTEROL HCL 1.25 MG/3 ML NEB NEB SCH ×6 (03:15→22:00)
--- NOTE | 2019-09-22 03:34 | NUR ---
TRACH CARE DONE, DRESSING CHANGED. NO SKIN BREAK DOWN OR REDNESS NOTED. AIRWAY SECURED AND PATENT. EXTRA TRACH KIT AT THE BEDSIDE
[2019-09-22 04:00] VITALS: BP 153/84
--- NOTE | 2019-09-22 04:19 | NUR ---
BM GOWN CHANGED AND COMPLETE BED LINEN CHANGE. PT CONNECTED BACK TO MONITOR.
[2019-09-22] MEDS: FREE WATER GT SCH ×3 (06:00→21:24)
[2019-09-22] MEDS: ACCU-CHEK COMFORT CURVE STRIP VI SCH ×3 (06:00→17:35)
[2019-09-22] MEDS: metroNIDAZOLE 500MG/100ML 100 ML IV SCH ×3 (06:00→21:24)
[2019-09-22] MEDS: METOCLOPRAMIDE HCL 5MG/ml INJ 2ml VIAL IV SCH ×3 (06:00→21:25)
[2019-09-22] MEDS: LABETALOL HCL 5 MG/ML ML 20ML VIAL IV PRN ×3 (06:40→22:10)
[2019-09-22] MEDS: InsuLIN REG 1unit/0.01ml Soln (100units/ml) SC SCH ×3 (06:52→17:35)
--- NOTE | 2019-09-22 07:34 | NUR ---
ENDORSED CARE TO DAY NURSE PATIENT APPEARS TO BE RESTING. NO DISTRESS NOTED.
[2019-09-22 07:53] VITALS: BP 113/77
--- NOTE | 2019-09-22 08:00 | NUR ---
Opening Shift Note Assumed care of patient, awake and alert, lying on the bed. No S/S of distress/SOB or pain noted. On Trach collar mask O2 Neb 28% flow 8 LPM, O2 saturation 96-98%, productive cough, mouth care provided, reposition as well. No abdominal distension noted, has bowel sound, NG tube at right nare luz elena 65. Communication by reading Lips. Instructed on POC and to call for assist PRN, will continue to monitor for changes Q1hr and PRN.
[2019-09-22] MEDS: PANTOPRAZOLE 40 MG/10 ML VIAL INJ IV SCH ×2 (09:08→21:24)
[2019-09-22] MEDS: levoFLOXacin 750MG 150 ML IV SCH (09:08)
--- NOTE | 2019-09-22 09:59 | NUR ---
NG tube no residual left, position checked. Patient has bowel sound, stated that would like to drink some water, try with the ICE chips at this time, will continue to monitor and care.
[2019-09-22] MEDS: FLUCONAZOLE 200MG/100ML 100 ML IV SCH ×2 (10:02→10:46)
[2019-09-22] MEDS: SODIUM CHLOR 0.9% PF (SALINE LOCK) 10ML VIAL/SYR IV SCH ×2 (10:03→21:25)
--- NOTE | 2019-09-22 11:40 | NUR ---
Mouth care provided, patient sitting up with high hu position, NG tube checked for position and no residual left, only air 80 ml, patient stated that he is hungry, would like to drink some water and eat, feed free water at this time for 100 ml, plan of care discussed with patient, will come back and check the residual in 1 hour, no complaining of N/V noted at this time.
[2019-09-22 12:00] VITALS: BP 145/92
[2019-09-22] MEDS: SODIUM FERR GLUC 62.5MG/5ML 125 MG in SODIUM CHL 0.9% 100 ML IV SCH (12:33)
--- NOTE | 2019-09-22 12:42 | NUR ---
After 1 hour of feeding free water (100ml), got 20 ml left (light green color), no complaining of N/V noted. Will continue to monitor.
[2019-09-22] MEDS ORDERED: Jevity 1.2 Cal/Fiber 1 Liter GT SCH (14:30)
--- NOTE | 2019-09-22 14:30 | NUR ---
Dr. Forbes at the bedside, seen and examined patient at this time. Received changing tube feeding to Jevity and okay for Ice chips. Will continue to monitor and care, Will remind PT for exercising.
--- NOTE | 2019-09-22 15:11 | NUR ---
PATIENT DID NOT WANT TO GET OOB TODAY BUT WAS GIVEN THERBANDS TIED TO BED RAIL TO DO STRENGTH EXERCISES. MERLENE LACEY WAS NOTIFIED. Addendum: 09/22/19 at 1512 by MARCIA HSRESTHA PTT Amended: Links added.
[2019-09-22 15:59] VITALS: BP 125/85
--- NOTE | 2019-09-22 16:00 | NUR ---
Mouth care provided, completed linen changed, reposition as well.
--- NOTE | 2019-09-22 16:20 | NUR ---
NG tube checked, got content with bile color around 20 ml left, started tube feeding at this time, patient made aware, sitting up with high hu position, watching TV at this time. Will continue to monitor residual, patient made aware will call nurse when feeding full or abdominal distention or feeling N/V.
--- NOTE | 2019-09-22 18:10 | NUR ---
Patient sitting up on the bed, watching TV, his families at the bedside. No N/V noted. HR 95-110 /min, SBP 130-160 mmHg, RR 26-36/min, coughing out by himself well, O2 saturation stable with O2 Neb 28% 8 LPM 95-98%, no Fever noted.
--- NOTE | 2019-09-22 19:25 | NUR ---
Opening Shift Note RECEIVED REPORT FROM DAY NURSE. ASSUMED CARE OF PT IN ROOM 266. PT AWAKE AND ALERT. TRACHEOSTOMY WITH COLLAR WITH NO S/S OF RESPIRATORY DISTRESS. PT UPDATED ON POC FOR THE NIGHT. BED LOCKED FOR SAFETY AND CALL LIGHT WITHIN REACH. RUIZ DRAINING TO GRAVITY. COMPLETE PHYSICAL ASSESSMENT UNDER INTERVENTIONS. WILL CONTINUE TO MONITOR.
[2019-09-22 20:00] VITALS: BP 149/92
[2019-09-22] MEDS: INSULIN LANTUS (GLARGINE) 1 /0.01ml (100units/ml) SC SCH (21:25)
--- NOTE | 2019-09-22 22:20 | NUR ---
BM PT CHANGED. NEW GOWN AND BED PADS.
[2019-09-23] VITALS (7 sets, daily range): BP systolic 127–154; BP diastolic 73–106
[2019-09-23] MEDS: InsuLIN REG 1unit/0.01ml Soln (100units/ml) SC SCH ×4 (01:00→17:44)
[2019-09-23] MEDS: LEVALBUTEROL HCL 1.25 MG/3 ML NEB NEB SCH ×6 (02:25→22:27)
[2019-09-23] MEDS: metroNIDAZOLE 500MG/100ML 100 ML IV SCH ×3 (05:16→21:51)
[2019-09-23] MEDS: FREE WATER GT SCH ×3 (05:16→21:50)
[2019-09-23] MEDS: METOCLOPRAMIDE HCL 5MG/ml INJ 2ml VIAL IV SCH (05:16)
[2019-09-23 06:24] LABS: BUN/Creatinine Ratio 9.9; Calcium 7.7 mg/dL (8.5-10.1); Potassium 3.1 mmol/L (3.5-5.1)
[2019-09-23] MEDS: ACCU-CHEK COMFORT CURVE STRIP VI SCH ×4 (06:29→17:43)
--- NOTE | 2019-09-23 06:35 | NUR ---
K LEVEL PAGED REGARDING MORNING K LAB VALUE.
--- NOTE | 2019-09-23 06:40 | NUR ---
HOSPITALIST CALLED BACK ORDERS GIVEN AND VERIFIED. WILL CARRY OUT NEW ORDERS.
[2019-09-23] MEDS ORDERED: POTASSIUM CHL 20MEQ/100ML 100 ML IV ONE ×2 (06:45→08:46)
--- NOTE | 2019-09-23 07:30 | NUR ---
RECEIVED THE PATIENT TRYING TO GET OUT OF THE BED, ON SPECIALTY BED, EMPLOYMENT APPEALS EXAMINER WORKING WITH HIM, RUIZ TO GRAVITY, PICC LINE TO THE DOMENICO WITH ANTIBIOTICS INFUSING, AND POTASSIUM INFUSING, BY THE IV PUMP, NGT TO THE RT SNARE WITH JEVITY 1.2 INFUSING BY THE FEEDING PUMP, AT 30ML/HR, O2 BY THE TRACH COLLAR 7L AND 28%, SIZE 8 SHILEY TRACH
--- NOTE | 2019-09-23 07:54 | NUR ---
ENDORSED CARE TO DAY NURSE. PT AWAKE AND ALERT. NO S/S OF RESPIRATORY DISTRESS NOTED.
--- NOTE | 2019-09-23 08:10 | NUR ---
TRYING TO GET OUT OF THE BED, EXPRESS TO HIM THAT HE HAS TO WAIT FOR PT TO GET HIM UP
[2019-09-23] MEDS: PANTOPRAZOLE 40 MG/10 ML VIAL INJ IV SCH ×2 (09:42→21:51)
--- NOTE | 2019-09-23 09:42 | NUR ---
EXPLAIN MEDICATIONS TO THE PATIENT REGARDING THE PATIENT DOSAGE,USAGE AND THE SIDE EFFECT SHOOK HIS HEAD OKAY AND MEDS GIVEN ORDERED
[2019-09-23] MEDS: SODIUM CHLOR 0.9% PF (SALINE LOCK) 10ML VIAL/SYR IV SCH ×2 (09:48→21:51)
[2019-09-23] MEDS: FLUCONAZOLE 200MG/100ML 100 ML IV SCH ×2 (09:48→10:35)
--- NOTE | 2019-09-23 10:55 | NUR ---
BREATHING TREATMENT BEING DONE
[2019-09-23] MEDS: levoFLOXacin 750MG 150 ML IV SCH (11:21)
--- NOTE | 2019-09-23 11:30 | NUR ---
DR ROCHA INTO SEE THE PATIENT
[2019-09-23] MEDS ORDERED: METOCLOPRAMIDE HCL 5MG/ml INJ 2ml VIAL IV PRN (12:00)
--- NOTE | 2019-09-23 12:00 | NUR ---
DR KEMPHA IN TO VISIT WITH THE PATIENT AND STATES TO SEE IF HE CAN EAT AND PATIENT WAS GIVEN APPLESAUCE AND ATE IT WITHOUT ANY PROBLEM EXCEPT HE EATS REALLY FAST , PLACED ON A PUREE DIET
[2019-09-23] MEDS: SODIUM FERR GLUC 62.5MG/5ML 125 MG in SODIUM CHL 0.9% 100 ML IV SCH (12:20)
--- NOTE | 2019-09-23 12:20 | NUR ---
NO CHANGES WITH THE PATIENT, ABLE TO EAT ICE CHIPS WITH OUT ANY PROBLEM
--- NOTE | 2019-09-23 13:45 | NUR ---
FRIENDS IN TO VISIT WITH THE PATIENT
--- NOTE | 2019-09-23 14:30 | NUR ---
SISTER INTO SEE THE PATIENT
--- NOTE | 2019-09-23 14:51 | NUR ---
Nutrition Follow-up Notes Pt weight is 101.6 kg today. Pt is extubated with no relative at bedside when rounded this morning. Per RN pt diet is being upgraded to pureed nectar and thickened liquids today. Pt in no noted distress or discomfort per RN doc. Will continue to monitor and followup prn. Est. Needs based on AdBW(76 kg): 1500 kcal to 1900 kcal (20-25 kcal/kgAdBW), 91 gms to 114 gms pro (1.2-1.5 gms/kgAdBW reassessed d/t ESRD on HD, severe hypoalbuminemia). Will continue to monitor pertinent labs and reassess nutrient need prn. Labs: Pot 3.1 L, Cl 114 H, Serum glucose 136 H, Ca 7.7 L,Alb 2.0 L GI: Last BM noted on 09/21/19 per RN doc. Skin: Brice scale 16, mod risk, multiple scabs, maceration pressure ulcer to L medial buttock, mucosal ulcer to tongue. Pls refer to latest stock mixer's notes for further details. PES: 1) Increased nutrient needs r/t acute/chronic medical condition aeb intubated, sedated, severe hypoalbuminemia, NPO. 2) Altered nutrition related lab values r/t current/chronic medical condition aeb hyperglycemia, elev. renal labs, HbA1c, LFTs, lipase, hypocapnia, hypocalcemia and severe hypoalbuminemia. (partially resolved) 3) Obesity r/t food intake more than body requirement aeb 218% IBW, BMI 57.7 kg/m2 and increased body adiposity Will continue to monitor NPO status, EN tolerance, skin status, pertinent labs and weight trend. F/u in 2 to 3 days. Recommendations: 1) If pt NPO for 48 hours, resume EN support of Nepro with Carb Steady to target rate @40 ml/hr. 2) Consider providing Prostat 1 pkt QID, with improved RFTs, to meet protein needs. 3) Advance gradually to CCHO diet when medically appropriate. 4) Refer pt to CDE/RD for further nutrition education and weight monitoring upon discharge. 5) Continue current plan of care.
--- NOTE | 2019-09-23 15:33 | NUR ---
RT IN DOING TRACH CARE AND EXPLAINING IT TO THE SISTER WHO IS AT THE BEDSIDE
--- NOTE | 2019-09-23 15:59 | NUR ---
DR GARCIA CALLED AND MADE AWARE OF THE ABG RESULTS AND STATED TO DO IT AGAIN AT 1800 Addendum: 09/23/19 at 1653 by Lorraine Zarate RN DISREGARD THE WRONG PATIENT
--- NOTE | 2019-09-23 16:30 | NUR ---
SITTING UP IN THE BED EXPLAIN TO HIM HOW TO USE THE EXERCISE BANDS AGAIN
--- NOTE | 2019-09-23 16:52 | NUR ---
STOPPED NGT FEEDING TO SEE IF THE PATIENT WILL EAT HIS DINNER, WHEN IT COMES
--- NOTE | 2019-09-23 17:02 | NUR ---
FAMILY ENCOURAGING THE PATIENT TO USE THE EXERCISE BANDS
--- NOTE | 2019-09-23 18:00 | NUR ---
REPOSITIONED IN THE BED AND SITTING UP IN THE BED LIKE HE IS SITTING UP IN THE CHAIR , O2 BY THE TRACH COLLAR, ON A SPECIALTY BED, RUIZ TO GRAVITY, NGT TO THE RT SNARE CLAMPED AND NO RESIDUAL WHEN CHECKED, TALKING TO HIS FAMILY BUT A LITTLE HARD TO UNDERSTAND, PT WORKING WITH THE PATIENT, SUCTIONING, PATIENT, NO COMPLAINTS OF PAIN, WILL CONTINUE TO MONITOR AND GIVE REPORT TO THE NEXT SHIFT
--- NOTE | 2019-09-23 19:15 | NUR ---
OPENING NOTE ASSUMED CARE OF PT IN ROOM 266. RECEIVED REPORT FROM DAY NURSE. PT AWAKE AND ALERT. TRACH COLLAR IN PLACE AND NO S/S OF RESPIRATORY DISTRESS WITH BREATHING EVEN AND UNLABORED. FEEDING CURRENTLY OFF PT FROM REPORT ATE DINNER WITH ASSISTANCE. COMPLETE PHYSICAL ASSESSMENT UNDER INTERVENTIONS. CURRENTLY ON SPECIALTY MATTRESS. CALL LIGHT WITHIN REACH AND BED LOCKED IN PLACE. WILL CONTINUE TO MONITOR.
[2019-09-23] MEDS: INSULIN LANTUS (GLARGINE) 1 /0.01ml (100units/ml) SC SCH (21:52)
[2019-09-24] VITALS: BP 147/98
--- NOTE | 2019-09-24 01:00 | NUR ---
PT APPEARS TO BE RESTING WILL CONTINUE TO MONITOR
[2019-09-24] MEDS: LEVALBUTEROL HCL 1.25 MG/3 ML NEB NEB SCH ×6 (02:18→22:21)
--- NOTE | 2019-09-24 05:56 | NUR ---
0Respiratory note: SUCTIONED PT VIA TRACH W/O ANY ADVERSE REACTIONS. WILL CONTINUE TO MONITOR PT.
[2019-09-24] MEDS: metroNIDAZOLE 500MG/100ML 100 ML IV SCH ×2 (06:22→13:49)
[2019-09-24] MEDS: FREE WATER GT SCH ×2 (06:22→13:49)
[2019-09-24] MEDS: InsuLIN REG 1unit/0.01ml Soln (100units/ml) SC SCH ×4 (06:23→18:00)
[2019-09-24] MEDS: ACCU-CHEK COMFORT CURVE STRIP VI SCH ×4 (06:23→18:07)
--- NOTE | 2019-09-24 06:49 | NUR ---
MORNING LAB RESULTS- PENDING
[2019-09-24 06:58] LABS: Hematocrit 27.7 % (41.0-53.0); Hemoglobin 8.9 g/dL (13.5-17.5); Mean Corpuscular Hemoglobin 28.5 pg (28.0-32.0); Mean Corpuscular Hgb Conc. 32.1 g/dL (32.0-36.0); Mean Corpuscular Volume 88.7 fL (80.0-100.0); Platelet Count (auto) 255 10^3/uL (140-450); Red Blood Cells 3.12 10^6/uL (4.5-5.90); White Blood Cell 6.8 10^3/uL (4.4-10.8)
[2019-09-24 07:10] LABS: Calcium 7.6 mg/dL (8.5-10.1); Potassium 3.8 mmol/L (3.5-5.1)
[2019-09-24 07:12] LABS: BUN/Creatinine Ratio 9.4; Band Neutrophils % (manual) 0; Basophils % (manual) 0 (0.0-2.0); Blast Cells 0; Promyelocytes % 0; Reactive Lymphocytes 0
[2019-09-24 07:15] VITALS: BP 138/87
--- NOTE | 2019-09-24 07:30 | NUR ---
RECEIVED PATIENT SEMI FOWLERS IN BED, AWAKEN TO NAME BEING CALLED A/O BUT WENT BACK TO SLEEP, O2 BY THE TRACH COLLAR AT 7L AND 28%, HAS SIZE 8 SHILEY TRACH, ON SPECIALTY BED, RUIZ TO GRAVITY, PICC LINE TO THE DOMENICO WITH 3 LUMENS ALL FLUSHED AND PATENT, NGT TO THE RT SNARE FLUSHED AND PATIENT NO RESIDUAL
--- NOTE | 2019-09-24 07:39 | NUR ---
ENDORSED CARE TO DAY NURSE PT APPEARS TO BE RESTING.
[2019-09-24 07:53] LABS: Eosinophils % (manual) 4 (0-7); Lymphocytes % (manual) 19 (10.0-50.0); Metamyelocytes % 1; Monocytes % (manual) 10 (0-12); Myelocytes % 1
[2019-09-24 08:00] VITALS: BP 150/95
--- NOTE | 2019-09-24 08:30 | NUR ---
AWAKEN TO EAT HIS BREAKFAST BUT REFUSED
--- NOTE | 2019-09-24 09:30 | NUR ---
LYING IN BED WITH EYES CLOSED
[2019-09-24] MEDS: SODIUM CHLOR 0.9% PF (SALINE LOCK) 10ML VIAL/SYR IV SCH ×2 (10:26→22:28)
[2019-09-24] MEDS: PANTOPRAZOLE 40 MG/10 ML VIAL INJ IV SCH ×2 (10:26→22:28)
[2019-09-24] MEDS: FLUCONAZOLE 200MG/100ML 100 ML IV SCH ×2 (10:26→11:32)
[2019-09-24] MEDS: levoFLOXacin 750MG 150 ML IV SCH (10:26)
--- NOTE | 2019-09-24 10:26 | NUR ---
EXPLAIN MEDICATIONS TO THE PATIENT REGARDING THE DOSAGE, USAGE AND THE SIDE EFFECTS, STATE HE UNDERSTOOD AND MEDS GIVEN ORDERED
--- NOTE | 2019-09-24 11:19 | NUR ---
SITTING UP IN THE BED EATING ICE CHIPS NO COMPLAINTS OF NAUSEA OR VOMITING
--- NOTE | 2019-09-24 11:40 | NUR ---
WOUND CARE NURSE IN TO SEE THE PATIENT
--- NOTE | 2019-09-24 11:46 | NUR ---
WOUND CARE NOTE: Wound care in to see patient for reevaluation of wounds and skin integrity monitoring. Patient continue resting on air bed in SDU Rm. 266. Patient is on O2 via trach collar. Patient is awake and able to follow simple direction. He's able to assist in turning and repositioning. His Brice score is 13. Patient is in no stated pain at this time and he appears to be in no pain using [place] Faces Pain Scale. Patient's abrasions to distal nostril is much improved and display intact pink skin. Distal chin abrasion still has 0.8x2.5cm intact brown, dry, scab; are is clean and dry, left open to air. Mucosal ulcer to patient's distal tongue continue to improve, with pink/red area,no open ulceration noted. Patient is receiving routine oral care with oral mouth wash. Patient has rectal tube has been discontinued. Patient's moisture assisted dermatitis to sacral, buttocks is also improved, display intact skin with pink, blanchable skin. Kellie care given. and applied Barrier cream as ordered. New photograph of mentioned wounds/skin issue are taken for reference. Patient tolerated well, repositioned for comfort facing his Rt. side, redistributed pressure points with pillows. Patient tolerated well. Bed in low position call mike on hand with all safety precautions in placed. RECOMMENDATION: Continuation of all wound care orders prescribed by MD, continue with skin/wound plan of care, continue monitoring by wound care while Brice score is <18. Addendum: 09/24/19 at 1554 by Ynes Ellsworth RN Amended: Links added.
[2019-09-24 11:48] VITALS: BP 144/96
--- NOTE | 2019-09-24 12:00 | NUR ---
CHANGE THE O2 SETTING TO TRACH COLLAR AT 4L AND 28%
[2019-09-24] MEDS: SODIUM FERR GLUC 62.5MG/5ML 125 MG in SODIUM CHL 0.9% 100 ML IV SCH (12:06)
--- NOTE | 2019-09-24 12:15 | NUR ---
SITTING UP IN THE BED WATCHING TV
--- NOTE | 2019-09-24 13:00 | NUR ---
WAS FEED HIS LUNCH ATE ABOUT 20%
--- NOTE | 2019-09-24 13:20 | NUR ---
PT WORKING WITH THE PATIENT, DOING EXERCISES
--- NOTE | 2019-09-24 14:15 | NUR ---
DR KEMPHA IN TO SEE THE PATIENT, AND WROTE NEW ORDERS,
--- NOTE | 2019-09-24 14:48 | NUR ---
Respiratory note: SPOKE TO DR. GARCIA ABOUT PT SUTURES AND PER DR GARCIA, " THE SNIFF CAN HANDLE THAT THEMSELVES."
--- NOTE | 2019-09-24 15:25 | NUR ---
SITTING UP IN THE BED, FAMILY AT THE BESIDE WITH THE PATIENT
[2019-09-24 16:00] VITALS: BP 133/94
--- NOTE | 2019-09-24 16:27 | NUR ---
D/C Planning Placed followed up called to [facility]. Left Leana message regarding patient oxygen being 4 l/min. Waiting on Mata to return my call.
--- NOTE | 2019-09-24 16:30 | NUR ---
SITTING UP IN THE BED, SON AT THE BEDSIDE, PATIENT SLEEPING
--- NOTE | 2019-09-24 17:30 | NUR ---
PATIENT SLEEPING, SON AT THE BEDSIDE, DR ROCHA IN TO SEE THE PATIENT
--- NOTE | 2019-09-24 18:28 | NUR ---
SON LEFT AND WENT HOME, PATIENT SITTING UP IN THE BED SLEEPING, O2 AT 4L AND 28% ON THE TRACH COLLAR, SIZE 8 SHILEY TRACH INTACT, ON A SPECIALTY BED, PICC LINE 3 LUMEN TO THE JONATHAN PORTS FLUSHED AND PATENT, NO SIGNS OF PAIN, WILL CONTINUE TO MONITOR AND GIVE REPORT TO THE NEXT SHIFT
[2019-09-24 20:00] VITALS: BP 152/90
--- NOTE | 2019-09-24 20:00 | NUR ---
SHIFT OPENING NOTE RECEIVED PATIENT AWAKE, ALERT AND ORIENTED X4. NO SOB, DISTRESS OR PAIN NOTED. ON TRACH COLLAR SIZE 8 SHILEY 4L, 28% FI02 POX 97%. RUIZ CATH DRAINING YELLOW URINE TO GRAVITY. PICC RIGHT UPPER ARM TKO. PHYSICAL ASSESSMENT COMPLETED, SEE INTERVENTIONS. INSTRUCTED ON POC AND TO CALL FOR ASSIST NEEDED. BED IS IN THE LOWEST POSITION WITH SIDE RAILS UP X2, CALL LIGHT IS WITHIN REACH.
--- NOTE | 2019-09-24 20:35 | NUR ---
FAMILY FRIEND AT BEDSIDE VISITING
[2019-09-24] MEDS: metroNIDAZOLE 500 MG TAB PO SCH (22:28)
[2019-09-24] MEDS: INSULIN LANTUS (GLARGINE) 1 /0.01ml (100units/ml) SC SCH (22:28)
[2019-09-25] VITALS (7 sets, daily range): BP systolic 124–144; BP diastolic 42–96
--- NOTE | 2019-09-25 00:05 | NUR ---
MORNING HYGIENE CARE PATIENT HAD AN EPISODE OF BOWEL INCONTINENCE. MARIA ELENA CARE PERFORMED. FULL BED BATH PERFORMED WITH CHG WIPES AND WARM SOAPY WASH CLOTHES. GOWN CHANGED. FULL LINEN CHANGED. PATIENT REPOSITIONED FOR COMFORT. TOLERATED IT WELL.
[2019-09-25] MEDS: ACCU-CHEK COMFORT CURVE STRIP VI SCH ×4 (00:07→17:09)
--- NOTE | 2019-09-25 00:10 | NUR ---
PICC Line Dressing Changes PICC line dressing change done to left upper arm with a sterile technique. Cleansed with chloraprep scrub/betadine. Stat lock, and bio-patch as available. Occlusive dressing applied.
[2019-09-25] MEDS: LEVALBUTEROL HCL 1.25 MG/3 ML NEB NEB SCH ×6 (02:19→22:28)
[2019-09-25] MEDS: metroNIDAZOLE 500 MG TAB PO SCH ×3 (05:33→21:26)
[2019-09-25] MEDS: InsuLIN REG 1unit/0.01ml Soln (100units/ml) SC SCH ×4 (05:34→17:09)
--- NOTE | 2019-09-25 06:45 | NUR ---
END OF SHIFT PATIENT LAYING IN BED WITH EYES OPEN. ON 4L TRACH COLLAR POX 99%. NO SOB, DISTRESS OR PAIN NOTED. WILL GIVE REPORT AND ENDORSE CARE TO THE DAY SHIFT RN.
--- NOTE | 2019-09-25 07:45 | NUR ---
Opening Shift Note Assumed care of patient, patient sleeping, woke up by calling his name, awake and alert, communication by reading lips. No S/S of distress/SOB or pain noted, on O2 Neb 28% with 4 LPM with trach collar mask. Instructed on POC and to call for assist PRN, will continue to monitor for changes Q1hr and PRN. Patient lying on the special mattress. Mouth care provided, patient follow direction.
--- NOTE | 2019-09-25 08:00 | NUR ---
Reposition, sitting up with high hu position, breakfast tray provided. Informed patient that he needs to eat slowly, don't do too fast due to aspiration precaution, patient verbalized understanding.
--- NOTE | 2019-09-25 08:40 | NUR ---
Patient able to feed himself, no aspiration noted, no complaining of N/V noted, will sitting up a little bit, watching TV at this time. Patient had breakfast around 75%.
--- NOTE | 2019-09-25 08:59 | NUR ---
D/C Planning Placed followed up called to [facility] spoke to Anupama. Nahid advised me to faxed updated notes with oxygen progress. Will follow up.
[2019-09-25] MEDS: FLUCONAZOLE 200MG/100ML 100 ML IV SCH ×2 (09:48→10:53)
[2019-09-25] MEDS: PANTOPRAZOLE 40 MG/10 ML VIAL INJ IV SCH (09:48)
[2019-09-25] MEDS: levoFLOXacin 750MG 150 ML IV SCH (09:48)
[2019-09-25] MEDS: SODIUM CHLOR 0.9% PF (SALINE LOCK) 10ML VIAL/SYR IV SCH ×2 (09:49→21:26)
--- NOTE | 2019-09-25 10:11 | NUR ---
Patient lying on the bed with elevated of bed, sleeping at this time.
--- NOTE | 2019-09-25 11:20 | NUR ---
PT at the bedside, patient sitting on the chair at this time, while exercising HR 120-140 /min, patient verbalized will do exercise and sitting on the chair for Lunch.
--- NOTE | 2019-09-25 11:35 | NUR ---
Dr. Jackman at the bedside, seen and examined patient at this time, plan of care discussed with patient, received new orders. If patient able to transfer to LTAC today, okay to remove PICC line. Will continue to monitor and care.
--- NOTE | 2019-09-25 12:25 | NUR ---
Received called from [facility] advising me patient does not meet criteria for their sub acute rehab and they would see if they can place him under skill. Will follow up.
--- NOTE | 2019-09-25 12:35 | NUR ---
Lunch tray provided, reminded patient to eat slow, patient made aware. Patient stated that doesn't like Pureed diet. Will continue to monitor and care.
--- NOTE | 2019-09-25 12:50 | NUR ---
Dr. Diaz at the bedside, seen and examined patient at this time, plan of care discussed with patient and RT. possible try speaking valve.
--- NOTE | 2019-09-25 14:18 | NUR ---
At 2 pm, patient went back to bed with 1 PT assist. Patient able to move and helping slide him up on the bed well. Patient had BM with green color and soft, perineal care provided, applied Z guard cream around rectal area, complete linen changed. Mouth care provided, suction provided as well. Patient taking a nap at this time.
--- NOTE | 2019-09-25 17:30 | NUR ---
His friend and family at the bedside. Patient watching TV at this time.
[2019-09-25] MEDS: FERROUS SULFATE 325 MG TAB PO SCH (18:00)
--- NOTE | 2019-09-25 18:30 | NUR ---
RT NOTE PT WAS SEEN BY RT FOR HHN TX. PT IS EATING EVENING MEAL. RT WILL RETURN.
--- NOTE | 2019-09-25 18:45 | NUR ---
Patient sitting up on the bed for Dinner, no aspiration noted.
--- NOTE | 2019-09-25 19:05 | NUR ---
RT NOTE PT WAS SEEN BY RT FOR HHN TX. PT TOLERATES WELL INLINE VIA COOL AEROSOL AND TRACH COLLAR. NO ADVERSE REACTION NOTED. PT HAS A NOTED 8.0 SHILEY PRINT PRODUCTION MANAGER TRACH. THERE IS A SPARE TRACH AT BEDSIDE. OBTURATOR AT HEAD OF BED. VENT V8 AT BEDSIDE ON STANDBY PER ORDERS. PT IS ON COOL AEROSOL AT 6L/28%. WATER LEVEL IS ADEQUATE AT THIS TIME. CONT ORDERED Addendum: 09/25/19 at 1926 by Josette Hall RT Amended: Links added.
--- NOTE | 2019-09-25 20:00 | NUR ---
SHIFT OPENING NOTE RECEIVED PATIENT AWAKE, ALERT AND ORIENTED X4. NO SOB, DISTRESS OR PAIN NOTED. ON TRACH COLLAR SIZE 8 SHILEY 6L, 28% FI02 POX 99%. RUIZ CATH DRAINING YELLOW URINE TO GRAVITY. PICC RIGHT UPPER ARM TKO. PHYSICAL ASSESSMENT COMPLETED, SEE INTERVENTIONS. INSTRUCTED ON POC AND TO CALL FOR ASSIST NEEDED. BED IS IN THE LOWEST POSITION WITH SIDE RAILS UP X2, CALL LIGHT IS WITHIN REACH.
[2019-09-25] MEDS: INSULIN LANTUS (GLARGINE) 1 /0.01ml (100units/ml) SC SCH (21:32)
--- NOTE | 2019-09-25 22:24 | NUR ---
RT NOTE PT WAS SEEN BY RT FOR HHN TX. PT TOLERATES WELL VIA TRACH COLLAR. PT DENIES SUCTION AT THIS TIME Addendum: 09/26/19 at 0009 by Josette Hall RT Amended: Links added.
[2019-09-26] VITALS: BP 134/88
[2019-09-26] MEDS: ACCU-CHEK COMFORT CURVE STRIP VI SCH ×5 (00:55→23:41)
--- NOTE | 2019-09-26 01:25 | NUR ---
MORNING HYGIENE CARE FULL BED BATH PERFORMED USING CHG WIPES AND WARM SOAPY WASH CLOTHES. GOWN CHANGED. ORAL CARE DONE. PATIENT WAS INCONTINENT OF BOWEL, MARIA ELENA CARE PERFORMED. NO SKIN BREAKDOWN NOTED. FULL LINEN CHANGED. PATIENT REPOSITIONED FOR COMFORT. TOLERATED IT WELL.
[2019-09-26] MEDS: LEVALBUTEROL HCL 1.25 MG/3 ML NEB NEB SCH ×6 (02:08→22:17)
--- NOTE | 2019-09-26 02:12 | NUR ---
RT NOTE PT WAS SEEN BY RT FOR HHN TX. PT TOLERATES WELL INLINE WITH COOL AEROSOL. NO ADVERSE REACTION NOTED. Addendum: 09/26/19 at 0249 by Josette Hall RT Amended: Links added.
--- NOTE | 2019-09-26 02:22 | NUR ---
Respiratory note: TRACH CARE DONE AT THIS TIME USING STERILE TECHNIQUE AND WITHOUT INCIDENT. NEW CLEAN, DRY DRAIN SPONGES PLACED ON STOMA TIME NEW COOL AEROSOL BOTTLE AND TRACH MASK, CHANGED AT THIS TIME. PT SXD VIA TRACH FOR SCANT HOFFMAN.
[2019-09-26 04:00] VITALS: BP 150/112
[2019-09-26] MEDS: InsuLIN REG 1unit/0.01ml Soln (100units/ml) SC SCH ×5 (05:13→23:41)
[2019-09-26] MEDS: metroNIDAZOLE 500 MG TAB PO SCH ×3 (05:14→21:28)
--- NOTE | 2019-09-26 06:50 | NUR ---
END OF SHIFT PATIENT LAYING IN BED WITH EYES OPEN. ON 6L TRACH COLLAR POX 97%. NO SOB, DISTRESS OR PAIN NOTED. WILL GIVE REPORT AND ENDORSE CARE TO THE DAY SHIFT RN.
--- NOTE | 2019-09-26 07:20 | NUR ---
Opening Shift Note Assumed care of patient, awake and alert, communication by reading Lips, patient follow direction. No S/S of distress/SOB or pain noted. Patient has special mattress, able to turn himself on the bed. Instructed on POC and to call for assist PRN, will continue to monitor for changes Q1hr and PRN.
[2019-09-26 08:00] VITALS: BP 149/95
--- NOTE | 2019-09-26 08:19 | NUR ---
Patient had BM, soft and green color. Perineal care provided, complete linen changed, applied z guard cream at rectal area. Reposition, patient sitting up with high hu position for breakfast. Patient made aware to eat slowly.
[2019-09-26] MEDS: SODIUM CHLOR 0.9% PF (SALINE LOCK) 10ML VIAL/SYR IV SCH ×2 (10:15→21:28)
[2019-09-26] MEDS: PANTOPRAZOLE 40 MG TAB PO SCH (10:20)
[2019-09-26] MEDS: FERROUS SULFATE 325 MG TAB PO SCH ×2 (10:20→19:22)
[2019-09-26] MEDS: FLUCONAZOLE 100 MG TAB PO SCH (10:21)
--- NOTE | 2019-09-26 11:15 | NUR ---
PT at the bedside, patient sitting on the chair at this time.
[2019-09-26 11:52] VITALS: BP 141/91
--- NOTE | 2019-09-26 12:30 | NUR ---
Placed called [facility], [facility], [facility], [facility], [facility], [facility], and [facility]. Per representatives they DO NOT HAVE BEDS available. I called [facility], and [facility] and left messages as of right now they have not followed up. Informed SW II Kamilah and Shanon.
--- NOTE | 2019-09-26 12:44 | NUR ---
Around 12.30 PM, Dr. Jackman at the bedside, RT as well, plan to down size the TT, PT assisted patient to go back to bed. Patient had small BM, perineal care provided, applied Z guard cream.
--- NOTE | 2019-09-26 14:20 | NUR ---
ASSISTED DR. GARCIA WITH TRACH CHANGE. DECREASED TO A 6.0 SHILEY FENESTRATED CUFFED TRACHEOSTOMY TUBE. ALSO SUTURES WERE REMOVED AT THIS TIME. PT. TOLERATED THE CHANGE WELL. THERE IS SLIGHT BLEEDING FROM SITE AFTER THE CHANGE. PT. TOLERATED WELL. GAUZE CHANGED AT THIS TIME. CONTINUE TO MONITOR O2 SATS. V.O. ORDER PER DR. GARCIA TO TRY SPEAKING VALVE PT. TOLERATES DURING THE DAY.
--- NOTE | 2019-09-26 14:20 | NUR ---
Dr. Jackman at the bedside, RT assisted MD with changing TT size from 8 to 6. Patient tolerated well. Dr. Diaz seen patient at this time as well. MD made aware that we are changing the TT size. NO new order at this time. Will continue to monitor and care in [place].
--- NOTE | 2019-09-26 14:35 | NUR ---
Patient sitting up with high hu position for having Lunch.
[2019-09-26 15:43] VITALS: BP 152/94
--- NOTE | 2019-09-26 16:15 | NUR ---
Patient sleeping at this time, HR 105-110 /min, SBP 130-150 mmHg, no fever noted, O2 saturation 98-100% with O2 Neb 28% 6 LPM, productive cough with pink/light color, no active bleeding, no complaining of pain noted. BP 144/97 mmHg, RR 20-28/min, will continue to monitor and care.
--- NOTE | 2019-09-26 16:56 | NUR ---
Mouth care provided, patient lying on the bed, no complaining of pain noted, no active bleeding around TT noted. RR 20-24 /min, O2 saturation 98-100%.
--- NOTE | 2019-09-26 18:55 | NUR ---
RT NOTE PT WAS SEEN BY RT FOR HHN TX. PT TOLERATES WELL INLINE WITH COOL AEROSOL VIA TRACH COLLAR. COOL AEROSOL WATER LEVEL ADEQUATE AT THIS TIME. NO ADVERSE REACTION NOTED. PT WAS SUCTIONED FOR SMALL RETURN. 6.0 SHILEY OPERATIONS VOCATIONAL INSTRUCTOR TRACH SECURED WITH TRACH COLLAR. OBTURATOR AT HEAD OF THE BED. SPARE TRACH AT BEDSIDE. CONT ORDERED Addendum: 09/26/19 at 1946 by Josette Hall RT Amended: Links added.
[2019-09-26 20:00] VITALS: BP 148/91
--- NOTE | 2019-09-26 20:00 | NUR ---
SHIFT OPENING NOTE RECEIVED PATIENT AWAKE, ALERT AND ORIENTED X4. NO SOB, DISTRESS OR PAIN NOTED. ON TRACH COLLAR SIZE 6 SHILEY 6L, 28% FI02 POX 100%. RUIZ CATH DRAINING YELLOW URINE TO GRAVITY. PICC RIGHT UPPER ARM SL. PHYSICAL ASSESSMENT COMPLETED, SEE INTERVENTIONS. INSTRUCTED ON POC AND TO CALL FOR ASSIST NEEDED. BED IS IN THE LOWEST POSITION WITH SIDE RAILS UP X2, CALL LIGHT IS WITHIN REACH.
--- NOTE | 2019-09-26 20:30 | NUR ---
FRIEND AT BEDSIDE VISITING
[2019-09-26] MEDS: INSULIN LANTUS (GLARGINE) 1 /0.01ml (100units/ml) SC SCH (21:37)
--- NOTE | 2019-09-26 22:20 | NUR ---
RT NOTE PT WAS SEEN BY RT FOR HHN TX. PT TOLERATES WELL VIA TRACH COLLAR. PT WAS SUCTIONED FOR SMALL RETURN. FAMILY AT BEDSIDE. Addendum: 09/26/19 at 2356 by Josette Hall RT Amended: Links added.
--- NOTE | 2019-09-26 23:15 | NUR ---
HYGIENE CARE FULL BED BATH PERFORMED USING CHG WIPES AND WARM SOAPY WASH CLOTHES. GOWN CHANGED. NO SKIN BREAKDOWN NOTED. FULL LINEN CHANGED. PATIENT REPOSITIONED FOR COMFORT. TOLERATED IT WELL.
[2019-09-27] VITALS (7 sets, daily range): BP systolic 124–141; BP diastolic 77–90
[2019-09-27] MEDS: LEVALBUTEROL HCL 1.25 MG/3 ML NEB NEB SCH ×5 (02:14→22:01)
--- NOTE | 2019-09-27 02:20 | NUR ---
RT NOTE PT WAS SEEN BY RT FOR HHN TX. PT TOLERATES WELL INLINE WITH COOL AEROSOL. CONT ORDERED Addendum: 09/27/19 at 0320 by Josette Hall RT Amended: Links added.
--- NOTE | 2019-09-27 04:15 | NUR ---
RT NOTE PT WAS SEEN BY RT FOR TRACH CARE. PT TOLERATES WELL AT THIS TIME. COOL AEROSOL WATER CHANGED AT THIS TIME WITHOUT INCIDENT. CONT ORDERED Addendum: 09/27/19 at 0416 by Josette Hall RT Amended: Links added.
[2019-09-27] MEDS: InsuLIN REG 1unit/0.01ml Soln (100units/ml) SC SCH ×3 (05:51→17:27)
[2019-09-27] MEDS: metroNIDAZOLE 500 MG TAB PO SCH ×3 (05:51→23:58)
[2019-09-27] MEDS: ACCU-CHEK COMFORT CURVE STRIP VI SCH ×3 (05:51→17:23)
--- NOTE | 2019-09-27 07:20 | NUR ---
END OF SHIFT REPORT GIVEN AND CARE ENDORSED TO CORRIE BLUNT.
--- NOTE | 2019-09-27 07:30 | NUR ---
RECEIVED PATIENT LYING IN BED AWAKEN TO NAME BEING CALLED AND A/O TIMES 4, O2 BY THE TRACH COLLAR AT 6L ,SIZE 6 SHILEY TRACH TO THE THROAT, RUIZ TO GRAVITY, ON A SPECIALTY BED, PICC LINE TO THE JONATHAN WITH 3 LUMENS ALL LUMENS FLUSHED AND PATENT, DENIES PAIN STATES HE FEELS BETTER TODAY
[2019-09-27] MEDS: FERROUS SULFATE 325 MG TAB PO SCH ×2 (08:09→17:37)
--- NOTE | 2019-09-27 08:30 | NUR ---
PATIENT ATE HIS BREAKFAST WITHOUT ANY HELP
--- NOTE | 2019-09-27 08:50 | NUR ---
WILLAM FROM RT IN WORKING WITH THE PATIENT AND PLACED A SPEAKING VALVE AND CHANGED TO O2 N/S AT 2L
--- NOTE | 2019-09-27 08:55 | NUR ---
PT. PLACED ON SPEAKING VALVE, PER DR. GARCIA'S ORDERS. PT. IS AWAKE AND ALERT IN HIGH FOWLERS POSITION IN THE BED. CUFF DEFLATED AND PLACED PT. ON 2LPM NC. NF=083, RR=18, [id number]%. NO RESP. DISTRESS OBSERVED, WILL KEEP PT. ON SPEAKING VALVE FOR LONG HE CAN TOLERATE.
--- NOTE | 2019-09-27 09:05 | NUR ---
PT IN TALKING WITH THE PATIENT ABOUT GETTING OUT OF BED LATER
[2019-09-27] MEDS: PANTOPRAZOLE 40 MG TAB PO SCH (10:05)
[2019-09-27] MEDS: FLUCONAZOLE 100 MG TAB PO SCH (10:05)
[2019-09-27] MEDS: SODIUM CHLOR 0.9% PF (SALINE LOCK) 10ML VIAL/SYR IV SCH ×2 (10:05→22:00)
--- NOTE | 2019-09-27 11:00 | NUR ---
GOTTEN UP TO THE CHAIR BY PT AND DOING ROM IN THE CHAIR
--- NOTE | 2019-09-27 11:30 | NUR ---
GOTTEN BACK INTO THE BED , BY PT
--- NOTE | 2019-09-27 11:45 | NUR ---
DR ANDERSON INTO SEE THE PATIENT AND ORDERED MEDS FOR HIS HR
[2019-09-27] MEDS ORDERED: METOPROLOL TARTRATE 25 MG TAB PO ONE (12:00)
--- NOTE | 2019-09-27 12:09 | NUR ---
DR ROCHA IN TO SEE THE PATIENT, NO NEW ORDERS
--- NOTE | 2019-09-27 12:40 | NUR ---
SAT UP IN BED AND ATE HIS BREAKFAST NO HELP NEEDED
--- NOTE | 2019-09-27 13:30 | NUR ---
STATES HE IS OKAY
--- NOTE | 2019-09-27 14:13 | NUR ---
FAMILY IN TO VISIT WITH THE PATIENT, WHO IS SLEEPING
--- NOTE | 2019-09-27 15:16 | NUR ---
RT IN DOING TRACH CARE ON THE PATIENT
--- NOTE | 2019-09-27 15:36 | NUR ---
MORE FAMILY IN TO VISIT WITH THE PATIENT
--- NOTE | 2019-09-27 16:30 | NUR ---
SITTING UP IN BED TALKING TO HIS SONS
[2019-09-27] MEDS: GEMFIBROZIL 600 MG TAB PO SCH (17:36)
--- NOTE | 2019-09-27 17:41 | NUR ---
EXPLAIN NEW MEDIATIONS TO THE PATIENT AND HIS FAMILY REGARDING THE DOSAGE, USAGE AND THE SIDE EFFECTS, VERBALIZED THEY UNDERSTOOD AND MEDS GIVEN ORDERED
--- NOTE | 2019-09-27 18:14 | NUR ---
PATIENT SITTING UP ON THE SIDE OF THE BED TO EAT HIS DINNER, STILL ON THE HIGH FLOW AT 30L AND 30%, RUIZ TO GRAVITY, A/O, NO COMPLAINTS OF PAIN OR SOB, 20G TO THE LFA INTACT AND PATENT AND RFA 18G FLUSHED AND PATENT WILL CONTINUE TO MONITOR AND GIVE REPORT TO THE NEXT SHIFT Addendum: 09/27/19 at 1823 by Lorraine Zarate RN DISREGARD WRONG PATIENT
--- NOTE | 2019-09-27 18:15 | NUR ---
PATIENT SITTING UP IN THE BED, EATING HIS DINNER, STARTED COUGHING AND VOMITED ABOUT 150ML OF FOOD AND WATER, FAMILY AT THE BEDSIDE AND RT WHO WAS ASSISTING THE PATIENT AND STATED HE DIDN'T APPEAR TO ASPIRATE ANY FOOD, RUIZ TO GRAVITY, PATIENT STILL HAS THE PASSY NATHEN VALVE IN AND ABLE TO TALK, PICC LINE TO THE DOMENICO INTACT AND PATENT, ON A SPECIALTY BED, O2 AT 2L BY THE N/C, WILL CONTINUE TO MONITOR AND CHIEF PROGRAM OFFICER REPORT TO THE NEXT SHIFT
--- NOTE | 2019-09-27 21:50 | NUR ---
Opening Shift Note Assumed care of patient, awake and alert. No S/S of distress/SOB or pain. Instructed on POC and to call for assist PRN, will continue to monitor for changes. and son at bedside. RT has already taken off the speaking valve and placed pt back on trach collar for sleep. Will continue to monitor.
[2019-09-27] MEDS: INSULIN LANTUS (GLARGINE) 1 /0.01ml (100units/ml) SC SCH (22:00)
[2019-09-27] MEDS: METOPROLOL TARTRATE 25 MG TAB PO SCH (23:59)
[2019-09-28] MEDS: InsuLIN REG 1unit/0.01ml Soln (100units/ml) SC SCH ×5 (06:00→23:48)
[2019-09-28] MEDS: ACCU-CHEK COMFORT CURVE STRIP VI SCH ×5 (06:03→23:21)
--- NOTE | 2019-09-28 06:54 | NUR ---
Pt tolerated night well. Slept as much as possible but unit was very noisy with pt in next room. Pt was offered his AM meds and stated he wanted to wait until breakfast. Bed is not weighing pt accurately. No S/S of distress this shift. Stable.
--- NOTE | 2019-09-28 07:30 | NUR ---
RECEIVED PATIENT SITTING UP IN THE BED, A/O TIMES 4, O2 BY THE TRACH COLLAR AT 8L AND 28%, SIZE 6 SHILEY TRACH TO THE THROAT, ON A SPECIALTY BED, RUIZ TO GRAVITY, PICC LINE TO THE DOMENICO WITH 3 LUMEN ALL FLUSHED AND PATENT DENIES PAIN AND SOB
[2019-09-28 07:40] VITALS: BP 125/90
[2019-09-28] MEDS: LEVALBUTEROL HCL 1.25 MG/3 ML NEB NEB SCH ×3 (07:40→19:03)
--- NOTE | 2019-09-28 07:57 | NUR ---
PT PLACED ON SPEAKING VALVE AT THIS TIME. TRACHEAL CUFF DEFLATED, AND PT PLACED ON 3LNC, SPO2 97%. DEEP TRACHEAL SUCTIONED USING STERILE TECHNIQUE; SMALL PALE RETURN. NEW KULKARNI HOLE DRESSINGS PLACED UNDER PHLANGE.
[2019-09-28] MEDS: FERROUS SULFATE 325 MG TAB PO SCH ×2 (08:21→17:46)
[2019-09-28] MEDS: metroNIDAZOLE 500 MG TAB PO SCH ×3 (08:21→23:19)
[2019-09-28] MEDS: GEMFIBROZIL 600 MG TAB PO SCH ×2 (08:21→17:46)
--- NOTE | 2019-09-28 08:30 | NUR ---
DENIES PAIN SITING UP TO EAT HIS LUNCH
--- NOTE | 2019-09-28 09:20 | NUR ---
PT WORKING WITH THE PATIENT AND GOT HIM UP TO SIT IN THE CHAIR
[2019-09-28] MEDS: FLUCONAZOLE 100 MG TAB PO SCH (10:11)
[2019-09-28] MEDS: PANTOPRAZOLE 40 MG TAB PO SCH (10:11)
[2019-09-28] MEDS: METOPROLOL TARTRATE 25 MG TAB PO SCH ×2 (10:12→23:20)
[2019-09-28] MEDS: SODIUM CHLOR 0.9% PF (SALINE LOCK) 10ML VIAL/SYR IV SCH ×2 (10:13→23:20)
--- NOTE | 2019-09-28 10:20 | NUR ---
EXPLAIN MEDICATIONS TO THE PATIENT REGARDING THE DOSAGE,USAGE AND THE SIDE EFFECTS, VERBALIZED THAT HE UNDERSTOOD AND MEDS GIVEN ORDERED
--- NOTE | 2019-09-28 11:20 | NUR ---
GOTTEN BACK INTO THE BED
[2019-09-28 11:40] VITALS: BP 136/89
--- NOTE | 2019-09-28 12:45 | NUR ---
SITTING UP IN THE BED FEEDING HIM SELF LUNCH
--- NOTE | 2019-09-28 13:10 | NUR ---
TOLERATED HIS LUNCH NO VOMITING SO FAR TODAY
--- NOTE | 2019-09-28 14:33 | NUR ---
SITTING UP IN THE BED LOOKING AT THE TV
--- NOTE | 2019-09-28 15:23 | NUR ---
FAMILY IN TO VISIT WITH THE PATIENT
--- NOTE | 2019-09-28 15:40 | NUR ---
DR ANDRES IN TO SEE THE PATIENT, BUT NO NEW ORDERS
[2019-09-28 15:50] VITALS: BP 136/86
--- NOTE | 2019-09-28 16:30 | NUR ---
FAMILY STILL WITH THE PATIENT , PATIENT DEEP SUCTIONED BY ROSELYN FROM RT
--- NOTE | 2019-09-28 16:51 | NUR ---
SON AT THE BEDSIDE, TALKING WITH THE PATIENT
--- NOTE | 2019-09-28 17:30 | NUR ---
SISTER INTO SEE THE PATIENT AND WASHING HIS FACE AND USING THE YANKAUER TO CLEAN HIS MOUTH
--- NOTE | 2019-09-28 18:18 | NUR ---
SITTING UP IN THE BED EATING HIS DINNER, ABLE TO FED HIMSELF, ON A SPECIALTY BED, RUIZ TO GRAVITY, O2 AT 2L BY /C, PASSY NATHEN VALVE STILL INTACT, PICC LINE TO THE DOMENICO INTACT AND PATENT, NO COMPLAINTS OF PAIN, WILL CONTINUE TO MONITOR AND GIVE REPORT TO THE NEXT SHIFT
[2019-09-28] MEDS: ERGOCALCIFEROL 50,000 UNIT(1.25MG) CAP PO SCH (18:29)
[2019-09-28 19:42] VITALS: BP 136/86
[2019-09-28 20:00] VITALS: BP 128/77
[2019-09-28] MEDS: INSULIN LANTUS (GLARGINE) 1 /0.01ml (100units/ml) SC SCH (22:00)
--- NOTE | 2019-09-28 23:15 | NUR ---
Respiratory note: PT PLACED BACK ON COOL AEROSOL W/ TRACH COLLAR AT THIS TIME. SPEAKING VALVE IS OFF AND ON THE PT'S NIGHT STAND. COOL AEROSOL SETTINGS ARE 8 LPM 28% FI02, SP02 HOLDING AT 98%. NO DISTRESS NOTED.
[2019-09-29] VITALS: BP 123/75
[2019-09-29] MEDS: LEVALBUTEROL HCL 1.25 MG/3 ML NEB NEB SCH ×4 (00:53→20:21)
[2019-09-29 04:00] VITALS: BP 135/62
[2019-09-29] MEDS: ACCU-CHEK COMFORT CURVE STRIP VI SCH ×3 (06:00→18:17)
[2019-09-29] MEDS: InsuLIN REG 1unit/0.01ml Soln (100units/ml) SC SCH ×3 (06:00→18:15)
[2019-09-29 07:40] VITALS: BP 141/92
[2019-09-29] MEDS: GEMFIBROZIL 600 MG TAB PO SCH ×2 (08:10→16:08)
[2019-09-29] MEDS: metroNIDAZOLE 500 MG TAB PO SCH ×3 (08:11→22:33)
[2019-09-29] MEDS: METOPROLOL TARTRATE 25 MG TAB PO SCH ×2 (10:20→22:33)
[2019-09-29] MEDS: PANTOPRAZOLE 40 MG TAB PO SCH (10:21)
[2019-09-29] MEDS: FERROUS SULFATE 325 MG TAB PO SCH ×2 (10:21→18:18)
[2019-09-29] MEDS: SODIUM CHLOR 0.9% PF (SALINE LOCK) 10ML VIAL/SYR IV SCH ×2 (10:21→22:33)
[2019-09-29] MEDS: FLUCONAZOLE 100 MG TAB PO SCH (10:21)
[2019-09-29 11:40] VITALS: BP 132/87
--- NOTE | 2019-09-29 12:33 | NUR ---
HOSPITALIST AT BEDSIDE DR ANDRES UPDATED UPON PATIENT'S STATUS, NO ORDERS RECEIVED AT THIS TIME.
--- NOTE | 2019-09-29 15:01 | NUR ---
Nutrition Follow-up Notes Pt weight is 101.6 kg on 09/28/19. Pt is extubated with no relative at bedside when rounded this morning. Current diet order is CCHO 60g, Puree, [place] Thick liquids. Appetite is fair aeb avg 62% PO intake over 9 meals. Pt reported his appetite is good. Encouraged pt to increase PO intake to meet >75% each meal. Est. Needs based on AdBW(76 kg): 1500 kcal to 1900 kcal (20-25 kcal/kgAdBW), 91 gms to 114 gms pro (1.2-1.5 gms/kgAdBW reassessed d/t ESRD on HD, severe hypoalbuminemia). Will continue to monitor pertinent labs and reassess nutrient need prn. Labs: No new labs since 09/24/19. GI: Last BM noted on 09/29/19 per salvage diver Skin: Rbice scale 14, mod risk, multiple scabs, moisture associated dermatitis to L medial buttock, mucosal ulcer to tongue. Pls refer to latest watch adjuster's notes for further details. PES: 1) Increased nutrient needs r/t acute/chronic medical condition aeb intubated, sedated, severe hypoalbuminemia, NPO. 2) Altered nutrition related lab values r/t current/chronic medical condition aeb hyperglycemia, elev. renal labs, HbA1c, LFTs, lipase, hypocapnia, hypocalcemia and severe hypoalbuminemia. (partially resolved) 3) Obesity r/t food intake more than body requirement aeb 218% IBW, BMI 57.7 kg/m2 and increased body adiposity Will continue to monitor PO status, skin status, pertinent labs and weight trend. F/u in 3 to 5 days. Recommendations: 1) If avg PO intake trends <50%, consider providing oral supplemental nutrition with Glucerna. 2) Refer pt to CDE/RD for further nutrition education and weight monitoring upon discharge. 3) Continue current plan of care.
[2019-09-29 15:35] VITALS: BP 136/91
--- NOTE | 2019-09-29 19:30 | NUR ---
END OF SHIFT NOTE PATIENT LAYING IN BED ON LEFT SIDE RECEIVING BREATHING TREATMENT. VSS AND DOCUMENTED, NO DISTRESS NOTED, RESPIRATIONS EVEN AND UNLABORED. PATIENT ALERT AND ORIENTED X4. FALL AND SAFETY PRECAUTIONS IN PLACE, ENDORSED CONTINUED CARE TO TECHNICAL REPORT WRITER RN.
[2019-09-29 20:00] VITALS: BP 125/80
--- NOTE | 2019-09-29 20:27 | NUR ---
Respiratory note: ASSESSED PT TRACH AT THIS TIME, PT ON TRACH COLLAR AT 28% AT THIS TIME, PT TRACHED WITH SIZE 6.0 SHILEY WITH REUSABLE INNER CANNULA, TRACH CLEAN AT THIS TIME WITH NO REDNESS NOTED AROUND TRACH. PT SLEEPING AT THIS TIME WITH NO DISTRESS NOTED.
[2019-09-29] MEDS: INSULIN LANTUS (GLARGINE) 1 /0.01ml (100units/ml) SC SCH (22:00)
[2019-09-30] VITALS: BP 139/88
[2019-09-30] MEDS: LEVALBUTEROL HCL 1.25 MG/3 ML NEB NEB SCH ×4 (00:34→19:09)
[2019-09-30 04:00] VITALS: BP 123/74
--- NOTE | 2019-09-30 04:00 | NUR ---
Pt seems depressed. Very flat affect. States multiple times during shift that he wants to go home. Seems very sad. Will report to am shift to follow up with MD when they round.
--- NOTE | 2019-09-30 04:28 | NUR ---
Respiratory note: trach care done at this time without incident.
[2019-09-30] MEDS: InsuLIN REG 1unit/0.01ml Soln (100units/ml) SC SCH ×4 (06:00→17:42)
[2019-09-30] MEDS: ACCU-CHEK COMFORT CURVE STRIP VI SCH ×4 (06:00→17:42)
[2019-09-30] MEDS: GEMFIBROZIL 600 MG TAB PO SCH ×2 (06:56→17:48)
[2019-09-30] MEDS: metroNIDAZOLE 500 MG TAB PO SCH (06:57)
--- NOTE | 2019-09-30 07:00 | NUR ---
Pt has remained stable this shift. No S/S of distress. BM this shift. Bath and linen change done. Report given, care endorsed.
--- NOTE | 2019-09-30 07:30 | NUR ---
RECEIVED PATIENT LYING IN BED, A/O TIMES 4 TO NAME BEING CALLED, O2 BY THE TRACH COLLAR A 8L AND 28%, HAS A SIZE 6 SHILEY TRACH TO THE THROAT, ON A SPECIALTY BED, RUIZ TO GRAVITY, PICC LINE TO THE DOMENICO WITH 3 LUMENS ALL FLUSHED AND PATENT
[2019-09-30 07:40] VITALS: BP 127/82
--- NOTE | 2019-09-30 08:00 | NUR ---
PATIENT HAD A BM IN THE BED AND CALLED US TO CLEAN HIM, STATES "HE DOESN'T REALIZE HE IS HAVING A BM"
[2019-09-30] MEDS: FERROUS SULFATE 325 MG TAB PO SCH ×2 (08:23→17:48)
--- NOTE | 2019-09-30 08:30 | NUR ---
PATIENT SAT UP IN BED AND ATE HIS BREAKFAST, NO HELP NEEDED
--- NOTE | 2019-09-30 09:30 | NUR ---
SITTING UP IN BED LOOKING AT US WORK
[2019-09-30] MEDS: FLUCONAZOLE 100 MG TAB PO SCH (10:22)
[2019-09-30] MEDS: METOPROLOL TARTRATE 25 MG TAB PO SCH ×2 (10:22→21:44)
[2019-09-30] MEDS: SODIUM CHLOR 0.9% PF (SALINE LOCK) 10ML VIAL/SYR IV SCH ×2 (10:22→21:38)
[2019-09-30] MEDS: PANTOPRAZOLE 40 MG TAB PO SCH (10:22)
--- NOTE | 2019-09-30 10:22 | NUR ---
DISCUSSED MEDICATIONS WITH THE PATIENT REGARDING THE DOSAGE, USAGE, AND THE SIDE EFFECTS, VERBALIZED HE UNDERSTOOD AND MEDS GIVEN ORDERED
--- NOTE | 2019-09-30 11:15 | NUR ---
PATIENT PLACED ON THE 02 AT 2L N/C AND PASSY NATHEN VALVE PUT IN
--- NOTE | 2019-09-30 11:34 | NUR ---
GOTTEN UP INTO THE CHAIR BY PT AND PERFORMED ROM EXERCISES
[2019-09-30 11:40] VITALS: BP 119/85
--- NOTE | 2019-09-30 11:45 | NUR ---
DR KEMPHA IN TO SEE THE PATIETN AND STATED TO TAKE OUT THE RUIZ AND ORDER HIM REGULAR FOOD TO EAT
--- NOTE | 2019-09-30 11:45 | NUR ---
Respiratory note: PT PLACED PN PMV AND 2 LPM NC. PT DOING WELL AND TALKING. SP02 100%.
--- NOTE | 2019-09-30 12:34 | NUR ---
PATIENT SITING UP IN THE CHAIR EATING HIS LUNCH, EXPRESS TO HIM TO TAKE HIS TIME AND CHEW THE FOOD, BUT IT IS NOT PUREE , VERBALIZED THAT THE FOOD WAS BETTER
--- NOTE | 2019-09-30 13:35 | NUR ---
GOTTEN BACK INTO THE BED BY PT WHO STATED HE WALKED ABOUT 5 FEET TODAY
--- NOTE | 2019-09-30 13:59 | NUR ---
MOM IN TO SEE THE PATIENT
--- NOTE | 2019-09-30 15:00 | NUR ---
SITTING UP IN THE BED TALKING TO HIS MOM
[2019-09-30 15:40] VITALS: BP 120/80
--- NOTE | 2019-09-30 16:05 | NUR ---
REMOVED RUIZ AND EXPLAIN TO THE PATIENT THAT HE HAS TO USE THE URINAL WHEN HE HAS TO URINATE
--- NOTE | 2019-09-30 16:42 | NUR ---
FAMILY HERE TO VISIT WITH PATIENT
--- NOTE | 2019-09-30 17:06 | NUR ---
PATIENT BEING SHAVED
--- NOTE | 2019-09-30 17:20 | NUR ---
DR ROCHA IN TO SEE THE PATIENT
--- NOTE | 2019-09-30 17:25 | NUR ---
Respiratory note: TRACH CARE DONE AT THIS WITHOUT INCIDENT. PT ON RA POX 96-98% RN SELVIN Freitas MADE AWARE OF O2 CHANGE.
--- NOTE | 2019-09-30 18:00 | NUR ---
PATIENT CLEANED AND LINEN CHANGED, URINATED IN THE BED, STATES HE DIDN'T KNOW HE WAS URINATING,
--- NOTE | 2019-09-30 18:20 | NUR ---
PATIENT SITING UP IN THE BED AND HIS SISTER IS HELPING HIM TO EAT HIS DINNER, BECAUSE HE TENDS TO EAT FAST AND HE STARTS COUGHING, SHE IS TELLING HIM TO SLOW DOWN WHEN HE IS EATING, O2 BY R/A, ON SPECIALTY BED, PICC LINE TO THE DOMENICO FLUSHED AND PATENT, NO COMPLAINTS OF PAIN , WILL CONTINUE TO MONITOR AND GIVE REPORT TO THE NEXT SHIFT
[2019-09-30 20:00] VITALS: BP 127/75
--- NOTE | 2019-09-30 20:00 | NUR ---
SHIFT OPENING NOTE RECEIVED PATIENT AWAKE, ALERT AND ORIENTED X4. NO SOB, DISTRESS OR PAIN NOTED. ON ROOM AIR WITH SPEAKING VALUE TO TRACH. PHYSICAL ASSESSMENT COMPLETED, SEE INTERVENTIONS. INSTRUCTED ON POC AND TO CALL FOR ASSIST NEEDED. BED IS IN THE LOWEST POSITION WITH SIDE RAILS UP X2, CALL LIGHT IS WITHIN REACH.
[2019-09-30] MEDS: INSULIN LANTUS (GLARGINE) 1 /0.01ml (100units/ml) SC SCH (21:44)
[2019-10-01] VITALS (7 sets, daily range): BP systolic 123–134; BP diastolic 84–95
[2019-10-01] MEDS: LEVALBUTEROL HCL 1.25 MG/3 ML NEB NEB SCH ×4 (00:11→18:24)
[2019-10-01] MEDS: ACCU-CHEK COMFORT CURVE STRIP VI SCH ×5 (00:51→23:29)
[2019-10-01] MEDS: InsuLIN REG 1unit/0.01ml Soln (100units/ml) SC SCH ×5 (00:53→23:29)
--- NOTE | 2019-10-01 02:00 | NUR ---
ROUNDS PATIENT IS LAYING IN BED TOSSING AND TURNING. NO DISTRESS NOTED. WILL CONTINUE TO CLOSELY MONITOR.
--- NOTE | 2019-10-01 03:45 | NUR ---
Respiratory note: TRACH CARE DONE WITHOUT INCIDENT AT THIS TIME.
--- NOTE | 2019-10-01 04:00 | NUR ---
MORNING HYGIENE CARE FULL BED BATH PERFORMED USING CHG WIPES. GOWN CHANGED. FULL LINEN CHANGE. PATIENT REPOSITIONED FOR COMFORT. TOLERATED IT WELL.
[2019-10-01 05:45] LABS: Hematocrit 28.3 % (41.0-53.0); Hemoglobin 9.4 g/dL (13.5-17.5); Mean Corpuscular Hemoglobin 28.7 pg (28.0-32.0); Mean Corpuscular Hgb Conc. 33.3 g/dL (32.0-36.0); Mean Corpuscular Volume 86.4 fL (80.0-100.0); Platelet Count (auto) 272 10^3/uL (140-450); Red Blood Cells 3.28 10^6/uL (4.5-5.90); White Blood Cell 7.1 10^3/uL (4.4-10.8)
[2019-10-01 06:09] LABS: Potassium 3.4 mmol/L (3.5-5.1)
[2019-10-01] MEDS: GEMFIBROZIL 600 MG TAB PO SCH ×2 (06:20→18:15)
[2019-10-01 06:30] LABS: Calcium 8.5 mg/dL (8.5-10.1)
[2019-10-01 06:40] LABS: BUN/Creatinine Ratio 12.1
[2019-10-01 07:04] LABS: Band Neutrophils % (manual) 0; Basophils % (manual) 0 (0.0-2.0); Blast Cells 0; Myelocytes % 0; Promyelocytes % 0; Reactive Lymphocytes 0
--- NOTE | 2019-10-01 07:15 | NUR ---
END OF SHIFT REPORT GIVEN AND CARE ENDORSED TO ABHIJIT RN. PATIENT IS LAYING IN BED AWAKE. NO SOB, DISTRESS OR PAIN NOTED.
--- NOTE | 2019-10-01 07:45 | NUR ---
Opening Shift Note Assumed care of patient, awake and alert, lying on his right side, using the call light stated that would like to use urinal, urinal provided. No S/S of distress/SOB or pain noted, follow direction, able to turn and slide himself on the bed, use special mattress. Instructed on POC and to call for assist PRN, will continue to monitor for changes Q1hr and PRN.
[2019-10-01 07:49] LABS: Eosinophils % (manual) 2 (0-7); Lymphocytes % (manual) 35 (10.0-50.0); Metamyelocytes % 1; Monocytes % (manual) 6 (0-12)
--- NOTE | 2019-10-01 08:05 | NUR ---
Patient sitting up with high hu position for having breakfast, turning on TV, patient made aware that will eat slowly, will monitor for I&O and aspiration.
[2019-10-01] MEDS: FERROUS SULFATE 325 MG TAB PO SCH ×2 (08:15→18:15)
--- NOTE | 2019-10-01 08:59 | NUR ---
Patient had 100% of breakfast, no coughing or aspiration noted.
--- NOTE | 2019-10-01 09:53 | NUR ---
Around 9.30 am, PT at the bedside, patient walked with walker with 1 assist and connected with O2 tank. Patient tolerated well, sitting on the chair at this time. Call light within reach. Patient watching TV at this time.
[2019-10-01] MEDS ORDERED: POTASSIUM EFFERVESENT TAB 25 MEQ PO ONE (10:30)
--- NOTE | 2019-10-01 10:30 | NUR ---
Dr. Jackman at the bedside, seen and examined patient at this time, plan of care discussed with patient, received new orders for CT abdomen with contrast, patient verbalized understanding and agreed with the plan. Patient on speaking valve, O2 NC 2 LPM, O2 saturation 99%, HR 120-130 /min, SBP 130 mmHg. Will continue to monitor and care.
[2019-10-01] MEDS: PANTOPRAZOLE 40 MG TAB PO SCH (10:34)
[2019-10-01] MEDS: FLUCONAZOLE 100 MG TAB PO SCH (10:34)
[2019-10-01] MEDS: METOPROLOL TARTRATE 25 MG TAB PO SCH ×3 (10:35→22:49)
[2019-10-01] MEDS: SODIUM CHLOR 0.9% PF (SALINE LOCK) 10ML VIAL/SYR IV SCH ×2 (10:36→22:45)
--- NOTE | 2019-10-01 11:30 | NUR ---
Patient came back to bed with standby assist, HR 110/min, SBP 120-130 mmHg, RR 24-26 /min ,O2 saturation 99% with O2 NC 2 LPM, speaking valve still in place.
--- NOTE | 2019-10-01 11:35 | NUR ---
RT NOTE: PT REFUSED TX AT THIS TIME. NO SIGNS OF RESPIRATORY DISTRESS NOTED. LUNG SOUNDS CLEAR T/O. RN PLACED PMV ABOUT 1130. ON RA SPO2 99 HR 110 RR 24. PT AWARE THAT I WILL RETURN FOR TRACH CARE LATER IN SHIFT. WILL CONTINUE TO MONITOR.
--- NOTE | 2019-10-01 11:36 | NUR ---
IV insertion IV access obtained, via clean sterile technique by inserting 20 gauge catheter at right forearm after 2 attempts. IV secured properly. No trauma to site. Patient tolerated procedure well.
--- NOTE | 2019-10-01 12:15 | NUR ---
Patient called for urinal, patient stated that feeling like want to go but not thing come out. Bladder scan at the bedside, got around 270 ml, patient tried to use urinal again, able to do it at this time, got 100 ml out, no bladder full noted, will continue to monitor and care.
--- NOTE | 2019-10-01 13:40 | NUR ---
Patient was taken to Radiology for CT via hospital bed, connected to O2 tank and monitor.
--- NOTE | 2019-10-01 14:10 | NUR ---
Patient came back from Radiology, connected back to monitor and O2 NC 2 LPM, patient sitting up with high hu position for having Lunch. Will continue to monitor and care.
--- NOTE | 2019-10-01 15:37 | NUR ---
08/19/19 Pt is currently listed as having no current insurance. Pt is unemployed. Discussed with pt elgibility option for medical coverage based on their current situation. Pt referred to Joo New, [employer] senior environmental consultant to assist with process for [employer] insurance coverage. Advised pt that prior to their discharge . Will Follow up with Garth regarding the insurance status.
--- NOTE | 2019-10-01 15:49 | NUR ---
Pt is currently listed as having no current insurance. Pt states they are currently unemployed. Discussed with pt eligibility options for medical coverage based on their current situation. Pt referred to Garth New, [employer] to assist with process for [employer] insurance coverage. Advised pt that additional information regarding D/C planning would be provided prior to their discharge. Will follow up with Garth regarding the insurance status.
--- NOTE | 2019-10-01 17:05 | NUR ---
WOUND CARE NOTE: Wound care in to see patient for reevaluation of wounds and skin integrity monitoring. Patient continue resting on air bed in SDU Rm. 266. Patient is on O2 via NC. Patient is awake and able to verbalize needs and follow simple direction. He's able to assist in turning and repositioning. His Brice score is 17. Patient is in no stated pain at this time and he appears to be in no pain using [place] Faces Pain Scale. Patient's abrasions to distal nostril is much improved and display intact pink skin. Distal chin abrasion still has intact brown, dry, scab; are is clean and dry, left open to air. Mucosal ulcer to patient's distal tongue continue to improve, with pink area,no open ulceration noted. Patient is receiving routine oral care. Patient's moisture assisted dermatitis to sacral, buttocks is also improved, sacral, buttock display intact skin with pink scars, blanchable skin. Patient continue receiving BID/PRN cleaning and application of Barrier cream to sacral/buttocks per MD order. New photograph of mentioned wounds/skin issue are taken for reference. Patient tolerated well. RECOMMENDATION: Continuation of all wound care orders prescribed by MD, continue with skin/wound plan of care, continue monitoring by wound care while Brice score is <18. Addendum: 10/01/19 at 1904 by Ynes Ellsworth RN Amended: Links added.
--- NOTE | 2019-10-01 17:15 | NUR ---
Dr. Diaz at the bedside, no new order for this time.
--- NOTE | 2019-10-01 17:30 | NUR ---
Patient had BM with soft and green color, perineal care provided, applied Z guard cream.
--- NOTE | 2019-10-01 19:30 | NUR ---
received pt from day rn poc reviewed
[2019-10-01] MEDS: INSULIN LANTUS (GLARGINE) 1 /0.01ml (100units/ml) SC SCH (23:28)
[2019-10-02] VITALS: BP 116/76
[2019-10-02] MEDS: LEVALBUTEROL HCL 1.25 MG/3 ML NEB NEB SCH ×5 (00:26→23:41)
--- NOTE | 2019-10-02 02:16 | NUR ---
resting with eyes closed resp even and unlabored, control within reach.
--- NOTE | 2019-10-02 04:37 | NUR ---
no elaine resting comfortable resp even and unlabored
[2019-10-02 05:25] VITALS: BP 139/90
[2019-10-02] MEDS: ACCU-CHEK COMFORT CURVE STRIP VI SCH ×4 (06:24→23:44)
[2019-10-02] MEDS: InsuLIN REG 1unit/0.01ml Soln (100units/ml) SC SCH ×4 (06:29→23:44)
[2019-10-02] MEDS: GEMFIBROZIL 600 MG TAB PO SCH ×2 (07:25→16:54)
--- NOTE | 2019-10-02 07:36 | NUR ---
report given to am nurse poc reviewed
[2019-10-02 07:40] VITALS: BP 139/94
[2019-10-02] MEDS: FERROUS SULFATE 325 MG TAB PO SCH ×2 (07:55→16:54)
--- NOTE | 2019-10-02 08:00 | NUR ---
Opening Shift Note Assumed care of patient, awake and alert, follow direction, patient stated that he place Speaking valve on the table but i cannot find it. No S/S of distress/SOB or pain noted. Instructed on POC and to call for assist PRN, will continue to monitor for changes Q1hr and PRN. Mouth care provided, encourage patient to do more ambulation, patient agreed.
--- NOTE | 2019-10-02 08:15 | NUR ---
Patient sitting on the chair by using walker standby assist. Watching TV at this time.
--- NOTE | 2019-10-02 08:20 | NUR ---
Breakfast tray provided.
--- NOTE | 2019-10-02 08:45 | NUR ---
Patient using the bedside commode, transfer himself from chair to bedside commode by using walker, no accident noted, had BM at this time.
[2019-10-02] MEDS: FLUCONAZOLE 100 MG TAB PO SCH (09:39)
[2019-10-02] MEDS: SODIUM CHLOR 0.9% PF (SALINE LOCK) 10ML VIAL/SYR IV SCH ×2 (09:39→22:08)
[2019-10-02] MEDS: METOPROLOL TARTRATE 25 MG TAB PO SCH ×2 (09:40→22:08)
[2019-10-02] MEDS: PANTOPRAZOLE 40 MG TAB PO SCH (09:40)
--- NOTE | 2019-10-02 09:57 | NUR ---
PT at the bedside, patient walking with walker, connected with O2 NC 2 LPM, patient tolerated well able to walk to rounds around nursing station, HR 120/min. Went back to bed HR 113 /min, will continue to monitor and care, patient stated that will try again in the evening. Watching TV at this time. Addendum: 10/02/19 at 1346 by EVGENY HAMILTON RN RN 2 rounds
--- NOTE | 2019-10-02 10:45 | NUR ---
Patient talking to his sister on the phone.
--- NOTE | 2019-10-02 11:13 | NUR ---
PICC Line Dressing Changes PICC line dressing change done with a sterile technique. Cleansed with chloraprep scrub/betadine. Stat lock, and bio-patch as available. Occlusive dressing applied. Changed claves weekly and post lab draw. See e-MAR for medications given during this visit.
--- NOTE | 2019-10-02 11:20 | NUR ---
Dr. Roberts at the bedside, called RT as well. RT at the bedside for closing the TT during the day for today, plan to close for 24 hours tomorrow, patient made aware about the plan, will continue to monitor and care. Patient room air at this time.
--- NOTE | 2019-10-02 11:30 | NUR ---
Respiratory note: PLACED PT ON TRACH BUTTON PER ORDERS. PT IS TOLERATING WELL. SPO2 MAINTAIN 98% ON RA. PT TO BE PLACED BACK ON COOL AEROSOL AT [facility].
[2019-10-02 11:35] VITALS: BP 117/71
--- NOTE | 2019-10-02 13:44 | NUR ---
Patient sitting up with high uh position for Lunch, patient had around 50% of Lunch tray. Coughing a little bit. Plan to sit on the chair around 3 pm.
--- NOTE | 2019-10-02 14:20 | NUR ---
Patient sitting on the chair, transferred himself from bed to chair by using walker, tolerated well. Room air O2 saturation 94-96%, will continue to monitor and care. HR 95-115 /min.
--- NOTE | 2019-10-02 15:09 | NUR ---
Patient walking with PT by using walker, connected to O2 NC 2 LPM while walking, HR 120-125/min, made 2 rounds around nursing station, tolerated well, went back to sit on the chair, patient stated that a little bit tired, HR 110-115/min RR 24-34 /min, still connected patient with O2 NC 2 LPM, will continue to monitor and care.
[2019-10-02 15:36] VITALS: BP 114/84
--- NOTE | 2019-10-02 15:40 | NUR ---
Patient went back to bed by himself, tolerated well. HR 110/min O2 saturation 100% with O2 NC 2 LPM, RR 22-30/min.
--- NOTE | 2019-10-02 16:04 | NUR ---
Patient lying on the bed, watching TV, HR 100-105/min, SBP 110 mmHg, O2 saturation 100%, room air at this time, RR 18-24/min. Will continue to monitor and care.
--- NOTE | 2019-10-02 17:27 | NUR ---
Room air O2 saturation 94-98%, HR 100-115/min while lying on the bed. No complaining of SOB noted, RR 20-24/min, coughing sometimes. No fever noted.
--- NOTE | 2019-10-02 17:51 | NUR ---
Patient sitting on the chair, watching TV, plan to go back to bed after Dinner.
--- NOTE | 2019-10-02 18:58 | NUR ---
RT NOTE PT WAS SEEN BY RT FOR HHN TX. PT IS TRACHED WITH 6.0 SHILEY AND SECURED WITH TRACH TIES. SPARE TRACH AT BEDSIDE. OBTURATOR AT HEAD OF BED. PT IS CURRENTLY BUTTONED AT THIS TIME. HR 111, RR 20, BS CRACKLES. PT STATES HE HAS A PRODUCTIVE COUGH WITH SMALL RETURN. CONT ORDERED. POX 98% Addendum: 10/02/19 at 1951 by Josette Hall RT Amended: Links added.
--- NOTE | 2019-10-02 19:53 | NUR ---
received pt from day rn poc reviewed
[2019-10-02 20:00] VITALS: BP 124/89
--- NOTE | 2019-10-02 21:46 | NUR ---
RT NOTE PT WAS SEEN BY RT TO TAKE OFF BUTTON ON TRACH AND PLACED PT ON COOL AEROSOL AT 6L/28%. PT WAS SUCTIONED FOR SMALL RETURN. BUTTON PLACED IN SET UP BAG AT BEDSIDE. INNER CANNULA CLEANED AND REPLACED BACK IN TRACH. MERLENE VEE NOTIFIED. CONT ORDERED Addendum: 10/02/19 at 2148 by Josette Hall RT Amended: Links added.
[2019-10-02] MEDS: INSULIN LANTUS (GLARGINE) 1 /0.01ml (100units/ml) SC SCH (23:38)
--- NOTE | 2019-10-02 23:45 | NUR ---
RT NOTE PT WAS SEEN BY RT FOR HHN TX. PT TOLERATES INLINE WITH COOL AEROSOL. PT HAS A PRODUCTIVE COUGH, DENIES SUCTION AT THIS TIME. CONT ORDERED Addendum: 10/03/19 at 0022 by Josette Hall RT Amended: Links added.
[2019-10-03 00:04] VITALS: BP 124/82
--- NOTE | 2019-10-03 00:56 | NUR ---
RESTING WITH EYES CLOSED RESP EVEN AND UNLABORED
--- NOTE | 2019-10-03 04:38 | NUR ---
RT NOTE PT WAS SEEN BY RT FOR TRACH CARE. PT IS SLEEPING AND APPEARS COMFORTABLE. PT ALLOWED TRACH SITE TO BE CLEANED AND TRACH SPONGES TO BE CHANGED. TRACH TIES APPEAR CLEAN. INNER CANNULA CLEANED AROUND 2229. PT DENIES SUCTION AT THIS TIME. CONT WEANING DURING DAYSHIFT. Addendum: 10/03/19 at 0440 by Josette Hall RT Amended: Links added.
[2019-10-03] MEDS: ACCU-CHEK COMFORT CURVE STRIP VI SCH ×4 (05:59→23:48)
[2019-10-03] MEDS: GEMFIBROZIL 600 MG TAB PO SCH ×2 (05:59→17:46)
--- NOTE | 2019-10-03 06:05 | NUR ---
TOTAL BED BATH AND LINEN CHANGE GIVEN
[2019-10-03] MEDS: InsuLIN REG 1unit/0.01ml Soln (100units/ml) SC SCH ×4 (06:10→23:46)
[2019-10-03] MEDS: LEVALBUTEROL HCL 1.25 MG/3 ML NEB NEB SCH ×3 (06:31→19:11)
--- NOTE | 2019-10-03 06:55 | NUR ---
REPORT GIVEN TO AM NURSE POC REVIEWED
--- NOTE | 2019-10-03 07:30 | NUR ---
RECEIVED PATIENT SEMI FOWLERS IN BED A/O TIMES 4, O2 BY THE TRACH COLLAR AT 28% PATIENT HAS A SIZE 6 SHILEY TO THE THROAT, PICC LINE TO THE DOMENICO WITH 3 LUMENS ALL FLUSHED AND PATENT, SALINE LOCK TO THE RFA 20G FLUSHED AND PATENT, PATIENT STATES HE HAS BEING USING THE URINAL AND BSC WITH HELP, DENIES PAIN, ON SPECIALTY BED,
--- NOTE | 2019-10-03 07:35 | NUR ---
RT NOTE: PT WAS TAKEN OFF OF COOL AEROSOL AT THIS TIME. CUFF DEFLATED, TRACH BUTTON WAS PLACED. PT TOLERATING WELL NO ADVERSE REACTIONS. RN MADE AWARE, WILL CONTINUE TO MONITOR PT. NO S/S OF SOB.
--- NOTE | 2019-10-03 07:45 | NUR ---
RT PUT IN THE PASSY NATHEN VALVE AND CHANGED THE O2 TO R/A, Addendum: 10/03/19 at 0959 by Lorraine Zarate RN DISREGARD ABOVE NOTE AND REPLACE WITH, PATIENT'S TRACH WAS CAPPED AND HE WAS PLACED N/C AT 2L
[2019-10-03 08:00] VITALS: BP 143/96
[2019-10-03] MEDS: FERROUS SULFATE 325 MG TAB PO SCH ×2 (08:08→17:46)
--- NOTE | 2019-10-03 08:30 | NUR ---
PATIENT SAT UP IN BED AND ATE HIS BREAKFAST NO HELP NEEDED
--- NOTE | 2019-10-03 08:45 | NUR ---
ASK FOR THE BEDPAN BUT HAD ALREADY HAD A BM IN THE BED
[2019-10-03] MEDS: PANTOPRAZOLE 40 MG TAB PO SCH (09:45)
[2019-10-03] MEDS: SODIUM CHLOR 0.9% PF (SALINE LOCK) 10ML VIAL/SYR IV SCH ×2 (09:45→21:40)
[2019-10-03] MEDS: METOPROLOL TARTRATE 25 MG TAB PO SCH ×2 (09:45→21:40)
--- NOTE | 2019-10-03 09:45 | NUR ---
EXPLAIN MEDICATIONS TO THE PATIENT REGARDING THE DOSAGE, USAGE AND THE SIDE EFFECTS, VERBALIZED THAT HE UNDERSTOOD AND MEDS GIVEN ORDERED
--- NOTE | 2019-10-03 09:57 | NUR ---
PATIENT GOTTEN UP BY PT AND WALKED IN THE UNIT USING A WALKER ABOUT 300 FEET AND THEN GOT INTO THE CHAIR
--- NOTE | 2019-10-03 10:52 | NUR ---
SITTING UP IN THE CHAIR WATCHNG TV
--- NOTE | 2019-10-03 11:07 | NUR ---
DR KEMPHA IN TO SEE THE PATIENT AND STATED HE MAY GO HOME ON MONDAY
[2019-10-03 11:49] VITALS: BP 124/93
--- NOTE | 2019-10-03 12:27 | NUR ---
PATIENT SITTING UP IN THE CHAIR EATING HIS LUNCH, NO HELP NEEDED
--- NOTE | 2019-10-03 13:11 | NUR ---
PATIENT GOTTEN BACK INTO THE BED BY PT
--- NOTE | 2019-10-03 14:10 | NUR ---
LYING IN BED WATCHING TV, NO COMPLAINTS
--- NOTE | 2019-10-03 15:13 | NUR ---
SITTING UP IN BED NO SIGNS OF DISTRESS
[2019-10-03 16:00] VITALS: BP 118/69
--- NOTE | 2019-10-03 16:30 | NUR ---
NO COMPLAINTS OF PAIN OR SOB, WATCHING US WORK FROM HIS ROOM AND SMILING STATES HE IS DOING OKAY
--- NOTE | 2019-10-03 17:38 | NUR ---
LYING IN BED WITH EYES CLOSED APPEARS TO BE SLEEPING
--- NOTE | 2019-10-03 18:01 | NUR ---
PATIENT IS AWAKE AND DR ROCHA IN TALKING WITH HIM, PATIENT IS ON O2 BY R/A, AND THE TRACH IS CAPPED
--- NOTE | 2019-10-03 18:35 | NUR ---
PATIENT SITING UP IN THE BED, EATING HIS DINNER, O2 BY R/A, TRACH IS CAPPED, PICC LINE TO THE DOMENICO WITH 3 LUMENS ALL FLUSHED AND PATENT, USES THE URINAL AND BEDPAN, SALINE LOCK TO THE RFA 20G INTACT, NO COMPLAINTS OF PAIN OR SOB, WILL CONTINUE TO MONITOR AN GIVE REPORT TO THE NEXT SHIFT
--- NOTE | 2019-10-03 19:11 | NUR ---
RT NOTE PT WAS SEEN BY RT FOR HHN TX. PT IS TRACHED WITH 6.0 SHILEY AND BUTTONED. PT IS AWAKE AND ALERT, ON ROOM AIR WITH SATS 97% PT STATES HE HAS A PRODUCTIVE COUGH WITH SMALL RETURN. PT HAS SPARE TRACH AT BEDSIDE AND OBTURATOR AT HEAD OF BED. PT WILL REMAIN BUTTONED OVER NIGHT. CONT ORDERED Addendum: 10/03/19 at 1924 by Josette Hall RT Amended: Links added.
--- NOTE | 2019-10-03 19:25 | NUR ---
Opening Shift Note Assumed care of patient, awake and alert. No S/S of distress/SOB or pain. Insructed on POC and to callfor assist PRN, will continue to monitor for changes Q1hr and PRN. Complete physical assessment under interventions. Call light within reach and bed locked for safety. Pt has no questions at the moment and stated " Im ready to go home".
[2019-10-03 20:00] VITALS: BP 126/93
[2019-10-03] MEDS: INSULIN LANTUS (GLARGINE) 1 /0.01ml (100units/ml) SC SCH (21:41)
[2019-10-04] VITALS (8 sets, daily range): BP systolic 102–127; BP diastolic 65–89
[2019-10-04] MEDS: LEVALBUTEROL HCL 1.25 MG/3 ML NEB NEB SCH ×4 (00:49→18:22)
--- NOTE | 2019-10-04 01:00 | NUR ---
RT NOTE PT WAS SEEN BY RT FOR HHN TX. PT TOLERATES WELL VIA MASK. NO ADVERSE REACTION NOTED. TRACHCARE DONE AT THIS TIME WITHOUT INCIDENT. Addendum: 10/04/19 at 0113 by Josette Hall RT Amended: Links added.
[2019-10-04] MEDS: InsuLIN REG 1unit/0.01ml Soln (100units/ml) SC SCH ×4 (05:44→23:31)
[2019-10-04] MEDS: ACCU-CHEK COMFORT CURVE STRIP VI SCH ×4 (05:44→23:30)
--- NOTE | 2019-10-04 07:30 | NUR ---
RECEIVED PATIENT SITTING UP IN THE BED, A/O TIMES 4, O2 BY R/A, SIZE 6 SHILEY TO THE THROAT CAPPED AND PATIENT IS TOLERATING, PICC LINE TO THE DOMENICO WITH 3 LUMENS ALL FLUSHED AND PATENT, ON A SPECIALTY BED, USES THE URINAL, BUT IS ALSO INCONTINENT, NO PAIN
--- NOTE | 2019-10-04 07:41 | NUR ---
ENDORSED CARE TO DAY NURSE. PT IN BED SCRATCHING HEAD. NO S/S OR DISTRESS NOTED.
[2019-10-04] MEDS: GEMFIBROZIL 600 MG TAB PO SCH ×2 (08:11→18:06)
[2019-10-04] MEDS: FERROUS SULFATE 325 MG TAB PO SCH ×2 (08:11→18:05)
--- NOTE | 2019-10-04 08:25 | NUR ---
SAT UP IN BED AND ATE HIS BREAKFAST
--- NOTE | 2019-10-04 09:08 | NUR ---
GOTTEN UP AND WALKING IN THE UNIT USING THE WALKER WITH PT
--- NOTE | 2019-10-04 09:15 | NUR ---
PATIENT WALKED ABOUT 400FEET IN THE UNIT AN THEN GOT INTO THE CHAIR
[2019-10-04] MEDS: METOPROLOL TARTRATE 25 MG TAB PO SCH ×2 (10:01→23:29)
[2019-10-04] MEDS: PANTOPRAZOLE 40 MG TAB PO SCH (10:01)
[2019-10-04] MEDS: SODIUM CHLOR 0.9% PF (SALINE LOCK) 10ML VIAL/SYR IV SCH ×2 (10:01→23:29)
--- NOTE | 2019-10-04 10:05 | NUR ---
EXPLAIN MEDICATION TO THE PATIENT REGARDING THE DOSAGE,USAGE AND THE SIDE EFFECTS, VERBALIZED HE UNDERSTOOD AND MEDS GIVEN ORDERED, HR AT 130 RANGE AFTER THE PATIENT WAS WALKING GAVE MARIANA
--- NOTE | 2019-10-04 11:30 | NUR ---
PATIENT GOTTEN UP AND WALKED IN THE UNIT USING THE WALKER ABOUT 400 FEET AND THEN GOTTEN BACK INTO THE BED
--- NOTE | 2019-10-04 11:45 | NUR ---
DR KEMPHA IN TO SEE THE PATIENT AND STATED TO GET THE SUPPLIES SO HE CAN TAKE OUT THE TRACH
--- NOTE | 2019-10-04 12:19 | NUR ---
DR KEMPHA IN TO SEE THE PATIENT, AND STATES HE IS GOING TO TAKE THE TRACH OUT NOW
--- NOTE | 2019-10-04 12:20 | NUR ---
Respiratory note: TRACH REMOVED WITHOUT ANY INCIDENT. PATIENT TOLERATED AND WAS ABLE TO TALK. PT SP02 IS > 92%. WILL CONTINUE TO MONITOR PT.
--- NOTE | 2019-10-04 12:25 | NUR ---
TRACH REMOVED WITHOUT ANY PROBLEM PATIENT TOLERATED AND WAS ABLE TO TALK
--- NOTE | 2019-10-04 13:30 | NUR ---
SITTING UP BED WATCHING TV, NO COMPLAINTS,
--- NOTE | 2019-10-04 14:45 | NUR ---
DR ROCHA IN TO SEE THE PATIENT AND STATES THE PATIENTS DOING OKAY
--- NOTE | 2019-10-04 15:15 | NUR ---
Nutrition Follow-up Notes Pt weight is 101.6 kg on 09/28/19. Pt's current diet order is CCHO 60g, Mechanical Soft. Appetite has improved aeb avg 85% PO intake. Est. Needs based on AdBW(76 kg): 1500 kcal to 1900 kcal (20-25 kcal/kgAdBW), 91 gms to 114 gms pro (1.2-1.5 gms/kgAdBW reassessed d/t ESRD on HD, severe hypoalbuminemia). Will continue to monitor pertinent labs and reassess nutrient need prn. Labs 09/30: Na 134 L, K 3.4 L, Cr 0.58 L, Glucose 154 H Skin: Brice scale 14, mod risk, moisture associated dermatitis to L medial buttock. PES: 1) Increased nutrient needs r/t acute/chronic medical condition aeb intubated, sedated, severe hypoalbuminemia, NPO- (resolved) 2) Altered nutrition related lab values r/t current/chronic medical condition aeb hyperglycemia, elev. renal labs, HbA1c, LFTs, lipase, hypocapnia, hypocalcemia and severe hypoalbuminemia. (partially resolved) 3) Obesity r/t food intake more than body requirement aeb 218% IBW, BMI 57.7 kg/m2 and increased body adiposity Will continue to monitor PO status, skin status, pertinent labs and weight trend. F/u in 3 to 5 days. Recommendations: 1) Continue close supervision and feeding assistance prn during meals. 2) Refer pt to CDE/RD for further nutrition education and weight monitoring upon discharge. 3) Continue current plan of care.
--- NOTE | 2019-10-04 15:30 | NUR ---
NO CHANGES WITH THE PATIENT
--- NOTE | 2019-10-04 16:10 | NUR ---
LYING IN BED WITH EYES CLOSED NO PROBLEM WITH BREATHING
--- NOTE | 2019-10-04 17:12 | NUR ---
SITTING UP IN THE BED WATCHING TV, NO COMPLAINTS OF PAIN
--- NOTE | 2019-10-04 18:23 | NUR ---
PATIENT SITTING UP IN THE BED, EATING HIS DINNER NO HELP NEEDED, O2 BY R/A, TRACH HAS BEEN REMOVED AND BEING ALLOWED TO CLOSED, AND PATIENT IS BREATHING ON HIS OWN, PICC LINE TO THE DOMENICO WITH 3 LUMENS ALL PATENT, USES THE URINAL OR BEDPAN, NO COMPLAINTS OF PAIN, WILL CONTINUE TO MONITOR AND GIVE REPORT TO THE NEXT SHIFT
[2019-10-04] MEDS: INSULIN LANTUS (GLARGINE) 1 /0.01ml (100units/ml) SC SCH (23:28)
[2019-10-05] MEDS: LEVALBUTEROL HCL 1.25 MG/3 ML NEB NEB SCH ×4 (00:14→17:41)
[2019-10-05 04:00] VITALS: BP 125/89
[2019-10-05] MEDS: InsuLIN REG 1unit/0.01ml Soln (100units/ml) SC SCH ×3 (06:00→17:44)
[2019-10-05] MEDS: GEMFIBROZIL 600 MG TAB PO SCH ×2 (07:00→16:49)
[2019-10-05 07:40] VITALS: BP 120/89
--- NOTE | 2019-10-05 07:45 | NUR ---
Opening Shift Note Assumed care of patient, awake and alert, lying on the bed. No S/S of distress/SOB or pain noted, room air O2 saturation 95-98%, HR 95 /min. Instructed on POC and to call for assist PRN, will continue to monitor for changes Q1hr and PRN.
[2019-10-05] MEDS: FERROUS SULFATE 325 MG TAB PO SCH ×2 (07:52→16:49)
[2019-10-05] MEDS: ACCU-CHEK COMFORT CURVE STRIP VI SCH ×3 (07:53→17:44)
--- NOTE | 2019-10-05 07:57 | NUR ---
Patient sitting on the chair, transfer himself to chair by using walker. Breakfast tray provided, watching TV at this time as well.
--- NOTE | 2019-10-05 08:36 | NUR ---
No changes this shift. Pt periodically picking scabs on head and bleeding. Pt educated and encouraged not to pick scabs. Denies pain this shift. Helped use urinal. Dressing remained in place with occasional repositioning when it came slightly loose. Report given to AM shift, care endorsed.
--- NOTE | 2019-10-05 09:05 | NUR ---
PT at the bedside, walking with PT by using rolling walker, room air, walked total 5 rounds around nursing station, patient tolerated well. HR while waling 135-140/min, will continue to monitor and care.
[2019-10-05] MEDS: PANTOPRAZOLE 40 MG TAB PO SCH (09:18)
[2019-10-05] MEDS: METOPROLOL TARTRATE 25 MG TAB PO SCH ×2 (09:19→22:53)
[2019-10-05] MEDS: SODIUM CHLOR 0.9% PF (SALINE LOCK) 10ML VIAL/SYR IV SCH ×2 (09:20→22:53)
--- NOTE | 2019-10-05 09:53 | NUR ---
After resting on the chair, HR 115-125/min, room air , O2 saturation 97-98%, RR 18-20/min.
[2019-10-05 11:45] VITALS: BP 126/90
--- NOTE | 2019-10-05 12:10 | NUR ---
Patient sitting on the chair.
--- NOTE | 2019-10-05 12:25 | NUR ---
Lunch tray provided. HR 95-100/min, SBP 102-130 mmHg, RR 20-24/min, O2 saturation 97%.
--- NOTE | 2019-10-05 13:30 | NUR ---
Patient went back to the bed. Dr. Diaz at the bedside, made aware about discharge planning. No new order at this time.
--- NOTE | 2019-10-05 15:00 | NUR ---
Patient taking a nap at this time, lying on the bed, vital sign stable.
[2019-10-05 15:45] VITALS: BP 129/84
[2019-10-05] MEDS: ERGOCALCIFEROL 50,000 UNIT(1.25MG) CAP PO SCH (17:44)
--- NOTE | 2019-10-05 17:51 | NUR ---
Patient sitting on the chair for having Dinner, HR 110-120 /min when having activities. Room air O2 saturation 97-98%, no sign of hypoglycemia noted.
--- NOTE | 2019-10-05 18:59 | NUR ---
Patient went back to bed, had dinner around 80%. Dr. Harmon at the bedside, no new order at this time.
[2019-10-05 20:00] VITALS: BP 128/92
[2019-10-05] MEDS: INSULIN LANTUS (GLARGINE) 1 /0.01ml (100units/ml) SC SCH (22:55)
[2019-10-06] VITALS: BP 145/98
[2019-10-06] MEDS: LEVALBUTEROL HCL 1.25 MG/3 ML NEB NEB SCH ×4 (00:11→18:01)
[2019-10-06 04:00] VITALS: BP 135/99
--- NOTE | 2019-10-06 07:00 | NUR ---
Pt remained stable this shift. Educated on legs exercises for when he is in bed to strengthen his legs and build stamina. Pt verbalized understanding. No changes this shift. Pt looking forward to possible discharge on Monday. Report given to AM shift, care endorsed.
[2019-10-06 07:40] VITALS: BP 130/90
--- NOTE | 2019-10-06 08:00 | NUR ---
ASSESMENT COMPLETED, A/O X4 . NO SIGNS OR SYMPTOMS OF RESP DISTRESS ON ROOM AIR. SINUS TACHYCARDIA NOTED 109-125 BP WNL, DENIES ANY PAIN. DRESSING CHANGE TO OLD TRACHEOSTOMY SITE COMPLETED
[2019-10-06] MEDS: GEMFIBROZIL 600 MG TAB PO SCH ×2 (08:55→18:05)
[2019-10-06] MEDS: FERROUS SULFATE 325 MG TAB PO SCH ×2 (08:55→18:05)
--- NOTE | 2019-10-06 09:30 | NUR ---
OOB TO CHAIR AFTER USING BSC PER DAISY CUFF STITCHER, PATIENT REQUESTING TO WALK JUNIOR MORA AWARE
[2019-10-06] MEDS: PANTOPRAZOLE 40 MG TAB PO SCH (09:53)
[2019-10-06] MEDS: METOPROLOL TARTRATE 25 MG TAB PO SCH ×2 (09:54→23:38)
[2019-10-06] MEDS: SODIUM CHLOR 0.9% PF (SALINE LOCK) 10ML VIAL/SYR IV SCH ×2 (10:00→23:38)
--- NOTE | 2019-10-06 10:30 | NUR ---
BACK TO BED WITH RN STANDBY ASSIST TOLERATED WELL.
[2019-10-06] MEDS: InsuLIN REG 1unit/0.01ml Soln (100units/ml) SC SCH ×3 (10:44→18:00)
[2019-10-06] MEDS: ACCU-CHEK COMFORT CURVE STRIP VI SCH ×4 (10:44→18:05)
--- NOTE | 2019-10-06 11:30 | NUR ---
WALKED WITH PT AROUND NURSING STATION
[2019-10-06 11:45] VITALS: BP 107/68
--- NOTE | 2019-10-06 14:38 | NUR ---
SISTER CALLED, RN UPDATED HER ON PLAN OF CARE
[2019-10-06 15:45] VITALS: BP 100/67
--- NOTE | 2019-10-06 18:01 | NUR ---
Respiratory note: AT BEDSIDE FOR MED BRENDEN EDDY.
[2019-10-06 20:00] VITALS: BP 110/62
[2019-10-06] MEDS: INSULIN LANTUS (GLARGINE) 1 /0.01ml (100units/ml) SC SCH (23:37)
[2019-10-07] VITALS: BP 112/61
[2019-10-07] MEDS: LEVALBUTEROL HCL 1.25 MG/3 ML NEB NEB SCH ×4 (00:01→20:11)
--- NOTE | 2019-10-07 00:05 | NUR ---
Respiratory note: AT BEDSIDE FOR MED BRENDEN EDDY.
--- NOTE | 2019-10-07 02:38 | NUR ---
Pt remains stable this shift, no changes. Dressing CDI. Calls for assist with urinal. Pt did have an incontinent BM. Will continue to monitor.
[2019-10-07 04:00] VITALS: BP 99/74
[2019-10-07] MEDS: InsuLIN REG 1unit/0.01ml Soln (100units/ml) SC SCH ×5 (06:00→22:47)
[2019-10-07] MEDS: ACCU-CHEK COMFORT CURVE STRIP VI SCH ×5 (06:00→22:47)
[2019-10-07 07:40] VITALS: BP 92/57
--- NOTE | 2019-10-07 08:03 | NUR ---
Pt has remained stable this shift. Pt educated on not picking scabs on his head. No S/S of distress or pain. Pt hopeful that he will go home today. Report given to AM shift, care endorsed.
[2019-10-07] MEDS: FERROUS SULFATE 325 MG TAB PO SCH ×2 (08:40→17:49)
[2019-10-07] MEDS: GEMFIBROZIL 600 MG TAB PO SCH ×2 (08:40→17:49)
[2019-10-07] MEDS: METOPROLOL TARTRATE 25 MG TAB PO SCH (10:07)
[2019-10-07] MEDS: PANTOPRAZOLE 40 MG TAB PO SCH (10:07)
[2019-10-07] MEDS: SODIUM CHLOR 0.9% PF (SALINE LOCK) 10ML VIAL/SYR IV SCH ×2 (10:20→21:08)
[2019-10-07 11:40] VITALS: BP 135/98
--- NOTE | 2019-10-07 13:41 | NUR ---
Resumed care at 0730, orders reviewed and ongoing assessments being done. Upon arrival in bed awake and alert and able to make needs known. No change in mental status as shift progresses. Can get out of bed to chair and to BSC with assistance. Strength increasing and able to assist with self care. With PT, has ambulated around the nurses station 6 times with the use of a walker. Has been in no acute distress and no complaints of any pain or discomfort. Dr. Roberts rounded at 1155 assessed and reviewed data. Per Dr. Roberts, DC plan for tomorrow. Prescription written and taken to [facility] on the first floor.
[2019-10-07 15:45] VITALS: BP 129/91
--- NOTE | 2019-10-07 18:26 | NUR ---
No remarkable changes. Continue to make needs known and participating with care. Notified family regarding discharge plan for tomorrow. Spoke with brother Jose and sister Laura. Prescriptions filled by [facility] (first floor) but unable to dispense glucometer, test strips and lancets. Spoke with sister Laura and she will be coming to the hospital to machine operator hop picker prescription and get it filled at an outside pharmacy. Awaiting arrival.
--- NOTE | 2019-10-07 18:29 | NUR ---
Demonstrated and reviewed how to test for blood sugar. Hands are shaky and had a hard time with demonstration. Made him aware that when family is in tomorrow upon discharge will review procedure with family member.
--- NOTE | 2019-10-07 19:20 | NUR ---
OPENING NOTE ASSUMED CARE OF PT IN ROOM 266. PT AWAKE AND ALERT, NO DISTRESS NOTED. COMPLETE PHYSICAL ASSESSMENT UNDER INTERVENTIONS. WILL CONTINUE TO MONITOR. PT UPDATED ON POC AND CALL LIGHT WITHIN REACH.
--- NOTE | 2019-10-07 19:37 | NUR ---
Sister Laura arrived and met her outside of hospital by the main entrance. Gave her the prescriptions that were filled and the prescription for the glucometer, test strips and lancets. Discussed discharge plan for am.
[2019-10-07 20:00] VITALS: BP 129/99
--- NOTE | 2019-10-07 20:10 | NUR ---
SISTER CALLED REPORTED THAT DUE TO INSURANCE TYPE SHE WAS UNABLE TO GET NECESSARY MEDICATION FROM HER PHARMACY. WILL INFORM DAY NURSE.
[2019-10-07] MEDS: INSULIN LANTUS (GLARGINE) 1 /0.01ml (100units/ml) SC SCH (22:46)
[2019-10-08] VITALS: BP 133/100
[2019-10-08] MEDS: LEVALBUTEROL HCL 1.25 MG/3 ML NEB NEB SCH ×4 (00:47→19:23)
--- NOTE | 2019-10-08 03:50 | NUR ---
LINEN CHANGE GOWN CHANGE AND BED BATH GIVEN. PT IN BED WITH CALL LIGHT WITHIN REACH. WILL CONTINUE TO MONITOR.
[2019-10-08 04:00] VITALS: BP 148/100
[2019-10-08] MEDS: InsuLIN REG 1unit/0.01ml Soln (100units/ml) SC SCH ×4 (05:32→22:43)
[2019-10-08] MEDS: ACCU-CHEK COMFORT CURVE STRIP VI SCH ×4 (05:32→22:44)
[2019-10-08] MEDS: GEMFIBROZIL 600 MG TAB PO SCH ×2 (06:08→17:42)
--- NOTE | 2019-10-08 07:49 | NUR ---
CARE ENDORSED TO DAY NURSE PT SHOWS NO S/S OF RESPIRATORY DISTRESS. CALL LIGHT WITHIN REACH.
[2019-10-08 08:30] VITALS: BP 159/101
--- NOTE | 2019-10-08 08:30 | NUR ---
Opening Shift Note Assumed care of patient, awake and alert. No S/S of distress/SOB or pain. Patient saturation 95% at room air. Foam dressing on neck intact. See interventions for complete assessment. Bed locked on low position, side rails up x2, bed alarms on at all times, call mike within reach, instructed on POC and to call for assist PRN, will continue to monitor for changes Q1hr and PRN.
--- NOTE | 2019-10-08 11:00 | NUR ---
Patient out of bed with Kavon MORA, ambulated using walker, fall precautions in place. Patient tolerated five laps around [facility] nurse station.
[2019-10-08] MEDS: PANTOPRAZOLE 40 MG TAB PO SCH (11:02)
[2019-10-08] MEDS: SODIUM CHLOR 0.9% PF (SALINE LOCK) 10ML VIAL/SYR IV SCH ×2 (11:02→21:24)
[2019-10-08] MEDS: FERROUS SULFATE 325 MG TAB PO SCH ×2 (11:02→17:42)
--- NOTE | 2019-10-08 11:30 | NUR ---
WOUND CARE NOTE: IN TO SEE PATIENT AT THIS TIME FOR WOUND REASSESSMENT. WOUND PHOTOS TAKEN AT THIS TIME FOR REFERENCE. PATIENT IS SITTING UP IN CHAIR, OBSERVED TO BE ABLE TO STAND WITH NO ASSISTANCE BY STAFF. PATIENT HAS CURRENT MK SCORE OF 19. PHOTOGRAPHED MUCOSAL ULCER TO THE TONGUE. WOUND IS RESOLVING WELL, MUCH SMALLER, MEASURING 0.5 X 0.5 CM. WOUND BED IS RED/YELLOW. DR. GARCIA IS IN TO VISUALIZE WOUND WELL. LEFT OPEN TO AIR. SACRUM/INTRAGLUTEAL SKIN IS HYPERPIGMENTED, BUT BLANCHABLE. NO OPEN OR DRAINING/WEEPING SKIN NOTED. LEFT OPEN TO AIR. DISCHARGE ORDER TO BE PLACED AT THIS TIME. PATIENT EDUCATED IN WOUND CARE AT THIS TIME, PATIENT VERBALIZED UNDERSTANDING. RECOMMEND: CONTINUATION WITH ALL WOUND CARE ORDERS PREVIOUSLY PRESCRIBED BY MD UNTIL DISCHARGE. WOUND CARE TEAM WILL CONTINUE TO MONITOR. Addendum: 10/08/19 at 1504 by Susie Bautista RN Amended: Links added.
--- NOTE | 2019-10-08 11:40 | NUR ---
clarification operator Laurie at bedside for wound care shaunna.
--- NOTE | 2019-10-08 11:40 | NUR ---
Audra Smith at bedside to set up PCP for patient.
--- NOTE | 2019-10-08 11:42 | NUR ---
Spoke to Joy from [facility] regarding patient's home medications and states "Patient's family already picked it up yesterday except for the accucheck machine and supplies, patient needs to get it directly from [facility]." Spoke to patient's sister Laura regarding patient's accucheck machine and supplies, sister will call [facility] and facilitate.
--- NOTE | 2019-10-08 11:44 | NUR ---
Dr Roberts at bedside, updated on patient's status. Patient seen and examined. Plan to discharge patient today.
--- NOTE | 2019-10-08 12:12 | NUR ---
I faxed DME order to [facility].
[2019-10-08 12:30] VITALS: BP 126/82
--- NOTE | 2019-10-08 13:00 | NUR ---
Patient back to chair from bedside chair with Chavo PHAN Fall precautions in place. Patient tolerated well.
--- NOTE | 2019-10-08 13:13 | NUR ---
Discharge wound photograph taken by sawmill relief worker Cuca. Discharge MRSA sent to lab.
--- NOTE | 2019-10-08 13:49 | NUR ---
Nutrition Follow-up/Consult Notes Pt weight is 101.6 kg on 09/28/19. Current weight estimated at 62 kg unlikely. Pt's current diet order is CCHO 60g, Mechanical Soft. Appetite is good aeb avg 78% PO intake. Received dietary consult for new onset diabetes. Provided diabetes education to pt. Pt verbalized understanding. Pt may benefit from additional diabetes education upon discharge. Will continue to monitor pertinent labs and reassess nutrient need prn. Est. Needs based on AdBW(76 kg): 1500 kcal to 1900 kcal (20-25 kcal/kgAdBW), 91 gms to 114 gms pro (1.2-1.5 gms/kgAdBW reassessed d/t ESRD on HD, severe hypoalbuminemia). Labs: No new labs. POC 122 H (10/07). Skin: Brice scale 19, low risk, moisture associated dermatitis to L medial buttock. PES: 1) Increased nutrient needs r/t acute/chronic medical condition aeb intubated, sedated, severe hypoalbuminemia, NPO- (resolved) 2) Altered nutrition related lab values r/t current/chronic medical condition aeb hyperglycemia, elev. renal labs, HbA1c, LFTs, lipase, hypocapnia, hypocalcemia and severe hypoalbuminemia. (partially resolved) 3) Obesity r/t food intake more than body requirement aeb 218% IBW, BMI 57.7 kg/m2 and increased body adiposity Will continue to monitor PO status, skin status, pertinent labs and weight trend. F/u in 3 to 5 days. Recommendations: 1) Continue close supervision and feeding assistance prn during meals. 2) Refer pt to CDE/RD for further nutrition education and weight monitoring upon discharge. 3) Continue current plan of care.
--- NOTE | 2019-10-08 16:09 | NUR ---
D/C Planning Soot Blower consult regarding walker and home glucometer, lancets, Gluco strips. RADHA Olivares will completed order for glucometer, lancets, and Gluco strips. Faxed clinical information to [facility] requesting walker to be deliver to bedside. Faxed order to [facility] requesting authorization for [facility]. Per Jennifer with [facility] authorization for [facility] is [id number]. Per Kierra with [facility] walker will be deliver tonight. Nurse was informed of d/c plan.
[2019-10-08 16:30] VITALS: BP 14/88
--- NOTE | 2019-10-08 16:30 | NUR ---
Patient's walker delivered at bedside.
--- NOTE | 2019-10-08 19:15 | NUR ---
opening note report received from day nurse. assumed care of pt in room 266. awake and alert, no s/s of distress. complete physical assessment under interventions. call light within reach and bed locked in lowest position. will continue to monitor.
[2019-10-08 20:00] VITALS: BP 151/97
[2019-10-08] MEDS: INSULIN LANTUS (GLARGINE) 1 /0.01ml (100units/ml) SC SCH (22:42)
[2019-10-09] VITALS: BP 157/96
[2019-10-09] MEDS: LEVALBUTEROL HCL 1.25 MG/3 ML NEB NEB SCH ×3 (01:04→12:08)
[2019-10-09 04:00] VITALS: BP 122/81
[2019-10-09] MEDS: ACCU-CHEK COMFORT CURVE STRIP VI SCH ×2 (05:33→12:45)
[2019-10-09] MEDS: InsuLIN REG 1unit/0.01ml Soln (100units/ml) SC SCH ×2 (05:33→12:00)
[2019-10-09] MEDS: GEMFIBROZIL 600 MG TAB PO SCH (06:22)
[2019-10-09 07:40] VITALS: BP 136/98
--- NOTE | 2019-10-09 08:30 | NUR ---
Opening Shift Note Assumed care of patient, awake and alert. Patient with discharge orders from yesterday, waiting for glucometer and supplies. No S/S of distress/SOB or pain. Patient saturation 95% at room air. See interventions for complete assessment. Bed locked on low position, side rails up x2, bed alarms on at all times, call mike within reach, instructed on POC and to call for assist PRN, will continue to monitor for changes Q1hr and PRN.
--- NOTE | 2019-10-09 09:30 | NUR ---
Patient out of bed with Kavon MORA, fall precautions in place. Patient tolerated four laps around [facility] nurse station.
[2019-10-09] MEDS: PANTOPRAZOLE 40 MG TAB PO SCH (09:59)
[2019-10-09] MEDS: SODIUM CHLOR 0.9% PF (SALINE LOCK) 10ML VIAL/SYR IV SCH (09:59)
[2019-10-09] MEDS: FERROUS SULFATE 325 MG TAB PO SCH (09:59)
[2019-10-09 11:40] VITALS: BP 144/97
--- NOTE | 2019-10-09 12:21 | NUR ---
Dr Roberts at bedside, updated on patient's status. Patient seen and examined. Will facilitate discharge.
[2019-10-09 13:59] VITALS: BP 144/97
--- NOTE | 2019-10-09 14:21 | NUR ---
Discharge MRSA sent to lab.
[2019-10-09 15:40] VITALS: BP 143/100
--- NOTE | 2019-10-09 16:15 | NUR ---
Discharge wound photos taken.
--- NOTE | 2019-10-09 16:22 | NUR ---
Discharge instructions and packet given to patient. Patient instructed to bring glucometer, lancets and glucostrips prescription to pharmacy of choice in order to get supplies per instruction from disease case manager rn Elise. Patient verbalized understanding.
--- NOTE | 2019-10-09 16:26 | NUR ---
LT upper arm midline disconinued with sterile technique, catheter fully intact. Pressure dressing applied to site. Patient tolerated procedure well. Discharged with aftercare instructions per MD.
--- NOTE | 2019-10-09 16:45 | NUR ---
Discharge instructions given as ordered. Encourage to follow up with Dr Naresh Shankar as instructed. All questions and concerns addressed. Patient verbalized understanding. Patient taken to vehicle via wheelchair by Regulo COKER with all personal belongings including cellphone, clothes, shoes, jacket. No distress noted at time of departure.
== END 2019-10-09 17:41 | disposition home or self-care (01) | DRG 5 ==
LOC: ER 14:52 → TELE 14:53 → TELE-WESTW 23:13 → DOU IN ICU 08-12 00:30 → ICU WEST 08-12 12:50 → DOU IN ICU 09-21 03:31
PROVIDERS: ADMIT Hospitalist; ATTEND Internal Medicine
PROC: 03HY32Z Insertion of Monitoring Device into Upper Artery, Percutaneous Approach (ICD-10-PCS; 2019-08-11)
PROC: 5A1955Z Respiratory Ventilation, Greater than 96 Consecutive Hours (ICD-10-PCS; principal; 2019-08-12)
PROC: 0BH17EZ Insertion of Endotracheal Airway into Trachea, Via Natural or Artificial Opening (ICD-10-PCS; 2019-08-12)
PROC: 5A09357 Assistance with Respiratory Ventilation, Less than 24 Consecutive Hours, Continuous Positive Airway Pressure (ICD-10-PCS; 2019-08-12)
PROC: 02HV33Z Insertion of Infusion Device into Superior Vena Cava, Percutaneous Approach (ICD-10-PCS; 2019-08-13)
PROC: 5A1D70Z Performance of Urinary Filtration, Intermittent, Less than 6 Hours Per Day (ICD-10-PCS; 2019-08-13)
PROC: 5A1D70Z Performance of Urinary Filtration, Intermittent, Less than 6 Hours Per Day (ICD-10-PCS; 2019-08-15)
PROC: 5A1D70Z Performance of Urinary Filtration, Intermittent, Less than 6 Hours Per Day (ICD-10-PCS; 2019-08-16)
PROC: 02H633Z Insertion of Infusion Device into Right Atrium, Percutaneous Approach (ICD-10-PCS; 2019-08-19)
PROC: 5A1D70Z Performance of Urinary Filtration, Intermittent, Less than 6 Hours Per Day (ICD-10-PCS; 2019-08-19)
PROC: 5A1D70Z Performance of Urinary Filtration, Intermittent, Less than 6 Hours Per Day (ICD-10-PCS; 2019-08-20)
PROC: 5A1D70Z Performance of Urinary Filtration, Intermittent, Less than 6 Hours Per Day (ICD-10-PCS; 2019-08-21)
PROC: 0D9670Z Drainage of Stomach with Drainage Device, Via Natural or Artificial Opening (ICD-10-PCS; 2019-08-22)
PROC: 0B968ZZ Drainage of Right Lower Lobe Bronchus, Via Natural or Artificial Opening Endoscopic (ICD-10-PCS; 2019-08-23)
PROC: 0B21XEZ Change Endotracheal Airway in Trachea, External Approach (ICD-10-PCS; 2019-08-23)
PROC: 0B918ZZ Drainage of Trachea, Via Natural or Artificial Opening Endoscopic (ICD-10-PCS; 2019-08-23)
PROC: 5A1D70Z Performance of Urinary Filtration, Intermittent, Less than 6 Hours Per Day (ICD-10-PCS; 2019-08-23)
PROC: 5A1D70Z Performance of Urinary Filtration, Intermittent, Less than 6 Hours Per Day (ICD-10-PCS; 2019-08-24)
PROC: 5A1D70Z Performance of Urinary Filtration, Intermittent, Less than 6 Hours Per Day (ICD-10-PCS; 2019-08-26)
PROC: 5A1D70Z Performance of Urinary Filtration, Intermittent, Less than 6 Hours Per Day (ICD-10-PCS; 2019-08-27)
PROC: 5A1D70Z Performance of Urinary Filtration, Intermittent, Less than 6 Hours Per Day (ICD-10-PCS; 2019-08-28)
PROC: 0B110F4 Bypass Trachea to Cutaneous with Tracheostomy Device, Open Approach (ICD-10-PCS; 2019-08-28)
PROC: 5A1D70Z Performance of Urinary Filtration, Intermittent, Less than 6 Hours Per Day (ICD-10-PCS; 2019-08-30)
PROC: 5A1D70Z Performance of Urinary Filtration, Intermittent, Less than 6 Hours Per Day (ICD-10-PCS; 2019-08-31)
PROC: 0J9C3ZZ Drainage of Pelvic Region Subcutaneous Tissue and Fascia, Percutaneous Approach (ICD-10-PCS; 2019-09-09)
PROC: 0B21XFZ Change Tracheostomy Device in Trachea, External Approach (ICD-10-PCS; 2019-09-09)
DX: A41.01 Sepsis due to Methicillin susceptible Staphylococcus aureus (principal); N17.0 Acute kidney failure with tubular necrosis; E43 Unspecified severe protein-calorie malnutrition; J15.212 Pneumonia due to Methicillin resistant Staphylococcus aureus; J15.6 Pneumonia due to other Gram-negative bacteria; J96.21 Acute and chronic respiratory failure with hypoxia; R65.21 Severe sepsis with septic shock; D61.818 Other pancytopenia; K85.92 Acute pancreatitis with infected necrosis, unspecified; E11.10 Type 2 diabetes mellitus with ketoacidosis without coma; E87.4 Mixed disorder of acid-base balance; E88.89 Other specified metabolic disorders; K76.0 Fatty (change of) liver, not elsewhere classified; E66.2 Morbid (severe) obesity with alveolar hypoventilation; E87.1 Hypo-osmolality and hyponatremia; E78.1 Pure hyperglyceridemia; E83.39 Other disorders of phosphorus metabolism; E83.51 Hypocalcemia; E87.5 Hyperkalemia; E87.70 Fluid overload, unspecified; J98.11 Atelectasis; N18.9 Chronic kidney disease, unspecified; Z68.42 Body mass index [BMI] 45.0-49.9, adult; E78.5 Hyperlipidemia, unspecified; E87.0 Hyperosmolality and hypernatremia; J93.82 Other air leak; J95.03 Malfunction of tracheostomy stoma; Y83.8 Other surgical procedures as the cause of abnormal reaction of the patient, or of later complication, without mention of misadventure at the time of the procedure; E87.6 Hypokalemia; E11.22 Type 2 diabetes mellitus with diabetic chronic kidney disease; I12.9 Hypertensive chronic kidney disease with stage 1 through stage 4 chronic kidney disease, or unspecified chronic kidney disease; Z79.899 Other long term (current) drug therapy
CPT/HCPCS: 10022; 31720; 36415; 36569; 36600; 71045; 74018; 74176; 74177; 76700; 76705; 76942; 80048; 80053; 80061; 80074; 80307; 81001; 82040; 82150; 82306; 82533; 82550; 82728; 82805; 82962; 83010; 83036; 83540; 83550; 83605; 83615; 83690; 83735; 83970; 84100; 84132; 84443; 84478; 84484; 85007; 85014; 85018; 85025; 85027; 85045; 85362; 85379; 85384; 85610; 85730; 86850; 86880; 86900; 86901; 86920; 87040; 87070; 87077; 87081; 87086; 87186; 87205; 90935; 92610; 93005; 93306; 94002; 94003; 94640; 94660; 96374; 96375; 97110; 97116; 97163; 97530; 99291; A4605; C9113; G0378; J0171; J0330; J0610; J0636; J1450; J1642; J1815; J1956; J2001; J2185; J2250; J2405; J2543; J2704; J3480; J3490; J7060; J7131; P9047

== ENCOUNTER 2019-11-01 09:26 | Inpatient (IN) | payer MEDICAID ==
[~2019-11-01] VITALS: Ht 162.6 cm; Wt 96.6 kg
[2019-11-01 10:13] LABS: Basophils # (auto) 0.2 10 ^3/uL (0-0.2); Eosinophils # (auto) 0 10 ^3/uL (0-0.8); Monocytes # (auto) 0.7 10 ^3/uL (0-1.3); Red Cell Distribution Width 16.7 % (11.8-14.3)
[2019-11-01 10:15] LABS: Basophils % (auto) 1.7 % (0.0-2.0); Eosinophils % (auto) 0.3 % (0.0-7.0); Lymphocytes # (auto) 2.8 10 ^3/uL (0.4-5.4); Lymphocytes % (auto) 23.1 % (10.0-50.0); Mean Corpuscular Hemoglobin 27.4 pg (28.0-32.0); Mean Corpuscular Hgb Conc. 33.3 g/dL (32.0-36.0); Mean Corpuscular Volume 82.3 fL (80.0-100.0); Monocytes % (auto) 5.9 % (0.0-12.0); Neutrophils # (auto) 8.3 10 ^3/uL (1.6-8.6); Platelet Count (auto) 517 10^3/uL (140-450); Red Blood Cells 4.37 10^6/uL (4.5-5.90); White Blood Cell 12.1 10^3/uL (4.4-10.8)
[2019-11-01 10:27] LABS: Albumin 2.5 g/dL (3.4-5.0); Anion Gap 11 (5-15); Blood Urea Nitrogen 16 mg/dL (7-18); Calcium 8.8 mg/dL (8.5-10.1); Carbon Dioxide 30 mmol/L (21-32); Chloride 89 mmol/L (98-107); Glucose 150 mg/dL (74-106); Lipase 80 U/L (73-393); Sodium 130 mmol/L (136-145)
[2019-11-01 10:44] LABS: Alanine Aminotransferase 136 U/L (16-61); Alkaline Phosphatase 2091 U/L (45-117); Amylase 32 U/L (25-115); Aspartate Aminotransferase 207 U/L (15-37); Bilirubin, Total 6.4 mg/dL (0.2-1.0); GFR African American 117 mL/min; GFR Non-African American 97 mL/min; Total Protein 7.8 g/dL (6.4-8.2)
[2019-11-01 10:49] LABS: Potassium 2.8 mmol/L (3.5-5.1)
[2019-11-01] MEDS ORDERED: POTASSIUM EFFERVESENT TAB 25 MEQ PO ONE (11:00)
[2019-11-01] MEDS ORDERED: SODIUM CHLORIDE 0.9% 1,000 ML IV ONE ×2 (11:19)
[2019-11-01 11:22] LABS: Urine Bacteria FEW /hpf (None Seen); Urine Blood Negative /uL (Negative); Urine Hyaline Cast FEW /lpf (0 - 2); Urine Mucus FEW (None Seen); Urine Specific Gravity 1.027 (1.001-1.035); Urine WBC 34 /hpf (0 - 3)
[2019-11-01 11:30] LABS: Alcohol, Urine < 3.0 mg/dL (0-5); Amphetamine Screen, Urine NEGATIVE (NEGATIVE); Barbiturate Scree,Urine NEGATIVE (NEGATIVE); Benzodiazephine Screen, Urine NEGATIVE (NEGATIVE); Cannabinoid Screen, Urine NEGATIVE (NEGATIVE); Cocaine Screen, Urine NEGATIVE (NEGATIVE); Opiate Scree,Urine NEGATIVE (NEGATIVE); Phencyclidine Screen, Urine NEGATIVE (NEGATIVE)
[2019-11-01] MEDS ORDERED: metroNIDAZOLE 500MG/100ML 100 ML IV ONE (11:30)
[2019-11-01] MEDS ORDERED: PIPERACILLIN-TAZOB 3.375GM 100 ML IV ONE (11:30)
[2019-11-01 12:02] LABS: INR 1.58 (0.9-1.15); Partial Thromboplastin Time 31.9 sec (23.64-32.05)
[2019-11-01] MEDS ORDERED: SODIUM CHLORIDE 0.9% 1,000 ML IV SCH (12:42)
[2019-11-01] MEDS ORDERED: NITROGLYCERIN 0.4 MG SL TAB SL PRN (12:45)
[2019-11-01] MEDS ORDERED: MORPHINE SULF INJ 2 MG/ML SYRINGE 1ML IV PRN ×3 (12:45)
[2019-11-01] MEDS ORDERED: PROMETHAZINE HCL 25 MG/ML 1ML IV PRN (12:45)
[2019-11-01] MEDS ORDERED: DEXTROSE (50%) 50ML SYRG IV PRN (12:45)
[2019-11-01 13:37] VITALS: BP 126/80
--- NOTE | 2019-11-01 13:37 | NUR ---
Pt Arrived on Unit Pt arrived on unit from ED via wheelchair. Pt was able to ambulate to bed without difficulty. Pt is a/ox4 with no s/s of distress or SOB. Pt is currently on 2L NC. Safety measures maintained with call light within reach, bed in lowest position and side rails up. Will continue to monitor.
[2019-11-01] MEDS: FAMOTIDINE (10MG/ML) 2ML VL IV SCH ×2 (13:38→13:40)
[2019-11-01] MEDS: SOD CHL 0.9%/ KCL 40MEQ 1,000 ML IV SCH ×2 (13:39→21:20)
[2019-11-01] MEDS: CLINDAMYCIN 600MG IV 50 ML IV SCH ×2 (14:07→23:03)
[2019-11-01] MEDS: POTASSIUM CHL 20MEQ/100ML 100 ML IV SCH ×4 (14:07→23:43)
[2019-11-01] MEDS ORDERED: LISI40TA PO (14:35)
[2019-11-01] MEDS ORDERED: GEMF600T7 PO (14:35)
[2019-11-01] MEDS ORDERED: PRO10T PO (14:35)
[2019-11-01] MEDS ORDERED: ASPI-404 PO (14:35)
--- NOTE | 2019-11-01 14:40 | NUR ---
MRSA Nares Sent to Lab
--- NOTE | 2019-11-01 14:57 | NUR ---
POM POM sent to Pharmacy
[2019-11-01 16:45] VITALS: BP 125/71
[2019-11-01] MEDS: ACCU-CHEK COMFORT CURVE STRIP VI SCH (17:22)
[2019-11-01] MEDS: PIPERACILLIN-TAZOB 3.375GM 100 ML IV SCH (17:22)
[2019-11-01] MEDS: InsuLIN REG 1unit/0.01ml Soln (100units/ml) SC SCH (17:36)
--- NOTE | 2019-11-01 19:40 | NUR ---
Opening Shift Note Received report and assumed care of patient. Patient is awake and alert. No signs or symptoms of distress noted, patient currently denies pain. Instructed patient on plan of care and to call for assistance as needed. Will continue to monitor.
[2019-11-01 22:25] VITALS: BP 121/66
[2019-11-02] MEDS: PIPERACILLIN-TAZOB 3.375GM 100 ML IV SCH ×5 (00:27→23:35)
[2019-11-02] MEDS: ACCU-CHEK COMFORT CURVE STRIP VI SCH ×5 (00:30→23:44)
[2019-11-02 05:16] VITALS: BP 133/88
[2019-11-02] MEDS: CLINDAMYCIN 600MG IV 50 ML IV SCH (05:30)
[2019-11-02] MEDS: SOD CHL 0.9%/ KCL 40MEQ 1,000 ML IV SCH ×3 (05:32→22:07)
[2019-11-02] MEDS: InsuLIN REG 1unit/0.01ml Soln (100units/ml) SC SCH ×5 (06:00→23:49)
[2019-11-02 06:05] LABS: Basophils # (auto) 0 10 ^3/uL (0-0.2); Basophils % (auto) 0.6 % (0.0-2.0); Eosinophils # (auto) 0 10 ^3/uL (0-0.8); Eosinophils % (auto) 0.5 % (0.0-7.0); Hematocrit 31.4 % (41.0-53.0); Hemoglobin 10.7 g/dL (13.5-17.5); Lymphocytes # (auto) 1.8 10 ^3/uL (0.4-5.4); Lymphocytes % (auto) 19.7 % (10.0-50.0); Mean Corpuscular Hemoglobin 28.2 pg (28.0-32.0); Mean Corpuscular Hgb Conc. 34.1 g/dL (32.0-36.0); Mean Corpuscular Volume 82.8 fL (80.0-100.0); Monocytes # (auto) 0.8 10 ^3/uL (0-1.3); Monocytes % (auto) 8.5 % (0.0-12.0); Neutrophils # (auto) 6.4 10 ^3/uL (1.6-8.6); Neutrophils % (auto) 70.7 % (37.0-80.0); Platelet Count (auto) 381 10^3/uL (140-450); Red Blood Cells 3.79 10^6/uL (4.5-5.90)
[2019-11-02 06:23] LABS: Albumin 2.2 g/dL (3.4-5.0)
[2019-11-02 06:30] LABS: Amylase 32 U/L (25-115); Lipase 94 U/L (73-393)
[2019-11-02 06:37] LABS: BUN/Creatinine Ratio 16.9; Bilirubin, Total 6.1 mg/dL (0.2-1.0); Total Protein 6.7 g/dL (6.4-8.2)
--- NOTE | 2019-11-02 07:33 | NUR ---
Opening Note Assumed pt care from NOC RN. Pt is a/ox4 with no s/s of distress or SOB. Pt is currently out of bed with no complaints at this time. Pt is still currently NPO. Discussed POC with pt and pending consults; pt verbalized understanding. Safety measures maintained with call light within reach, bed in lowest position and side rails up. Will continue to monitor.
[2019-11-02] MEDS: PANTOPRAZOLE 40 MG/10 ML VIAL INJ IV SCH (08:24)
[2019-11-02 08:36] VITALS: BP 132/73
--- NOTE | 2019-11-02 12:09 | NUR ---
Dr Saenz at Bedside MD to see pt. Discussed POC with pt and the need for Radiology intervention. MD to start on diet and PPN. Requested PICC line be placed. MD implemented orders. Will implement and continue to monitor.
[2019-11-02] MEDS ORDERED: TPN PER PHARMACY 0 ML IV SCH (12:15)
--- NOTE | 2019-11-02 12:39 | NUR ---
Tele Downgrade D/C tele status. Tele box 89 removed and sent back to tele monitor staff. Staff made aware of d/c. Monitor sent back to ICU via bullet system.
[2019-11-02 12:47] VITALS: BP 115/70
[2019-11-02 13:06] LABS: Magnesium 1.9 mg/dL (1.6-2.6); Phosphorus 2.8 mg/dL (2.5-4.90)
[2019-11-02 13:09] LABS: Pre Albumin 5.1 mg/dL (20.0-40.0)
--- NOTE | 2019-11-02 13:13 | NUR ---
Notified Manufacturing Helper PICC Line Notified Eveline about PICC order. Consents are signed and placed in chart. Labs updated. Eveline is aware and stated she would notify the environmental epidemiologist PICC RN.
--- NOTE | 2019-11-02 16:32 | NUR ---
Dr Mark Meza at Bedside MD to see pt. Discussed POC with pt and pending Radiology consult for intervention. No new orders at this time. Will continue to monitor.
[2019-11-02 17:00] VITALS: BP 116/73
--- NOTE | 2019-11-02 19:39 | NUR ---
Opening Shift Note Received report and assumed care of patient. Patient is awake and alert. No signs or symptoms of distress noted. Instructed patient on plan of care and to call for assistance as needed. Will continue to monitor.
[2019-11-02] MEDS ORDERED: PPN PER PHARMACY IV NR ×3 (20:00)
[2019-11-02 22:00] VITALS: BP 116/73
[2019-11-03] MEDS ORDERED: DEXTROSE (50%) 50ML SYRG IV SCH
[2019-11-03] MEDS ORDERED: ACCU-CHEK COMFORT CURVE STRIP VI SCH
[2019-11-03] MEDS ORDERED: InsuLIN REG 1unit/0.01ml Soln (100units/ml) SC SCH
[2019-11-03 05:53] LABS: BUN/Creatinine Ratio 12.9; Calcium 8.3 mg/dL (8.5-10.1); Magnesium 1.8 mg/dL (1.6-2.6); Potassium 3.5 mmol/L (3.5-5.1)
[2019-11-03 06:08] LABS: Phosphorus 2.5 mg/dL (2.5-4.90); Total Protein 6.1 g/dL (6.4-8.2)
[2019-11-03] MEDS: PIPERACILLIN-TAZOB 3.375GM 100 ML IV SCH ×4 (06:16→23:46)
[2019-11-03] MEDS: ACCU-CHEK COMFORT CURVE STRIP VI SCH ×4 (06:26→23:47)
[2019-11-03] MEDS: InsuLIN REG 1unit/0.01ml Soln (100units/ml) SC SCH ×4 (06:27→23:46)
--- NOTE | 2019-11-03 07:30 | NUR ---
Opening Shift Note RECEIVED REPORT FROM NOC RN. Assumed care of patient, awake and alert. PATIENT IS ON OXYGEN AT 2 LPM VIA NASAL CANNULA WITH no S/S of distress/SOB or pain. BED IN LOWEST, LOCKED POSITION WITH SIDERAILS UP x2 AND CALL LIGHT WITHIN REACH. Instructed on POC and to call for assist PRN, will continue to monitor for changes Q1hr and PRN.
[2019-11-03 09:00] VITALS: BP 127/75
[2019-11-03] MEDS: PANTOPRAZOLE 40 MG/10 ML VIAL INJ IV SCH (09:33)
[2019-11-03 13:00] VITALS: BP 132/78
--- NOTE | 2019-11-03 13:01 | NUR ---
DR. CASTANEDA AT BEDSIDE.
[2019-11-03] MEDS ORDERED: PHYTONADIONE (VIT K)10 MG/ML 1ML VIAL SUBCUT ONE (13:15)
[2019-11-03] MEDS: SOD CHL 0.9%/ KCL 40MEQ 1,000 ML IV SCH (15:25)
[2019-11-03 17:00] VITALS: BP 135/75
[2019-11-03] MEDS: Glucerna Carbsteady SHAKE Vanilla 8oz PO SCH (18:10)
--- NOTE | 2019-11-03 19:00 | NUR ---
OPENING NOTE Received report from day shift RN. Patient is A&O X's 4 with no s/s of distress and reports abdominal pain at a 4. Patient reports pain is tolerable and does not need any pain medication. Educated patient on POC and to use call light when in need of assistance. Patient verbalized understanding . Bed is in lowest/locked position with side rails up X's 2 and call light is within reach of patient. Will continue care.
[2019-11-03] MEDS ORDERED: PPN PER PHARMACY IV NR ×7 (20:00)
[2019-11-03 21:27] VITALS: BP 131/82
[2019-11-04] MEDS: SOD CHL 0.9%/ KCL 40MEQ 1,000 ML IV SCH ×2 (04:44→17:08)
[2019-11-04 05:00] VITALS: BP 125/73
[2019-11-04 05:18] LABS: Hematocrit 29.9 % (41.0-53.0); Mean Corpuscular Hemoglobin 28.1 pg (28.0-32.0); Mean Corpuscular Hgb Conc. 33.4 g/dL (32.0-36.0); Platelet Count (auto) 338 10^3/uL (140-450); Red Blood Cells 3.56 10^6/uL (4.5-5.90); Red Cell Distribution Width 17.2 % (11.8-14.3); White Blood Cell 7.5 10^3/uL (4.4-10.8)
[2019-11-04 05:40] LABS: INR 1.22 (0.9-1.15)
[2019-11-04 05:41] LABS: Albumin 1.9 g/dL (3.4-5.0); Calcium 8.1 mg/dL (8.5-10.1); Magnesium 1.8 mg/dL (1.6-2.6); Potassium 3.6 mmol/L (3.5-5.1)
[2019-11-04] MEDS: ACCU-CHEK COMFORT CURVE STRIP VI SCH ×4 (05:42→23:24)
[2019-11-04] MEDS: PIPERACILLIN-TAZOB 3.375GM 100 ML IV SCH ×4 (05:42→23:23)
[2019-11-04 05:45] LABS: Basophils % (manual) 0 (0.0-2.0); Blast Cells 0; Eosinophils % (manual) 0 (0-7); Metamyelocytes % 0; Myelocytes % 0; Promyelocytes % 0; Reactive Lymphocytes 0
[2019-11-04] MEDS: InsuLIN REG 1unit/0.01ml Soln (100units/ml) SC SCH ×4 (05:45→23:23)
[2019-11-04 05:57] LABS: BUN/Creatinine Ratio 11.1; Bilirubin, Total 7.1 mg/dL (0.2-1.0); Phosphorus 2.9 mg/dL (2.5-4.90); Total Protein 6.1 g/dL (6.4-8.2)
[2019-11-04 07:01] LABS: Band Neutrophils % (manual) 1; Lymphocytes % (manual) 23 (10.0-50.0); Monocytes % (manual) 6 (0-12)
--- NOTE | 2019-11-04 07:30 | NUR ---
Opening Shift Note RECEIVED REPORT FROM NOC RN. Assumed care of patient, awake and alert. PATIENT ON OXYGEN AT 2 LPM VIA NASAL CANNULA WITH no S/S of distress/SOB or pain. BED IN LOWEST, LOCKED POSITION WITH SIDERAILS UP x2 AND CALL LIGHT WITHIN REACH. Instructed on POC and to call for assist PRN, will continue to monitor for changes Q1hr and PRN.
[2019-11-04] MEDS: Glucerna Carbsteady SHAKE Vanilla 8oz PO SCH ×3 (08:00→17:35)
[2019-11-04 09:05] VITALS: BP 128/78
[2019-11-04] MEDS: PANTOPRAZOLE 40 MG/10 ML VIAL INJ IV SCH (09:42)
--- NOTE | 2019-11-04 12:40 | NUR ---
I spoke with Dr. Roberts regarding the order to transfer to higher level of care-patient needs EUS and drainage of pancreatic abcess-can not be done as an outpatient-patient continues to vomit. Faxed higher level of care order to [facility].
[2019-11-04 12:46] VITALS: BP 144/87
--- NOTE | 2019-11-04 14:38 | NUR ---
Nutrition Assessment Notes Please refer to link for full assessment notes. Est energy needs: 0298-6589 kcals (14-18 kcal/kgBW) Est protein needs: 51-63 gms/day (0.8-1.0 gm/kgAdjBW) Will continue to monitor and reassess prn. Addendum: 11/04/19 at [address] Amended: Links added.
--- NOTE | 2019-11-04 15:00 | NUR ---
I called [facility] center [phone] and spoke with Taina, provided her with [facility] authorization number [id number] provided by [facility] Life Skills Worker Claudia.
--- NOTE | 2019-11-04 15:11 | NUR ---
I called [facility] ([phone]) and spoke with Shaina, placed patient on will call pending transfer to [facility] auth number from [facility] is [id number]. I spoke with nurse Weiner and updated him on the status of the transfer.
[2019-11-04 17:00] VITALS: BP 122/76
--- NOTE | 2019-11-04 18:46 | NUR ---
PICC line placement Patient educated on need for PICC line placement. All risks and benefits explained and all questions and concerns addressed prior to procedure. Noted past medical history and allergies with no contraindications. INR and Plt counts within acceptable range. 5fr PICC line inserted via left basilic vein using [employer] US and Tip Location System. Sterile technique with maximum barrier precautions utilized. Blood return obtained from each of two lumens and each flushed easily with NS using proper technique. PICC secured with Stat-lock; biodisc and occlusive dressing applied. Stat portable chest x-ray obtained for PICC tip placement. *Baseline Arm Circumference 26cm. Internal length 46cm. External length 0cm. PICC lot #[id number]
--- NOTE | 2019-11-04 19:00 | NUR ---
OPENING NOTE Received report from day shift RN. Patient is A&O X's 4 with no s/s of distress and reports no pain. Educated patient on POC and to use call light when in need of assistance. Patient verbalized understanding. Bed is in lowest/locked position with side rails up X's 2 and call light is within reach of patient. Will continue care.
[2019-11-04] MEDS ORDERED: LIDOCAINE 1% (LOCAL ANESTH.) PF 5ml SDV ID ONE (19:30)
[2019-11-04] MEDS ORDERED: MORPHINE SULF INJ 2 MG/ML SYRINGE 1ML IV PRN (19:45)
[2019-11-04] MEDS ORDERED: PPN PER PHARMACY IV NR ×8 (20:00)
[2019-11-04] MEDS: SODIUM CHLOR 0.9% PF (SALINE LOCK) 10ML VIAL/SYR IV SCH (22:14)
[2019-11-04 22:20] VITALS: BP 149/86
[2019-11-04 22:21] VITALS: BP 126/68
[2019-11-05 05:06] VITALS: BP 132/80
[2019-11-05] MEDS: InsuLIN REG 1unit/0.01ml Soln (100units/ml) SC SCH ×2 (06:00→12:00)
[2019-11-05] MEDS: ACCU-CHEK COMFORT CURVE STRIP VI SCH ×2 (06:42→12:00)
[2019-11-05] MEDS: PIPERACILLIN-TAZOB 3.375GM 100 ML IV SCH (06:42)
[2019-11-05 06:55] LABS: Hematocrit 29.6 % (41.0-53.0); Hemoglobin 9.9 g/dL (13.5-17.5); Mean Corpuscular Hgb Conc. 33.5 g/dL (32.0-36.0); Mean Corpuscular Volume 83.6 fL (80.0-100.0); Platelet Count (auto) 347 10^3/uL (140-450); Red Blood Cells 3.54 10^6/uL (4.5-5.90); Red Cell Distribution Width 17.2 % (11.8-14.3); White Blood Cell 8.2 10^3/uL (4.4-10.8)
[2019-11-05] MEDS: SOD CHL 0.9%/ KCL 40MEQ 1,000 ML IV SCH (06:55)
[2019-11-05 07:12] LABS: Basophils % (manual) 0 (0.0-2.0); Blast Cells 0; Eosinophils % (manual) 0 (0-7); Myelocytes % 0; Promyelocytes % 0; Reactive Lymphocytes 0
[2019-11-05 07:27] LABS: Albumin 1.9 g/dL (3.4-5.0); Magnesium 2.1 mg/dL (1.6-2.6); Potassium 3.8 mmol/L (3.5-5.1)
[2019-11-05 07:43] LABS: BUN/Creatinine Ratio 12.3; Bilirubin, Total 8.2 mg/dL (0.2-1.0); Phosphorus 2.5 mg/dL (2.5-4.90); Total Protein 6.2 g/dL (6.4-8.2)
[2019-11-05 08:00] VITALS: BP 121/78
[2019-11-05] MEDS: Glucerna Carbsteady SHAKE Vanilla 8oz PO SCH ×2 (08:00→12:00)
[2019-11-05 08:02] LABS: Band Neutrophils % (manual) 4; Lymphocytes % (manual) 31 (10.0-50.0); Metamyelocytes % 1; Monocytes % (manual) 12 (0-12)
--- NOTE | 2019-11-05 08:20 | NUR ---
Opening Shift Note Assumed care of patient, awake and alert. No S/S of distress/SOB or pain. Instructed on POC and to call for assist PRN, will continue to monitor for changes Q1hr and PRN. Bed locked in lowest position with two side rails up and call light in reach.
[2019-11-05 08:38] VITALS: BP 121/78
--- NOTE | 2019-11-05 09:02 | NUR ---
I called the [facility] Transfer Center ([facility]) [phone] and spoke with Regulo regarding the need to transfer this patient to higher level of care. Provided him with contact information for Dr. Roberts. Faxed requested clinical information to [phone].
--- NOTE | 2019-11-05 09:02 | NUR ---
I called [facility] [phone] and spoke with Edwina, she said they were not able to get a hold of their GI doctor yesterday, she will try again.
--- NOTE | 2019-11-05 09:45 | NUR ---
I called the [facility] Transfer Center ([facility]) and spoke with Sima Michel, provided her with [facility] auth number [id number] and contact information for [facility] Tool Honing Machine Set Up Operator Claudia.
[2019-11-05] MEDS: PANTOPRAZOLE 40 MG/10 ML VIAL INJ IV SCH (09:52)
[2019-11-05] MEDS: SODIUM CHLOR 0.9% PF (SALINE LOCK) 10ML VIAL/SYR IV SCH (09:52)
--- NOTE | 2019-11-05 09:59 | NUR ---
Dawn to use PICC line Xray was completed last night. Per Dr Roberts, dawn to use PICC line. Camille BLUNT notified.
--- NOTE | 2019-11-05 10:35 | NUR ---
I called [facility] and spoke with Adelita, she said GI has accepted this patient-they are waiting to hear back from their field crew chief for the final okay on acceptance of this patient. I spoke with Dr. Roberts and let him know that I had also reached out to [facility] because when I spoke with [facility] earlier, they had not been able to get a hold of their MD.
--- NOTE | 2019-11-05 12:38 | NUR ---
I spoke with [facility] Transfer Center ([facility]) and was told that per their PRODUCTION WEIGHER, they are requiring that a COVID-19 test be done on every patient before accepting them for transfer, even if they don't meet criteria. I relayed this information to Dr. Roberts, he requested that I follow up with [facility]. I called the [facility] ([facility]) and spoke with Kristofer, he said they are not requiring that a COVID-19 test be done on a patient before accepting them for transfer unless they meet the criteria. I let Kristofer know that per Dr. Roberts, we would like to continue to work on transferring patient to them. I spoke with Dr. Roberts and let him know that MD from [facility] would be calling him.
[2019-11-05 12:55] VITALS: BP 127/82
[2019-11-05] MEDS ORDERED: metroNIDAZOLE 500MG/100ML 100 ML IV SCH (14:00)
--- NOTE | 2019-11-05 14:38 | NUR ---
I received a message from the [facility] ([facility])-they have accepted this patient, just waiting for an available bed.
--- NOTE | 2019-11-05 15:04 | NUR ---
Patient will be going to [facility] room 653B, nurse to call report to [phone]. Accepting MD is Dr. Tomas Turner. I called [facility] ([phone]) and spoke with Kael-apple picker time set for 1700-I relayed this information to nurse Obrien.
[2019-11-05 16:15] VITALS: BP 121/78
--- NOTE | 2019-11-05 16:25 | NUR ---
REPORT CALLED TO SILVIO BLNUT AT [facility]
[2019-11-05 16:56] VITALS: BP 130/86
--- NOTE | 2019-11-05 17:07 | NUR ---
Discharge instructions given as ordered. Encourage to follow up with PMD as instructed. All questions and concerns addressed. Patient verbalized understanding. Medication reconciliation form completed and copy given to patient. Home medications held in Pharmacy returned to patient, and no needed vaccines given. IV and PICC line left in place as patient is being transferred to acute facility [facility]. Telemetry unit returned to ICU. Patient taken to vehicle via gurney with all personal belongings, accompanied by staff and family member. No distress noted at time of departure.
[2019-11-05] MEDS ORDERED: TPN PER PHARMACY IV NR ×8 (20:00)
[2019-11-06] MEDS ORDERED: cefTRIAXone 1GM/50ML D5W 50 ML IV SCH (09:00)
== END 2019-11-05 17:00 | disposition short-term general hospital (02) | DRG 282 ==
LOC: ER 09:26 → TELE 09:27 → TELE-WESTW 13:20 → WEST WING 11-02 12:50
PROVIDERS: ADMIT Internal Medicine; ATTEND Internal Medicine
PROC: 02HV33Z Insertion of Infusion Device into Superior Vena Cava, Percutaneous Approach (ICD-10-PCS; principal; 2019-11-04)
DX: K85.91 Acute pancreatitis with uninfected necrosis, unspecified (principal); K83.1 Obstruction of bile duct; K72.90 Hepatic failure, unspecified without coma; E11.65 Type 2 diabetes mellitus with hyperglycemia; E44.1 Mild protein-calorie malnutrition; E87.1 Hypo-osmolality and hyponatremia; E87.6 Hypokalemia; E66.9 Obesity, unspecified; I10 Essential (primary) hypertension; N39.0 Urinary tract infection, site not specified; D64.9 Anemia, unspecified; E78.1 Pure hyperglyceridemia; K82.8 Other specified diseases of gallbladder; Z82.3 Family history of stroke; Z82.49 Family history of ischemic heart disease and other diseases of the circulatory system; Z86.73 Personal history of transient ischemic attack (TIA), and cerebral infarction without residual deficits; Z68.36 Body mass index [BMI] 36.0-36.9, adult
CPT/HCPCS: 36415; 36569; 71045; 74176; 74181; 76705; 80053; 80307; 81001; 82040; 82150; 82962; 83036; 83605; 83690; 83735; 84100; 84478; 84484; 85007; 85025; 85027; 85610; 85730; 87040; 87081; 93005; 99291; C9113; G0378; J1815; J2543; J3430; J3480; J3490; J7131

== ENCOUNTER 2020-02-04 20:22 | Emergency (ER) | payer MEDICAID ==
[~2020-02-04] VITALS: Ht 162.6 cm; Wt 78.0 kg
[~2020-02-04 20:22] MED LIST: ASPI-404 PO; GEMF600T7 PO; LISI40TA PO; PROC10TA2 PO
[2020-02-05 00:50] VITALS: BP 135/96
== END 2020-02-05 01:45 | disposition home or self-care (01) ==
LOC: ER 20:22
DX: Z48.00 Encounter for change or removal of nonsurgical wound dressing (principal)

== ENCOUNTER 2023-08-02 13:22 | Emergency (ER) | payer MEDICAID ==
[~2023-08-02] VITALS: Ht 162.6 cm; Wt 115.0 kg
[~2023-08-02 13:22] MED LIST changes: -ASPI-404 PO; +ASPI-543 PO; +GEMF-66 PO; -GEMF600T7 PO; -LISI40TA PO; +LISI40TA16 PO; -PROC10TA2 PO; +PROC10TA6 PO
[2023-08-02] MEDS ORDERED: ALBUAER3 IN (15:53)
[2023-08-02 16:01] VITALS: BP 115/70; PULSE 90; RESP 18; TEMP 98.3; O2SAT 95
== END 2023-08-02 16:08 | disposition home or self-care (01) ==
LOC: ER 13:22
DX: R05.9 Cough, unspecified (principal); R07.89 Other chest pain; I10 Essential (primary) hypertension; E11.9 Type 2 diabetes mellitus without complications; Z90.49 Acquired absence of other specified parts of digestive tract; Z79.82 Long term (current) use of aspirin; Z79.899 Other long term (current) drug therapy
CPT/HCPCS: 71046

== ENCOUNTER 2023-09-16 10:41 | Emergency (ER) | payer MEDICAID ==
[~2023-09-16] VITALS: Ht 162.6 cm; Wt 116.0 kg
[~2023-09-16 10:41] MED LIST changes: +ALBUAER3 IN
[2023-09-16 12:07] VITALS: BP 143/97; PULSE 95; RESP 18; TEMP 97.9; O2SAT 96
[2023-09-16] MEDS: methylPREDNISolone SOD SUCC 125 MG/2 ML VL IM ONE (12:07)
[2023-09-16] MEDS ORDERED: LIDO2SOL26 MT (12:50)
[2023-09-16] MEDS ORDERED: METH4PAK PO (12:50)
== END 2023-09-16 12:58 | disposition home or self-care (01) ==
LOC: ER 10:41
DX: R07.0 Pain in throat (principal); I10 Essential (primary) hypertension; E11.9 Type 2 diabetes mellitus without complications; T50.905A Adverse effect of unspecified drugs, medicaments and biological substances, initial encounter; Y92.9 Unspecified place or not applicable
CPT/HCPCS: 96372; 99283; J2930